=== PATIENT | female | born 1935 | race Caucasian/White ===

== ENCOUNTER 2016-11-07 14:05 | Emergency (ER) | payer MEDICARE ==
[2016-11-07 14:41] VITALS: BP 143/66
--- NOTE | 2016-11-07 16:04 | UC ---
Complaint Female HPI - HPI Summary HPI Summary: TWO DAYS OF BURNING WITH URINATION, NO FEVER, NO ABDOMINAL PAIN, NO BACK PAIN - History Of Current Complaint Chief Complaint: UCGU Stated Complaint: URINARY ISSUE Time Seen by Provider: 11/07/16 15:01 Hx Obtained From: Patient Onset/Duration: Gradual Onset, Lasting Days, Still Present Timing: Lasting Days Severity Initially: Mild Severity Currently: Mild Pain Intensity: 3 Pain Scale Used: 0-10 Numeric Character: Dull, Burning Aggravating Factor(s): Urination Associated Signs And Symptoms: Negative: Fever, Back Pain, Vaginal Bleeding/ Discharge, Vaginal Discharge, Nausea, Vomiting(# Of Episodes =) Related Hx: Similar Episode/Dx as: - SEVERAL YEARS AGO UTI - Allergies/Home Medications Allergies/Adverse Reactions: Allergies Allergy/AdvReac Type Severity Reaction Status Date / Time Morphine Allergy BLOOD Verified 08/15/16 16:32 PRESSURE DROPPED VERY LOW PMH/Surg Hx/FS Hx/Imm Hx Previously Healthy: Yes Endocrine History Of: Denies: Diabetes, Thyroid Disease Cardiovascular History Of: Reports: Hypertension - CONTROL WITH MEDS Denies: Cardiac Disorders, Pacemaker/ICD Respiratory History Of: Denies: COPD, Asthma GI/ History Of: Denies: Ulcer Psychological History Of: Reports: Anxiety - CONTROL WITH MEDS, Depression Cancer History Of: Denies: Breast Cancer - Surgical History Surgical History: Yes Surgery Procedure, Year, and Place: VAGINAL HYSTERECTOMY 1987; [facility] [place]. Left Knee Arthroscopy;. Cataract Surgery, [facility] [place]. 2012 & 2015 BILATERAL TOTAL KNEE REPLACEMENTS, [facility] [place]. 2010 BILATERAL CARPAL TUNNEL RELEASE, [facility] [place]. Gallbladder - Family History Known Family History: Negative: Renal Disease Family History: Father had pancreatic cancer. - Social History Occupation: Retired Lives: With Family Alcohol Use: Occasionally Substance Use Type: None Smoking Status (MU): Never Smoked Tobacco - Immunization History Most Recent Influenza Vaccination: July, Most Recent Tetanus Shot: 2012 Most Recent Pneumonia Vaccination: 10 yrs ago Review of Systems Constitutional: Negative Skin: Negative Eyes: Negative ENT: Negative Respiratory: Negative Cardiovascular: Negative Gastrointestinal: Negative Genitourinary: Dysuria, Hematuria, Frequency, Urgency Motor: Negative Neurovascular: Negative Musculoskeletal: Negative Neurological: Negative Psychological: Negative All Other Systems Reviewed And Are Negative: Yes Physical Exam Triage Information Reviewed: Yes Appearance: Well-Appearing, No Pain Distress, Well-Nourished Vital Signs: Initial Vital Signs Temp 98.1 F 11/07/16 14:38 Pulse 83 11/07/16 14:38 Resp 18 11/07/16 14:38 BP 143/66 11/07/16 14:38 Pulse Ox 98 11/07/16 14:38 Vital Signs Reviewed: Yes Eye Exam: Normal Eyes: Positive: Conjunctiva Clear ENT Exam: Normal ENT: Positive: Normal ENT inspection, Hearing grossly normal, Pharynx normal, TMs normal Dental Exam: Normal Neck exam: Normal Neck: Positive: Supple, Nontender Respiratory Exam: Normal Respiratory: Positive: Chest non-tender, Lungs clear, Normal breath sounds, No respiratory distress, No accessory muscle use Cardiovascular Exam: Normal Cardiovascular: Positive: RRR, No Murmur, Pulses Normal, Brisk Capillary Refill Abdominal Exam: Normal Abdomen Description: Positive: Nontender. Negative: CVA Tenderness (R), CVA Tenderness (L) Musculoskeletal Exam: Normal Neurological Exam: Normal Psychological Exam: Normal Psychological: Positive: Normal Response To Family Skin Exam: Normal Complaint Female Dx - Differential Dx/Diagnosis Differential Diagnosis/HQI/PQRI: Cervicitis, Sexually Transmitted Disease, Urinary Tract Infection Provider Diagnoses: URINARY TRACT INFECTION Discharge - Discharge Plan Condition: Stable Disposition: HOME Prescriptions: Phenazopyridine TAB* [Pyridium TAB*] 100 mg PO TID #15 tab Sulfamethox/Trimethoprim DS* [Bactrim DS 800/160 TAB*] 1 tab PO BID #10 tab Patient Education Materials: Urinary Tract Infection in Women (ED) Referrals: Ross Monte MD [Primary Care Provider] -
== END 2016-11-07 15:29 | disposition home or self-care (01) ==
LOC: UCEAST 14:05
DX: N39.0 Urinary tract infection, site not specified (principal); R31.9 Hematuria, unspecified; Z88.5 Allergy status to narcotic agent; Z96.653 Presence of artificial knee joint, bilateral; Z90.49 Acquired absence of other specified parts of digestive tract
CPT/HCPCS: 81002; 87077; 87086; 87186; 99212; G0463

== ENCOUNTER 2017-05-13 09:30 | Emergency (ER) | payer MEDICARE ==
[2017-05-13 10:02] LABS: Hematocrit 41 % (35-47); Hemoglobin 13.8 g/dl (12.0-16.0); Mean Corpuscular HGB Conc 34 g/dl (31-36); Mean Corpuscular Hemoglobin 30 pg (27-31); Mean Corpuscular Volume 89 fL (80-97); Mean Platelet Volume 10 um3 (7.4-10.4); Red Blood Count 4.55 10^6/ul (4.0-5.4); Red Cell Distribution Width 14 % (10.5-15); White Blood Count 7.8 10^3/ul (3.5-10.8)
[2017-05-13] MEDS ORDERED: NS 0.9% 1000 ML* 1,000 ML IV ONE (10:56)
[2017-05-13] MEDS ORDERED: Meclizine TAB* 12.5 MG PO ONE ×2 (10:57→12:01)
[2017-05-13] MEDS ORDERED: Ondansetron INJ* 2 MG/ML VIAL IV ONE (10:57)
[2017-05-13 11:18] LABS: TSH (Thyroid Stimulating Horm) 1.62 mcIU/mL (0.34-5.60)
[2017-05-13 11:24] LABS: Urine Bacteria Absent (Absent); Urine Bilirubin Negative (Negative); Urine Glucose Negative (Negative); Urine Nitrite Negative (Negative)
[2017-05-13 11:26] LABS: Potassium 3.8 mmol/L (3.5-5.0)
[2017-05-13 11:27] LABS: Albumin 4.2 g/dL (3.2-5.2); BUN/Creatinine Ratio 25.3 (8-20); Calcium 9.1 mg/dL (8.6-10.3); EGFR African American 84.9 (>60); Globulin 2.8 g/dL (2-4); Total Bilirubin 0.8 mg/dL (0.2-1.0)
[2017-05-13] MEDS ORDERED: LORazepam INJ* 2 MG/ML 1 ML VIAL IV PUSH ONE (12:02)
[2017-05-13 13:24] VITALS: BP 149/70
--- NOTE | 2017-05-13 14:46 | ED ---
Bc Rubio Alfonso, scribed for Hossein Mazariegos MD on 05/13/17 at 1046 . Dizziness - HPI Summary HPI Summary: This patient is an 81 year old female presenting to [facility] accompanied by daughter with a chief complaint of dizziness since 0600 this morning. The CC is described as room spinning. The patient rates the pain 0/10 in severity. Symptoms aggravated by position change. Symptoms alleviated by nothing. Patient reports nausea, vomiting, diaphoresis, generalized weakness, sinus congestion, and mild ear ringing. Patient denies headache, slurred speech, extremity numbness, extremity tingling, CP, SOB, abdominal pain, urinary symptoms, bowel symptoms, calf pain, and calf swelling. She reports having similar symptoms before related to her seasonal allergies, but the symptoms did not persisted as long. She denies recent illness. She denies taking daily aspirin. She denies PMHx of CAD, CVA, A-Fib, and DM. PMHx includes HTN, HLD, depression, and anxiety. - History Of Current Complaint Chief Complaint: EDSyncope Stated Complaint: VOMITING, DIZZY Time Seen by Provider: 05/13/17 10:25 Hx Obtained From: Patient Onset/Duration: Still Present Timing: Hours - 0600 this morning Severity Initially: Moderate Severity Currently: Moderate Character: Room Spinning Aggravating Factor(s): Position Change Alleviating Factor(s): Nothing Associated Signs And Symptoms: Positive: Other: - Nausea, vomiting, diaphoresis , generalized weakness, sinus congestion, and mild ear ringing. Patient denies headache, slurred speech, extremity numbness, extremity tingling, CP, SOB, abdominal pain, urinary symptoms, bowel symptoms, calf pain, and calf swelling. - Allergies/Home Medications Allergies/Adverse Reactions: Allergies Allergy/AdvReac Type Severity Reaction Status Date / Time Morphine Allergy BLOOD Verified 05/13/17 09:38 PRESSURE DROPPED VERY LOW PMH/Surg Hx/FS Hx/Imm Hx Endocrine/Hematology History: Denies: Hx Diabetes, Hx Sickle Cell Disease, Hx Thyroid Disease Cardiovascular History: Reports: Hx Hypercholesterolemia, Hx Hypertension - CONTROL WITH MEDS Denies: Hx Atrial Fibrillation, Hx Coronary Artery Disease, Hx Pacemaker/ICD , Other Cardiovascular Problems/Disorders Respiratory History: Reports: Hx Seasonal Allergies, Hx Sleep Apnea Denies: Hx Asthma, Hx Chronic Obstructive Pulmonary Disease (COPD), Other Respiratory Problems/Disorders GI History: Reports: Hx Diverticulosis, Hx Gastroesophageal Reflux Disease - CONTROL WITH MED, Hx Hiatal Hernia Denies: Hx Ulcer History: Denies: Other Problems/Disorders Musculoskeletal History: Reports: Hx Arthritis - GENERALIZED Denies: Other Musculoskeletal History Sensory History: Reports: Hx Cataracts - had sx, Hx Contacts or Glasses - GLASSES FOR READING, Other Sensory Impairments - Vertigo secondary to Eustachian Tube Dysfunction Denies: Hx Hearing Aid Opthamlomology History: Reports: Hx Cataracts - had sx, Hx Contacts or Glasses - GLASSES FOR READING, Other Sensory Impairments - Vertigo secondary to Eustachian Tube Dysfunction Neurological History: Reports: Other Neuro Impairments/Disorders - RESTLESS LEG SYNDROME Denies: Hx CVA Psychiatric History: Reports: Hx Anxiety - CONTROL WITH MEDS, Hx Depression Denies: Hx Panic Disorder - Cancer History Hx Chemotherapy: No Hx Radiation Therapy: No - Surgical History Surgery Procedure, Year, and Place: VAGINAL HYSTERECTOMY 1987; [facility] [place]. Left Knee Arthroscopy;. Cataract Surgery, [facility] [place]. 2012 & 2015 BILATERAL TOTAL KNEE REPLACEMENTS, [facility] [place]. 2009 BILATERAL CARPAL TUNNEL RELEASE, [facility] [place]. Gallbladder Hx Anesthesia Reactions: No Infectious Disease History: No Infectious Disease History: Denies: Hx Hepatitis, Hx Human Immunodeficiency Virus (HIV), History Other Infectious Disease, Traveled Outside the [place] in Last 30 Days - Family History Known Family History: Positive: Cardiac Disease Negative: Renal Disease Family History: Father had pancreatic cancer. - Social History Alcohol Use: Occasionally Substance Use Type: Reports: None Smoking Status (MU): Never Smoked Tobacco Review of Systems Positive: Skin Diaphoresis Positive: Other - sinus congestion, and mild ear ringing Negative: Chest Pain Negative: Shortness Of Breath Positive: Vomiting, Nausea, Other - Negative bowel symptoms.. Negative: Abdominal Pain Positive: no symptoms reported Positive: Other - Negative calf pain, and calf swelling Neurological: Other - Dizziness, generalized weakness; negative headache, slurred speech, extremity numbness, extremity tingling. All Other Systems Reviewed And Are Negative: Yes Physical Exam - Summary Physical Exam Summary: The patient is well-nourished in no acute distress and in no acute pain. The skin is warm and dry and skin color reflects adequate perfusion. Good skin turgor. HEENT: The head is normocephalic and atraumatic. The pupils are equal and reactive. EOMI. Horizontal nystagmus. The conjunctivae are clear and without drainage. Nares are patent and without drainage. No rhinorrhea. Mouth reveals dry mucous membranes and the throat is without erythema and exudate. The external ears are intact. The ear canals are patent and without drainage. The tympanic membranes are intact. No ear effusions. Neck is supple with full range of motion and non-tender. There are no carotid bruits. There is no neck vein distension. Respiratory: Chest is non-tender. Lungs are clear to auscultation and breath sounds are symmetrical and equal. When patient sat up to auscultate the lungs the symptoms were present. Cardiovascular: Heart is regular rate and rhythm. There is no murmur or rub auscultated. Pulses are symmetrical and equal. Abdomen: The abdomen is soft and non-tender. There are normal bowel sounds heard in all four quadrants and there is no organomegaly palpated. Musculoskeletal: There is no back pain noted. Extremities are non-tender with full range of motion. There is 2 second capillary refill. There is no peripheral edema or calf tenderness elicited. Neurological: Patient is alert and oriented to person, place and time. The patient has symmetrical motor strength in all four extremities. Cranial nerves 2 -12 are grossly intact. Deep tendon reflexes are symmetrical and equal in all four extremities. No facial droop. Psychiatric: The patient has an appropriate affect and does not exhibit any anxiety or depression. Triage Information Reviewed: Yes Vital Signs On Initial Exam: Initial Vitals Temp Pulse Resp BP Pulse Ox 96 F 67 18 187/89 99 05/13/17 09:38 05/13/17 09:38 05/13/17 09:38 05/13/17 09:38 05/13/17 09:38 Vital Signs Reviewed: Yes - Cortney Coma Scale Coma Scale Total: 15 Diagnostics - Vital Signs Vital Signs Temp Pulse Resp BP Pulse Ox 05/13/17 10:30 67 144/65 94 05/13/17 10:00 72 142/74 97 05/13/17 09:53 98 05/13/17 09:49 96 F 71 18 160/65 98 05/13/17 09:48 71 10 98 05/13/17 09:46 160/65 05/13/17 09:38 96 F 67 18 187/89 99 - Laboratory Lab Results: Lab Results 05/13/17 Range/Units 09:51 WBC 7.8 (3.5-10.8) 10^3/ul RBC 4.55 (4.0-5.4) 10^6/ul Hgb 13.8 (12.0-16.0) g/dl Hct 41 (35-47) % MCV 89 (80-97) fL MCH 30 (27-31) pg MCHC 34 (31-36) g/dl RDW 14 (10.5-15) % Plt Count 150 (150-450) 10^3/ul MPV 10 (7.4-10.4) um3 Neut % (Auto) 70.2 (38-83) % Lymph % (Auto) 21.9 L (25-47) % Eddy % (Auto) 6.0 (1-9) % Eos % (Auto) 1.4 (0-6) % Baso % (Auto) 0.5 (0-2) % Absolute Neuts (auto) 5.5 (1.5-7.7) 10^3/ul Absolute Lymphs (auto) 1.7 (1.0-4.8) 10^3/ul Absolute Monos (auto) 0.5 (0-0.8) 10^3/ul Absolute Eos (auto) 0.1 (0-0.6) 10^3/ul Absolute Basos (auto) 0 (0-0.2) 10^3/ul Absolute Nucleated RBC 0 10^3/ul Nucleated RBC % 0 Result Diagrams: 05/13/17 09:51 05/13/17 09:51 Lab Statement: Any lab studies that have been ordered have been reviewed, and results considered in the medical decision making process. - EKG 1008 Cardiac Rate: NL - BPM 68 EKG Rhythm: Sinus Rhythm EKG Interpretation: Left axis. No STEMI. Re-Evaluation - Re-Evaluation First Eval Re-Evaluation Time: 11:58 Comment: Patient reports she has a headache. Lab results reviewed with pt and daughter. Second Eval Re-Evaluation Time: 13:10 Change: Improved Comment: Pt reports she is feeling much better. Dizzy Course/Dx - Course Assessment/Plan: This patient is an 81 year old female presenting to [facility] accompanied by daughter with a chief complaint of dizziness since 0600 this morning. The CC is described as room spinning. The patient rates the pain 0/10 in severity. Symptoms aggravated by position change. Symptoms alleviated by nothing. Patient reports nausea, vomiting, diaphoresis, generalized weakness, sinus congestion, and mild ear ringing. Patient denies headache, slurred speech , extremity numbness, extremity tingling, CP, SOB, abdominal pain, urinary symptoms, bowel symptoms, calf pain, and calf swelling. She reports having similar symptoms before related to her seasonal allergies, but the symptoms did not persisted as long. She denies recent illness. She denies taking daily aspirin. She denies PMHx of CAD, CVA, A-Fib, and DM. PMHx includes HTN, HLD, depression, and anxiety. An EKG reveals NSR and left axis. In the ED course the patient was given Ativan, Meclizine, Zofran, and IV fluids. Patient will be discharged with prescription for Ativan and follow up from Dr. Starkey (PCP). The patient is agreeable with this plan. - Diagnoses Differential Diagnosis/HQI/PQRI: Coronary Artery Disease, CVA, Hypovolemia, Labyrinthitis, Metabolic Abnormality, Other - uti, dehydration Provider Diagnoses: Labyrinthitis, Vertigo Discharge - Discharge Plan Condition: Stable Disposition: HOME Prescriptions: LORazepam TAB(*) [Ativan 1 MG TAB (*)] 1 mg PO Q8H PRN #20 tab MDD 3 PRN Reason: dizziness Patient Education Materials: Labyrinthitis (ED), Vertigo (ED) Referrals: Alecia Starkey MD [Medical Doctor] - 3 Days The documentation as recorded by the Bc donovan Alfonso accurately reflects the service I personally performed and the decisions made by me, Hossein Mazariegos MD.
--- NOTE | 2017-05-17 15:29 | ED ---
Progress - Progress Note Progress Note: Pt seen for vertigo. U/A reveals no growth. No anbx initiated. No change in tx. Re-Evaluation - Re-Evaluation First Eval Re-Evaluation Time: 11:58 Comment: Patient reports she has a headache. Lab results reviewed with pt and daughter. Second Eval Re-Evaluation Time: 13:10 Change: Improved Comment: Pt reports she is feeling much better. Course/Dx - Diagnoses Provider Diagnoses: Labyrinthitis, Vertigo
== END 2017-05-13 13:26 | disposition home or self-care (01) ==
LOC: ED 09:30
DX: H83.09 Labyrinthitis, unspecified ear (principal); R42 Dizziness and giddiness
CPT/HCPCS: 36415; 80053; 81003; 81015; 83605; 83735; 84443; 84484; 85025; 87077; 87086; 93005; 96374; 96375; 99283; A9270-GY; J2060; J2405

== ENCOUNTER 2017-08-25 12:37 | Emergency (ER) | payer MEDICARE ==
[2017-08-25 13:07] VITALS: BP 122/66
--- NOTE | 2017-08-25 14:24 | UC ---
Carlos Rubio Gabriel, scribed for John Lopez MD on 08/25/17 at 1402 . Ear Complaint HPI - HPI Summary HPI Summary: This patient is a 81 year old F presenting to [facility] with a chief complaint of difficulty hearing on her left side beginning 3 days ago. The patient rates the pain 2/10 in severity. Patient reports fluid draining from ear (1 day ago) and tenderness. - History of Current Complaint Chief Complaint: UCEar Stated Complaint: LEFT EAR LEAKING Time Seen by Provider: 08/25/17 13:48 Hx Obtained From: Patient Onset/Duration: Lasting Days - 3, Still Present Severity Initially: Mild Severity Currently: Mild Pain Intensity: 2 Pain Scale Used: 0-10 Numeric Associated Signs/Symptoms: Positive: Discharge, Hearing Loss - Allergies/Home Medications Allergies/Adverse Reactions: Allergies Allergy/AdvReac Type Severity Reaction Status Date / Time Morphine Allergy BLOOD Verified 05/13/17 09:38 PRESSURE DROPPED VERY LOW PMH/Surg Hx/FS Hx/Imm Hx Previously Healthy: No - Surgical History Surgical History: Yes Surgery Procedure, Year, and Place: VAGINAL HYSTERECTOMY 1987; [facility] [place]. Left Knee Arthroscopy;. Cataract Surgery, [facility] [place]. 2012 & 2015 BILATERAL TOTAL KNEE REPLACEMENTS, [facility] [place]. 2009 BILATERAL CARPAL TUNNEL RELEASE, [facility] [place]. Gallbladder - Family History Known Family History: Positive: Cardiac Disease, Other - CVA's Negative: Renal Disease Family History: Father had pancreatic cancer. 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 Lives: With Family Alcohol Use: Occasionally Substance Use Type: None Smoking Status (MU): Never Smoked Tobacco - Immunization History Most Recent Influenza Vaccination: July, Most Recent Tetanus Shot: 2012 Most Recent Pneumonia Vaccination: 10 yrs ago Review of Systems Constitutional: Negative - fever ENT: Ear Ache, Other - ear discharge and ear tenderness in left ear All Other Systems Reviewed And Are Negative: Yes Physical Exam Triage Information Reviewed: Yes Appearance: Well-Appearing, No Pain Distress Vital Signs: Initial Vital Signs Temp 98.3 F 08/25/17 13:02 Pulse 78 08/25/17 13:02 Resp 18 08/25/17 13:02 BP 122/66 08/25/17 13:02 Pulse Ox 96 08/25/17 13:02 Vital Signs Reviewed: Yes Eyes: Positive: Conjunctiva Clear ENT: Positive: Normal ENT inspection, Pharynx normal, TM dull - left, TM red - left, Other - left external canal inferiorly with erythema and some exudate.. Negative: Nasal congestion, Muffled voice, Hoarse voice Neck exam: Normal Neck: Positive: Nontender, No Lymphadenopathy Respiratory: Positive: Lungs clear, Normal breath sounds Cardiovascular: Positive: RRR, No Murmur Abdomen Description: Positive: Nontender Musculoskeletal: Positive: ROM Intact Neurological: Positive: Alert, Muscle Tone Normal Psychological: Positive: Normal Response To Family Skin Exam: Normal Ear Complaint Course/Dx - Course Course Of Treatment: 81 yr old with left OM and Otitis externa Plan augmentin and cortisporin otic suspension fu with PMD - Differential Dx/Diagnosis Provider Diagnoses: otitis externa. otitis media Discharge - Discharge Plan Condition: Good Disposition: HOME Prescriptions: Amoxicillin/Clavulanate TAB* [Augmentin TAB 875*] 875 mg PO BID #20 tab Neomyc/Polym/HC 1% OTIC SUSP* [Cortisporin Otic Susp 1%*] 4 drop LEFT EAR QID # 1 btl Patient Education Materials: Otitis Externa (ED), Otitis Media (ED) Referrals: Ross Monte MD [Primary Care Provider] - The documentation as recorded by the Carlos donovan Gabriel accurately reflects the service I personally performed and the decisions made by , John Lopez MD.
== END 2017-08-25 14:20 | disposition home or self-care (01) ==
LOC: UCEAST 12:37
DX: H60.92 Unspecified otitis externa, left ear (principal); H66.92 Otitis media, unspecified, left ear; Z88.5 Allergy status to narcotic agent
CPT/HCPCS: 99212; G0463

== ENCOUNTER 2018-01-02 11:27 | Emergency (ER) | payer MEDICARE ==
[2018-01-02 11:40] VITALS: BP 192/94
--- NOTE | 2018-01-02 12:25 | UC ---
Jonathan Rubio Thomas, scribed for John Gomez MD on 01/02/18 at 1149 . Abdominal Pain Female HPI - HPI Summary HPI Summary: The patient is an 82 year old female who presents to urgent care complaining of RUQ and LUQ abdominal pain. It is associated with nausea and vomiting. The pain is rated 8-9/10. The pain does not radiate. She has not been able to eat because of nausea and vomiting. She took two ciprofloxacin pills last night thinking that she had diverticulitis, but her symptoms worsened. - History of Current Complaint Chief Complaint: UCAbdominalPain Stated Complaint: ABD PAIN Hx Obtained From: Patient Onset/Duration: Lasting Days - 1, Still Present, Worse Since - this AM Timing: Constant Severity Currently: Severe Pain Intensity: 8 Pain Scale Used: 0-10 Numeric Location: Discrete At: RUQ, Discrete At: LUQ Radiates: No Aggravating Factor(s): Nothing Alleviating Factor(s): Nothing Associated Signs and Symptoms: Positive: Nausea, Vomiting. Negative: Fever Allergies/Adverse Reactions: Allergies Allergy/AdvReac Type Severity Reaction Status Date / Time No Known Allergies Allergy Verified 01/02/18 11:41 Home Medications: Home Medications Ciprofloxacin TAB* [Cipro 500 MG TAB*] 500 mg PO BID 01/02/18 [History Confirmed 01/02/18] PARoxetine HCL TAB* [Paxil TAB*] 20 mg PO DAILY 01/02/18 [History Confirmed ] Pantoprazole TAB (NF) [Protonix TAB (NF)] 20 mg PO DAILY 01/02/18 [History Confirmed 01/02/18] Simvastatin [Zocor] 40 mg PO DAILY 01/02/18 [History Confirmed 01/02/18] PMH/Surg Hx/FS Hx/Imm Hx Previously Healthy: No - HTN, GERD, Diverticulitis - Surgical History Surgical History: Yes Surgery Procedure, Year, and Place: cholecystectomy, bilat. knee replacemants, cataracts, carpal tunnel - Family History Known Family History: Positive: Cardiac Disease, Other - CVAs Negative: Renal Disease Family History: Father had pancreatic cancer. - Social History Alcohol Use: Rare Substance Use Type: None Smoking Status (MU): Never Smoked Tobacco - Immunization History Most Recent Influenza Vaccination: July, Most Recent Tetanus Shot: 2012 Most Recent Pneumonia Vaccination: 10 yrs ago Review of Systems Constitutional: Negative - fever Gastrointestinal: Abdominal Pain, Vomiting, Nausea Is Patient Immunocompromised?: No All Other Systems Reviewed And Are Negative: Yes Physical Exam - Summary Physical Exam Summary: VITAL SIGNS: Reviewed. GENERAL: Patient is an elderly female who is lying comfortable in the stretcher. Patient is not in any acute respiratory distress. HEAD AND FACE: Normocephalic EYES: PERRLA, EOMI x 2. EARS: Hearing grossly intact. MOUTH: Oropharynx within normal limits. NECK: Supple, trachea is midline, no adenopathy, no JVD, no carotid bruit. CHEST: Symmetric, no tenderness at palpation LUNGS: Clear to auscultation bilaterally. No wheezing or crackles. CVS: Regular rate and rhythm, S1 and S2 present, no murmurs or gallops appreciated. ABDOMEN: Soft. She has diffuse abdominal tenderness, worse in the RUQ, LUQ, and periumbilical area. Bowel sounds are normal. No abdominal abnormal pulsations. EXTREMITIES: Full ROM in all major joints, no edema, no cyanosis or clubbing. NEURO: Alert and oriented x 3. No acute neurological deficits. Speech is normal and follows commands. SKIN: Dry and warm Triage Information Reviewed: Yes Vital Signs: Initial Vital Signs Temp 98.2 F 01/02/18 11:34 Pulse 91 01/02/18 11:34 Resp 16 01/02/18 11:34 BP 192/94 01/02/18 11:34 Pulse Ox 99 01/02/18 11:34 Vital Signs Reviewed: Yes Abd Pain Female Course/Dx - Course Course Of Treatment: The patient is an 82 year old female who presents to urgent care complaining of RUQ and LUQ abdominal pain. It is associated with nausea and vomiting. The pain is rated 8-9/10. The pain does not radiate. She has not been able to eat because of nausea and vomiting. She took two ciprofloxacin pills last night thinking that she had diverticulitis, but her symptoms worsened. Now she is with worse pain and having nausea and vomiting. She has diffuse abdominal tenderness, worse in the RUQ, LUQ, and periumbilical area. Patient needs further w/u in the ED. I will send the patient to the emergency department for further workup and management. I offered the patient an ambulance, but she declined the ambulance. - Differential Dx/Diagnosis Provider Diagnoses: Abdominal pain, Nausea and vomiting - Physician Notification/Consults Discussed Care of Patient With: Su Catherine Time Discussed With Above Provider: 12:00 Instructed by Provider To: Transfer - I discussed the case with Su RICE , and she is aware of the incoming patient to [facility] ED. Discharge - Sign-Out/Discharge Documenting (check all that apply): Discharge - The patient is discharged from urgent care and instructed to go immediately to [facility] ED. - Discharge Plan Condition: Stable Disposition: [facility] Discharge Disposition Comment: Discharged from urgent care, instructed to go to [facility] ED immediately. Patient Education Materials: Abdominal Pain (ED) Referrals: Alecia Starkey MD [Primary Care Provider] - Additional Instructions: Patient discharge to the ED for further assessment. Declined ambulance. The documentation as recorded by the Jonathan donovan Thomas accurately reflects the service I personally performed and the decisions made by Jason muse Walter, MD.
== END 2018-01-02 11:59 | disposition short-term general hospital (02) ==
LOC: UCEAST 11:27
DX: R10.11 Right upper quadrant pain (principal); R10.12 Left upper quadrant pain; R11.2 Nausea with vomiting, unspecified; I10 Essential (primary) hypertension; K21.9 Gastro-esophageal reflux disease without esophagitis; K57.92 Diverticulitis of intestine, part unspecified, without perforation or abscess without bleeding; Z96.653 Presence of artificial knee joint, bilateral
CPT/HCPCS: 99212; G0463

== ENCOUNTER 2018-01-02 12:18 | Inpatient (IN) | payer MEDICARE ==
[2018-01-02] MEDS ORDERED: NS 0.9% 1000 ML* 1,000 ML IV ONE (12:37)
[2018-01-02 13:10] LABS: ABS Basophils 0 10^3/ul (0-0.2); ABS Eosinophils 0 10^3/ul (0-0.6); ABS Lymphocytes 1.3 10^3/ul (1.0-4.8); ABS Nucleated RBC 0 10^3/ul; Eosinophil % 0 % (0-6); Hematocrit 44 % (35-47); Hemoglobin 14.6 g/dl (12.0-16.0); Mean Corpuscular HGB Conc 33 g/dl (31-36); Mean Corpuscular Hemoglobin 30 pg (27-31); Mean Corpuscular Volume 89 fL (80-97); Mean Platelet Volume 9.6 um3 (7.4-10.4); Nucleated Red Blood Cells % 0; Platelet Count 176 10^3/ul (150-450); Red Blood Count 4.92 10^6/ul (4.0-5.4); Red Cell Distribution Width 14 % (10.5-15); White Blood Count 14.4 10^3/ul (3.5-10.8)
[2018-01-02 13:28] LABS: EGFR Non-African American 58.4 (>60)
[2018-01-02 13:35] LABS: INR 1.01 (0.77-1.02)
[2018-01-02] MEDS ORDERED: Ondansetron INJ* 2 MG/ML VIAL IV ONE (13:49)
[2018-01-02] MEDS ORDERED: Morphine VIAL* 4 MG/ML VIAL (1 ml vial) IV ONE (13:49)
[2018-01-02 14:06] LABS: Urine Appearance Clear; Urine Blood Negative (Negative); Urine Color Yellow; Urine Ketones Trace (Negative); Urine Protein Negative (Negative); Urine Specific Gravity 1.021 (1.010-1.030); Urine Urobilinogen Negative (Negative)
[2018-01-02] MEDS ORDERED: Iodixanol* (CONTRAST) 320 MG/ML 100 ML SDV IV ONE (15:13)
--- NOTE | 2018-01-02 15:47 | RAD ---
INDICATION: Right lower quadrant pain. Left upper quadrant pain. Diverticulitis. COMPARISON: CT abdomen pelvis August 03, 2016 TECHNIQUE: Axial source images were obtained from the hemidiaphragms to the symphysis pubis following administration of oral and intravenous contrast. 100 mL Visipaque 320 was utilized. Coronal and sagittal reconstructed images were acquired. Lung bases: The lung bases are clear. Liver: The liver is normal in size. There are no masses. There is no ductal dilatation. Gallbladder: Cholecystectomy. Spleen: The spleen is normal in size. There are no masses. Pancreas: There is no focal pancreatic mass or ductal dilatation. There are several small calcifications involving CAD Adrenal glands: There is no evidence of adrenal mass. Kidneys: The kidneys are normal in size and position. There are prompt nephrograms and there is prompt excretion bilaterally. There are no renal parenchymal masses. There is no evidence of nephrolithiasis. Adenopathy: There is no evidence of adenopathy by size criteria. Fluid collections: There is a small amount of peripancreatic stranding. Vessels:There are atherosclerotic changes involving the aorta and iliac vessels. There is no focal aneurysm. The IVC appears normal. GI tract: There is a small to moderate-sized hiatal hernia. The upper GI tract is otherwise unremarkable. There are moderate diverticula of the sigmoid and descending colon but no CT findings specific for acute diverticulitis. There are no findings of obstruction or perforation. Pelvic organs: Atrophic uterus. No adnexal mass Bladder: There are no bladder masses. Abdominal and pelvic soft tissues: Tiny periumbilical hernia containing fat. Osseous structures: Spondylitic change of the thoracolumbar spine with a grade 1-2 anterolisthesis of L4 and L4 on L5. Other: None IMPRESSION: 1. Interval cholecystectomy. 2. Calcifications in the pancreatic head consistent with chronic pancreatitis. There is now small amount of peripancreatic stranding which suggests acute pancreatitis. Suggest correlation with serum lipase. 3. Small to moderate hiatal hernia. 4. Moderate diverticula. No CT evidence of acute diverticulitis.
[2018-01-02] MEDS ORDERED: Fluticasone NASAL SPRAY 50MCG* 16 gm SPRAY BTL BOTH NARES PRN (16:26)
[2018-01-02] MEDS ORDERED: Morphine VIAL* 4 MG/ML VIAL (1 ml vial) IV PRN (16:27)
[2018-01-02] MEDS ORDERED: Acetaminophen TAB* 325 MG PO PRN (16:27)
[2018-01-02] MEDS ORDERED: Magnesium Sulfate 2 GM IV* 2 GM/50 ML BAG IVPB ONE (17:00)
[2018-01-02] MEDS ORDERED: NS 0.9% w/ 20 Meq KCL 1000 ML* 1,000 ML IV SCH (17:00)
[2018-01-02] MEDS: Ondansetron INJ* 2 MG/ML VIAL IV PRN (17:13)
[2018-01-02] MEDS: Lisinopril TAB* 10 MG PO SCH (18:02)
--- NOTE | 2018-01-02 18:52 | ED ---
Eddie Rubio Julia, scribed for Yoli Quinones MD on 01/02/18 at 1254 . Abdominal Pain/Female - HPI Summary HPI Summary: This patient is a 82 year old F presenting to [facility] from with a chief complaint of RUQ abdominal pain with shaking since 2100 last night. She states current pain is more diffuse. Patient reports headache and one bout of vomiting at . Patient denies current nausea, fever, CP, and SOB. The patient rates the pain 7/10 in severity. Symptoms unchanged by belching and flatulence. She took 2x 500mg Ciprofloxacin last night and one 500mg Cipro this morning with no relief, thinking it might be diverticulitis. Pt states her PCP has given her this Rx to use for possible diverticulitis when she travels, so she tried it last pm. PMHx includes frequent diverticulitis and HTN. She states that she did not have her regular Lisinopril today. Medication list reviewed. Pt refuses nausea meds but requests pain meds. Pt states her father with pancreatic CA. Pt has seen Dr. Montana from GI in the past. - History of Current Complaint Chief Complaint: EDAbdPain Stated Complaint: ABD PAIN-SENT FROM Time Seen by Provider: 01/02/18 12:35 Hx Obtained From: Patient Onset/Duration: Sudden Onset, Lasting Hours, Still Present Timing: Constant Severity Initially: Moderate Severity Currently: Moderate Pain Intensity: 7 Pain Scale Used: 0-10 Numeric Location: Diffuse, Discrete At: RUQ, Discrete At: LUQ Radiates: No Character: Sharp Aggravating Factor(s): Nothing Alleviating Factor(s): Nothing Associated Signs and Symptoms: Positive: Vomiting, Other: - headache. Negative : Fever, Chest Pain, Urinary Symptoms, Nausea Allergies/Adverse Reactions: Allergies Allergy/AdvReac Type Severity Reaction Status Date / Time No Known Allergies Allergy Verified 01/02/18 11:41 Home Medications: Home Medications Fexofenadine (NF) [Barb 180 (NF)] 180 mg PO DAILY PRN 01/02/18 [History Confirmed 01/02/18] Simvastatin (NF) [Zocor (NF)] 40 mg PO DAILY 01/02/18 [History Confirmed ] PMH/Surg Hx/FS Hx/Imm Hx Previously Healthy: No Endocrine/Hematology History: Denies: Hx Diabetes, Hx Sickle Cell Disease, Hx Thyroid Disease Cardiovascular History: Reports: Hx Hypercholesterolemia, Hx Hypertension Denies: Hx Atrial Fibrillation, Hx Coronary Artery Disease, Hx Pacemaker/ICD , Other Cardiovascular Problems/Disorders Respiratory History: Reports: Hx Seasonal Allergies, Hx Sleep Apnea Denies: Hx Asthma, Hx Chronic Obstructive Pulmonary Disease (COPD), Other Respiratory Problems/Disorders GI History: Reports: Hx Diverticulosis, Hx Gastroesophageal Reflux Disease, Hx Hiatal Hernia, Other GI Disorders - pancreatitis Denies: Hx Ulcer History: Denies: Other Problems/Disorders Musculoskeletal History: Reports: Hx Arthritis - GENERALIZED Denies: Hx Osteoporosis, Other Musculoskeletal History Sensory History: Reports: Hx Cataracts - had sx, Hx Contacts or Glasses - GLASSES FOR READING, Other Sensory Impairments - Vertigo secondary to Eustachian Tube Dysfunction Denies: Hx Hearing Aid Opthamlomology History: Reports: Hx Cataracts - had sx, Hx Contacts or Glasses - GLASSES FOR READING, Other Sensory Impairments - Vertigo secondary to Eustachian Tube Dysfunction Neurological History: Reports: Other Neuro Impairments/Disorders - RESTLESS LEG SYNDROME Denies: Hx CVA Psychiatric History: Reports: Hx Anxiety, Hx Depression Denies: Hx Panic Disorder - Cancer History Hx Chemotherapy: No Hx Radiation Therapy: No - Surgical History Surgery Procedure, Year, and Place: cholecystectomy, bilat. knee replacemants, cataracts, carpal tunnel Hx Anesthesia Reactions: No Infectious Disease History: No Infectious Disease History: Denies: Hx Hepatitis, Hx Human Immunodeficiency Virus (HIV), History Other Infectious Disease, Traveled Outside the [place] in Last 30 Days - Family History Known Family History: Positive: Cardiac Disease, Other - CVA's Negative: Renal Disease Family History: Father had pancreatic cancer. - Social History Alcohol Use: Rare Substance Use Type: Reports: None Smoking Status (MU): Never Smoked Tobacco Review of Systems Negative: Fever Negative: Chest Pain Negative: Shortness Of Breath Positive: Abdominal Pain, Vomiting. Negative: Nausea Positive: no symptoms reported Skin: Negative Positive: Headache Psychological: Normal All Other Systems Reviewed And Are Negative: Yes Physical Exam - Summary Physical Exam Summary: Appearance: Ill-appearing, mild pain distress, Well-nourished Skin: Warm, color reflects adequate perfusion Head: Normal Head/Face inspection Eyes: Conjunctiva clear ENT: Normal inspection Neck: Supple, no nodes, no JVD. Respiratory: Lungs clear, Normal breath sounds, no respiratory distress Cardio: Regular rhythm, tachycardic, No murmur, pulses normal, brisk capillary refill, Hypertensive at 161/81 Abdomen: soft, diffusely tender, no masses, no guarding, no rebound Bowel sounds: present Musculoskeletal: Strength Intact/ ROM intact. No calf tenderness. No edema. Psychological: Normal Neuro: Alert, muscle tone normal, no focal deficit Triage Information Reviewed: Yes Vital Signs On Initial Exam: Initial Vitals Temp Pulse Resp BP Pulse Ox 98.3 F 103 20 179/79 99 01/02/18 12:20 01/02/18 12:20 01/02/18 12:20 01/02/18 12:20 01/02/18 12:20 Vital Signs Reviewed: Yes Diagnostics - Vital Signs Vital Signs Temp Pulse Resp BP Pulse Ox 01/02/18 12:20 98.3 F 103 20 179/79 99 - Laboratory Lab Results: Lab Results 01/02/18 01/02/18 01/02/18 Range/Units 12:58 12:58 12:58 WBC (3.5-10.8) 10^3/ul RBC (4.0-5.4) 10^6/ul Hgb (12.0-16.0) g/dl Hct (35-47) % MCV (80-97) fL MCH (27-31) pg MCHC (31-36) g/dl RDW (10.5-15) % Plt Count (150-450) 10^3/ul MPV (7.4-10.4) um3 Neut % (Auto) (38-83) % Lymph % (Auto) (25-47) % Sac % (Auto) (0-7) % Eos % (Auto) (0-6) % Baso % (Auto) (0-2) % Absolute Neuts (auto) (1.5-7.7) 10^3/ul Absolute Lymphs (auto) (1.0-4.8) 10^3/ul Absolute Monos (auto) (0-0.8) 10^3/ul Absolute Eos (auto) (0-0.6) 10^3/ul Absolute Basos (auto) (0-0.2) 10^3/ul Absolute Nucleated RBC 10^3/ul Nucleated RBC % INR (Anticoag Therapy) 1.01 (0.77-1.02) APTT 31.5 (26.0-36.3) seconds Sodium 137 L (139-145) mmol/L Potassium 3.8 (3.5-5.0) mmol/L Chloride 103 (101-111) mmol/L Carbon Dioxide 24 (22-32) mmol/L Anion Gap 10 (2-11) mmol/L BUN 21 (6-24) mg/dL Creatinine 0.92 (0.51-0.95) mg/dL Est GFR ( Amer) 75.2 (>60) Est GFR (Non-Af Amer) 58.4 (>60) BUN/Creatinine Ratio 22.8 H (8-20) Glucose 130 H (70-100) mg/dL Lactic Acid (0.5-2.0) mmol/L Calcium 9.3 (8.6-10.3) mg/dL Magnesium 1.8 L (1.9-2.7) mg/dL Total Bilirubin 0.80 (0.2-1.0) mg/dL AST 21 (13-39) U/L ALT 19 (7-52) U/L Alkaline Phosphatase 81 (34-104) U/L Total Creatine Kinase 138 (10-223) U/L Troponin I 0.00 (<0.04) ng/mL C-Reactive Protein 18.63 H (< 5.00) mg/L B-Natriuretic Peptide 82 ( - 100) pg/mL Total Protein 7.4 (6.4-8.9) g/dL Albumin 4.4 (3.2-5.2) g/dL Globulin 3.0 (2-4) g/dL Albumin/Globulin Ratio 1.5 (1-3) Amylase 191 H (29-103) U/L Lipase 951 H (11.0-82.0) U/L Urine Color Urine Appearance Urine pH (5-9) Ur Specific Man (1.010-1.030) Urine Protein (Negative) Urine Ketones (Negative) Urine Blood (Negative) Urine Nitrate (Negative) Urine Bilirubin (Negative) Urine Urobilinogen (Negative) Ur Leukocyte Esterase (Negative) Urine Glucose (Negative) 01/02/18 01/02/18 01/02/18 Range/Units 12:58 12:58 13:49 WBC 14.4 H (3.5-10.8) 10^3/ul RBC 4.92 (4.0-5.4) 10^6/ul Hgb 14.6 (12.0-16.0) g/dl Hct 44 (35-47) % MCV 89 (80-97) fL MCH 30 (27-31) pg MCHC 33 (31-36) g/dl RDW 14 (10.5-15) % Plt Count 176 (150-450) 10^3/ul MPV 9.6 (7.4-10.4) um3 Neut % (Auto) 83.8 H (38-83) % Lymph % (Auto) 9.0 L (25-47) % Sac % (Auto) 6.9 (0-7) % Eos % (Auto) 0 (0-6) % Baso % (Auto) 0.3 (0-2) % Absolute Neuts (auto) 12.0 H (1.5-7.7) 10^3/ul Absolute Lymphs (auto) 1.3 (1.0-4.8) 10^3/ul Absolute Monos (auto) 1.0 H (0-0.8) 10^3/ul Absolute Eos (auto) 0 (0-0.6) 10^3/ul Absolute Basos (auto) 0 (0-0.2) 10^3/ul Absolute Nucleated RBC 0 10^3/ul Nucleated RBC % 0 INR (Anticoag Therapy) (0.77-1.02) APTT (26.0-36.3) seconds Sodium (139-145) mmol/L Potassium (3.5-5.0) mmol/L Chloride (101-111) mmol/L Carbon Dioxide (22-32) mmol/L Anion Gap (2-11) mmol/L BUN (6-24) mg/dL Creatinine (0.51-0.95) mg/dL Est GFR ( Amer) (>60) Est GFR (Non-Af Amer) (>60) BUN/Creatinine Ratio (8-20) Glucose (70-100) mg/dL Lactic Acid 1.4 (0.5-2.0) mmol/L Calcium (8.6-10.3) mg/dL Magnesium (1.9-2.7) mg/dL Total Bilirubin (0.2-1.0) mg/dL AST (13-39) U/L ALT (7-52) U/L Alkaline Phosphatase (34-104) U/L Total Creatine Kinase (10-223) U/L Troponin I (<0.04) ng/mL C-Reactive Protein (< 5.00) mg/L B-Natriuretic Peptide ( - 100) pg/mL Total Protein (6.4-8.9) g/dL Albumin (3.2-5.2) g/dL Globulin (2-4) g/dL Albumin/Globulin Ratio (1-3) Amylase (29-103) U/L Lipase (11.0-82.0) U/L Urine Color Yellow Urine Appearance Clear Urine pH 6.0 (5-9) Ur Specific Man 1.021 (1.010-1.030) Urine Protein Negative (Negative) Urine Ketones Trace A (Negative) Urine Blood Negative (Negative) Urine Nitrate Negative (Negative) Urine Bilirubin Negative (Negative) Urine Urobilinogen Negative (Negative) Ur Leukocyte Esterase Negative (Negative) Urine Glucose Negative (Negative) Result Diagrams: 01/02/18 12:58 01/02/18 12:58 Lab Statement: Any lab studies that have been ordered have been reviewed, and results considered in the medical decision making process. - CT A/P CT Interpretation Completed By: Radiologist - 1. Interval cholecystectomy. 2. Calcifications in the pancreatic head consistent with chronic pancreatitis. There is now small amount of peripancreatic stranding which suggests acute pancreatitis. Suggest correlation with serum lipase. 3. Small to moderate hiatal hernia. ED Physician has reviewed this report. - EKG 1244 Cardiac Rate: NL EKG Rhythm: Sinus Rhythm - at [address] Segment: Non-Specific Ectopy: None EKG Interpretation: nml AVIVCT, nml QTc, left axis (-26) EKG Comparison: No Significant Change - 05/13/17 Re-Evaluation - Re-Evaluation 1 Re-Evaluation Time: 15:15 Change: Improved - Pt states pain is controlled. Informed patient that she likely has pancreatitis. She states she rarely drinks etoh. She has a hx of pancreatitis and is seen by Dr. Montana Abdominal Pain Fem Course/Dx - Course Course Of Treatment: Pt presents from UC with diffuse abdominal pain, primarily at the RUQ. PMHx of pancreatis and diverticulitis. Lab results reveal and elevated amylase and lipase. A CT A/P with oral and IV contrast reveals chronic pancreatitis and a small hiatal hernia. Pt is given IV fluids, Zofran, and morphine IV. Pt has been seen by Dr. Montana for previous pancreatitis and recommends admission and will see the patient in the am, sooner if needed. Dr. Dumont agrees to admit. - Diagnoses Differential Diagnosis: Positive: Appendicitis, Constipation, Diverticulitis, Pancreatitis, Urinary Tract Infection Provider Diagnoses: Acute pancreatitis Discharge - Sign-Out/Discharge Documenting (check all that apply): Discharge - admit - Discharge Plan Condition: Stable Disposition: ADMITTED TO [facility] - Billing Disposition and Condition Condition: STABLE [place] [facility] [place] Consult: At 15:30, Dr. Montana, recommends admission and agrees to see pt in the am, sooner if needed. Reviews CT and lab findings with me, and based on the report given by me, states MRCP not needed at this time. At 15:33, Dr. Dumont, agrees to admit. The documentation as recorded by the Eddie donovan Julia accurately reflects the service I personally performed and the decisions made by me, Yoli Quinones MD.
--- NOTE | 2018-01-02 18:54 | HP ---
CC: Dr. Starkey; Dr. Montana HISTORY AND PHYSICAL: DATE OF ADMISSION: 01/02/18 TIME OF EVALUATION: 4:15 p.m. PRIMARY CARE PROVIDER: Dr. Starkey. CONSULTING DERMATOLOGY TECHNICIAN: Dr. Montana. CHIEF COMPLAINT: Abdominal pain. HISTORY OF PRESENT ILLNESS: Ms. Barnes is an 82-year-old lady with a past medical history of hypert ension, hyperlipidemia, GERD, seasonal allergies, sleep apnea, obesity, status post cholecystectomy t hat presents to the emergency room with complaints of abdominal pain. In July 2016, the patient was admitted with abdominal pain and at that point, she was found to rizo ve acalculous cholecystitis with elevation of transaminases. Her workup included MRCP and she was see n in consultation by Dr. Montana. She had had 1 episode of pancreatitis in 2011 and although biliary etiology had been suspected at that time, the workup was negative. There is report that she was eric luated by Dr. Isaias Sawyer at [place] with endoscopic ultrasound and nothing was found. The patient und erwent a laparoscopic cholecystectomy in August 2016 and she states that since then, she has been f eeling well, had no further episodes of abdominal pain. She states that last night around 9 p.m., she started to have right upper quadrant and epigastric loyd n that she describes as severe associated with nausea, but no vomiting. She went to [facility] this morning and while there, she had an episode of vomiting and was referred to the emergency room f or further evaluation. The patient describes greasy meals yesterday before her symptoms started. She had cereal for and then she had a ham sandwich with mayonnaise for lunch and a pizza for dinner. She denies fever or chills. She states she had normal bowel movement earlier today. PAST MEDICAL HISTORY: 1. Hypertension. 2. Hyperlipidemia. 3. GERD. 4. Seasonal allergies. 5. Sleep apnea. 6. Obesity. 7. History of prior episode of pancreatitis. 8. Acalculous cholecystitis. 9. Status post cholecystectomy. 10. Status post partial hysterectomy in 1987. 11. 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 MEDICATION LIST: As follows: 1. Carbidopa/levodopa 25/100 one tablet p.o. at bedtime. 2. Ciprofloxacin 500 mg p.o. b.i.d. 3. Barb 180 mg p.o. daily as needed for allergies. 4. Fluticasone nasal spray 50 mcg 1 spray to both nares daily as needed for allergy symptoms. 5. Lisinopril 10 mg p.o. daily. 6. Pantoprazole 20 mg p.o. daily. 7. Paroxetine 10 mg p.o. daily. 8. Simvastatin 40 mg p.o. daily. ALLERGIES: No known drug allergies. FAMILY HISTORY: Her father had pancreatic CA and mother had coronary artery disease. SOCIAL HISTORY: The patient has no history of tobacco abuse. She stated that she occasionally has 1 glass of wine, but this is rare. Surrogate decision maker is her daughter, Lizeth Mayo, phone n jessica is [phone]. REVIEW OF SYSTEMS: A 14-point review of systems was performed and all the pertinent negative and pos itive findings are in the HPI. PHYSICAL EXAMINATION GENERAL: The patient is a pleasant elderly lady, lying in the ED stretcher, in no acute distress. VITAL SIGNS: Temperature 98.3, heart rate is 91, respiratory rate is 16, oxygen saturation 98% on ro om air, blood pressure is 162/69. CHEST: Breath sounds present bilaterally with no added sounds. CVS: Normal S1 and S2. Regular rate and rhythm. ABDOMEN: Obese, soft with right upper quadrant epigastric tenderness. No guarding, no rebound. [place] el sounds are present and hyperactive. EXTREMITIES: No edema. NEURO: She is alert, awake, and oriented x3. Able to move all 4 extremities. DIAGNOSTIC STUDIES/LAB DATA: The patient had a CBC that showed WBC of 14.4, hemoglobin of 14.6, hem atocrit of 44, platelets of 176 with 83% neutrophils. INR is 1.01. Chemistry showed a sodium of 137 , potassium 3.8, chloride 103, bicarb 24, BUN of 21, creatinine of 0.9, glucose of 130, lactic acid o f 1.4, calcium of 9.3, magnesium is 1.8. LFTs are normal. Troponin is 0. CRP is 18.63 and her amyl ase is 191 with the lipase of 951. Urinalysis showed only trace ketones. EKG done on 01/02/18, at 12:44 p.m., shows normal sinus rhythm at 91 beats per minute with no ST-T ch anges. CT of the abdomen and pelvis with contrast shows status post cholecystectomy. Calcification on the pa ncreatic head consistent with chronic pancreatitis with a small amount of peripancreatic stranding ferris ggesting acute pancreatitis. Small-to- moderate hiatal hernia. Moderate diverticula, but no CT evid ence of acute diverticulitis. ASSESSMENT AND PLAN: Ms. Barnes is an 82-year-old lady with a past medical history of hypertension, hyperlipidemia, gastroesophageal reflux disease, seasonal allergies, sleep apnea, obesity, prior epi sode of pancreatitis, acalculous cholecystitis, status post cholecystectomy that presents to the [facility] room with complaints of abdominal pain, found to have another episode of acute pancreatitis. 1. Acute pancreatitis. I believe this may be secondary to biliary sludge especially considering the patient had fatty meals before the start of her symptoms. She will be admitted as observation to [facility] medical floor and should be kept NPO. Will receive IV hydration and symptomatic treatment. The carmella ngeron will be seen in consultation by Gastroenterology (Dr. Montana). At this point, her LFTs are no rmal, so I believe an MRCP is not indicated, but we will wait for Dr. Montana's recommendation. 2. Hypomagnesemia. We will replete. 3. Hypertension. We will continue lisinopril. 4. DVT prophylaxis: The patient has a score of 4 on the DVT Prophylaxis Risk Assessment Guide and s he will be on subcutaneous heparin. 5. Code status was discussed with the patient and she wishes to be a full code. TIME SPENT: Approximately 50 minutes was spent with patient interview, medical records review, physi rosa examination to complete this admission, more than half of this time was spent [id number] with t giovanna patient in coordination of care. [id number]/[facility] #: [id number]
[2018-01-02] MEDS ORDERED: traMADol TAB* 50 MG ONE (20:30)
[2018-01-02] MEDS: Carbidopa/Levodop 25/100 MG TAB(*) PO SCH (20:33)
[2018-01-02] MEDS: traMADol TAB* 50 MG PO PRN (20:33)
[2018-01-02] MEDS: Morphine VIAL* 4 MG/ML VIAL (1 ml vial) IV PRN (21:36)
[2018-01-02] MEDS: Heparin VIAL(*) 5000 UNITS/ML VIAL (FIVE THOUSAND) SUBCUT SCH (21:36)
[2018-01-03] MEDS: Morphine VIAL* 4 MG/ML VIAL (1 ml vial) IV PRN (03:49)
[2018-01-03] MEDS: traMADol TAB* 50 MG PO PRN ×2 (05:16→16:09)
[2018-01-03] MEDS: Heparin VIAL(*) 5000 UNITS/ML VIAL (FIVE THOUSAND) SUBCUT SCH ×3 (05:16→21:48)
[2018-01-03 07:03] LABS: ABS Basophils 0 10^3/ul (0-0.2); ABS Eosinophils 0.1 10^3/ul (0-0.6); ABS Lymphocytes 1.3 10^3/ul (1.0-4.8); ABS Neutrophils 9.1 10^3/ul (1.5-7.7); ABS Nucleated RBC 0 10^3/ul; Eosinophil % 0.7 % (0-6); Hematocrit 39 % (35-47); Mean Corpuscular HGB Conc 34 g/dl (31-36); Mean Corpuscular Hemoglobin 30 pg (27-31); Mean Corpuscular Volume 89 fL (80-97); Mean Platelet Volume 9.2 um3 (7.4-10.4); Nucleated Red Blood Cells % 0; Platelet Count 156 10^3/ul (150-450); Red Blood Count 4.37 10^6/ul (4.0-5.4); Red Cell Distribution Width 14 % (10.5-15); White Blood Count 11.5 10^3/ul (3.5-10.8)
[2018-01-03 07:20] LABS: EGFR Non-African American 58.4 (>60)
[2018-01-03] MEDS: PARoxetine HCL TAB* 10 MG PO SCH (08:09)
[2018-01-03] MEDS: Atorvastatin* 20 MG TAB PO SCH (08:10)
--- NOTE | 2018-01-03 12:42 | PN ---
Subjective Date of Service: 01/03/18 Interval History: HOSPITALIST PROGRESS NOTE Patient seen and examined at bedside. She feels better today. Woke up in good spirits and took a shower. Pain is much improved, down to 2/10. Denies N/V, passing flatus. Family History: Unchanged from Admission Social History: Unchanged from Admission Past Medical History: Unchanged from Admission Objective Active Medications: Acetaminophen (Tylenol Tab*) 650 mg PO Q6H PRN PRN Reason: pain/fever Atorvastatin Calcium (Lipitor*) 20 mg PO DAILY [facility] Last Admin: 01/03/18 08:10 Dose: 20 mg Carbidopa/Levodopa (Sinemet 25/100 Tab(*)) 1 tab PO BEDTIME [facility] Last Admin: 01/02/18 20:33 Dose: 1 tab Fluticasone Propionate (Flonase Nasal [place] 50mcg*) 1 spray BOTH NARES DAILY PRN PRN Reason: Allergy Symptoms Heparin Sodium (Porcine) (Heparin Vial(*)) 5,000 units SUBCUT Q8HR [facility] Last Admin: 01/03/18 05:16 Dose: 5,000 units Potassium Chloride/Sodium Chloride (Ns 0.9% W/ 20 Meq Kcl 1000 Ml*) 1,000 mls @ 100 mls/hr IV PER RATE [facility] Last Admin: 01/03/18 05:14 Dose: 100 mls/hr Lisinopril (Prinivil Tab*) 10 mg PO QPM [facility] Last Admin: 01/02/18 18:02 Dose: 10 mg Morphine Sulfate (Morphine Vial*) 4 mg IV Q3H PRN PRN Reason: PAIN Last Admin: 01/03/18 03:49 Dose: 4 mg Ondansetron HCl (Zofran Inj*) 4 mg IV Q6H PRN PRN Reason: NAUSEA Last Admin: 01/02/18 17:13 Dose: 4 mg Paroxetine HCl (Paxil Tab*) 20 mg PO DAILY [facility] Last Admin: 01/03/18 08:09 Dose: 20 mg Tramadol HCl (Ultram*) 50 mg PO Q6H PRN PRN Reason: PAIN Last Admin: 01/03/18 05:16 Dose: 50 mg Vital Signs - 8 hr 01/03/18 01/03/18 01/03/18 05:16 05:18 07:27 Temperature 98.6 F Pulse Rate 85 Respiratory 16 16 16 Rate Blood Pressure 121/54 (mmHg) O2 Sat by Pulse 95 Oximetry 01/03/18 12:10 Temperature Pulse Rate Respiratory 14 Rate Blood Pressure (mmHg) O2 Sat by Pulse Oximetry Oxygen Devices in Use Now: None Appearance: Pleasant elderly lady lying in bed in NAD. Eyes: No Scleral Icterus Ears/Nose/Mouth/Throat: Mucous Membranes Moist Neck: Trachea Midline Abdominal: - - Obese, soft, mild epigastric tenderness, BS+ Neurological: Alert and Oriented x 3 Result Diagrams: 01/03/18 06:52 01/03/18 06:52 Assess/Plan/Problems-Billing Assessment: Mrs Barnes is an 82yo F with PMH of obesity, HTN, HLD, GERD, ANDERSON, prior episode of pancreatitis, acalculous cholecystitis s/p cholecystectomy, who presented to ED with c/o abdominal pain, found to have acute pancreatitis. - Patient Problems (1) Acute pancreatitis Comment: - Improving. - Pain is less intense, lipase down to 243. - Awaiting GI input. - Trial of clear liquids. - Continue IVF and pain management. (2) HTN (hypertension) Comment: - Controlled. - Continue lisinopril. (3) Hyperlipidemia Comment: - Continue statin. (4) DVT prophylaxis Comment: - SQ heparin. (5) Full code status Status and Disposition: Change to inpatient.
[2018-01-03] MEDS: NS 0.9% w/ 20 Meq KCL 1000 ML* 1,000 ML IV SCH ×2 (14:36→18:32)
--- NOTE | 2018-01-03 16:01 | CONS ---
GASTROENTEROLOGY CONSULT: DATE OF CONSULT: 01/03/18 REFERRING PHYSICIAN: Dr. Alecia Starkey.* REASON FOR CONSULT: Acute pancreatitis. 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 on , 01/01/18. She had had self-prepared pizza that she described as "a greasy meal." She had about 3 pieces, not consuming the entire pie. She had had no salad or desert. Around 9 p.m., she developed some epigastric pain. It progressed the following morning and she went to [facility] and was then transferred to the emergency room. She suspected diverticulitis, thought her lipase was elevated, and white count also 14.4. CT scan showed stranding around the head of the pancreas in addition to some calcifications there. She was made NPO, given some analgesia and overnight is feeling much better. She has tolerated clear liquids. In the few weeks preceding this event, she says she has not been having any new medications, new supplements, or any substantial deviation from a careful diet. She has gained some weight since her gallbladder was out, July 2016. PAST MEDICAL HISTORY: 1. Status post bilateral knee replacements, 2012 and 2015. 2. Depression - her Paxil was recently decreased from 20 mg to 10. 3. Restless legs syndrome - on evening Sinemet. 4. Hypertension - mild and on lisinopril only. 5. GERD - on pantoprazole - recently decreased from 40 to 20 mg. 6. Hyperlipidemia - on simvastatin for many years. 7. Status post hysterectomy. 8. Episode of pancreatitis - in December 2011, she had a grossly elevated lipase at 6900. Cause was not clear. She was referred to [place] where she had endoscopic ultrasound and the cause still remained unclear. There is no family history of pancreatitis. The patient does not have elevated triglycerides and her alcohol intake is mild. There has not been any evidence of an autoimmune disorder. Her daughter does have lupus nephritis. SOCIAL HISTORY: She lives alone. 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 REVIEW OF SYSTEMS: No history of palpitations, syncope, [place], valvular disease, TB, hemoptysis, seizures, intracerebral bleed, or thyroid disorder. PHYSICAL EXAM: She is a substantially overweight older woman in no overt distress. Vitals are normal. Temp 98.6. HEENT exam is unremarkable. She has no adenopathy. Her lungs are clear. Heart sounds are normal. The abdomen is obese, bowel sounds intact, firm without focal finding. There is a little bit of diffuse deep tenderness, but nothing impressive and no guarding. Rectal deferred. LABORATORY DATA: The day following admission, white count down to 11.5, hemoglobin 13.0, hematocrit 39, platelets 156. BUN 20, creatinine 0.92, magnesium 1.8. Bilirubin 1.1, AST 25, ALT 3, alkaline phosphatase 55. IMPRESSION: This 82-year-old woman presents with pancreatitis, clinically mild in the context of a moderately high-fat meal and with it known that her pancreatic head has had calcifications for 6 years. At the time of that original December 2011 pancreatitis presentation, there was no sign of gallstones on ultrasound or CT scan. In July 2016, she presented with abnormal LFTs and pain in a similar area, though lab tests were clearly totally distinct preceding current presentation. Consequently, she underwent cholecystectomy. That might have been expected to be the end of the situation but it has not turned out that way. For the moment, she is improving on conservative management and that should be continued. It is not clear what further studies would be of benefit. Her original 2011 [facility] consultation will be reviewed. [id number]/[facility] #: [id number] [facility]CH HOSPITALJade
[2018-01-03] MEDS: Lisinopril TAB* 10 MG PO SCH (17:36)
[2018-01-03] MEDS: Carbidopa/Levodop 25/100 MG TAB(*) PO SCH (21:48)
[2018-01-04] MEDS: Heparin VIAL(*) 5000 UNITS/ML VIAL (FIVE THOUSAND) SUBCUT SCH ×3 (05:16→21:29)
[2018-01-04] MEDS: NS 0.9% w/ 20 Meq KCL 1000 ML* 1,000 ML IV SCH (05:47)
[2018-01-04] MEDS: PARoxetine HCL TAB* 10 MG PO SCH (09:23)
[2018-01-04] MEDS: Atorvastatin* 20 MG TAB PO SCH (09:23)
[2018-01-04] MEDS: Ondansetron INJ* 2 MG/ML VIAL IV PRN (10:38)
[2018-01-04] MEDS: traMADol TAB* 50 MG PO PRN (10:39)
--- NOTE | 2018-01-04 12:57 | PN ---
Subjective Date of Service: 01/04/18 Interval History: HOSPITALIST PROGRESS NOTE Patient seen and examined at bedside. She felt better this AM. Denies N/V, abdominal pain was resolved and she felt hungry. Had one loose BM today. After trying a low fat diet for breakfast she had recurrence of abdominal pain and requested to take clear liquids again. Family History: Unchanged from Admission Social History: Unchanged from Admission Past Medical History: Unchanged from Admission Objective Active Medications: Acetaminophen (Tylenol Tab*) 650 mg PO Q6H PRN PRN Reason: pain/fever Last Admin: 01/03/18 21:52 Dose: 650 mg Atorvastatin Calcium (Lipitor*) 20 mg PO DAILY [facility] Last Admin: 01/04/18 09:23 Dose: 20 mg Carbidopa/Levodopa (Sinemet 25/100 Tab(*)) 1 tab PO BEDTIME [facility] Last Admin: 01/03/18 21:48 Dose: 1 tab Fluticasone Propionate (Flonase Nasal Cyclone 50mcg*) 1 spray BOTH NARES DAILY PRN PRN Reason: Allergy Symptoms Heparin Sodium (Porcine) (Heparin Vial(*)) 5,000 units SUBCUT Q8HR [facility] Last Admin: 01/04/18 05:16 Dose: 5,000 units Lisinopril (Prinivil Tab*) 10 mg PO QPM [facility] Last Admin: 01/03/18 17:36 Dose: 10 mg Morphine Sulfate (Morphine Vial*) 4 mg IV Q3H PRN PRN Reason: PAIN Last Admin: 01/03/18 03:49 Dose: 4 mg Ondansetron HCl (Zofran Inj*) 4 mg IV Q6H PRN PRN Reason: NAUSEA Last Admin: 01/04/18 10:38 Dose: 4 mg Paroxetine HCl (Paxil Tab*) 20 mg PO DAILY [facility] Last Admin: 01/04/18 09:23 Dose: 20 mg Tramadol HCl (Ultram*) 50 mg PO Q6H PRN PRN Reason: PAIN Last Admin: 01/04/18 10:39 Dose: 50 mg Vital Signs - 8 hr 01/04/18 01/04/18 01/04/18 07:24 08:00 10:39 Temperature 98.0 F Pulse Rate 76 Respiratory 20 18 16 Rate Blood Pressure 116/66 (mmHg) O2 Sat by Pulse 97 Oximetry 01/04/18 10:40 Temperature Pulse Rate Respiratory 18 Rate Blood Pressure (mmHg) O2 Sat by Pulse Oximetry Oxygen Devices in Use Now: None Appearance: Pleasant elderly lady lying in bed in NAD. Eyes: No Scleral Icterus Ears/Nose/Mouth/Throat: Mucous Membranes Moist Neck: Trachea Midline Respiratory: Symmetrical Chest Expansion and Respiratory Effort, Clear to Auscultation Cardiovascular: RRR - Normal S1 and S2 Abdominal: NL Sounds; No Tenderness; No Distention Neurological: Alert and Oriented x 3, NL Muscle Strength and Tone Result Diagrams: 01/03/18 06:52 01/04/18 05:51 Assess/Plan/Problems-Billing Assessment: Mrs Barnes is an 82yo F with PMH of obesity, HTN, HLD, GERD, AND[place], prior episode of pancreatitis, acalculous cholecystitis s/p cholecystectomy, who presented to ED with c/o abdominal pain, found to have acute pancreatitis. - Patient Problems (1) Acute pancreatitis Comment: - Improving. - Pain is less intense, lipase down to 86. - GI input appreciated. - Could not tolerate low fat diet today - return to clear liquid diet. (2) HTN (hypertension) Comment: - Controlled. - Continue lisinopril. (3) Hyperlipidemia Comment: - Continue statin. (4) DVT prophylaxis Comment: - SQ heparin. (5) Full code status Status and Disposition: Inpatient. Anticipate d/c in AM if able to tolerate low fat diet.
[2018-01-04] MEDS: Lisinopril TAB* 10 MG PO SCH (17:13)
[2018-01-04] MEDS: Carbidopa/Levodop 25/100 MG TAB(*) PO SCH (21:29)
[2018-01-05] MEDS: Heparin VIAL(*) 5000 UNITS/ML VIAL (FIVE THOUSAND) SUBCUT SCH ×2 (05:44→14:36)
[2018-01-05] MEDS: PARoxetine HCL TAB* 10 MG PO SCH (10:21)
[2018-01-05] MEDS: Atorvastatin* 20 MG TAB PO SCH (10:21)
[2018-01-05 11:45] VITALS: BP 121/62
--- NOTE | 2018-01-06 00:45 | DS ---
CC: Dr. Starkey; Dr. Montana* DISCHARGE SUMMARY: DATE OF ADMISSION: 01/02/18 DATE OF DISCHARGE: 01/05/18 PRIMARY CARE PROVIDER: Dr. Starkey. NATURAL SCIENCE CURATOR: Dr. Montana. DISCHARGE DIAGNOSIS: Acute pancreatitis. SECONDARY DIAGNOSES: 1. Hypertension. 2. Hyperlipidemia. 3. Gastroesophageal reflux disease. 4. Seasonal allergies. 5. Sleep apnea. 6. Obesity with a BMI of 36. 7. Prior episode of pancreatitis. 8. Calculus cholecystitis. 9. Status post cholecystectomy. 10. Status post partial hysterectomy. 11. Status post bilateral total knee replacement. MEDICATION LIST: 1. Sinemet 25/100 one tablet p.o. at bedtime for restless legs syndrome. 2. Ciprofloxacin 500 mg p.o. b.i.d. The patient was taking prior to admission. 3. Fexofenadine 180 mg p.o. daily as needed for allergies. 4. Fluticasone nasal spray 50 mcg 1 spray to both nares daily as needed for allergies. 5. Lisinopril 10 mg p.o. at bedtime. 6. Pantoprazole 20 mg p.o. at bedtime. 7. Paroxetine 20 mg p.o. daily. 8. Simvastatin 40 mg p.o. daily. 9. Acetaminophen 650 mg p.o. q.6 hours as needed for pain or fever. New medications: Tramadol 50 mg p.o. q.6 hours p.r.n. pain. HOSPITAL COURSE: Ms. Barnes is an 82-year-old with a past medical history as stated above that presented to the emergency room on 01/02/18 with complaints of abdominal pain proceeded by several greasy meals. The patient was found to have acute on chronic pancreatitis and was admitted for further management. For more details about her presentation, I refer you to her history and physical. The patient's lipase on admission was [address] of the abdomen and pelvis shows interval cholecystectomy, calcifications in the pancreatic head , consistent with chronic pancreatitis, with small amount of peripancreatic stranding, which suggest acute pancreatitis. Small to moderate hiatal hernia. The patient was admitted to the medical floor where she received symptomatic treatment, IV hydration, and she was kept on n.p.o. diet. She was seen in consultation by Gastroenterology (Dr. Montana) and she felt the patient was already improving with conservative management and it was not clear to him if any further studies would be of benefit. Of note, the patient's father passed of pancreatic cancer and she is very concerned that she could have the same fate. She was seen by Dr. Isaias Sawyer in the past and there is a report that endoscopic ultrasound was negative. She will follow up with her primary care provider as the patient decides if it is worth it to have another evaluation done. The patient had visibly showing her symptoms. Her lipase trended down to 86. She is able to tolerate a low fat diet and felt to be stable to be discharged home today. DIET: Low fat diet. ACTIVITY: As tolerated. DISPOSITION: To home. STATUS IN THE HOSPITAL: Inpatient. Please keep in mind this is a summarized version of this patient's hospital stay. If you need more information, please feel free to call me at [phone] or please obtain the full medical records. TIME SPENT: Approximately 45 minutes were spent to complete this discharge. [id number]/[facility] #: [id number] ANTHONY
== END 2018-01-05 17:15 | disposition home or self-care (01) | DRG 440 ==
LOC: ED 12:18 → MED 16:10
PROVIDERS: ADMIT Internal Medicine; ATTEND Internal Medicine
DX: K85.90 Acute pancreatitis without necrosis or infection, unspecified (principal); E78.5 Hyperlipidemia, unspecified; K21.9 Gastro-esophageal reflux disease without esophagitis; J30.2 Other seasonal allergic rhinitis; G47.30 Sleep apnea, unspecified; E66.9 Obesity, unspecified; Z68.36 Body mass index [BMI] 36.0-36.9, adult; I10 Essential (primary) hypertension; Z96.653 Presence of artificial knee joint, bilateral; K86.1 Other chronic pancreatitis; K44.9 Diaphragmatic hernia without obstruction or gangrene; Z79.899 Other long term (current) drug therapy; Z80.0 Family history of malignant neoplasm of digestive organs; Z82.49 Family history of ischemic heart disease and other diseases of the circulatory system; E83.42 Hypomagnesemia; F32.9 Major depressive disorder, single episode, unspecified; G25.81 Restless legs syndrome
CPT/HCPCS: 36415; 74177; 80048; 80053; 81003; 82150; 82550; 83605; 83690; 83735; 83880; 84484; 85025; 85610; 85730; 86140; 93005; 99212; 99284; A9270-GY; G0463; J1644; J2270; J2405; J3475; Q9967

== ENCOUNTER 2018-02-05 11:49 | Inpatient (IN) | payer MEDICARE ==
[2018-02-05] MEDS ORDERED: Dexamethasone IV* 4 MG/ML 1 ML (4 MG) IM ONE (12:05)
[2018-02-05] MEDS ORDERED: oxyCODONE/Acetamin 5/325 MG* TAB PO ONE (12:06)
[2018-02-05] MEDS ORDERED: Dexamethasone IV* 4 MG/ML 5 ML VIAL (20 MG) ONE (12:09)
[2018-02-05] MEDS ORDERED: oxyCODONE/Acetamin 5/325 MG* TAB ONE (12:09)
--- NOTE | 2018-02-05 12:54 | RAD ---
HISTORY: Accidental fall, facial pain, neck pain COMPARISONS: None TECHNIQUE: Multiple contiguous axial CT scans were obtained of the cervical spine without intravenous contrast, with coronal and sagittal multiplanar reformations. FINDINGS: BRAIN: The visualized brain is unremarkable CENTRAL CANAL: Evaluation of the central canal is limited on CT technique; however, there is no obvious canalicular mass or epidural hemorrhage. ALIGNMENT: The alignment is normal, without subluxation or dislocation. VERTEBRAL BODIES: There is a fracture through the base of the odontoid process without displacement. There is a comminuted fracture of the posterior arch of C1. There is a slightly displaced fracture of the anterior arch of C1.. There is multilevel anterolateral marginal osteophyte formation. There is subchondral cyst formation at C1-C2. JOINTS: There is vertebral and facet osteoarthritis diffusely. There is osteoarthritis of the atlantoaxial articulation with pannus formation which is partially calcified. MUSCULATURE: Unremarkable INTERVERTEBRAL DISCS: There is diffuse loss of intervertebral disc height. AXIAL IMAGES: C2-C3: There is bilateral uncovertebral and facet hypertrophy. There is severe left neural foraminal narrowing. There is no osseous central canal stenosis. C3-C4: There is bilateral uncovertebral and facet hypertrophy. There is severe bilateral neural foraminal narrowing. There is no significant central canal stenosis. C4-C5: There is bilateral uncovertebral and facet hypertrophy. There is severe bilateral neural foraminal narrowing. There is no significant central canal stenosis. C5-C6: There is bilateral uncovertebral and facet hypertrophy. There is severe bilateral neural foraminal narrowing. There is no significant central canal stenosis. C6-C7: There is bilateral uncovertebral and facet hypertrophy. There is severe bilateral neural foraminal narrowing. There is no significant central canal stenosis. C7-T1: There is no osseous neural foraminal narrowing or central canal stenosis. SOFT TISSUES: The visualized soft tissues of the neck are unremarkable. The prevertebral fat stripe is preserved. OTHER: None. IMPRESSION: 1. NONDISPLACED TYPE II ODONTOID FRACTURE. 2. COMMINUTED FRACTURE OF THE ANTERIOR AND POSTERIOR ARCHES OF C1. 3. DEGENERATIVE DISC DISEASE AND OSTEOARTHRITIS. 4. THERE IS MULTILEVEL NEURAL FORAMINAL NARROWING DESCRIBED ABOVE. THERE IS NO OSSEOUS CENTRAL CANAL STENOSIS. PRELIMINARY FINDINGS WERE DISCUSSED WITH DR. WILBURN IN THE EMERGENCY DEPARTMENT AT APPROXIMATELY 12:48 PM ON FEBRUARY 05, 2018.
--- NOTE | 2018-02-05 12:55 | RAD ---
HISTORY: Fall, head injury, neck pain COMPARISONS: CT of the cervical spine dated February 05, 2018 TECHNIQUE: Multiple contiguous axial CT scans were obtained of the head without intravenous contrast. FINDINGS: HEMORRHAGE/INFARCT: There is no hemorrhage or acute infarct. MASSES/SHIFT: There is no mass or shift. EXTRA-AXIAL SPACES: There are no extra-axial fluid collections. SULCI AND VENTRICLES: The sulci and ventricles are normal in size and position for the patient's stated age. CEREBRUM: There are no focal parenchymal abnormalities. BRAINSTEM: There are no focal parenchymal abnormalities. CEREBELLUM: There are no focal parenchymal abnormalities. VESSELS: The vessels are grossly normal. PARANASAL SINUSES: The paranasal sinuses are clear. ORBITS: The orbits are unremarkable. BONES AND SOFT TISSUE: As noted on the CT of the cervical spine, there are fractures of C1. OTHER: None IMPRESSION: 1. NO ACUTE INTRACRANIAL PATHOLOGY. 2. FRACTURES OF C1 DESCRIBED ON THE CT OF THE CERVICAL SPINE.
--- NOTE | 2018-02-05 12:56 | RAD ---
HISTORY: Fall, facial pain COMPARISONS: CT of the cervical spine dated February 05, 2018 TECHNIQUE: Multiple contiguous axial CT scans were obtained of the face without intravenous contrast, with coronal and sagittal multiplanar reformations. FINDINGS: BONES: As noted on the CT of the cervical spine, there is a type II fracture of the odontoid process with fractures of C1. Elsewhere, there is no displaced fracture or dislocation. The orbital rim is intact. The zygomatic arch is intact. The pterygoid plates are intact. ORBITS: The globes are round. The optic nerves are symmetric. The extraocular musculature is normal. There is no post septal or intraconal inflammatory change. There is no retrobulbar hematoma. PARANASAL SINUSES: The paranasal sinuses are clear. BRAIN AND SOFT TISSUE: Unremarkable. OTHER: None. IMPRESSION: 1. C1 AND C2 FRACTURES DESCRIBED ON THE CT OF THE CERVICAL SPINE. 2. NO FACIAL FRACTURE.
--- OUTSIDE RECORDS SUMMARY | 2018-02-05 12:56 | XMS REPORT ---
:1935 External Reference #:[id number] Author Organization [employer] Address [address] [address] Phone [phone] Care Team Providers Name Role Phone Alecia Starkey MD Primary Care Physician Unavailable Payers Type Date Identification Numbers Payment Provider Subscriber Medicare Primary Effective: Policy Number: Medicare Ying Velez 2000 [id number] PayID: [id number] [address] [place] [address] [facility] Part B Policy Number: [id number] [facility] Ying Velez PayID: [id number] [address] [place] [address] Problems Date Description Provider Status Onset: 05/26/2015 Localized, primary osteoarthritis Lucita Nash M.D. 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 Active Onset: 08/22/2017 Hyperlipidemia Alecia Starkey M.D. Active Onset: 08/22/2017 Gastroesophageal reflux disease Alecia Starkey M.D. Active Onset: 08/22/2017 Restless legs Alecia Starkey M.D. Active Onset: 08/22/2017 Benign paroxysmal positional Alecia Starkey M.D. Active vertigo Onset: 09/22/2017 Diverticular disease Alecia Starkey M.D. Active Onset: 09/22/2017 Essential tremor Alecia Starkey M.D. Active Note: hands Onset: 11/12/2017 Arthroplasty of knee Lucita Nash M.D. 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 Cigarette Use Never Smoked Cigarettes ETOH Use Occasionally consumes alcohol 0-3 per week Smoking Patient has never smoked Recreational Drug Use Denies Drug Use Daily Caffeine Consumes on average 1 cup of regular coffee per day Exercise Type/Frequency Exercises regularly General Hx Text likes to volunteer for [employer] Allergies, Adverse Reactions, Alerts Date Description Reaction Status Severity Comments 08/13/2016 NKDA active 04/14/2013 Morphine inactive Medications Medication Date Status Form Strength Qnty SIG Indications Ordering Provider Simvastatin 12/10/ Active Tablets 40mg 90tabs take 1 John Kwan 2017 tablet by Elda, mouth at M.D. bedtime Pantoprazole 09/22/ Active Tablets DR 20mg 90tabs once a day K21.9 Alecia Sodium 2018 Evie Starkey Paxil 09/22/ Active Tablets 10mg 90tabs Take 1 F41.9 Melba 2018 Tablet By Cotton, Mouth Once M.D. A Day Paroxetine HCL 10/24/ Active 10mg 1 by mouth Unknown 2016 daily Ibuprofen 10/24/ Active as Unknown 2017 directed prn Fluticasone 10/24/ Active as needed Unknown Propionate 2016 Fexofenadine 10/24/ Active 180mg as needed Unknown HCL 2017 Carbidopa-Levo 10/24/ Active Tablets 25-100mg 90tabs 1 by mouth Alecia dopa 2017 daily Evie Starkey Lisinopril 10/17/ Active Tablets 10mg 90tabs 1 by mouth Alecia 2017 daily Evie Starkey Amoxicillin 08/02/ Active Capsules 500mg 8caps 4 tablets [place], 2013 1 hour M.D. before dental work Doxycycline 09/22/ Hx Tablets 100mg 20tabs 1 tablet H66.92 Alecia Hyclate 2018 - twice a Starkey, 10/02/ day x 10 M.D. 2017 days Pantoprazole 10/24/ Hx 40mg 1 by mouth Unknown Sodium 2016 - daily 2017 Percocet 09/11/ Hx Tablets 5-325mg 90tabs take 1-2 Bri 2014 - tabs by MAEVE Nieves 10/22/ mouth q4-6 2015 hours as needed pain Coumadin 09/11/ Hx Tablets 2mg 30tabs take 2 mg Lucita 2014 - by mouth Evie Nash 12/18/ every 2015 night at bedtime or as directed by md through visiting nurse Keflex 05/03/ Hx Capsules 500mg 28caps 1 po qid x [place], 2012 - 7days M.D. 2013 Olopatadine / Hx Solution 0.1% Unknown HCL 0000 - 2017 Immunizations CPT Code Status Date Vaccine Lot # [id number] Given 09/22/2017 Pneumococcal Conjugate Vaccine 13 Valent For [id number] Intramuscular Use 31771 Given 08/31/2017 Influenza Virus Vaccine, Quadrivalent, Split, Preservative Free [id number] Given 09/30/2012 Tdap - Tetanus/Diptheria/Acellular Pertussis Vital Signs Date Vital Result Comment 01/29/2018 Height 60.5 inches 5'0.50" Heart Rate 76 /min BP Systolic Sitting 122 mmHg Lue reg cuff BP Diastolic Sitting 80 mmHg Lue reg cuff Respiratory Rate 16 /min O2 % BldC Oximetry 95 % On Ra 01/15/2018 Height 60.5 inches 5'0.50" Weight 189.00 lb Heart Rate 80 /min BP Systolic Sitting 118 mmHg BP Diastolic Sitting 60 mmHg O2 % BldC Oximetry 91 % BMI (Body Mass Index) 36.3 kg/m2 11/12/2017 Height 60.5 inches 5'0.50" BP Systolic 134 mmHg BP Diastolic 78 mmHg Respiratory Rate 18 /min Body Temperature 96.8 F Pain Level 0 09/22/2017 Height 60.5 inches 5'0.50" Weight 197.00 lb Heart Rate 80 /min BP Systolic Sitting 138 mmHg BP Diastolic Sitting 84 mmHg O2 % BldC Oximetry 96 % BMI (Body Mass Index) 37.8 kg/m2 05/16/2017 Height 63 inches 5'3" Weight 196.00 lb Heart Rate 84 /min BP Systolic Sitting 122 mmHg BP Diastolic Sitting 78 mmHg Body Temperature 96.5 F O2 % BldC Oximetry 93 % BMI (Body Mass Index) 34.7 kg/m2 10/25/2016 Height 63 inches 5'3" Weight 187.00 lb Heart Rate 97 /min BP Systolic 130 mmHg BP Diastolic 62 mmHg Respiratory Rate 14 /min O2 % BldC Oximetry 98 % BMI (Body Mass Index) 33.1 kg/m2 08/27/2016 Height 63 inches 5'3" Weight 187.00 lb Heart Rate 82 /min BP Systolic Sitting 160 mmHg BP Diastolic Sitting 62 mmHg Respiratory Rate 18 /min Body Temperature 97.4 F BMI (Body Mass Index) 33.1 kg/m2 08/13/2016 Height 63 inches 5'3" Weight 190.00 lb Heart Rate 80 /min BP Systolic Sitting 116 mmHg BP Diastolic Sitting 72 mmHg Respiratory Rate 18 /min Body Temperature 97.3 F BMI (Body Mass Index) 33.7 kg/m2 2015 Height 62 inches 5'2" Weight 193.00 lb Pain Level 1 BMI (Body Mass Index) 35.3 kg/m2 10/20/2015 Height 62 inches 5'2" Weight 193.00 lb Pain Level 1 With activity feels tightness BMI (Body Mass Index) 35.3 kg/m2 09/29/2015 Height 62 inches 5'2" Weight 193.00 lb BMI (Body Mass Index) 35.3 kg/m2 09/11/2015 Height 62 inches 5'2" Weight 193.00 lb Heart Rate 75 /min BP Systolic 135 mmHg BP Diastolic 75 mmHg BMI (Body Mass Index) 35.3 kg/m2 08/04/2015 Height 62 inches 5'2" Weight 193.00 lb Pain Level 4 BMI (Body Mass Index) 35.3 kg/m2 05/26/2015 Height 62 inches 5'2" Weight 193.00 lb Heart Rate 80 /min BP Systolic Sitting 111 mmHg BP Diastolic Sitting 69 mmHg Pain Level 7 BMI (Body Mass Index) 35.3 kg/m2 02/21/2014 Height 62 inches 5'2" Heart Rate 76 /min BP Systolic 127 mmHg BP Diastolic 77 mmHg 04/14/2013 Height 63 inches 5'3" Weight 185.00 lb Heart Rate 74 /min BP Systolic 116 mmHg BP Diastolic 70 mmHg BMI (Body Mass Index) 32.8 kg/m2 Results Test Date Test Result H/L Range Note Laboratory test finding 01/02/2018 Magnesium 1.8 mg/dL Low 1.9-2.7 Amylase 191 U/L High 29-103 Creatine Kinase(CK) 138 U/L 10-223 C Reactive Protein 18.63 mg/L High < 5.00 1 Troponin-I (TnI) 0.00 ng/mL <0.04 Lipase 951 U/L High 11.0-82.0 Comp Metabolic Panel 01/02/2018 Sodium 137 mmol/L Low 139-145 Potassium 3.8 mmol/L 3.5-5.0 Chloride 103 mmol/L 101-111 Co2 Carbon Dioxide 24 mmol/L 22-32 Anion Gap 10 mmol/L 2-11 Glucose 130 mg/dL High 70-100 Blood Urea Nitrogen 21 mg/dL 6-24 Creatinine 0.92 mg/dL 0.51-0.95 BUN/Creatinine Ratio 22.8 High 8-20 Calcium 9.3 mg/dL 8.6-10.3 Total Protein 7.4 g/dL 6.4-8.9 Albumin 4.4 g/dL 3.2-5.2 Globulin 3.0 g/dL 2-4 Albumin/Globulin Ratio 1.5 1-3 Total Bilirubin 0.80 mg/dL 0.2-1.0 Alkaline Phosphatase 81 U/L 34-104 Alt 19 U/L 7-52 Ast 21 U/L 13-39 Egfr Non- 58.4 >60 Egfr 75.2 >60 2 Laboratory test finding 01/02/2018 Partial Thrombo Time 31.5 seconds 26.0 -36.3 PTT B-Type Natriuretic Peptide BNP 82 pg/mL 3 Urinalysis Profile 01/02/2018 Urine Color Yellow Urine Appearance Clear Urine Specific Hooper 1.021 1.010-1.030 Urine pH 6.0 5-9 Urine Urobilinogen Negative Negative Urine Ketones Trace Negative Urine Protein Negative Negative Urine Leukocytes Negative Negative Urine Blood Negative Negative Urine Nitrite Negative Negative Urine Bilirubin Negative Negative Urine Glucose Negative Negative CBC Auto Diff 01/02/2018 White Blood Count 14.4 10^3/uL High 3.5-10.8 Red Blood Count 4.92 10^6/uL 4.0-5.4 Hemoglobin 14.6 g/dL 12.0-16.0 Hematocrit 44 % 35-47 Mean Corpuscular Volume 89 fL 80-97 Mean Corpuscular Hemoglobin 30 pg 27-31 Mean Corpuscular HGB Conc 33 g/dL 31-36 Red Cell Distribution Width 14 % 10.5-15 Platelet Count 176 10^3/uL 150-450 Mean Platelet Volume 9.6 um3 7.4-10.4 Abs Neutrophils 12.0 10^3/uL High 1.5-7.7 Abs Lymphocytes 1.3 10^3/uL 1.0-4.8 Abs Monocytes 1.0 10^3/uL High 0-0.8 Abs Eosinophils 0 10^3/uL 0-0.6 Abs Basophils 0 10^3/uL 0-0.2 Abs Nucleated RBC 0 10^3/uL Granulocyte % 83.8 % High 38-83 Lymphocyte % 9.0 % Low 25-47 Monocyte % 6.9 % 0-7 Eosinophil % 0 % 0-6 Basophil % 0.3 % 0-2 Nucleated Red Blood Cells % 0 Inr/Protime 01/02/2018 Inr 1.01 0.77-1.02 Laboratory test 01/02/2018 Lactic Acid 1.4 mmol/L 0.5-2.0 4 finding Laboratory test 08/19/2016 Surgical Pathology SEE RESULT BELOW 5 finding Ua And Culture 09/14/2015 Urine Culture And SEE RESULT BELOW 6 Sensitivity Sensitivities Urinalysis Profile 09/14/2015 Urine Color Yellow Urine Appearance Cloudy Urine Specific Hooper 1.023 1.010-1.030 Urine pH 5.0 5-9 Urine Urobilinogen Negative Negative Urine Ketones Negative Negative Urine Protein Negative Negative Urine Leukocytes 3+ Negative Urine Blood Negative Negative Urine Nitrite Negative Negative Urine Bilirubin Negative Negative Urine Glucose Negative Negative Urine White Blood Cell 3+(>20/hpf) Absent Urine Red Blood Cell Trace(0-2/hpf) Absent Urine Bacteria Absent Absent Urine Squamous Epithelial Cell Present Absent Urine Renal Epithelial Cells Present Absent CBC No Diff 09/11/2015 White Blood Count 8.2 10^3/uL 3.5-10.8 7 Red Blood Count 4.87 10^6/uL 4.0-5.4 7 Hemoglobin 14.4 g/dL 12.0-16.0 7 Hematocrit 45 % 35-47 7 Mean Corpuscular Volume 92 fL 80-97 7 Mean Corpuscular Hemoglobin 30 pg 27-31 7 Mean Corpuscular HGB Conc 32 g/dL 31-36 7 Red Cell Distribution Width 14 % 10.5-15 7 Platelet Count 172 10^3/uL 150-450 7 Mean Platelet Volume 10 um3 7.4-10.4 7 Laboratory test 09/11/2015 Urine Culture And SEE RESULT BELOW 7, 8 finding Sensitivities Urinalysis Profile 09/11/2015 Urine Color Yellow 7 Urine Appearance Cloudy 7 Urine Specific Hooper 1.024 1.010-1.030 7 Urine pH 5.0 5-9 7 Urine Urobilinogen Negative Negative 7 Urine Ketones Negative Negative 7 Urine Protein Negative Negative 7 Urine Leukocytes 1+ Negative 7 Urine Blood 1+ Negative 7 Urine Nitrite Negative Negative 7 Urine Bilirubin Negative Negative 7 Urine Glucose Negative Negative 7 Urine White Blood Cell Trace(0-5/hpf) Absent 7 Urine Red Blood Cell 3+(>10/hpf) Absent 7 Urine Bacteria Absent Absent 7 Urine Squamous Epithelial Cell Present Absent 7 Comp Metabolic Panel 09/11/2015 Sodium 138 mmol/L 133-145 7 Potassium 4.1 mmol/L 3.5-5.0 7 Chloride 103 mmol/L 101-111 7 Co2 Carbon Dioxide 29 mmol/L 22-32 7 Anion Gap 6 mmol/L 2-11 7 Glucose 90 mg/dL 70-100 7 Blood Urea Nitrogen 16 mg/dL 6-24 7 Creatinine 0.89 mg/dL 0.51-0.95 7 BUN/Creatinine Ratio 18.0 8-20 7 Calcium 9.1 mg/dL 8.6-10.3 7 Total Protein 7.1 g/dL 6.4-8.9 7 Albumin 4.4 g/dL 3.2-5.2 7 Globulin 2.7 g/dL 2-4 7 Albumin/Globulin Ratio 1.6 1-3 7 Total Bilirubin 0.50 mg/dL 0.2-1.0 7 Alkaline Phosphatase 69 U/L 34-104 7 Alt 16 U/L 7-52 7 Ast 19 U/L 13-39 7 Egfr Non- 61.2 >60 7 Egfr 78.7 >60 7, 9 Laboratory test finding 09/11/2015 Partial Thrombo Time 34.0 seconds 26.0 -36.3 7, 10 PTT Inr/Protime 09/11/2015 Inr 0.95 0.89-1.11 7 Basic Metabolic Panel 04/16/2013 Sodium 142 mmol/L 133-145 Potassium 3.9 mmol/L 3.5-5.0 Chloride 105 mmol/L 101-111 Co2 Carbon Dioxide 30.0 mmol/L 22-32 Anion Gap 7.0 mmol/L 2-11 Glucose 102 mg/dL High 70-100 Blood Urea Nitrogen 21 mg/dL 6-24 Creatinine 0.80 mg/dL 0.50-1.40 BUN/Creatinine Ratio 26.3 High 8-20 Calcium 9.0 mg/dL 8.1-9.9 Egfr Non- 69.6 >60 Egfr 89.4 >60 11 CBC No Diff 04/16/2013 White Blood Count 6.6 10^3/uL 4.8-10.8 Red Blood Count 4.32 10^6/uL 4.0-5.4 Hemoglobin 13.0 g/dL 12.0-16.0 Hematocrit 39 % 35-47 Mean Corpuscular Volume 91 fL 80-97 Mean Corpuscular Hemoglobin 30 pg 27-31 Mean Corpuscular HGB Conc 33 g/dL 31-36 Red Cell Distribution Width 13 % 10.5-15 Platelet Count 162 10^3/uL 150-450 Mean Platelet Volume 11 um3 High 7.4-10.4 Type & Screen 04/16/2013 Patient Blood Type O Positive Antibody Screen NEGATIVE Laboratory test finding 04/16/2013 Inr 0.84 Low 0.87-0.97 12 Activated Partial Thrombo Time 29.6 seconds 22.18-37.18 13 1 Acute inflammation: >10.00 2 Because ethnic data is not always readily available, this report includes an eGFR for both -Americans and non- Americans. The National Kidney Disease Education Program (NKDEP) does not endorse the use of the MDRD equation for patients that are not between the ages of 18 and 70, are , have extremes of body size, muscle mass, or nutritional status, or are non- or non-. According to the National Kidney Foundation, irrespective of diagnosis, the stage of the disease is based on the level of kidney function: Stage Description GFR(mL/min/1.73 m(2)) 1 Kidney damage with normal or decreased GFR 90 2 Kidney damage with mild decrease in GFR 60-89 3 Moderate decrease in GFR 30-59 4 Severe decrease in GFR 15-29 5 Kidney failure <15 (or dialysis) 3 >100 to <200 pg/mL: likely compensated congestive heart failure (CHF) 200 to 400 pg/mL: likely moderate CHF >400 pg/mL: likely moderate to severe CHF 4 SCS Severe Sepsis and Septic Shock Management Bundle Measure requires all lactic acids initially measuring >2.0 mmol/L be repeated. 5 SEE RESULT BELOW Name: YING VELEZ : [address]: Clarence Brady MD Acct: [id number] Unit: [id number] AGE: 80 Location: OR Re08/19/16 SEX: F Status: REG [facility] SPEC: [id number] NELSON: 08/19/16- SUBM DR: Clarence Brady MD REQ: [id number] RECD: 08/19/167339 STATUS: SOUT _ ORDERED: LEVEL III FINAL DIAGNOSIS Gallbladder, cholecystectomy: -- Chronic cholecystitis. PRE-OPERATIVE DIAGNOSIS Right upper quadrant pain. GROSS DESCRIPTION The specimen is received in formalin labeled, Gallbladder and Contents, and consists of a 9.2 x 4.1 x 3.4 cm intact gallbladder. The serosa is glistening smooth to wrinkled alamo-servin. The lumen contains abundant green viscid bile. Choleliths are not identified within the lumen or the container. The mucosa is velvety to focally reticulated green and the wall thickness averages 0.1 cm. Junior Automation Engineer sections, one cassette. Signed (signature on file) Bri Lovell MD 03/30 1049 END OF REPORT * ML=Testing performed at Main Lab DEPARTMENT OF PATHOLOGY, [address] [place] [address] Rob Cook M.D. Director [facility] # [id number] 6 SEE RESULT BELOW Name: YING VELEZ : [address]: Bri Nieves NP Acct: [id number] Unit: [id number] AGE: 79 Location: LAB Re09/14/15 SEX: F Status: REG REF SPEC: [id number] NELSON: 09/14/[address]: Bri Nieves NP REQ: [id number] RECD: 09/14/15 STATUS: COMP _ SOURCE: URINE [facility]: ORDERED: Urine Culture Procedure Result Reported Site Urine Culture Final 09/15/15- 907 ML No Growth (<1,000 CFU/mL) * ML - MAIN LAB ([facility]) . END OF REPORT * ML=Testing performed at Main Lab DEPARTMENT OF PATHOLOGY, [address] [place] [address] Rob Cook M.D. Director [facility] # [id number] 7 09/19 8 SEE RESULT BELOW Name: YING VELEZ : [address]: Lucita Nash MD Acct: [id number] Unit: [id number] AGE: 79 Location: [facility] Re09/11/15 SEX: F Status: REG REF SPEC: [id number] NELSON: 09/11/15-1134 [facility] DR: Luctia Nash MD REQ: [id number] RECD: 09/11/15 STATUS: HEIDY DEJESUS DR: Ross Monte MD _ SOURCE: URINE SPDESC: ORDERED: Urine Culture COMMENTS: HENNY 09/19 QUERIES: Urine Source: Clean Catch Procedure Result Reported Site Urine Culture Final 09/12/15- 0819 ML Mixed sam; possible contamination. Suggest resubmission. * ML - MAIN LAB ([facility]) . END OF REPORT * ML=Testing performed at Main Lab DEPARTMENT OF PATHOLOGY, [address] [place] [address] Rob Cook M.D. Director [facility] # [id number] 9 Because ethnic data is not always readily available, this report includes an eGFR for both -Americans and non- Americans. The National Kidney Disease Education Program (NKDEP) does not endorse the use of the MDRD equation for patients that are not between the ages of 18 and 70, are , have extremes of body size, muscle mass, or nutritional status, or are non- or non-. According to the National Kidney Foundation, irrespective of diagnosis, the stage of the disease is based on the level of kidney function: Stage Description GFR(mL/min/1.73 m(2)) 1 Kidney damage with normal or decreased GFR 90 2 Kidney damage with mild decrease in GFR 60-89 3 Moderate decrease in GFR 30-59 4 Severe decrease in GFR 15-29 5 Kidney failure <15 (or dialysis) 10 09/19 11 Because ethnic data is not always readily available, this report includes an eGFR for both -Americans and non- Americans. The National Kidney Disease Education Program (NKDEP) does not endorse the use of the MDRD equation for patients that are not between the ages of 18 and 70, are , have extremes of body size, muscle mass, or nutritional status, or are non- or non-. According to the National Kidney Foundation, irrespective of diagnosis, the stage of the disease is based on the level of kidney function: Stage Description GFR(mL/min/1.73 m(2)) 1 Kidney damage with normal or decreased GFR 90 2 Kidney damage with mild decrease in GFR 60-89 3 Moderate decrease in GFR 30-59 4 Severe decrease in GFR 15-29 5 Kidney failure <15 (or dialysis) 12 04/20 13 04/20 Procedures Date CPT Code Description Status 09/23/2017 Bone Mineral Density Test Completed 08/19/2016 36486 Laparoscopy Cholecystectomy With Cholangiography Completed 08/19/2016 91935 Laparoscopy Cholecystectomy With Cholangiography Completed 11/30/2015 Mammogram Completed 09/19/2015 11063 TKR Total Knee Replacement Completed 09/19/2015 33468 TKR Total Knee Replacement Completed 05/31/2015 Colonoscopy Completed 11/12/2013 03528 Stress Test Completed 05/26/2013 05168 Xray Knee 3 Views Completed 05/26/2013 23258 Rad Exam; Knee, Ap&L Completed 04/20/2013 69897 TKR Total Knee Replacement Completed 04/20/2013 54126 TKR Total Knee Replacement Completed 10/08/2012 20093 Polysomnography Sleep Staging 4+ Parameters W/Cpap Completed 03/29/2005 Colonoscopy Completed Encounters Type Date Location Provider CPT E/M Dx Office Visit 01/15/2018 [facility] Internal Medicine - Alecia Starkey, 10598 K85.90 8:30a Valentina Case Office Visit 01/05/2018 [facility], Kyra Hernandez 45301 K85.90 8:24a Hospitalists MUrielDUriel Office Visit 01/04/2018 [facility], Kyra Hernandez 62734 K85.90 8:24a Hospitalists M.DUriel Office Visit 01/03/2018 [facility] Kyra Hernandez 52487 K85.90 8:23a Hospitalists M.DUriel Office Visit 01/02/2018 [facility], Kyra Hernandez 07204 K85.90 8:18a Hospitalists M.DUriel Office Visit 11/12/2017 [facility]ita Nash M.D. 63315 M25.561 8:45a C.MAmanda Z96.651 Office Visit 09/23/2017 4:20p [facility] [place] [address] L82.1 R60.0 L85.3 Office Visit 09/22/2017 9:50a [facility] Internal Medicine Alecia Starkey, 88760 Z00.00 - Valentina Case K21.9 F41.9 H66.92 Z12.39 N95.8 Z23 Z12.83 Office Visit 05/16/2017 10:40a [facility] Internal Medicine John Schroeder, 14250 H81.10 - Valentina Case Office Visit 10/25/2016 9:00a [facility] Ro Louis, 52569 G47.33 Services Of [facility] ANDRE, RN, UNDERWRITING SALES REPRESENTATIVE- Office Visit 08/13/2016 9:00a [facility] Clarence Brady, 02745 R10.11 [facility] Office Visit 08/06/2016 11:09a [facility] [place] [address] G47.30 Assoc, Hospitalists R10.13 I10 K81.9 Office Visit 08/06/2016 7:00a [facility] Clarence Brady, 59493 R10.11 Of [facility] R10.13 R94.5 Office Visit 08/05/2016 7:00a [place] [address] K83.8 Of [facility] R10.11 R94.5 Office Visit 08/05/2016 11:09a [facility], [place] [address] K81.9 Hospitalists G47.30 R10.13 I10 Office Visit 08/04/2016 11:09a [facility], Salomon Dumont, 45704 R10.13 Hospitalists Evie G47.30 I10 Office Visit 08/03/2016 11:08a [facility], Salomon Dumont, 92044 R10.13 Hospitalists Evie G47.30 I10 Office Visit 2015 10:00a [facility] Lucita Nash M.D. 02525 Z47.1 C.M.AUriel Z96.651 Office Visit 08/04/2015 9:30a [facility] Luc[facility] Nash M.D. 50816 M17.11 C.MAmanda M25.561 Office Visit 05/26/2015 1:15p [facility] Nash M.D. 29041 715.16 C.M.A. 844.8 Office Visit 02/21/2014 11:30a [facility] [place] M.D. 09092 715.96 C.M.A. Office Visit 04/14/2013 10:00a [facility] [place] M.D. 33628 716.96 C.M.A. Plan of Care Future Appointment(s):01/29/2019 11:00 am - Ro Myers DNP, RN, UNDERWRITING SALES REPRESENTATIVE-BC at [facility]01/29/2018 - Ro Myers DNP, RN, UNDERWRITING SALES REPRESENTATIVE- BCG47.33 Obstructive sleep apnea (adult) (pediatric)Comments:Sleep Apnea - NPSG 08/19/07 AHI 121.7/hour, brianna oxygen 84% wt 185. BiPAP titration 10/08/12 IPAP 16, EPAP 12 cmOn BiPAP3.1/hourFollow up:1 yearRecommendations:Continue PAP device, Benefitting and compliant with treatment. Change DME: [employer] [address], phone # [phone] Cleaning Wipe off mask daily (baby wipe-no scent, or warm water) Clean mask, tubing, filter, and water chamber weekly in mild no scent dish soap and water. Hang to dry. So-Clean is an option (not covered by insurance) If you have any sleepiness while driving you MUST avoid operating a vehicle or machinery. If you have difficulty with your equipment, or need to replace your mask or hoses, please contact your homecare agency. A weight change of 20 pounds or more may have an effect on your equipment; if you are experiencing problems please call for an appointment. If you have any further questions, please call the [facility] at [phone].
--- OUTSIDE RECORDS SUMMARY | 2018-02-05 12:57 | XMS REPORT ---
:1935 External Reference #:[id number] Author Organization [email or web address] Address [address] [address] Phone [phone] Care Team Providers Name Role Phone Alecia Starkey MD Primary Care Physician Unavailable Payers Type Date Identification Numbers Payment Provider Subscriber Medicare Primary Effective: Policy Number: Medicare Ying Velez 2000 [id number] PayID: [id number] [address] [place] [address] [facility] Part B Policy Number: [id number] [facility] Ying Velez PayID: [id number] [address] [place] [address] Problems Date Description Provider Status Onset: 05/26/2015 Localized, primary osteoarthritis Lucita Nash M.D. Active Onset: 10/25/2016 Obstructive sleep apnea syndrome Ro Myers DNP, RN, Active PACS SPECIALIST-BC Onset: 08/22/2017 Essential hypertension Alecia Starkey M.D. 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 2018 tablet by Elda, mouth at M.D. bedtime Pantoprazole 09/22/ Active Tablets DR 20mg 90tabs once a day K21.9 Alecia Sodium 2018 Evie Starkey Paxil 09/22/ Active Tablets 10mg 90tabs Take 1 F41.9 Melba 2018 Tablet By Cotton, Mouth Once M.D. A Day Paroxetine HCL 10/24/ Active 10mg 1 by mouth Unknown 2017 daily Ibuprofen 10/24/ Active as Unknown 2017 [...] Capsules 500mg 8caps 4 tablets [place], 2012 1 hour M.D. before dental work Doxycycline 09/22/ Hx Tablets 100mg 20tabs 1 tablet H66.92 Alecia Hyclate 2018 - twice a Starkey, 10/02/ day x 10 M.D. 2017 days Pantoprazole 10/24/ Hx 40mg 1 by mouth Unknown Sodium 2016 - daily 2017 Percocet 09/11/ Hx Tablets 5-325mg 90tabs take 1-2 Bri 2014 - tabs by MAEVE Nieves 10/22/ mouth q4-6 2016 hours as needed pain Coumadin 09/11/ Hx [...] CPT Code Status Date Vaccine Lot # [id number] Given 09/22/2017 Pneumococcal Conjugate Vaccine 13 Valent For [id number] Intramuscular Use 85775 Given 08/31/2017 Influenza Virus Vaccine, Quadrivalent, Split, Preservative Free 21271 Given 09/30/2012 Tdap - Tetanus/Diptheria/Acellular Pertussis Vital Signs Date Vital Result Comment 01/15/2018 Height 60.5 inches 5'0.50" Weight 189.00 [...] Test Date Test Result H/L Range Note Urinalysis Profile 01/02/2018 Urine Color Yellow Urine Appearance Clear Urine Specific [place] 1.021 1.010-1.030 Urine pH 6.0 5-9 Urine [...] 0-2 Nucleated Red Blood Cells % 0 Laboratory test finding 01/02/2018 Lactic Acid 1.4 mmol/L 0.5-2.0 1 Inr/Protime 01/02/2018 Inr 1.01 0.77-1.02 Laboratory test finding 01/02/2018 Partial Thrombo Time 31.5 seconds 26.0 -36.3 PTT B-Type Natriuretic Peptide BNP 82 pg/mL 2 Comp Metabolic Panel 01/02/2018 Sodium 137 mmol/L [...] Egfr Non- 58.4 >60 Egfr 75.2 >60 3 Laboratory test finding 01/02/2018 Magnesium 1.8 mg/dL Low 1.9-2.7 Amylase 191 U/L High 29-103 Creatine Kinase(CK) 138 U/L 10-223 C Reactive Protein 18.63 mg/L High < 5.00 4 Troponin-I (TnI) 0.00 ng/mL <0.04 Lipase 951 U/L High 11.0-82.0 Laboratory test finding 08/19/2016 Surgical Pathology SEE RESULT BELOW 5 Ua And Culture 09/14/2015 Urine Culture And SEE RESULT BELOW 6 Sensitivity Sensitivities Urinalysis Profile 09/14/2015 Urine Color Yellow Urine Appearance Cloudy Urine Specific [place] 1.023 1.010-1.030 Urine pH 5.0 5-9 Urine [...] Absent Urine Renal Epithelial Cells Present Absent Laboratory test 09/11/2015 Urine Culture And SEE RESULT BELOW 7, 8 finding Sensitivities Urinalysis Profile 09/11/2015 Urine Color Yellow 7 Urine Appearance Cloudy 7 Urine Specific [place] 1.024 1.010-1.030 7 Urine pH 5.0 5-9 [...] PTT Inr/Protime 09/11/2015 Inr 0.95 0.89-1.11 7 CBC No Diff 09/11/2015 White Blood Count [...] Volume 10 um3 7.4-10.4 7 Laboratory test finding 04/16/2013 Inr 0.84 Low 0.87-0.97 11 Activated Partial Thrombo Time 29.6 seconds 22.18-37.18 12 Basic Metabolic Panel 04/16/2013 Sodium 142 mmol/L 133-145 Potassium 3.9 mmol/L 3.5-5.0 Chloride 105 mmol/L 101-111 Co2 Carbon Dioxide 30.0 mmol/L 22-32 Anion Gap 7.0 mmol/L 2-11 Glucose 102 mg/dL High 70-100 Blood Urea Nitrogen 21 mg/dL 6-24 Creatinine 0.80 mg/dL 0.50-1.40 BUN/Creatinine Ratio 26.3 High 8-20 Calcium 9.0 mg/dL 8.1-9.9 Egfr Non- 69.6 >60 Egfr 89.4 >60 13 CBC No Diff 04/16/2013 White Blood Count [...] Blood Type O Positive Antibody Screen NEGATIVE 1 [facility] Severe Sepsis and Septic Shock Management Bundle Measure requires all lactic acids initially measuring >2.0 mmol/L be repeated. 2 >100 to <200 pg/mL: likely compensated congestive heart failure (CHF) 200 to 400 pg/mL: likely moderate CHF >400 pg/mL: likely moderate to severe CHF 3 Because ethnic data is not always readily [...] 15-29 5 Kidney failure <15 (or dialysis) 4 Acute inflammation: >10.00 5 SEE RESULT BELOW Name: VELEZYING : [address]: Clarence Brady MD Acct: [id number] Unit: [id number] AGE: 80 Location: OR Re08/19/16 SEX: F Status: REG [facility] SPEC: [id number] NELSON: 08/19/16- SUBM DR: Clarence Brady MD REQ: [id number] RECD: 08/19/16-1534 STATUS: SOUT _ ORDERED: LEVEL III FINAL [...] and the wall thickness averages 0.1 cm. Gamma Operator sections, one cassette. Signed (signature on file) Bri Lovell MD 03/30 1049 END OF REPORT * ML=Testing performed at Main Lab DEPARTMENT OF PATHOLOGY, [address] [place] [address] Rob Cook M.D. Director [facility] # [id number] 6 SEE RESULT BELOW Name: YING VELEZ : [address]: Bri Nieves NP Acct: [id number] Unit: [id number] AGE: 79 Location: LAB Re09/14/15 SEX: F Status: REG REF SPEC: [id number] NELSON: 09/14/15-1035 SUBM : Bri Nieves NP REQ: [id number] RECD: 09/14/15 STATUS: COMP _ SOURCE: URINE SPDESC: ORDERED: Urine Culture Procedure Result Reported Site Urine Culture Final 09/15/15- 907 ML No Growth (<1,000 CFU/mL) * ML - [facility] (PSC1) . END OF REPORT * ML=Testing performed at Main Lab DEPARTMENT OF PATHOLOGY, [address] [place] [address] Rob Cook M.D. Director [facility] # [id number] 7 09/19 8 SEE RESULT BELOW Name: YING VELEZ : [address]: Lucita Nash MD Acct: [id number] Unit: [id number] AGE: 79 Location: PAT Re09/11/15 SEX: F Status: REG REF SPEC: [id number] NELSON: 09/11/15-[address]: Lucita Nash MD REQ: [id number] RECD: 09/11/15 STATUS: HEIDY DEJESUS DR: Ross Monte MD _ SOURCE: URINE SPDESC: ORDERED: Urine Culture COMMENTS: HENNY 09/19 QUERIES: Urine Source: Clean Catch Procedure Result Reported Site Urine Culture Final 09/12/15- 08 ML Mixed sam; possible contamination. Suggest resubmission. * ML - MAIN LAB (PSC1) . END OF REPORT * ML=Testing performed at Main Lab DEPARTMENT OF PATHOLOGY, [address] [place] [address] Rob Cook M.D. Director [facility] # [id number] 9 Because ethnic data is not always [...] 5 Kidney failure <15 (or dialysis) 10 AA 09/19 11 AA 04/20 12 AA 04/20 13 Because ethnic data is not always readily [...] 15-29 5 Kidney failure <15 (or dialysis) Procedures Date CPT Code Description Status 09/23/2017 Bone Mineral Density Test Completed 08/19/2016 70081 Laparoscopy Cholecystectomy With Cholangiography Completed 08/19/2016 72666 Laparoscopy Cholecystectomy With Cholangiography Completed 11/30/2015 Mammogram Completed 09/19/2015 64823 TKR Total Knee Replacement Completed 09/19/2015 99548 TKR Total Knee Replacement Completed 05/31/2015 Colonoscopy Completed 11/12/2013 46650 Stress Test Completed 05/26/2013 14809 Xray Knee 3 Views Completed 05/26/2013 26294 Rad Exam; Knee, Ap&L Completed 04/20/2013 06371 TKR Total Knee Replacement Completed 04/20/2013 09224 TKR Total Knee Replacement Completed 10/08/2012 25843 Polysomnography Sleep Staging 4+ Parameters W/Cpap Completed 03/29/2005 Colonoscopy Completed Encounters Type Date Location Provider CPT E/M Dx Office Visit 01/05/2018 [facility], Kyra Hernandez, 05417 K85.90 8:24a Hospitalists M.DUriel Office Visit 01/04/2018 [facility], Kyra Hernandez 45248 K85.90 8:24a Hospitalists M.DUriel Office Visit 01/03/2018 [facility] Kyra Hernandez, 50770 K85.90 8:23a Hospitalists M.DUriel Office Visit 01/02/2018 [facility] Kyra Hernandez, 94196 K85.90 8:18a Hospitalists MAmena Office Visit 11/12/2017 [facility] M.D. 55795 M25.561 8:45a C.M.A. Z96.651 Office Visit 09/23/2017 4:20p [facility] [place] [address] L82.1 R60.0 L85.3 Office Visit 09/22/2017 9:50a [facility] Internal Medicine Alecia Starkey, 64512 Z00.00 - Valentina Case K21.9 F41.9 H66.92 Z12.39 N95.8 Z23 Z12.83 Office Visit 05/16/2017 10:40a [facility] Internal Medicine John Schroeder, 72750 H81.10 - Valentina Case Office Visit 10/25/2016 9:00a [facility] Sleep Ro Myers, 98921 G47.33 Services Of [facility] ANDRE RN, PACS SPECIALIST- Office Visit 08/13/2016 9:00a [facility] Clarence Brady, 15038 R10.11 [facility] Office Visit 08/06/2016 11:09a [facility] [place] [address] G47.30 Assoc, Hospitalists R10.13 I10 K81.9 Office Visit 08/06/2016 7:00a [facility] Clarence Brady, 95600 R10.11 Of [facility] R10.13 R94.5 Office Visit 08/05/2016 7:00a [place] [address] K83.8 Of [facility] R10.11 R94.5 Office Visit 08/05/2016 11:09a [facility] Assoc, [place] [address] K81.9 Hospitalists G47.30 R10.13 I10 Office Visit 08/04/2016 11:09a [facility], Salomon Dumont, 29872 R10.13 Hospitalists Evie G47.30 I10 Office Visit 08/03/2016 11:08a [facility], Salomon Dumont, 42310 R10.13 Hospitalists MAmena G47.30 I10 Office Visit 2015 10:00a [facility] M.D. 92992 Z47.1 C.M.A. Z96.651 Office Visit 08/04/2015 9:30a [facility] M.D. 17991 M17.11 C.M.A. M25.561 Office Visit 05/26/2015 1:15p [facility] M.D. 67759 715.16 C.M.A. 844.8 Office Visit 02/21/2014 11:30a [facility] [place] M.D. 14165 715.96 C.M.A. Office Visit 04/14/2013 10:00a [facility] [place] M.D. 28106 716.96 C.M.A. Plan of Care Future Appointment(s):01/29/2018 1:15 pm - Ro Myers DNP, RN, PACS SPECIALIST-BC at [facility]01/21/2018 9:50 am - Alecia Starkey M.D. at [facility] Internal Medicine - Vadsxobri24/03/2018 - lAecia Starkey M.D.K85.90 Acute pancreatitis without necrosis or infection, unspComments:improving clinically , hydration and low fat diet is important see Dr. [place] as planned next week
--- OUTSIDE RECORDS SUMMARY | 2018-02-05 12:57 | XMS REPORT ---
:1935 External Reference #:[id number] Author Organization [employer] Address [address] [address] Phone [phone] Care Team Providers Name Role Phone Alecia Starkey MD Primary Care Physician Unavailable Payers Type Date Identification Numbers Payment Provider Subscriber Medicare Primary Effective: Policy Number: Medicare Ying Velez 2000 [id number] PayID: [id number] [address] [place] [address] [facility] Part B Policy Number: [id number] [facility] Ying Velez PayID: [id number] [address] [place] [address] Problems Date Description Provider Status Onset: 05/26/2015 Localized, primary osteoarthritis Lucita Nash M.D. 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 [...] General Hx Text likes to volunteer for [employer] Allergies, Adverse Reactions, Alerts Date Description Reaction [...] CPT Code Status Date Vaccine Lot # [id number] Given 09/22/2017 Pneumococcal Conjugate Vaccine 13 Valent For [id number] Intramuscular Use 49651 Given 08/31/2017 Influenza Virus Vaccine, Quadrivalent, Split, Preservative Free 71098 Given 09/30/2012 Tdap - Tetanus/Diptheria/Acellular Pertussis Vital [...] Color Yellow Urine Appearance Clear Urine Specific [place] 1.021 1.010-1.030 Urine pH 6.0 5-9 Urine [...] Color Yellow Urine Appearance Cloudy Urine Specific [place] 1.023 1.010-1.030 Urine pH 5.0 5-9 Urine [...] 7 Urine Appearance Cloudy 7 Urine Specific [place] 1.024 1.010-1.030 7 Urine pH 5.0 5-9 [...] Type O Positive Antibody Screen NEGATIVE 1 [facility] Severe Sepsis and Septic Shock Management Bundle [...] [address]: Clarence Brady MD Acct: [id number] Unit: [id number] AGE: 80 Location: OR Re08/19/16 SEX: F Status: REG [facility] [place] [place] SPEC: [id number] NELSON: 08/19/16- SUBM DR: Clarence Brady MD REQ: [id number] RECD: 08/19/16-1534 STATUS: SOUT _ ORDERED: LEVEL [...] and the wall thickness averages 0.1 cm. Credit Collections Analyst sections, one cassette. Signed (signature on file) Bri Lovell MD 03/30 1049 END OF REPORT * ML=Testing performed at Main Lab DEPARTMENT OF PATHOLOGY, [address] [place] [address] Rob Cook M.D. Director [facility] # [id number] 6 SEE RESULT BELOW Name: YING VELEZ : [address]: Bri Nieves NP Acct: [id number] Unit: [id number] AGE: 79 Location: LAB Re09/14/15 SEX: F Status: REG REF SPEC: [id number] NELSON: 09/14/15-1035 SUBM : Bri Nieves NP REQ: [id number] RECD: 09/14/15 STATUS: COMP _ SOURCE: URINE SPDESC: ORDERED: Urine Culture Procedure Result Reported Site Urine Culture Final 09/15/15- 907 ML No Growth (<1,000 CFU/mL) * ML - [facility] (PSC1) . END OF REPORT * ML=Testing performed at Main Lab DEPARTMENT OF PATHOLOGY, [address] [place] [address] Rob Cook M.D. Director [facility] # [id number] 7 09/19 8 SEE RESULT BELOW Name: YING VELEZ : [address]: Lucita Nash MD Acct: [id number] Unit: [id number] AGE: 79 Location: PAT Re09/11/15 SEX: F Status: REG REF SPEC: [id number] NELSON: 09/11/15-[address]: Lucita Nash MD REQ: [id number] RECD: 09/11/15 STATUS: HEIDY DEJESUS DR: Ross Monte MD _ SOURCE: URINE SPDESC: ORDERED: Urine Culture COMMENTS: HENNY 09/19 QUERIES: Urine Source: Clean Catch Procedure Result Reported Site Urine Culture Final 09/12/15- 08 ML Mixed sam; possible contamination. Suggest resubmission. * ML - MAIN LAB (PSC1) . END OF REPORT * ML=Testing performed at Main Lab DEPARTMENT OF PATHOLOGY, [address] [place] [address] Rob Cook M.D. Director [facility] # [id number] 9 Because ethnic data is not always [...] 09/23/2017 Bone Mineral Density Test Completed 08/19/2016 46046 Laparoscopy Cholecystectomy With Cholangiography Completed 08/19/2016 50266 Laparoscopy Cholecystectomy With Cholangiography Completed 11/30/2015 Mammogram Completed 09/19/2015 97650 TKR Total Knee Replacement Completed 09/19/2015 43710 TKR Total Knee Replacement Completed 05/31/2015 Colonoscopy Completed 11/12/2013 50149 Stress Test Completed 05/26/2013 46186 Xray Knee 3 Views Completed 05/26/2013 62422 Rad Exam; Knee, Ap&L Completed 04/20/2013 89437 TKR Total Knee Replacement Completed 04/20/2013 53474 TKR Total Knee Replacement Completed 10/08/2012 55714 Polysomnography Sleep Staging 4+ Parameters W/Cpap Completed 03/29/2005 Colonoscopy Completed Encounters Type Date Location Provider CPT E/M Dx Office Visit 01/05/2018 [facility], Kyra Hernandez, 14499 K85.90 8:24a Hospitalists M.DUriel Office Visit 01/04/2018 [facility], Kyra Hernandez 00188 K85.90 8:24a Hospitalists M.DUriel Office Visit 01/03/2018 [facility] Kyra Hernandez, 37415 K85.90 8:23a Hospitalists M.DUriel Office Visit 01/02/2018 [facility] Kyra Hernandez, 29154 K85.90 8:18a Hospitalists MAmena Office Visit 11/12/2017 [facility] M.D. 60602 M25.561 8:45a C.M.A. Z96.651 Office Visit 09/23/2017 4:20p [facility] [place] [address] L82.1 R60.0 L85.3 Office Visit 09/22/2017 9:50a [facility] Internal Medicine Alecia Starkey, 45065 Z00.00 - Valentina Case K21.9 F41.9 H66.92 Z12.39 N95.8 Z23 Z12.83 Office Visit 05/16/2017 10:40a [facility] Internal Medicine John Schroeder, 20458 H81.10 - Valentina Case Office Visit 10/25/2016 9:00a [facility] Sleep Ro Myers, 46210 G47.33 Services Of [facility] ANDRE RN, MACHINERY DISMANTLER- Office Visit 08/13/2016 9:00a [facility], 11826 R10.11 [facility] Office Visit 08/06/2016 11:09a [facility] [place] [address] G47.30 Assoc, Hospitalists R10.13 I10 K81.9 Office Visit 08/06/2016 7:00a [facility], 17709 R10.11 Of [facility] R10.13 R94.5 Office Visit 08/05/2016 7:00a [facility] [place] [address] K83.8 Of [facility] R10.11 R94.5 Office Visit 08/05/2016 11:09a [facility], [place] [address] K81.9 Hospitalists G47.30 R10.13 I10 Office Visit 08/04/2016 11:09a [facility], Salomon Dumont, 47526 R10.13 Hospitalists Evie G47.30 I10 Office Visit 08/03/2016 11:08a [facility], Salomon Dumont, 18626 R10.13 Hospitalists MAmena G47.30 I10 Office Visit 2015 10:00a [facility] M.D. 81551 Z47.1 C.M.A. Z96.651 Office Visit 08/04/2015 9:30a [facility] M.D. 89969 M17.11 C.M.A. M25.561 Office Visit 05/26/2015 1:15p [facility] M.D. 58041 715.16 C.M.A. 844.8 Office Visit 02/21/2014 11:30a [facility] [place] M.D. 46634 715.96 C.M.A. Office Visit 04/14/2013 10:00a [facility] [place] M.D. 17189 716.96 C.M.A. Plan of Care Future Appointment(s):01/21/2018 9:50 am - Alecia Starkey M.D. at [facility] Internal Medicine - [email or web address]/03/2018 - Alecia Starkey M.D.K85.90 Acute pancreatitis without necrosis or infection, unspComments:improving clinically , hydration and low fat diet is important
[2018-02-05] MEDS ORDERED: Morphine VIAL* 4 MG/ML VIAL (1 ml vial) IV ONE (14:29)
[2018-02-05] MEDS ORDERED: Ondansetron INJ* 2 MG/ML VIAL IV ONE (14:29)
[2018-02-05] MEDS ORDERED: Ondansetron SYRINGE* 4 MG/2 ML SYRINGE (from 40mg/20ml vial) IV ONE (15:00)
[2018-02-05 15:06] LABS: ABS Basophils 0 10^3/ul (0-0.2); ABS Eosinophils 0 10^3/ul (0-0.6); ABS Lymphocytes 0.8 10^3/ul (1.0-4.8); ABS Monocytes 0.2 10^3/ul (0-0.8); ABS Neutrophils 12.9 10^3/ul (1.5-7.7); ABS Nucleated RBC 0 10^3/ul; Eosinophil % 0.1 % (0-6); Hematocrit 42 % (35-47); Lymphocyte % 5.6 % (25-47); Mean Corpuscular HGB Conc 34 g/dl (31-36); Mean Corpuscular Hemoglobin 30 pg (27-31); Mean Corpuscular Volume 89 fL (80-97); Mean Platelet Volume 10.4 um3 (7.4-10.4); Nucleated Red Blood Cells % 0; Platelet Count 164 10^3/ul (150-450); Red Blood Count 4.69 10^6/ul (4.0-5.4); Red Cell Distribution Width 14 % (10.5-15)
[2018-02-05 15:23] LABS: EGFR Non-African American 59.2 (>60)
--- NOTE | 2018-02-05 15:51 | RAD ---
INDICATION: Type II odontoid fracture. C1 fracture COMPARISON: CT cervical spine performed earlier same date TECHNIQUE: Routine five-view imaging was performed FINDINGS: The posterior arch C1 fracture is identified on plain radiographs but better evaluated on the CT. The type II odontoid fracture is also identified but better evaluated on the CT. No other fractures are evident. There is advanced multilevel degenerative disease with facet arthropathy and marginal osteophyte formation. There are soft tissue calcifications posterior to the posterior elements of C6 and C7. IMPRESSION: C1 AND C2 FRACTURES. UNDERLYING OSTEOARTHRITIS. PLEASE REFER ALSO TO CT EXAMINATION FROM SAME DATE
--- NOTE | 2018-02-05 15:59 | RAD ---
INDICATION: Back pain. COMPARISON: CT abdomen pelvis dated January 02, 2018 TECHNIQUE: 3 views of the thoracic spine and 2 views of the lumbar spine were obtained. FINDINGS: Degenerative changes of the thoracic spine includes loss of intervertebral disc height and anterior marginal osteophyte formation. There are no compression fractures. More severe degenerative change of the lower thoracic and lumbar spine includes loss of intervertebral disc height and more exuberant anterior marginal osteophyte formation from T11 to L1. There is stable grade 1 anterolisthesis of L4 over L5. Incidentally noted overlying the right upper lung adjacent to the mediastinum is a 1.5 cm round density. IMPRESSION: 1. Multilevel degenerative changes of the thoracic and lumbar spine similar in appearance to the January 02, 2018 CT examination. There is no radiographically apparent acute fracture or dislocation. 2. There is a 1.5 cm well-circumscribed density overlying the medial aspect of the right upper lobe. Further characterization can be made with multiple reviewed dictated chest x-ray or CT of the chest.
--- NOTE | 2018-02-05 16:12 | ED ---
Jose Rubio Stephanie, scribed for John Gomez MD on 02/05/18 at 1235 . Complex/Multi-Sys Presentation - HPI Summary HPI Summary: The pt is an 82 y/o F BIBA to the ED with c/o head trauma that occurred at 11: 57 today. She states she was walking into a spa and she tripped and fell hitting her head on the sidewalk. Symptoms include neck soreness. She reports mild abrasions to palms of hands, upper lip and forehead. She denies LOC and syncope. The pt denies taking any blood thinners. - History Of Current Complaint Chief Complaint: EDBackInjuryPain Time Seen by Provider: 02/05/18 11:55 Hx Obtained From: Patient Onset/Duration: Sudden Onset Timing: Constant Severity Currently: Moderate Location: Pain At: - neck Aggravating Factor(s): Movement Alleviating Factor(s): Nothing Associated Signs And Symptoms: Positive: Other - neck soreness. Negative: LOC, mild abrasions to palms of hands, upper lip and forehead.. Negative: Syncope - Allergies/Home Medications Allergies/Adverse Reactions: Allergies Allergy/AdvReac Type Severity Reaction Status Date / Time No Known Allergies Allergy Verified 01/02/18 11:41 Home Medications: Home Medications Olopatadine 0.1% OPHTH (NF) [Patanol 0.1% OPHTH (NF)] 1 drop OPHTHALMIC BID PRN 02/05/18 [History Confirmed 02/05/18] PMH/Surg Hx/FS Hx/Imm Hx Endocrine/Hematology History: Denies: Hx Diabetes, Hx Sickle Cell Disease, Hx Thyroid Disease Cardiovascular History: Reports: Hx Hypercholesterolemia, Hx Hypertension Denies: Hx Atrial Fibrillation, Hx Coronary Artery Disease, Hx Pacemaker/ICD , Other Cardiovascular Problems/Disorders Respiratory History: Reports: Hx Seasonal Allergies, Hx Sleep Apnea Denies: Hx Asthma, Hx Chronic Obstructive Pulmonary Disease (COPD), Other Respiratory Problems/Disorders GI History: Reports: Hx Diverticulosis, Hx Gastroesophageal Reflux Disease, Hx Hiatal Hernia, Other GI Disorders - pancreatitis Denies: Hx Ulcer History: Denies: Other Problems/Disorders Musculoskeletal History: Reports: Hx Arthritis - GENERALIZED Denies: Hx Osteoporosis, Other Musculoskeletal History Sensory History: Reports: Hx Cataracts - had sx, Hx Contacts or Glasses - GLASSES FOR READING, Other Sensory Impairments - Vertigo secondary to Eustachian Tube Dysfunction Denies: Hx Hearing Aid Opthamlomology History: Reports: Hx Cataracts - had sx, Hx Contacts or Glasses - GLASSES FOR READING, Other Sensory Impairments - Vertigo secondary to Eustachian Tube Dysfunction Neurological History: Reports: Other Neuro Impairments/Disorders - RESTLESS LEG SYNDROME Denies: Hx CVA Psychiatric History: Reports: Hx Anxiety, Hx Depression Denies: Hx Panic Disorder - Cancer History Hx Chemotherapy: No Hx Radiation Therapy: No - Surgical History Surgery Procedure, Year, and Place: cholecystectomy, bilat. knee replacemants, cataracts, carpal tunnel Hx Anesthesia Reactions: No Infectious Disease History: No Infectious Disease History: Denies: Hx Hepatitis, Hx Human Immunodeficiency Virus (HIV), History Other Infectious Disease, Traveled Outside the [place] in Last 30 Days - Family History Known Family History: Positive: Cardiac Disease, Other - CVA's Negative: Renal Disease Family History: Father had pancreatic cancer. - Social History Occupation: Retired Lives: Alone Alcohol Use: Rare Hx Substance Use: No Substance Use Type: Reports: None Hx Tobacco Use: No Smoking Status (MU): Never Smoked Tobacco Have You Smoked in the Last Year: No Review of Systems Negative: Fever Positive: Other - neck soreness Positive: Other - mild abrasions to palms of hands, upper lip and forehead Neurological: Negative - LOC Negative: Syncope All Other Systems Reviewed And Are Negative: Yes Physical Exam - Summary Physical Exam Summary: VITAL SIGNS: Reviewed. GENERAL: Patient is a well-developed and nourished FEMALE who is lying comfortable in the stretcher. Patient has some distress secondary to neck pain. HEAD AND FACE: No signs of trauma. No ecchymosis, hematomas or skull depressions. No sinus tenderness. EYES: PERRLA, EOMI x 2, No injected conjunctiva, no nystagmus. EARS: Hearing grossly intact. Ear canals and tympanic membranes are within normal limits. MOUTH: Oropharynx within normal limits. NECK: Supple, trachea is midline, no adenopathy, no JVD, no carotid bruit, positive c-spine tenderness, the pt is wearing a collar. CHEST: Symmetric, no tenderness at palpation LUNGS: Clear to auscultation bilaterally. No wheezing or crackles. CVS: Regular rate and rhythm, S1 and S2 present, no murmurs or gallops appreciated. ABDOMEN: Soft, non-tender. No signs of distention. No rebound no guarding, and no masses palpated. Bowel sounds are normal. EXTREMITIES: FROM in all major joints, no edema, no cyanosis or clubbing. NEURO: Alert and oriented x 3. No acute neurological deficits. Speech is normal and follows commands. SKIN: Dry and warm, mild abrasions on forehead, upper lip, and bilateral hands Triage Information Reviewed: Yes Vital Signs On Initial Exam: Initial Vitals Temp Pulse Resp BP Pulse Ox 97.8 F 82 16 158/98 99 02/05/18 11:56 02/05/18 11:56 02/05/18 11:56 02/05/18 11:56 02/05/18 11:56 Vital Signs Reviewed: Yes Diagnostics - Vital Signs Vital Signs Temp Pulse Resp BP Pulse Ox 02/05/18 12:13 16 02/05/18 11:56 97.8 F 82 16 158/98 99 - Laboratory Lab Results: Lab Results 02/05/18 02/05/18 Range/Units 14:55 14:55 WBC 14.0 H (3.5-10.8) 10^3/ul RBC 4.69 (4.0-5.4) 10^6/ul Hgb 14.0 (12.0-16.0) g/dl Hct 42 (35-47) % MCV 89 (80-97) fL MCH 30 (27-31) pg MCHC 34 (31-36) g/dl RDW 14 (10.5-15) % Plt Count 164 (150-450) 10^3/ul MPV 10.4 (7.4-10.4) um3 Neut % (Auto) 92.5 H (38-83) % Lymph % (Auto) 5.6 L (25-47) % [place] % (Auto) 1.6 (0-7) % Eos % (Auto) 0.1 (0-6) % Baso % (Auto) 0.2 (0-2) % Absolute Neuts (auto) 12.9 H (1.5-7.7) 10^3/ul Absolute Lymphs (auto) 0.8 L (1.0-4.8) 10^3/ul Absolute Monos (auto) 0.2 (0-0.8) 10^3/ul Absolute Eos (auto) 0 (0-0.6) 10^3/ul Absolute Basos (auto) 0 (0-0.2) 10^3/ul Absolute Nucleated RBC 0 10^3/ul Nucleated RBC % 0 Sodium 139 (139-145) mmol/L Potassium 3.8 (3.5-5.0) mmol/L Chloride 104 (101-111) mmol/L Carbon Dioxide 25 (22-32) mmol/L Anion Gap 10 (2-11) mmol/L BUN 15 (6-24) mg/dL Creatinine 0.91 (0.51-0.95) mg/dL Est GFR ( Amer) 76.1 (>60) Est GFR (Non-Af Amer) 59.2 (>60) BUN/Creatinine Ratio 16.5 (8-20) Glucose 131 H (70-100) mg/dL Calcium 9.2 (8.6-10.3) mg/dL Total Bilirubin 0.70 (0.2-1.0) mg/dL AST 33 (13-39) U/L ALT 29 (7-52) U/L Alkaline Phosphatase 84 (34-104) U/L C-Reactive Protein < 1.00 (< 5.00) mg/L Total Protein 7.2 (6.4-8.9) g/dL Albumin 4.1 (3.2-5.2) g/dL Globulin 3.1 (2-4) g/dL Albumin/Globulin Ratio 1.3 (1-3) Result Diagrams: 02/05/18 14:55 02/05/18 14:55 Lab Statement: Any lab studies that have been ordered have been reviewed, and results considered in the medical decision making process. - Radiology C-Spine XRay Xray Interpretation: Positive (See Comments) Radiology Interpretation Completed By: Radiologist - C1 AND C2 FRACTURES. UNDERLYING OSTEOARTHRITIS. PLEASE REFER ALSO TO CT EXAMINATION FROM SAME DATE. ED physician has reviewed this report. L-spine Xray Xray Interpretation: Positive (See Comments) Radiology Interpretation Completed By: Radiologist - 1. Multilevel degenerative changes of the thoracic and lumbar spine similar in appearance to the January 02, 2018 CT examination. There is no radiographically apparent acute fracture or dislocation. 2. There is a 1.5 cm well-circumscribed density overlying the medial aspect of the right upper lobe. Further characterization can be made with multiple reviewed dictated chest x-ray or CT of the chest. ED physician has reviewed this report. T-spine XRay Xray Interpretation: Positive (See Comments) Radiology Interpretation Completed By: Radiologist - 1. Multilevel degenerative changes of the thoracic and lumbar spine similar in appearance to the January 02, 2018 CT examination. There is no radiographically apparent acute fracture or dislocation. 2. There is a 1.5 cm well-circumscribed density overlying the medial aspect of the right upper lobe. Further characterization can be made with multiple reviewed dictated chest x-ray or CT of the chest. ED physician has reviewed this report. - CT Brain CT Interpretation: Positive (See Comments) CT Interpretation Completed By: Radiologist - 1. NO ACUTE INTRACRANIAL PATHOLOGY. 2. FRACTURES OF C1 DESCRIBED ON THE CT OF THE CERVICAL SPINE. ED physician has reviewed this report. Cervical Spine CT Interpretation: Positive (See Comments) CT Interpretation Completed By: Radiologist - 1. NONDISPLACED TYPE II ODONTOID FRACTURE. 2. COMMINUTED FRACTURE OF THE ANTERIOR AND POSTERIOR ARCHES OF C1. 3. DEGENERATIVE DISC DISEASE AND OSTEOARTHRITIS. 4. THERE IS MULTILEVEL NEURAL FORAMINAL NARROWING DESCRIBED ABOVE. THERE IS NO OSSEOUS CENTRAL CANAL STENOSIS. PRELIMINARY FINDINGS WERE DISCUSSED WITH DR. GOMEZ IN THE EMERGENCY DEPARTMENT AT APPROXIMATELY 12:48 PM ON FEBRUARY 05, 2018. ED physician has reviewed this report. Maxillofacial CT Interpretation: Positive (See Comments) CT Interpretation Completed By: Radiologist - 1. C1 AND C2 FRACTURES DESCRIBED ON THE CT OF THE CERVICAL SPINE. 2. NO FACIAL FRACTURE. ED physician has reviewed this report. - EKG 14:33 Cardiac Rate: NL EKG Rhythm: Sinus Rhythm - [address] Segment: Normal EKG Interpretation: No ST elevations. Q waves in lead III and aVF Complex Multi-Symp Course/Dx Assessment/Plan: Patient is a 32-year-old female who presents to the emergency department with a chief complaint of an accidental fall. The patient tripped over a traffic cones and she landed on her face. She is complaining of neck pain as she has a couple abrasions and forehead, lips and upper extremities. She has no other complaints. She is in a hard collar. Initially she was given Decadron for anti-inflammatory and Percocet for the pain. Maxillofacial CT impression: C1 and C2 fractures described on the cervical spine CT. No facial fractures. C-spine CT impression: Nondisplaced type II odontoid fracture. Comminuted fracture of the anterior and posterior arches of C1. Degenerative disc disease and osteoarthritis. There is multiple level neuroforaminal narrowing. There is no osseous central canal stenosis. Blood test results shows a white blood cell count of 14, glucose of 131,and no other significant abnormalities. At this time I discussed the case with Dr. Serrano from neurosurgery who came and assessed the patient. After he assessment he recommends for the patient to be admitted to the hospitalist services for pain control. He also reports that he needs to place a [place] J collar. Patient continues to have some pain therefore the patient was given morphine for the pain also for nausea. I discussed the case with Dr. Post from the hospitalist services and he agrees to admit the patient to his services. - Diagnoses Provider Diagnoses: Odontoid fracture with type II morphology - Physician Notifications Discussed Care Of Patient With: Vassilios Dimopoulos - ED wants xrays of c-spine , T-spine and L spine in ED. Time Discussed With Above Provider: 14:23 Instructed by Provider To: Admit As Inpatient Discharge - Sign-Out/Discharge Documenting (check all that apply): Discharge/Admit/Transfer - Admit - Discharge Plan Condition: Stable Disposition: ADMITTED TO [facility] Referrals: Alecia Starkey MD [Primary Care Provider] - - Billing Disposition and Condition Condition: STABLE Disposition: [facility] [place] The documentation as recorded by the Jose donovan Stephanie accurately reflects the service I personally performed and the decisions made by me, John Gomez MD.
[2018-02-05] MEDS ORDERED: Acetaminophen TAB* 325 MG PO PRN (16:44)
[2018-02-05] MEDS ORDERED: Cetirizine* 10 MG TAB PO PRN (16:45)
[2018-02-05] MEDS ORDERED: Olopatadine 0.1% OPHTH (NF) 1 DROP BTL BOTH EYES PRN (16:45)
[2018-02-05] MEDS ORDERED: Fluticasone NASAL SPRAY 50MCG* 16 gm SPRAY BTL BOTH NARES PRN (16:45)
[2018-02-05] MEDS ORDERED: Lisinopril TAB* 10 MG PO SCH (18:00)
[2018-02-05] MEDS: oxyCODONE/Acetamin 5/325 MG* TAB PO PRN ×2 (18:03→23:03)
[2018-02-05] MEDS: Carbidopa/Levodop 25/100 MG TAB(*) PO SCH (20:20)
[2018-02-05] MEDS: Lisinopril TAB* 10 MG PO SCH (20:20)
[2018-02-05] MEDS: Heparin VIAL(*) 5000 UNITS/ML VIAL (FIVE THOUSAND) SUBCUT SCH (20:21)
--- NOTE | 2018-02-06 01:12 | HP ---
CC: Alecia Starkey MD; Dr. Watson * HISTORY AND PHYSICAL: DATE OF ADMISSION: 02/05/18 PRIMARY CARE PROVIDER: Alecia Starkey MD. ATTENDING PHYSICIAN: Denilson Post MD * (dictated by Jami Grayson NP) . CHIEF COMPLAINT: Neck pain after falling and striking head on pavement. HISTORY OF PRESENT ILLNESS: Ms. Barnes is an 82-year-old female with past medical history significant for hypertension, hyperlipidemia, GERD, seasonal allergies, sleep apnea, obesity, pancreatitis, and acalculous cholecystitis who was in her usual state of health this morning when she was going to get her nails done. She states that on the ground, there was a piece of plywood with a cone over it. When she went to step over this, she caught her foot on the piece of plywood, falling and striking her forehead on the curb. The patient states that she did not lose consciousness. She sat outside, the nail salon for a while. The patient denies fevers, chills, chest pain, shortness of breath , nausea, vomiting. She reports some loose stools earlier today. She denies any urinary symptoms, loss of bowel or bladder control, numbness or tingling, lightheadedness, or dizziness as previously stated. She currently has a headache, but denies any visual disturbances. The patient was brought to the emergency room by EMS for further evaluation. While in the emergency room, the patient had multiple images done finding a C1 fracture and then nondisplaced type 2 odontoid fracture. She complained of no other pain other than a headache. She was found to have abrasions to her palms , hands, upper lip, and forehead. Dr. Watson was consulted on the patient and the hospitalists were asked to evaluate her for admission. PAST MEDICAL HISTORY: 1. Hypertension. 2. Hyperlipidemia. 3. GERD. 4. Seasonal allergies. 5. Sleep apnea. 6. Obesity. 7. Pancreatitis. 8. Acalculous cholecystitis. PAST SURGICAL HISTORY: 1. Status post cholecystectomy. 2. Status post partial hysterectomy. 3. Status post left total knee arthroplasty. 4. Status post right total knee arthroplasty. HOME MEDICATIONS: Include: 1. Patanol 0.1% one drop ophthalmically to both eyes twice daily as needed. 2. Simvastatin 40 mg oral daily. 3. Protonix 20 mg oral daily. 4. Paxil 20 mg oral daily. 5. Lisinopril 10 mg oral every evening. 6. Flonase 1 spray to both nares. 7. Barb 180 mg daily as needed for allergy symptoms. 8. Sinemet 25/100 one tablet oral daily at bedtime. ALLERGIES: No known drug allergies. FAMILY HISTORY: The patient's mother had a history of heart disease. She denies family history of diabetes mellitus and her father had a history of pancreatic cancer. SOCIAL HISTORY: The patient denies tobacco or recreational drug use. She rarely drinks alcohol. Her daughter, Lizeth Mayo, will be her surrogate decision maker in the event she is unable to make decisions for herself. REVIEW OF SYSTEMS: I performed an 11-point review of systems. All the pertinent positives and negatives are mentioned in the history of present illness. The remaining review of systems is negative. PHYSICAL EXAMINATION GENERAL APPEARANCE: The patient is alert, pleasant, appears to be in no acute distress. VITAL SIGNS: Temperature 97.8, heart rate 80, respiratory rate 16, O2 sat 98% on room air, blood pressure 145/71. HEENT: Normocephalic, atraumatic. Pupils are equal and reactive to light. Extraocular movements are intact. Her neck is currently immobile secondary to being in an immobilizer. RESPIRATORY: There is no accessory muscle use. The lungs are clear to auscultation, bilateral. CARDIOVASCULAR: Regular rate and rhythm. S1, S2 present. There are no murmurs , rubs, or gallops heard. ABDOMEN: Soft, nontender, nondistended. There are bowel sounds present x4. EXTREMITIES: There is no lower extremity edema. DP and PT pulses are 2+ and symmetric. MUSCULOSKELETAL: There is no clubbing or cyanosis noted. The patient exhibits good strength in all extremities. NEUROLOGICAL: The patient is alert and oriented x4. Hand air conditioning mechanic industrial are equal and dorsi and plantar flexor are strong and equal. PSYCHOLOGICAL: The patient is calm and cooperative. SKIN: The patient has some abrasions to her hands and an abrasion to her right forehead. DIAGNOSTIC STUDIES/LABORATORY DATA: Sodium 139, potassium 3.8, chloride 104, CO2 25, BUN 15, creatinine 0.91, glucose 131. White blood cell count 14.0, hemoglobin 14, hematocrit 42, platelet count 164. EKG shows a sinus rhythm, rate of 79; there were no acute signs of ischemia. This is similar to a prior EKG from 01/02/18. Brain CT from today. Radiologist's impression: No acute intracranial pathology. Fracture of the C1 as described on the CT of the cervical spine. Cervical spine CT from today. Radiologist's impression: Nondisplaced type 2 odontoid fracture. Comminuted fracture of the anterior and posterior arches of C1. Degenerative disk disease and osteoarthritis. There is multilevel neural foraminal narrowing as described above. There is no osseous central canal stenosis. Maxillofacial CT from today. Radiologist's impression: C1 and C2 fracture as described on the CT of the cervical spine. No facial fractures. Cervical spine x-ray from today. Radiologist's impression: C1 and C2 fractures , underlying osteoarthritis. Please refer also to CT examination from the same date. Thoracic and Lumbar spine x-ray from today. Radiologist's impression: Multilevel degenerative changes of the thoracic and lumbar spine similar in appearance to the 01/02/18 CT examination. There is no radiographic apparent acute fracture or dislocation. There is a 1.5 cm well circumscribed density overlying the mediastinum aspect of the right upper lobe. Further characterization can be made with multiple reviewed dictated chest x-ray or CT of the chest. IMPRESSION: Ms. Barnes is an 82-year-old female with past medical history significant for hypertension, hyperlipidemia, GERD, seasonal allergies, sleep apnea, obesity, pancreatitis, acalculous cholecystitis who presented to the hospital after tripping and falling earlier today resulting in neck pain. She will be admitted as an inpatient for a C1 and nondisplaced type 2 odontoid fracture. ASSESSMENT/PLAN: 1. C1 and nondisplaced type 2 odontoid fracture. The patient will be seen in consultation by Dr. Watson with Neurosurgery. We are working on obtaining her [place] J collar through [employer] [facility] at this time. She will be on bed rest with head up bed and no higher than 20 degrees for now. She will have pain medication. We will recheck and PA and LAT cervical spine xray in the AM. 2. Leukocytosis. She denies urinary symptoms, denies cough and is afebrile. We will check a UA. I suspect this is a leukemoid reaction from her fall. 3. Hypertension. Continued on her home lisinopril. 4. Gastroesophageal reflux disease. Continued on her home Protonix. 5. Seasonal allergies. Continued on her Flonase and Barb as needed. 6. Sleep apnea. She will be continued on her home CPAP, her daughter will bring hers in from home. 7. Obesity. The patient's BMI is approximately 34. 8. Recent pancreatitis. The patient will be on a low fat diet. 9. Fluids, electrolytes, and nutrition. The patient will have gentle IV hydration. She will also be placed on a low fat diet in the setting of her recent pancreatitis. 10. Code status. Full code. 11. DVT prophylaxis. The patient is at high risk. She will have subcu heparin. 12. Disposition. Inpatient. TIME SPENT: Time spent for this admission was approximately 60 minutes, greater than half of that was spent [id number] with the patient discussing medications, past medical history, the events leading up to her arrival today, performing a physical examination. The case has been reviewed with the attending, Dr. Post, who agrees with the plan of care. Reviewed by TRISH BARTH 02/06/18 1401 [id number]/[facility] #: [id number] ANTHONY
[2018-02-06] MEDS: oxyCODONE/Acetamin 5/325 MG* TAB PO PRN ×4 (04:36→20:51)
[2018-02-06] MEDS: Heparin VIAL(*) 5000 UNITS/ML VIAL (FIVE THOUSAND) SUBCUT SCH ×3 (05:50→22:48)
[2018-02-06] MEDS: Morphine VIAL* 4 MG/ML VIAL (1 ml vial) IV PRN ×3 (08:10→17:36)
[2018-02-06] MEDS: Atorvastatin* 20 MG TAB PO SCH (08:11)
[2018-02-06] MEDS: Omeprazole CAP* 20 MG PO SCH (08:11)
[2018-02-06] MEDS: PARoxetine HCL TAB* 20 MG PO SCH (08:11)
--- NOTE | 2018-02-06 08:36 | PN ---
Subjective Date of Service: 02/06/18 Interval History: Patient was seen and examined at bedside. Reports intermittent pressure to back of her neck, relieved with Morphine. Also feels urge to urinate, but unable to go. Bladder scan done last night with 500cc retained urine, straight catheter performed. Still has urinary urge with no output, scan repeated this AM, only 28cc. Denies suprapubic, flank or back pain. No fever or chills. Feels tired from her fall, but denies weakness, numbness, severe headaches, visual changes, nausea or vomiting. Feels a little anxious about next steps in her plan of care , will discuss with . Cervical spine MRI was ordered per neurosurgery request. Family History: Unchanged from Admission Social History: Unchanged from Admission Past Medical History: Unchanged from Admission Objective Active Medications: Acetaminophen (Tylenol Tab*) 650 mg PO Q4H PRN PRN Reason: FEVER/PAIN Atorvastatin Calcium (Lipitor*) 20 mg PO DAILY [facility] Last Admin: 02/06/18 08:11 Dose: 20 mg Carbidopa/Levodopa (Sinemet 25/100 Tab(*)) 1 tab PO BEDTIME [facility] [place] Last Admin: 02/05/18 20:20 Dose: 1 tab Cetirizine HCl (Zyrtec*) 10 mg PO DAILY PRN; Protocol PRN Reason: Allergy Symptoms Fluticasone Propionate (Flonase Nasal [place] 50mcg*) 1 spray BOTH NARES DAILY PRN PRN Reason: Allergy Symptoms Heparin Sodium (Porcine) (Heparin Vial(*)) 5,000 units SUBCUT Q8HR [facility] [place] Last Admin: 02/06/18 05:50 Dose: 5,000 units Lisinopril (Prinivil Tab*) 10 mg PO 2100 [facility] [place] Last Admin: 02/05/18 20:20 Dose: 10 mg Morphine Sulfate (Morphine Vial*) 2 mg IV Q4H PRN PRN Reason: SEVERE PAIN Last Admin: 02/06/18 08:10 Dose: 2 mg Olopatadine HCl (Patanol 0.1% Ophth (Nf)) 1 drop BOTH EYES BID PRN; Protocol PRN Reason: Allergy Symptoms Omeprazole (Prilosec Cap*) 20 mg PO DAILY@0730 [facility] [place] Last Admin: 02/06/18 08:11 Dose: 20 mg Oxycodone/Acetaminophen (Percocet 5/325 Tab*) 1 tab PO Q4H PRN PRN Reason: PAIN - MILD TO MODERATE Last Admin: 02/06/18 04:36 Dose: 1 tab Oxycodone/Acetaminophen (Percocet 5/325 Tab*) 2 tab PO Q4H PRN PRN Reason: PAIN - MODERATE TO SEVERE Paroxetine HCl (Paxil Tab*) 20 mg PO DAILY [facility] Last Admin: 02/06/18 08:11 Dose: 20 mg Vital Signs - 8 hr 02/06/18 02/06/18 02/06/18 01:30 04:36 07:30 Temperature 97.9 F Pulse Rate 72 Respiratory 14 20 16 Rate Blood Pressure 138/63 (mmHg) O2 Sat by Pulse 95 Oximetry 02/06/18 08:10 Temperature Pulse Rate Respiratory 18 Rate Blood Pressure (mmHg) O2 Sat by Pulse Oximetry Oxygen Devices in Use Now: None Appearance: Appears mildly anxious at times, but comfortable and in NAD Eyes: No Scleral Icterus, PERRLA Ears/Nose/Mouth/Throat: Clear Oropharnyx - Head with large abrasion noted to right frontal and temporal area. Mild tenderness to palpation. Large area of hematoma noted. No skull depression or criptus. No nasal bone deviation. No bleeding or discharge from nose or ears., Mucous Membranes Moist Neck: - - Exam limited due to [place] J collar in place. Respiratory: Symmetrical Chest Expansion and Respiratory Effort, Clear to Auscultation Cardiovascular: NL Sounds; No Murmurs; No JVD, RRR Abdominal: NL Sounds; No Tenderness; No Distention Extremities: No Edema Skin: No Rash or Ulcers Neurological: Alert and Oriented x 3, NL Sensation, NL Muscle Strength and Tone , - - EOMs intact. No entrapment noted. Lines/Tubes/Other Access: Clean, Dry and Intact Stringer, Clean, Dry and Intact Peripheral IV Nutrition: Taking PO's Result Diagrams: 02/05/18 14:55 02/05/18 14:55 Additional Lab and Data: Lab Results 02/05/18 02/05/18 Range/Units 14:55 14:55 WBC 14.0 H (3.5-10.8) 10^3/ul RBC 4.69 (4.0-5.4) 10^6/ul Hgb 14.0 (12.0-16.0) g/dl Hct 42 (35-47) % MCV 89 (80-97) fL MCH 30 (27-31) pg MCHC 34 (31-36) g/dl RDW 14 (10.5-15) % Plt Count 164 (150-450) 10^3/ul MPV 10.4 (7.4-10.4) um3 Neut % (Auto) 92.5 H (38-83) % Lymph % (Auto) 5.6 L (25-47) % [place] % (Auto) 1.6 (0-7) % Eos % (Auto) 0.1 (0-6) % Baso % (Auto) 0.2 (0-2) % Absolute Neuts (auto) 12.9 H (1.5-7.7) 10^3/ul Absolute Lymphs (auto) 0.8 L (1.0-4.8) 10^3/ul Absolute Monos (auto) 0.2 (0-0.8) 10^3/ul Absolute Eos (auto) 0 (0-0.6) 10^3/ul Absolute Basos (auto) 0 (0-0.2) 10^3/ul Absolute Nucleated RBC 0 10^3/ul Nucleated RBC % 0 Sodium 139 (139-145) mmol/L Potassium 3.8 (3.5-5.0) mmol/L Chloride 104 (101-111) mmol/L Carbon Dioxide 25 (22-32) mmol/L Anion Gap 10 (2-11) mmol/L BUN 15 (6-24) mg/dL Creatinine 0.91 (0.51-0.95) mg/dL Est GFR ( Amer) 76.1 (>60) Est GFR (Non-Af Amer) 59.2 (>60) BUN/Creatinine Ratio 16.5 (8-20) Glucose 131 H (70-100) mg/dL Calcium 9.2 (8.6-10.3) mg/dL Total Bilirubin 0.70 (0.2-1.0) mg/dL AST 33 (13-39) U/L ALT 29 (7-52) U/L Alkaline Phosphatase 84 (34-104) U/L C-Reactive Protein < 1.00 (< 5.00) mg/L Total Protein 7.2 (6.4-8.9) g/dL Albumin 4.1 (3.2-5.2) g/dL Globulin 3.1 (2-4) g/dL Albumin/Globulin Ratio 1.3 (1-3) Microbiology and Other Data: . Diagnostic Imaging: Patient Name: YING VELEZ Medical Record#: [id number] Ordering Physician: John Gomez MD Acct.#: [id number] : 1935 Age: 82 Sex: F Location: EMERGENCY DEPARTMENT Exam Date: 02/05/181155 ADM Status: REG ER Order Information: CT BRAIN WO Accession Number: [id number] CPT: 36361 HISTORY: Fall, head injury, neck pain COMPARISONS: CT of the cervical spine dated February 05, 2018 IMPRESSION: 1. NO ACUTE INTRACRANIAL PATHOLOGY. 2. FRACTURES OF C1 DESCRIBED ON THE CT OF THE CERVICAL SPINE. <Electronically signed by Ganga Hyatt MD in OV> 02/05/18 1251 Dictated By: Ganga Hyatt MD Dictated Date/Time: 02/05/18 125 Transcribed Date/Time: 02/05/18 125 Copy to: Order Information: CT SPINE CERVICAL W/O Accession Number: [id number] CPT: 63520 HISTORY: Accidental fall, facial pain, neck pain COMPARISONS: None IMPRESSION: 1. NONDISPLACED TYPE II ODONTOID FRACTURE. 2. COMMINUTED FRACTURE OF THE ANTERIOR AND POSTERIOR ARCHES OF C1. 3. DEGENERATIVE DISC DISEASE AND OSTEOARTHRITIS. 4. THERE IS MULTILEVEL NEURAL FORAMINAL NARROWING DESCRIBED ABOVE. THERE IS NO OSSEOUS CENTRAL CANAL STENOSIS. PRELIMINARY FINDINGS WERE DISCUSSED WITH DR. GOMEZ IN THE EMERGENCY DEPARTMENT AT APPROXIMATELY 12:48 PM ON FEBRUARY 05, 2018. <Electronically signed by Ganga Hyatt MD in OV> 02/05/18 1250 Order Information: CT MAXILLOFACIAL W/O Accession Number: [id number] CPT: 83089 HISTORY: Fall, facial pain COMPARISONS: CT of the cervical spine dated February 05, 2018 IMPRESSION: 1. C1 AND C2 FRACTURES DESCRIBED ON THE CT OF THE CERVICAL SPINE. 2. NO FACIAL FRACTURE. <Electronically signed by Ganga Hyatt MD in OV> 02/05/18 1252 Dictated By: Ganga Hyatt MD Dictated Date/Time: 02/05/18 125 Transcribed Date/Time: 02/05/18 1251 Copy to: Order Information: MRI CERVICAL SPINE WO Accession Number: [id number] CPT: 93035 HISTORY: C1-C2 nondisplaced fracture COMPARISONS: CT dated February 05, 2018 IMPRESSION: 1. AGAIN NOTED IS A FRACTURE THROUGH THE BASE OF THE ODONTOID PROCESS, WITH COMMINUTED FRACTURES OF THE ANTERIOR AND POSTERIOR ARCHES OF C1. THERE IS MILD ASSOCIATED BONE EDEMA. THERE IS EDEMA OF THE INTRASPINOUS LIGAMENT AND MUSCULATURE AT C1-C2. 2. THERE IS AT LEAST PARTIAL DISRUPTION OF THE LIGAMENTUM FLAVUM AT C1-C2. 3. THERE IS NO EPIDURAL FLUID COLLECTION. 4. DEGENERATIVE DISC DISEASE AND OSTEOARTHRITIS. 5. THERE IS MILD NARROWING OF THE CENTRAL CANAL AT C4-C5, C5-C6, C6-C7. 6. THERE IS MULTILEVEL NEURAL FORAMINA DESCRIBED ABOVE. EKG Data: EKG INTERPRETATION ECG Report Patient Name YING VELEZ Birthdate 1935 Sex F Order Number [id number] Date of ECG 02/05/2018 14:33:22 Interpretation Sinus rhythm.normal P axis, V-rate 60- 99 Probable left atrial enlargement.P >50mS, <-0.10mV V1 Borderline left axis deviation.QRS axis (-15,-29) - BORDERLINE ECG - ECG NEEDS E-SIGNING Assess/Plan/Problems-Billing Assessment: An 82 y/o female with PMHx HTN, HLD, obesity, GERD and sleep apnea, who was brought to ED after she tripped and fell hitting her head on pavement, found to have a C1 and C2 non-displaced type 2 odontoid fracture. - Patient Problems (1) Cervical spine fracture Current Visit: Yes Status: Acute Priority: High Comment: - Dr. Ospina had seen patient, recommended [place] J collar - She may get out of bed to chair or ambulate briefly with assistance - PT/OT have been ordered - No surgical intevention indicated at this time, since fracture is non- displaced and stable - MRI done, await further input from neurosurgery - Pain control, muscle relaxant - Will discuss if adding steroids would have benefits to decreased associated edema in C-spine (2) Leukocytosis Current Visit: Yes Status: Acute Comment: - Likely reactive to stress from fall and significant pain - UA appears normal (3) Morbid obesity Current Visit: Yes Status: Acute Comment: - Supportive care (4) GERD (gastroesophageal reflux disease) Current Visit: No Status: Acute Comment: - Continue Omeprazole (5) HTN (hypertension) Current Visit: No Status: Acute Comment: - Controlled. - Continue lisinopril. (6) Hyperlipidemia Current Visit: No Status: Acute Comment: - Continue statin. (7) Sleep apnea Current Visit: No Status: Acute Code(s): G47.30 - SLEEP APNEA, UNSPECIFIED SNOMED Code(s): 07328024 Comment: - Continue to use her C-PAP from home (8) Urinary retention Current Visit: Yes Status: Acute Comment: - Likely secondary to pain and anxiety - No suggestion for UTI - Stringer inserted since patient had more discomfort using bedpan, likely to d/c in AM (9) DVT prophylaxis Current Visit: No Status: Acute Comment: - SubQ heparin. (10) Full code status Current Visit: No Status: Acute Status and Disposition: Inpatient. Anticipate discharge when medically stable.
--- NOTE | 2018-02-06 10:00 | RAD ---
HISTORY: C1 and C2 fracture COMPARISONS: CT dated February 05, 2018 VIEWS: 5, Frontal, lateral, and open-mouth odontoid views of the cervical spine. FINDINGS: The cervical spine is visualized from the skull base through C7-T1. ALIGNMENT: The alignment is normal. VERTEBRAL BODIES: Again noted is a fracture through the base of the odontoid process. Again noted is a fracture of the posterior arch of C1. The anterior arch fracture noted on CT is not well visualized on the current examination. The appearance is similar to the previous examination. There is multilevel anterolateral marginal osteophyte formation. JOINTS: There is diffuse intervertebral and facet osteoarthritis. INTERVERTEBRAL DISCS: There is diffuse loss of intervertebral disc height. SOFT TISSUE: The prevertebral soft tissues are normal. OTHER: The skull base is normal. The lung apices are clear. IMPRESSION: 1. PERSISTENT FRACTURES OF THE BASE OF THE ODONTOID PROCESS AND THE POSTERIOR ARCH OF C1. 2. DEGENERATIVE DISC DISEASE AND OSTEOARTHRITIS
[2018-02-06 10:52] LABS: Urine Appearance Cloudy; Urine Blood Negative (Negative); Urine Color Yellow; Urine Ketones Trace (Negative); Urine Protein Negative (Negative); Urine Specific Gravity 1.031 (1.010-1.030); Urine Urobilinogen Negative (Negative)
--- NOTE | 2018-02-06 11:04 | CONS ---
CONSULTATION NOTE: DATE OF CONSULT: 02/05/18 HISTORY OF PRESENT ILLNESS: The patient is a very pleasant 82-year-old female, who was seen earlier today in the emergency room. The patient reported that she had sustained a fall after she tripped down and she fell hitting her head on the sidewall. She did not lose consciousness as she reported. She denies any memory loss. She denies any vision, speech or hearing difficulties. The patient had complaints of neck pain. Cervical imaging revealed a C1 and C2 fracture. I was requested to see the patient by the emergency room physician regarding CT scan findings. The patient denies any weakness, numbness or tingling of her extremities. She reports that she ambulated after the accident. She denies any urinary or GI incontinence. 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 She is accompanied today by her two daughters. PAST MEDICAL HISTORY: Hypercholesterolemia, hypertension, seasonal allergies, sleep apnea, diverticulosis, GERD, and hiatal hernia. The patient is recovering from recent pancreatitis. The patient has arthritis, no history of rheumatoid arthritis as the patient reports. Cataracts, vertigo, restless leg syndrome, anxiety, and depression. PAST SURGICAL HISTORY: Cholecystectomy, bilateral knee replacements, cataract surgery, carpal tunnel syndrome. HOME MEDICATIONS: The patient is on olopatadine. ALLERGIES: No known drug allergies. FAMILY HISTORY: Cardiac disease, CVA, and pancreatic cancer. SOCIAL HISTORY: The patient denies tobacco use, alcohol socially, recreational drug use negative. PHYSICAL EXAM: The patient is not in acute distress. She is in a cervical collar. She has tenderness to palpation of the cervical spine, but no tenderness to palpation on thoracic or lumbar spine. The patient is awake, alert, and oriented x3. Her pupils are equal and reactive. Cranial nerves II through XII are grossly intact. Motor 4-5/5 in all extremities. No pronator drift. Sensory grossly intact to light touch. Deep tendon reflexes +1 bilaterally. No clonus. No Babinski. Singh's negative. Straight leg raise negative in the supine position. DIAGNOSTIC STUDIES/LAB DATA: The patient had a CT scan of the brain that did not reveal any acute findings. CT scan also of the cervical spine that revealed C1 cervical fracture with anterior and posterior rim fracture without lateral displacement of the lateral mass of C1. The patient also had C2 type II odontoid fracture with evidence of pannus in the area of the odontoid that seems to be chronic and also hypodense signal in the base of the odontoid that also seems chronic. The patient had x-ray of the thoracic and lumbar spine that did not reveal any acute fractures. ASSESSMENT: This is a very pleasant 82-year-old female with a history of a fall , who presented with a C1 lateral fracture and C2 type II odontoid fracture, nondisplaced. PLAN/RECOMMENDATIONS: The patient at this point is doing quite well. Her neurological function is normal. We discussed the imaging findings as well as possible treatment options including prolonged immobilization in a cervical collar and surgical intervention. Risks and benefits of each approach as well as possible outcomes including paralysis and , have been discussed with both the patient and her daughters. At this point, based on the fact that there is no displacement of the fractures and the patient's preference, medical management will be followed. We will recommend placing a [place] J Collar and serial C-spine x-rays over the next one or two days, to monitor for displacement of the odontoid and need for surgical intervention. Also MRI of the cervical spine will be obtained in order to assess the C1-C2 complex. The patient is currently admitted by Internal Medicine. Appreciate IM care. We will follow the patient with you. Thank you for allowing us to participate in the care of this patient. Please do not hesitate to contact our office in case you have any further questions or concerns regarding the care of this patient. Ashlee Watson MD [id number]/CPS #: [id number] MTDD
[2018-02-06] MEDS ORDERED: NS 0.9% 500 ML* 500 ML IV ONE (12:11)
--- NOTE | 2018-02-06 15:29 | RAD ---
HISTORY: C1-C2 nondisplaced fracture COMPARISONS: CT dated February 05, 2018 TECHNIQUE: The following sequences were obtained of the cervical spine: Sagittal T1- and T2-weighted images, sagittal STIR images, axial T2 and gradient echo images. FINDINGS: BRAIN AND SPINAL CORD: The visualized spinal cord is normal in caliber, position, and signal intensity. The visualized portion of the brain is unremarkable. The cerebellar tonsils are normal in position. ALIGNMENT: There is straightening of the normal cervical lordosis. The alignment is otherwise normal. VERTEBRAL BODIES: There is a defect through the base of odontoid process with small amount of fluid in the defect consistent with the history of fracture. There is mild edema along the fracture line. Again noted is a comminuted fracture of the anterior and posterior arches of C1 with mild edema. There is mild anterolateral marginal osteophyte formation. JOINTS: There is no subluxation or dislocation. There is osteoarthritis of the uncovertebral and facet joints. There is osteoarthritis of the atlantoaxial articulation. MUSCULATURE: There is mild edema of the intraspinous musculature at C1 and C2. INTERVERTEBRAL DISCS: There is diffuse loss of intervertebral disc height and T2 signal throughout the spine. AXIAL IMAGES: C2-C3: There is bilateral uncovertebral and facet hypertrophy. There is severe left and moderate right neuroforaminal narrowing. There is no significant central canal stenosis. C3-C4: There is bilateral uncovertebral and facet hypertrophy. There is severe bilateral neural foraminal narrowing. There is no significant central canal stenosis. C4-C5: There is bilateral uncovertebral and facet hypertrophy. There is severe bilateral neural foraminal narrowing. There is mild narrowing of the central canal. C5-C6: There is bilateral uncovertebral and facet hypertrophy. There is severe bilateral neural foraminal narrowing. There is mild narrowing of the central canal. C6-C7: There is a broad-based disc osteophyte complex with bilateral uncovertebral and facet hypertrophy. There is severe bilateral neural foraminal narrowing. There is mild narrowing of the central canal. C7-T1: There is bilateral facet hypertrophy. There is moderate bilateral neural foraminal narrowing. There is no significant central canal stenosis. SOFT TISSUES: As noted above, there is interspinous edema at C1-C2. There is mildly elevated signal within the ligamentum flavum at C1-C2 suggestive of at least partial disruption. The posterior longitudinal ligament is intact.. OTHER: None. IMPRESSION: 1. AGAIN NOTED IS A FRACTURE THROUGH THE BASE OF THE ODONTOID PROCESS, WITH COMMINUTED FRACTURES OF THE ANTERIOR AND POSTERIOR ARCHES OF C1. THERE IS MILD ASSOCIATED BONE EDEMA. THERE IS EDEMA OF THE INTRASPINOUS LIGAMENT AND MUSCULATURE AT C1-C2. 2. THERE IS AT LEAST PARTIAL DISRUPTION OF THE LIGAMENTUM FLAVUM AT C1-C2. 3. THERE IS NO EPIDURAL FLUID COLLECTION. 4. DEGENERATIVE DISC DISEASE AND OSTEOARTHRITIS. 5. THERE IS MILD NARROWING OF THE CENTRAL CANAL AT C4-C5, C5-C6, C6-C7. 6. THERE IS MULTILEVEL NEURAL FORAMINA DESCRIBED ABOVE.
[2018-02-06] MEDS: Cyclobenzaprine TAB* 10 MG PO PRN (17:35)
[2018-02-06] MEDS: Lisinopril TAB* 10 MG PO SCH (20:51)
[2018-02-06] MEDS: Carbidopa/Levodop 25/100 MG TAB(*) PO SCH (20:51)
[2018-02-07] MEDS: Heparin VIAL(*) 5000 UNITS/ML VIAL (FIVE THOUSAND) SUBCUT SCH ×3 (05:37→21:32)
[2018-02-07] MEDS: oxyCODONE/Acetamin 5/325 MG* TAB PO PRN ×3 (05:37→21:33)
[2018-02-07] MEDS: Omeprazole CAP* 20 MG PO SCH (08:04)
[2018-02-07] MEDS: PARoxetine HCL TAB* 20 MG PO SCH (08:04)
[2018-02-07] MEDS: Atorvastatin* 20 MG TAB PO SCH (08:04)
--- NOTE | 2018-02-07 09:11 | PN ---
Subjective Date of Service: 02/07/18 Interval History: Ms. Barnes reports she is doing better everyday. She would like the miller removed. She reports neck pain but states it is well controlled on current regimen. She denies feeling over sedated. No N/V. Reports NL BMs. Appetite is improving. No numbness, weakness. Family History: Unchanged from Admission Social History: Unchanged from Admission Past Medical History: Unchanged from Admission Objective Active Medications: Acetaminophen (Tylenol Tab*) 650 mg PO Q4H PRN PRN Reason: FEVER/PAIN Atorvastatin Calcium (Lipitor*) 20 mg PO DAILY [facility] Last Admin: 02/07/18 08:04 Dose: 20 mg Carbidopa/Levodopa (Sinemet 25/100 Tab(*)) 1 tab PO BEDTIME [facility] Last Admin: 02/06/18 20:51 Dose: 1 tab Cetirizine HCl (Zyrtec*) 10 mg PO DAILY PRN; Protocol PRN Reason: Allergy Symptoms Cyclobenzaprine HCl (Flexeril Tab*) 10 mg PO TID PRN PRN Reason: SPASMS - NECK Last Admin: 02/06/18 17:35 Dose: 10 mg Fluticasone Propionate (Flonase Nasal [place] 50mcg*) 1 spray BOTH NARES DAILY PRN PRN Reason: Allergy Symptoms Heparin Sodium (Porcine) (Heparin Vial(*)) 5,000 units SUBCUT Q8HR [facility] Last Admin: 02/07/18 05:37 Dose: 5,000 units Lisinopril (Prinivil Tab*) 10 mg PO 2100 [facility] Last Admin: 02/06/18 20:51 Dose: 10 mg Morphine Sulfate (Morphine Vial*) 2 mg IV Q4H PRN PRN Reason: SEVERE PAIN Last Admin: 02/06/18 17:36 Dose: 2 mg Olopatadine HCl (Patanol 0.1% Ophth (Nf)) 1 drop BOTH EYES BID PRN; Protocol PRN Reason: Allergy Symptoms Omeprazole (Prilosec Cap*) 20 mg PO DAILY@0730 [facility] Last Admin: 02/07/18 08:04 Dose: 20 mg Oxycodone/Acetaminophen (Percocet 5/325 Tab*) 1 tab PO Q4H PRN PRN Reason: PAIN - MILD TO MODERATE Last Admin: 02/06/18 11:57 Dose: 1 tab Oxycodone/Acetaminophen (Percocet 5/325 Tab*) 2 tab PO Q4H PRN PRN Reason: PAIN - MODERATE TO SEVERE Last Admin: 02/07/18 05:37 Dose: 2 tab Paroxetine HCl (Paxil Tab*) 20 mg PO DAILY [facility] Last Admin: 02/07/18 08:04 Dose: 20 mg Vital Signs - 8 hr 02/07/18 02/07/18 02/07/18 03:51 05:37 08:04 Temperature 98.3 F 98.6 F Pulse Rate 78 75 Respiratory 16 18 16 Rate Blood Pressure 137/65 100/52 (mmHg) O2 Sat by Pulse 94 93 Oximetry Oxygen Devices in Use Now: None Appearance: 82 yo female A+O x3 in NAD sitting up in a chair Eyes: No Scleral Icterus, PERRLA Neck: - - [place] J collar in place Respiratory: Clear to Auscultation Cardiovascular: NL Sounds; No Murmurs; No JVD, RRR, No Edema Abdominal: NL Sounds; No Tenderness; No Distention Extremities: No Edema, No Clubbing, Cyanosis Skin: No Rash or Ulcers, No Nodules or Sclerosis Neurological: Alert and Oriented x 3, NL Sensation, NL Gait, NL Muscle Strength and Tone Lines/Tubes/Other Access: Clean, Dry and Intact Peripheral IV Nutrition: Taking PO's Result Diagrams: 02/05/18 14:55 02/05/18 14:55 Additional Lab and Data: Lab Results 02/05/18 02/05/18 Range/Units 14:55 14:55 WBC 14.0 H (3.5-10.8) 10^3/ul RBC 4.69 (4.0-5.4) 10^6/ul Hgb 14.0 (12.0-16.0) g/dl Hct 42 (35-47) % MCV 89 (80-97) fL MCH 30 (27-31) pg MCHC 34 (31-36) g/dl RDW 14 (10.5-15) % Plt Count 164 (150-450) 10^3/ul MPV 10.4 (7.4-10.4) um3 Neut % (Auto) 92.5 H (38-83) % Lymph % (Auto) 5.6 L (25-47) % [place] % (Auto) 1.6 (0-7) % Eos % (Auto) 0.1 (0-6) % Baso % (Auto) 0.2 (0-2) % Absolute Neuts (auto) 12.9 H (1.5-7.7) 10^3/ul Absolute Lymphs (auto) 0.8 L (1.0-4.8) 10^3/ul Absolute Monos (auto) 0.2 (0-0.8) 10^3/ul Absolute Eos (auto) 0 (0-0.6) 10^3/ul Absolute Basos (auto) 0 (0-0.2) 10^3/ul Absolute Nucleated RBC 0 10^3/ul Nucleated RBC % 0 Sodium 139 (139-145) mmol/L Potassium 3.8 (3.5-5.0) mmol/L Chloride 104 (101-111) mmol/L Carbon Dioxide 25 (22-32) mmol/L Anion Gap 10 (2-11) mmol/L BUN 15 (6-24) mg/dL Creatinine 0.91 (0.51-0.95) mg/dL Est GFR ( Amer) 76.1 (>60) Est GFR (Non-Af Amer) 59.2 (>60) BUN/Creatinine Ratio 16.5 (8-20) Glucose 131 H (70-100) mg/dL Calcium 9.2 (8.6-10.3) mg/dL Total Bilirubin 0.70 (0.2-1.0) mg/dL AST 33 (13-39) U/L ALT 29 (7-52) U/L Alkaline Phosphatase 84 (34-104) U/L C-Reactive Protein < 1.00 (< 5.00) mg/L Total Protein 7.2 (6.4-8.9) g/dL Albumin 4.1 (3.2-5.2) g/dL Globulin 3.1 (2-4) g/dL Albumin/Globulin Ratio 1.3 (1-3) Microbiology and Other Data: . Diagnostic Imaging: Patient Name: YING BARNES Medical Record#: [id number] Ordering Physician: John Gomez MD Acct.#: [id number] : 1935 Age: 82 Sex: F Location: EMERGENCY DEPARTMENT Exam Date: 02/05/18 115 ADM Status: REG ER Order Information: CT BRAIN WO Accession Number: [id number] CPT: 38650 HISTORY: Fall, head injury, neck pain COMPARISONS: CT of the cervical spine dated February 05, 2018 IMPRESSION: 1. NO ACUTE INTRACRANIAL PATHOLOGY. 2. FRACTURES OF C1 DESCRIBED ON THE CT OF THE CERVICAL SPINE. <Electronically signed by Ganga Hyatt MD in OV> 02/05/18 125 Dictated By: Ganga Hyatt MD Dictated Date/Time: 02/05/181250 Transcribed Date/Time: 02/05/18 125 Copy to: Order Information: CT SPINE CERVICAL W/O Accession Number: [id number] CPT: 80860 HISTORY: Accidental fall, facial pain, neck pain COMPARISONS: None IMPRESSION: 1. NONDISPLACED TYPE II ODONTOID FRACTURE. 2. COMMINUTED FRACTURE OF THE ANTERIOR AND POSTERIOR ARCHES OF C1. 3. DEGENERATIVE DISC DISEASE AND OSTEOARTHRITIS. 4. THERE IS MULTILEVEL NEURAL FORAMINAL NARROWING DESCRIBED ABOVE. THERE IS NO OSSEOUS CENTRAL CANAL STENOSIS. PRELIMINARY FINDINGS WERE DISCUSSED WITH DR. GOMEZ IN THE EMERGENCY DEPARTMENT AT APPROXIMATELY 12:48 PM ON FEBRUARY 05, 2018. <Electronically signed by Ganga Hyatt MD in OV> 02/05/18 1250 Order Information: CT MAXILLOFACIAL W/O Accession Number: [id number] CPT: 18790 HISTORY: Fall, facial pain COMPARISONS: CT of the cervical spine dated February 05, 2018 IMPRESSION: 1. C1 AND C2 FRACTURES DESCRIBED ON THE CT OF THE CERVICAL SPINE. 2. NO FACIAL FRACTURE. <Electronically signed by Ganga Hyatt MD in OV> 02/05/18 1252 Dictated By: Ganga Hyatt MD Dictated Date/Time: 02/05/18 125 Transcribed Date/Time: 02/05/18 1251 Copy to: Order Information: MRI CERVICAL SPINE WO Accession Number: [id number] CPT: 85509 HISTORY: C1-C2 nondisplaced fracture COMPARISONS: CT dated February 05, 2018 IMPRESSION: 1. AGAIN NOTED IS A FRACTURE THROUGH THE BASE OF THE ODONTOID PROCESS, WITH COMMINUTED FRACTURES OF THE ANTERIOR AND POSTERIOR ARCHES OF C1. THERE IS MILD ASSOCIATED BONE EDEMA. THERE IS EDEMA OF THE INTRASPINOUS LIGAMENT AND MUSCULATURE AT C1-C2. 2. THERE IS AT LEAST PARTIAL DISRUPTION OF THE LIGAMENTUM FLAVUM AT C1-C2. 3. THERE IS NO EPIDURAL FLUID COLLECTION. 4. DEGENERATIVE DISC DISEASE AND OSTEOARTHRITIS. 5. THERE IS MILD NARROWING OF THE CENTRAL CANAL AT C4-C5, C5-C6, C6-C7. 6. THERE IS MULTILEVEL NEURAL FORAMINA DESCRIBED ABOVE. EKG Data: EKG INTERPRETATION ECG Report Patient Name YING BARNES Birthdate 1935 Sex F Order Number [id number] Date of ECG 02/05/2018 14:33:22 Interpretation Sinus rhythm.normal P axis, V-rate 60- 99 Probable left atrial enlargement.P >50mS, <-0.10mV V1 Borderline left axis deviation.QRS axis (-15,-29) - BORDERLINE ECG - ECG NEEDS E-SIGNING Assess/Plan/Problems-Billing Assessment: An 82 y/o female with PMHx HTN, HLD, obesity, GERD and sleep apnea, who was brought to ED after she tripped and fell hitting her head on pavement, found to have a C1 and C2 non-displaced type 2 odontoid fracture. - Patient Problems (1) Cervical spine fracture Comment: - Dr. Ospina had seen patient, recommended [place] J collar - She may get out of bed to chair or ambulate with assistance - PT/OT following - No surgical intevention indicated at this time, since fracture is non- displaced and stable - MRI done, await further input from neurosurgery - Pain control, muscle relaxant - Repeat xray in am (2) Leukocytosis Comment: - Likely reactive to stress from fall and significant pain - UA appears normal (3) Morbid obesity Comment: - Supportive care (4) Urinary retention Comment: - Likely secondary to pain and anxiety - No suggestion for UTI - D/C miller (5) HTN (hypertension) Comment: - Controlled. - Continue lisinopril. (6) Hyperlipidemia Comment: - Continue statin. (7) Sleep apnea Comment: - Continue to use her C-PAP from home (8) DVT prophylaxis Comment: - SubQ heparin. (9) Full code status Status and Disposition: Inpatient. Anticipate discharge when medically stable.
[2018-02-07] MEDS: Morphine VIAL* 4 MG/ML VIAL (1 ml vial) IV PRN ×2 (09:25→19:13)
[2018-02-07] MEDS: Cyclobenzaprine TAB* 10 MG PO PRN ×2 (10:30→20:08)
--- NOTE | 2018-02-07 11:56 | PN ---
Progress Note - Progress Note Date of Service: 02/07/18 SOAP: Subjective: []No events ON. On MJ collar. Patient was seen earlier and yesterday. Tolerates po well, Ambulated yesterday. Neck pain improved. Objective: []VSS AAOx3 DORITA, CN II-XII grossly intact Motor 5/5 all extremities Sensory grossly intact to light touch. Assessment: []82 yof, fall , C1 Babatunde fracture, C2 type II odontoid fracture Plan: []Monitor VS, Neurochecks Maintain MJ collar OOB with assistance, Fall precautions MRI confirmed acute C1,C2 fracture, no epidural hematoma. XR did not reveal displacement of C1-2 complex, no lateral displacement of C1 lateral masses. Again discussed with patient and her daughter regarding treatment options and possible outcomes. Will continue conservative treatment with cervical imobilization. Repeat XR in am. Consider early surgery if displacement is evident. Appreciate IM care. Placement. Ashlee Watson MD
[2018-02-07] MEDS: Lisinopril TAB* 10 MG PO SCH (20:08)
[2018-02-07] MEDS: Carbidopa/Levodop 25/100 MG TAB(*) PO SCH (20:08)
[2018-02-08] MEDS: oxyCODONE/Acetamin 5/325 MG* TAB PO PRN ×4 (02:38→20:05)
[2018-02-08 05:44] LABS: ABS Basophils 0 10^3/ul (0-0.2); ABS Eosinophils 0 10^3/ul (0-0.6); ABS Lymphocytes 1.4 10^3/ul (1.0-4.8); ABS Monocytes 0.9 10^3/ul (0-0.8); ABS Neutrophils 7.8 10^3/ul (1.5-7.7); ABS Nucleated RBC 0 10^3/ul; Eosinophil % 0.2 % (0-6); Hematocrit 40 % (35-47); Hemoglobin 13.5 g/dl (12.0-16.0); Lymphocyte % 14.2 % (25-47); Mean Corpuscular HGB Conc 34 g/dl (31-36); Mean Corpuscular Hemoglobin 30 pg (27-31); Mean Corpuscular Volume 89 fL (80-97); Nucleated Red Blood Cells % 0; Platelet Count 127 10^3/ul (150-450); Red Blood Count 4.49 10^6/ul (4.0-5.4); Red Cell Distribution Width 14 % (10.5-15); White Blood Count 10.2 10^3/ul (3.5-10.8)
[2018-02-08 06:00] LABS: EGFR Non-African American 82.8 (>60)
[2018-02-08] MEDS: Heparin VIAL(*) 5000 UNITS/ML VIAL (FIVE THOUSAND) SUBCUT SCH ×3 (06:02→21:02)
[2018-02-08] MEDS: Cyclobenzaprine TAB* 10 MG PO PRN ×2 (06:02→19:07)
[2018-02-08] MEDS: Omeprazole CAP* 20 MG PO SCH (07:29)
--- NOTE | 2018-02-08 08:33 | PN ---
Progress Note - Progress Note Date of Service: 02/08/18 SOAP: Subjective: [Patient with C1 and C2 fractures. Complains of neck pain and soreness this morning, left side worse than right. Reports poor appetite, consumed minimal amount toast for breakfast. Denies upper and lower extremity numbness and pain. Denies headache, dizziness, nausea. ] Objective: [ Vital Signs: Temp Pulse Resp BP Pulse Ox 98.1 F 79 18 144/76 95 02/08/18 02:45 02/08/18 02:45 02/08/18 06:02 02/08/18 02:45 02/08/18 02:45 General: Sitting up in chair, no distress. [place] J collar in place. Neuro: Alert and oriented. Speech is clear. Strength upper extremities 5/5. Sensation intact. CN II-XII intact. Xray of cervical spine 02/08/18 shows nondisplaced fractures, unchanged from previous study.] Assessment: [82 yo female with C1 Babatunde fracture and C2 type II odontoid fracture. Case and plan discussed with Dr. Watson.] Plan: [1. Continue [place] J collar at all times. 2. Continue pain management. 3. Discharge when medically cleared, follow up with Dr. Watson in office in 2 weeks. ]
--- NOTE | 2018-02-08 08:34 | RAD ---
INDICATION: Neck pain COMPARISON: CT cervical spine February 05, 2018; plain radiographs cervical spine February 06, 2018 TECHNIQUE: Routine five-view imaging was performed FINDINGS: Bones: There is again a C2 fracture better visualized on the CT. Patient also has known fractures of C1. The plain radiographic appearance is unchanged. There is advanced multilevel degenerative disc disease which likewise stable.. Craniocervical junction: The odontoid and atlantodental interval are normal. Alignment: Normal Disc spaces: Mild multilevel degenerative disc disease Soft tissues: Prevertebral soft tissue swelling. More pronounced. IMPRESSION: C1 AND C2 FRACTURES, UNCHANGED. PREVERTEBRAL SOFT TISSUE SWELLING
[2018-02-08] MEDS ORDERED: NS 0.9% 1000 ML* 1,000 ML IV SCH (08:45)
[2018-02-08] MEDS: Atorvastatin* 20 MG TAB PO SCH (08:52)
[2018-02-08] MEDS: PARoxetine HCL TAB* 20 MG PO SCH (08:52)
--- NOTE | 2018-02-08 10:32 | PN ---
Subjective Date of Service: 02/08/18 Interval History: pt reports she feels a little better today with less pain. No fever or chills. reports decreased appetite. Stringer was taken out yesterday then placed again last night d/t urinary retention. No numbness/tingling. Family History: Unchanged from Admission Social History: Unchanged from Admission Past Medical History: Unchanged from Admission Objective Active Medications: Acetaminophen (Tylenol Tab*) 650 mg PO Q4H PRN PRN Reason: FEVER/PAIN Atorvastatin Calcium (Lipitor*) 20 mg PO DAILY [facility] Last Admin: 02/08/18 08:52 Dose: 20 mg Carbidopa/Levodopa (Sinemet 25/100 Tab(*)) 1 tab PO BEDTIME [facility] Last Admin: 02/07/18 20:08 Dose: 1 tab Cetirizine HCl (Zyrtec*) 10 mg PO DAILY PRN; Protocol PRN Reason: Allergy Symptoms Cyclobenzaprine HCl (Flexeril Tab*) 10 mg PO TID PRN PRN Reason: SPASMS - NECK Last Admin: 02/08/18 06:02 Dose: 10 mg Fluticasone Propionate (Flonase Nasal [place] 50mcg*) 1 spray BOTH NARES DAILY PRN PRN Reason: Allergy Symptoms Heparin Sodium (Porcine) (Heparin Vial(*)) 5,000 units SUBCUT Q8HR [facility] Last Admin: 02/08/18 06:02 Dose: 5,000 units Sodium Chloride (Ns 0.9% 1000 Ml*) 1,000 mls @ 75 mls/hr IV PER RATE [facility] Stop: 02/08/18 22:04 Last Admin: 02/08/18 08:52 Dose: 75 mls/hr Lisinopril (Prinivil Tab*) 10 mg PO 2100 [facility] Last Admin: 02/07/18 20:08 Dose: 10 mg Morphine Sulfate (Morphine Vial*) 2 mg IV Q4H PRN PRN Reason: SEVERE PAIN Last Admin: 02/07/18 19:13 Dose: 2 mg Olopatadine HCl (Patanol 0.1% Ophth (Nf)) 1 drop BOTH EYES BID PRN; Protocol PRN Reason: Allergy Symptoms Omeprazole (Prilosec Cap*) 20 mg PO DAILY@0730 [facility] Last Admin: 02/08/18 07:29 Dose: 20 mg Oxycodone/Acetaminophen (Percocet 5/325 Tab*) 1 tab PO Q4H PRN PRN Reason: PAIN - MILD TO MODERATE Last Admin: 02/06/18 11:57 Dose: 1 tab Oxycodone/Acetaminophen (Percocet 5/325 Tab*) 2 tab PO Q4H PRN PRN Reason: PAIN - MODERATE TO SEVERE Last Admin: 02/08/18 08:52 Dose: 2 tab Paroxetine HCl (Paxil Tab*) 20 mg PO DAILY [facility] Last Admin: 02/08/18 08:52 Dose: 20 mg Vital Signs - 8 hr 02/08/18 02/08/18 02/08/18 02:38 02:45 06:02 Temperature 98.1 F Pulse Rate 79 Respiratory 20 19 18 Rate Blood Pressure 144/76 (mmHg) O2 Sat by Pulse 95 Oximetry 02/08/18 08:52 Temperature Pulse Rate Respiratory 16 Rate Blood Pressure (mmHg) O2 Sat by Pulse Oximetry Oxygen Devices in Use Now: None Appearance: 82 yo female A+Ox3 laying in a recliner in NAD Eyes: No Scleral Icterus, PERRLA Ears/Nose/Mouth/Throat: NL Teeth, Lips, Gums, Mucous Membranes Moist Neck: NL Appearance and Movements; NL JVP Respiratory: Symmetrical Chest Expansion and Respiratory Effort, Clear to Auscultation Cardiovascular: NL Sounds; No Murmurs; No JVD, RRR, No Edema Abdominal: NL Sounds; No Tenderness; No Distention Lymphatic: No Cervical Adenopathy Extremities: No Edema, No Clubbing, Cyanosis Skin: - - forehead wound: superfical large abrasion with superifical, healing, no purlent drainage or erythema Neurological: Alert and Oriented x 3, NL Sensation, NL Gait, NL Muscle Strength and Tone Lines/Tubes/Other Access: Clean, Dry and Intact Peripheral IV Nutrition: Taking PO's Result Diagrams: 02/08/18 05:30 02/08/18 05:30 Additional Lab and Data: Lab Results 02/05/18 02/05/18 Range/Units 14:55 14:55 WBC 14.0 H (3.5-10.8) 10^3/ul RBC 4.69 (4.0-5.4) 10^6/ul Hgb 14.0 (12.0-16.0) g/dl Hct 42 (35-47) % MCV 89 (80-97) fL MCH 30 (27-31) pg MCHC 34 (31-36) g/dl RDW 14 (10.5-15) % Plt Count 164 (150-450) 10^3/ul MPV 10.4 (7.4-10.4) um3 Neut % (Auto) 92.5 H (38-83) % Lymph % (Auto) 5.6 L (25-47) % [place] % (Auto) 1.6 (0-7) % Eos % (Auto) 0.1 (0-6) % Baso % (Auto) 0.2 (0-2) % Absolute Neuts (auto) 12.9 H (1.5-7.7) 10^3/ul Absolute Lymphs (auto) 0.8 L (1.0-4.8) 10^3/ul Absolute Monos (auto) 0.2 (0-0.8) 10^3/ul Absolute Eos (auto) 0 (0-0.6) 10^3/ul Absolute Basos (auto) 0 (0-0.2) 10^3/ul Absolute Nucleated RBC 0 10^3/ul Nucleated RBC % 0 Sodium 139 (139-145) mmol/L Potassium 3.8 (3.5-5.0) mmol/L Chloride 104 (101-111) mmol/L Carbon Dioxide 25 (22-32) mmol/L Anion Gap 10 (2-11) mmol/L BUN 15 (6-24) mg/dL Creatinine 0.91 (0.51-0.95) mg/dL Est GFR ( Amer) 76.1 (>60) Est GFR (Non-Af Amer) 59.2 (>60) BUN/Creatinine Ratio 16.5 (8-20) Glucose 131 H (70-100) mg/dL Calcium 9.2 (8.6-10.3) mg/dL Total Bilirubin 0.70 (0.2-1.0) mg/dL AST 33 (13-39) U/L ALT 29 (7-52) U/L Alkaline Phosphatase 84 (34-104) U/L C-Reactive Protein < 1.00 (< 5.00) mg/L Total Protein 7.2 (6.4-8.9) g/dL Albumin 4.1 (3.2-5.2) g/dL Globulin 3.1 (2-4) g/dL Albumin/Globulin Ratio 1.3 (1-3) Microbiology and Other Data: . Diagnostic Imaging: Patient Name: YING VELEZ Medical Record#: [id number] Ordering Physician: John Gomez MD Acct.#: [id number] : 1935 Age: 82 Sex: F Location: EMERGENCY DEPARTMENT Exam Date: 02/05/181155 ADM Status: REG ER Order Information: CT BRAIN WO Accession Number: [id number] CPT: 27974 HISTORY: Fall, head injury, neck pain COMPARISONS: CT of the cervical spine dated February 05, 2018 IMPRESSION: 1. NO ACUTE INTRACRANIAL PATHOLOGY. 2. FRACTURES OF C1 DESCRIBED ON THE CT OF THE CERVICAL SPINE. <Electronically signed by Ganga Hyatt MD in OV> 02/05/18 1251 Dictated By: Ganga Hyatt MD Dictated Date/Time: 02/05/18 125 Transcribed Date/Time: 02/05/18 125 Copy to: Order Information: CT SPINE CERVICAL W/O Accession Number: [id number] CPT: 24402 HISTORY: Accidental fall, facial pain, neck pain COMPARISONS: None IMPRESSION: 1. NONDISPLACED TYPE II ODONTOID FRACTURE. 2. COMMINUTED FRACTURE OF THE ANTERIOR AND POSTERIOR ARCHES OF C1. 3. DEGENERATIVE DISC DISEASE AND OSTEOARTHRITIS. 4. THERE IS MULTILEVEL NEURAL FORAMINAL NARROWING DESCRIBED ABOVE. THERE IS NO OSSEOUS CENTRAL CANAL STENOSIS. PRELIMINARY FINDINGS WERE DISCUSSED WITH DR. GOMEZ IN THE EMERGENCY DEPARTMENT AT APPROXIMATELY 12:48 PM ON FEBRUARY 05, 2018. <Electronically signed by Ganga Hyatt MD in OV> 02/05/18 1250 Order Information: CT MAXILLOFACIAL W/O Accession Number: [id number] CPT: 71112 HISTORY: Fall, facial pain COMPARISONS: CT of the cervical spine dated February 05, 2018 IMPRESSION: 1. C1 AND C2 FRACTURES DESCRIBED ON THE CT OF THE CERVICAL SPINE. 2. NO FACIAL FRACTURE. <Electronically signed by Ganga Hyatt MD in OV> 02/05/181251 Dictated By: Ganga Hyatt MD Dictated Date/Time: 02/05/181251 Transcribed Date/Time: 02/05/181 Copy to: Order Information: MRI CERVICAL SPINE WO Accession Number: [id number] CPT: 78247 HISTORY: C1-C2 nondisplaced fracture COMPARISONS: CT dated February 05, 2018 IMPRESSION: 1. AGAIN NOTED IS A FRACTURE THROUGH THE BASE OF THE ODONTOID PROCESS, WITH COMMINUTED FRACTURES OF THE ANTERIOR AND POSTERIOR ARCHES OF C1. THERE IS MILD ASSOCIATED BONE EDEMA. THERE IS EDEMA OF THE INTRASPINOUS LIGAMENT AND MUSCULATURE AT C1-C2. 2. THERE IS AT LEAST PARTIAL DISRUPTION OF THE LIGAMENTUM FLAVUM AT C1-C2. 3. THERE IS NO EPIDURAL FLUID COLLECTION. 4. DEGENERATIVE DISC DISEASE AND OSTEOARTHRITIS. 5. THERE IS MILD NARROWING OF THE CENTRAL CANAL AT C4-C5, C5-C6, C6-C7. 6. THERE IS MULTILEVEL NEURAL FORAMINA DESCRIBED ABOVE. EKG Data: EKG INTERPRETATION ECG Report Patient Name YING VELEZ Birthdate 1935 Sex F Order Number [id number] Date of ECG 02/05/2018 14:33:22 Interpretation Sinus rhythm.normal P axis, V-rate 60- 99 Probable left atrial enlargement.P >50mS, <-0.10mV V1 Borderline left axis deviation.QRS axis (-15,-29) - BORDERLINE ECG - ECG NEEDS E-SIGNING Assess/Plan/Problems-Billing Assessment: An 82 y/o female with PMHx HTN, HLD, obesity, GERD and sleep apnea, who was brought to ED after she tripped and fell hitting her head on pavement, found to have a C1 and C2 non-displaced type 2 odontoid fracture. - Patient Problems (1) Urinary retention Comment: - No suggestion for UTI on u/a at admission - Stringer D/C yesterday then replaced d/t retention. - resend U/A (2) Cervical spine fracture Comment: - Neurosurgery following, recommended [place] J collar, follow up in 2 weeks from 02/08. No surgical intevention indicated at this time, since fracture is non- displaced and stable. She may get out of bed to chair or ambulate with assistance - PT/OT following - Pain control, muscle relaxant - Repeat xray this am per neurosurgery is stable (3) Leukocytosis Comment: - Now resolved. No noted infectcious processed noted. U/A unremarkable. no cough , fever. (4) HTN (hypertension) Comment: - Controlled. - Continue lisinopril. (5) Hyperlipidemia Comment: - Continue statin. (6) Sleep apnea Comment: - Continue to use her C-PAP from home (7) DVT prophylaxis Comment: - SubQ heparin. (8) Full code status Status and Disposition: Inpatient. PMRU pending.
[2018-02-08 14:15] LABS: Urine Appearance Cloudy; Urine Blood 3+ (Negative); Urine Color Yellow; Urine Ketones 1+ (Negative); Urine Protein 2+(100 mg/dL) (Negative); Urine Specific Gravity 1.028 (1.010-1.030); Urine Urobilinogen Positive (Negative)
[2018-02-08] MEDS: cefTRIAXone(*) 1 GM in NS 0.9% 50 ML* 50 ML IVPB SCH (15:54)
[2018-02-08] MEDS ORDERED: Docusate CAP* 100 MG PO PRN (16:10)
[2018-02-08] MEDS: Lisinopril TAB* 10 MG PO SCH (20:07)
[2018-02-08] MEDS: Carbidopa/Levodop 25/100 MG TAB(*) PO SCH (20:50)
[2018-02-08] MEDS ORDERED: PROCHLORPERAZINE INJ 5 MG/ML 2 ML VIAL IV PRN (21:49)
[2018-02-09] MEDS: oxyCODONE/Acetamin 5/325 MG* TAB PO PRN (03:26)
[2018-02-09 05:28] LABS: ABS Basophils 0 10^3/ul (0-0.2); ABS Eosinophils 0.1 10^3/ul (0-0.6); ABS Lymphocytes 1.5 10^3/ul (1.0-4.8); ABS Neutrophils 7.1 10^3/ul (1.5-7.7); ABS Nucleated RBC 0 10^3/ul; Eosinophil % 0.9 % (0-6); Hematocrit 39 % (35-47); Hemoglobin 13.2 g/dl (12.0-16.0); Lymphocyte % 15.9 % (25-47); Mean Corpuscular HGB Conc 34 g/dl (31-36); Mean Corpuscular Hemoglobin 30 pg (27-31); Mean Corpuscular Volume 88 fL (80-97); Nucleated Red Blood Cells % 0; Platelet Count 138 10^3/ul (150-450); Red Blood Count 4.39 10^6/ul (4.0-5.4); Red Cell Distribution Width 14 % (10.5-15); White Blood Count 9.7 10^3/ul (3.5-10.8)
[2018-02-09 05:51] LABS: EGFR Non-African American 93.9 (>60)
[2018-02-09] MEDS: Heparin VIAL(*) 5000 UNITS/ML VIAL (FIVE THOUSAND) SUBCUT SCH ×3 (06:12→21:36)
[2018-02-09] MEDS: PARoxetine HCL TAB* 20 MG PO SCH (08:00)
[2018-02-09] MEDS: Omeprazole CAP* 20 MG PO SCH (08:00)
[2018-02-09] MEDS: Atorvastatin* 20 MG TAB PO SCH (08:00)
--- NOTE | 2018-02-09 09:19 | PN ---
Subjective Date of Service: 02/09/18 Interval History: . Pt reports she is feeling better today. Daughter is at bedside and also reports she seems better today. She states her pain is well controlled. She has ambulated in the hallways, she feels steady on her feet. She denies any fever or chills. No abdominal or flank pain. No N/V/D. She reports normal BMs. She denies dizziness, CHOWDARY, vision changes, numbness, tingling, weakness. Family History: Unchanged from Admission Social History: Unchanged from Admission Past Medical History: Unchanged from Admission Objective Active Medications: Acetaminophen (Tylenol Tab*) 975 mg PO Q8HR [facility] Atorvastatin Calcium (Lipitor*) 20 mg PO DAILY [facility] Last Admin: 02/09/18 08:00 Dose: 20 mg Carbidopa/Levodopa (Sinemet 25/100 Tab(*)) 1 tab PO BEDTIME [facility] Last Admin: 02/08/18 20:50 Dose: 1 tab Cetirizine HCl (Zyrtec*) 10 mg PO DAILY PRN; Protocol PRN Reason: Allergy Symptoms Cyclobenzaprine HCl (Flexeril Tab*) 10 mg PO TID PRN PRN Reason: SPASMS - NECK Last Admin: 02/08/18 19:07 Dose: 10 mg Docusate Sodium (Colace Cap*) 100 mg PO BID PRN PRN Reason: CONSTIPATION Last Admin: 02/08/18 20:07 Dose: 100 mg Fluticasone Propionate (Flonase Nasal [place] 50mcg*) 1 spray BOTH NARES DAILY PRN PRN Reason: Allergy Symptoms Heparin Sodium (Porcine) (Heparin Vial(*)) 5,000 units SUBCUT Q8HR [facility] Last Admin: 02/09/18 06:12 Dose: 5,000 units Ceftriaxone Sodium 1 gm/ (Sodium Chloride) 50 mls @ 200 mls/hr IVPB Q24H [facility] Last Admin: 02/08/18 15:54 Dose: 200 mls/hr Lisinopril (Prinivil Tab*) 10 mg PO 2100 [facility] Last Admin: 02/08/18 20:07 Dose: 10 mg Morphine Sulfate (Morphine Vial*) 2 mg IV Q4H PRN PRN Reason: SEVERE PAIN Last Admin: 02/07/18 19:13 Dose: 2 mg Olopatadine HCl (Patanol 0.1% Ophth (Nf)) 1 drop BOTH EYES BID PRN; Protocol PRN Reason: Allergy Symptoms Omeprazole (Prilosec Cap*) 20 mg PO DAILY@0730 [facility] Last Admin: 02/09/18 08:00 Dose: 20 mg Paroxetine HCl (Paxil Tab*) 20 mg PO DAILY [facility] Last Admin: 02/09/18 08:00 Dose: 20 mg Prochlorperazine Edisylate (Compazine Inj*) 10 mg IV Q6H PRN PRN Reason: NAUSEA Tramadol HCl (Ultram*) 50 mg PO Q6H PRN PRN Reason: PAIN Vital Signs - 8 hr 02/09/18 02/09/18 02/09/18 03:26 03:54 05:26 Temperature 98.4 F Pulse Rate 96 Respiratory 20 16 18 Rate Blood Pressure 147/76 (mmHg) O2 Sat by Pulse 97 Oximetry 02/09/18 02/09/18 07:42 08:53 Temperature 98.2 F Pulse Rate 100 Respiratory 18 18 Rate Blood Pressure 131/74 (mmHg) O2 Sat by Pulse 98 Oximetry Oxygen Devices in Use Now: None Appearance: elderly female well developed sitting up in a chair in NAD. A+Ox3 Eyes: No Scleral Icterus, PERRLA Ears/Nose/Mouth/Throat: NL Teeth, Lips, Gums, Mucous Membranes Moist Neck: - - Marshall J collar in place Respiratory: Symmetrical Chest Expansion and Respiratory Effort, Clear to Auscultation Cardiovascular: NL Sounds; No Murmurs; No JVD, RRR, No Edema Abdominal: NL Sounds; No Tenderness; No Distention Extremities: No Edema, No Clubbing, Cyanosis Skin: - - forhead abrasion - appears to be healing well. no drainage or erythema noted Neurological: Alert and Oriented x 3, NL Sensation, NL Gait, NL Muscle Strength and Tone Lines/Tubes/Other Access: Clean, Dry and Intact Peripheral IV Nutrition: Taking PO's Result Diagrams: 02/09/18 05:04 02/09/18 05:04 Additional Lab and Data: Lab Results 02/05/18 02/05/18 Range/Units 14:55 14:55 WBC 14.0 H (3.5-10.8) 10^3/ul RBC 4.69 (4.0-5.4) 10^6/ul Hgb 14.0 (12.0-16.0) g/dl Hct 42 (35-47) % MCV 89 (80-97) fL MCH 30 (27-31) pg MCHC 34 (31-36) g/dl RDW 14 (10.5-15) % Plt Count 164 (150-450) 10^3/ul MPV 10.4 (7.4-10.4) um3 Neut % (Auto) 92.5 H (38-83) % Lymph % (Auto) 5.6 L (25-47) % Payne % (Auto) 1.6 (0-7) % Eos % (Auto) 0.1 (0-6) % Baso % (Auto) 0.2 (0-2) % Absolute Neuts (auto) 12.9 H (1.5-7.7) 10^3/ul Absolute Lymphs (auto) 0.8 L (1.0-4.8) 10^3/ul Absolute Monos (auto) 0.2 (0-0.8) 10^3/ul Absolute Eos (auto) 0 (0-0.6) 10^3/ul Absolute Basos (auto) 0 (0-0.2) 10^3/ul Absolute Nucleated RBC 0 10^3/ul Nucleated RBC % 0 Sodium 139 (139-145) mmol/L Potassium 3.8 (3.5-5.0) mmol/L Chloride 104 (101-111) mmol/L Carbon Dioxide 25 (22-32) mmol/L Anion Gap 10 (2-11) mmol/L BUN 15 (6-24) mg/dL Creatinine 0.91 (0.51-0.95) mg/dL Est GFR ( Amer) 76.1 (>60) Est GFR (Non-Af Amer) 59.2 (>60) BUN/Creatinine Ratio 16.5 (8-20) Glucose 131 H (70-100) mg/dL Calcium 9.2 (8.6-10.3) mg/dL Total Bilirubin 0.70 (0.2-1.0) mg/dL AST 33 (13-39) U/L ALT 29 (7-52) U/L Alkaline Phosphatase 84 (34-104) U/L C-Reactive Protein < 1.00 (< 5.00) mg/L Total Protein 7.2 (6.4-8.9) g/dL Albumin 4.1 (3.2-5.2) g/dL Globulin 3.1 (2-4) g/dL Albumin/Globulin Ratio 1.3 (1-3) Microbiology and Other Data: . Diagnostic Imaging: Patient Name: YING VELEZ Medical Record#: [id number] Ordering Physician: John Gomez MD Acct.#: [id number] : 1935 Age: 82 Sex: F Location: EMERGENCY DEPARTMENT Exam Date: 02/05/18 115 ADM Status: REG ER Order Information: CT BRAIN WO Accession Number: [id number] CPT: 16587 HISTORY: Fall, head injury, neck pain COMPARISONS: CT of the cervical spine dated February 05, 2018 IMPRESSION: 1. NO ACUTE INTRACRANIAL PATHOLOGY. 2. FRACTURES OF C1 DESCRIBED ON THE CT OF THE CERVICAL SPINE. <Electronically signed by Ganga Hyatt MD in OV> 02/05/18 1251 Dictated By: Ganga Hyatt MD Dictated Date/Time: 02/05/18 1251 Transcribed Date/Time: 02/05/18 125 Copy to: Order Information: CT SPINE CERVICAL W/O Accession Number: [id number] CPT: 22197 HISTORY: Accidental fall, facial pain, neck pain COMPARISONS: None IMPRESSION: 1. NONDISPLACED TYPE II ODONTOID FRACTURE. 2. COMMINUTED FRACTURE OF THE ANTERIOR AND POSTERIOR ARCHES OF C1. 3. DEGENERATIVE DISC DISEASE AND OSTEOARTHRITIS. 4. THERE IS MULTILEVEL NEURAL FORAMINAL NARROWING DESCRIBED ABOVE. THERE IS NO OSSEOUS CENTRAL CANAL STENOSIS. PRELIMINARY FINDINGS WERE DISCUSSED WITH DR. GOMEZ IN THE EMERGENCY DEPARTMENT AT APPROXIMATELY 12:48 PM ON FEBRUARY 05, 2018. <Electronically signed by Ganga Hyatt MD in OV> 02/05/18 1250 Order Information: CT MAXILLOFACIAL W/O Accession Number: [id number] CPT: 18951 HISTORY: Fall, facial pain COMPARISONS: CT of the cervical spine dated February 05, 2018 IMPRESSION: 1. C1 AND C2 FRACTURES DESCRIBED ON THE CT OF THE CERVICAL SPINE. 2. NO FACIAL FRACTURE. <Electronically signed by Ganga Hyatt MD in OV> 02/05/18 1252 Dictated By: Ganga Hyatt MD Dictated Date/Time: 02/05/18 1252 Transcribed Date/Time: 02/05/18 1251 Copy to: Order Information: MRI CERVICAL SPINE WO Accession Number: [id number] CPT: 42260 HISTORY: C1-C2 nondisplaced fracture COMPARISONS: CT dated February 05, 2018 IMPRESSION: 1. AGAIN NOTED IS A FRACTURE THROUGH THE BASE OF THE ODONTOID PROCESS, WITH COMMINUTED FRACTURES OF THE ANTERIOR AND POSTERIOR ARCHES OF C1. THERE IS MILD ASSOCIATED BONE EDEMA. THERE IS EDEMA OF THE INTRASPINOUS LIGAMENT AND MUSCULATURE AT C1-C2. 2. THERE IS AT LEAST PARTIAL DISRUPTION OF THE LIGAMENTUM FLAVUM AT C1-C2. 3. THERE IS NO EPIDURAL FLUID COLLECTION. 4. DEGENERATIVE DISC DISEASE AND OSTEOARTHRITIS. 5. THERE IS MILD NARROWING OF THE CENTRAL CANAL AT C4-C5, C5-C6, C6-C7. 6. THERE IS MULTILEVEL NEURAL FORAMINA DESCRIBED ABOVE. EKG Data: EKG INTERPRETATION ECG Report Patient Name YING VELEZ Birthdate 1935 Sex F Order Number [id number] Date of ECG 02/05/2018 14:33:22 Interpretation Sinus rhythm.normal P axis, V-rate 60- 99 Probable left atrial enlargement.P >50mS, <-0.10mV V1 Borderline left axis deviation.QRS axis (-15,-29) - BORDERLINE ECG - ECG NEEDS E-SIGNING Assess/Plan/Problems-Billing Assessment: An 82 y/o female with PMHx HTN, HLD, obesity, GERD and sleep apnea, who was brought to ED after she tripped and fell hitting her head on pavement, found to have a C1 and C2 non-displaced type 2 odontoid fracture. - Patient Problems (1) Cervical spine fracture Comment: - Neurosurgery following, recommended [place] J collar, follow up in 2 weeks from 02/08. No surgical intevention indicated at this time, since fracture is non- displaced and stable. She may get out of bed to chair or ambulate with assistance - PT/OT following - Pain control, muscle relaxant - Repeat xray stable per neurosurgery (2) Urinary retention Comment: - No suggestion for UTI on u/a at admission - Stringer D/C yesterday then replaced d/t retention. - U/A suspicious for UTI, continue ceftriaxone and await cx. (3) Hyponatremia Comment: - asymptomatic - possible SIADH? was given IVFs yesterday and Na+ trended down. - Hold lisinopril (can cause SIADH) - Send urine sodium and OSM - Recheck BMP this afternoon (4) Leukocytosis Comment: - Now resolved. (5) HTN (hypertension) Comment: - Controlled. - Continue lisinopril. (6) Hyperlipidemia Comment: - Continue statin. (7) Sleep apnea Comment: - Continue to use her C-PAP from home (8) DVT prophylaxis Comment: - SubQ heparin. (9) Full code status Status and Disposition: Inpatient. PMRU pending.
--- NOTE | 2018-02-09 10:43 | PN ---
Progress Note - Progress Note Date of Service: 02/09/18 SOAP: Subjective: []No events ON. On MJ collar. Tolerates po well, Ambulates. Neck pain improved. On MJ collar. Objective: []VSS AAOx3 DORITA, CN II-XII grossly intact Motor 5/5 all extremities Sensory grossly intact to light touch. Assessment: []82 yof, fall , C1 Babatunde fracture, C2 type II odontoid fracture Plan: [] Monitor VS, Neurochecks Maintain MJ collar OOB with assistance, Fall precautions XR stable. Appreciate IM care. Placement. Follow up in office in two weeks with new XR of cervical spine. Discussed plan with patient, Full instructions were given. Ashlee Watson MD
[2018-02-09] MEDS: traMADol TAB* 50 MG PO PRN ×2 (12:06→19:34)
[2018-02-09] MEDS ORDERED: OLOPATADINE 0.1% BOTH EYES PRN (14:00)
[2018-02-09 15:15] LABS: EGFR Non-African American 76.3 (>60)
[2018-02-09] MEDS: cefTRIAXone(*) 1 GM in NS 0.9% 50 ML* 50 ML IVPB SCH (15:15)
[2018-02-09] MEDS: Acetaminophen TAB* 325 MG PO SCH ×2 (15:15→21:35)
[2018-02-09] MEDS: Carbidopa/Levodop 25/100 MG TAB(*) PO SCH (20:41)
[2018-02-10] MEDS: traMADol TAB* 50 MG PO PRN ×2 (01:40→16:26)
[2018-02-10] MEDS: Cyclobenzaprine TAB* 10 MG PO PRN (03:52)
[2018-02-10] MEDS: Morphine VIAL* 4 MG/ML VIAL (1 ml vial) IV PRN (04:25)
[2018-02-10] MEDS: Heparin VIAL(*) 5000 UNITS/ML VIAL (FIVE THOUSAND) SUBCUT SCH ×3 (05:09→21:14)
[2018-02-10] MEDS: Acetaminophen TAB* 325 MG PO SCH (06:06)
[2018-02-10 06:20] LABS: ABS Basophils 0 10^3/ul (0-0.2); ABS Eosinophils 0.1 10^3/ul (0-0.6); ABS Lymphocytes 1.8 10^3/ul (1.0-4.8); ABS Neutrophils 7.8 10^3/ul (1.5-7.7); ABS Nucleated RBC 0 10^3/ul; Eosinophil % 1.1 % (0-6); Hematocrit 40 % (35-47); Hemoglobin 13.7 g/dl (12.0-16.0); Lymphocyte % 16.9 % (25-47); Mean Corpuscular HGB Conc 34 g/dl (31-36); Mean Corpuscular Hemoglobin 30 pg (27-31); Mean Corpuscular Volume 88 fL (80-97); Mean Platelet Volume 9.6 um3 (7.4-10.4); Nucleated Red Blood Cells % 0; Platelet Count 157 10^3/ul (150-450); Red Blood Count 4.54 10^6/ul (4.0-5.4); Red Cell Distribution Width 14 % (10.5-15); White Blood Count 10.7 10^3/ul (3.5-10.8)
[2018-02-10 06:37] LABS: EGFR Non-African American 76.3 (>60)
[2018-02-10] MEDS: Omeprazole CAP* 20 MG PO SCH (08:25)
[2018-02-10] MEDS: Atorvastatin* 20 MG TAB PO SCH (08:25)
[2018-02-10] MEDS: PARoxetine HCL TAB* 20 MG PO SCH (08:25)
[2018-02-10] MEDS ORDERED: hydrOXYzine HCL TAB* 10 MG PO PRN (11:53)
[2018-02-10] MEDS: Acetaminophen TAB* 325 MG PO PRN ×2 (12:14→19:51)
--- NOTE | 2018-02-10 15:10 | PN ---
Subjective Date of Service: 02/10/18 Interval History: Patient complains of difficulty sleeping due to anxiety. Patient has been able to walk around up to 400ft with PT. Patient is still having difficulty with moving around in bed in Cervical Collar. Patient complains of a baseline dull headache which has not been getting worse since her injury. Patient complaints of intermittent neck spasms. Patient denies F/C, N/V, abdominal pain, dysuria, CP, SOB, Weakness, numbness, tingling. Patient has had several loose stools. Patient states her Paxil dose was recently decreased. Patient and family interested in placement. Family History: Unchanged from Admission Social History: Unchanged from Admission Past Medical History: Unchanged from Admission Objective Active Medications: Acetaminophen (Tylenol Tab*) 650 mg PO Q6H PRN PRN Reason: PAIN Last Admin: 02/10/18 12:14 Dose: 650 mg Atorvastatin Calcium (Lipitor*) 20 mg PO DAILY [facility] Last Admin: 02/10/18 08:25 Dose: 20 mg Carbidopa/Levodopa (Sinemet 25/100 Tab(*)) 1 tab PO BEDTIME [facility] Last Admin: 02/09/18 20:41 Dose: 1 tab Cetirizine HCl (Zyrtec*) 10 mg PO DAILY PRN; Protocol PRN Reason: Allergy Symptoms Cyclobenzaprine HCl (Flexeril Tab*) 10 mg PO TID PRN PRN Reason: SPASMS - NECK Last Admin: 02/10/18 03:52 Dose: 10 mg Docusate Sodium (Colace Cap*) 100 mg PO BID PRN PRN Reason: CONSTIPATION Last Admin: 02/08/18 20:07 Dose: 100 mg Fluticasone Propionate (Flonase Nasal [place] 50mcg*) 1 spray BOTH NARES DAILY PRN PRN Reason: Allergy Symptoms Heparin Sodium (Porcine) (Heparin Vial(*)) 5,000 units SUBCUT Q8HR [facility] Last Admin: 02/10/18 14:28 Dose: 5,000 units Hydroxyzine HCl (Atarax Tab*) 10 mg PO BEDTIME PRN PRN Reason: SLEEP Ceftriaxone Sodium 1 gm/ (Sodium Chloride) 50 mls @ 200 mls/hr IVPB Q24H [facility] Last Admin: 02/09/18 15:15 Dose: 200 mls/hr Morphine Sulfate (Morphine Vial*) 2 mg IV Q4H PRN PRN Reason: SEVERE PAIN Last Admin: 02/10/18 04:25 Dose: 2 mg Olopatadine HCl (Patanol 0.1% Ophth (Nf)) 1 drop BOTH EYES BID PRN; Protocol PRN Reason: Allergy Symptoms Last Admin: 02/09/18 19:33 Dose: 1 drp Omeprazole (Prilosec Cap*) 20 mg PO DAILY@0730 [facility] Last Admin: 02/10/18 08:25 Dose: 20 mg Paroxetine HCl (Paxil Tab*) 20 mg PO DAILY [facility] Last Admin: 02/10/18 08:25 Dose: 20 mg Prochlorperazine Edisylate (Compazine Inj*) 10 mg IV Q6H PRN PRN Reason: NAUSEA Tramadol HCl (Ultram*) 50 mg PO Q6H PRN PRN Reason: PAIN Last Admin: 02/10/18 01:40 Dose: 50 mg Vital Signs - 8 hr 02/10/18 08:00 Temperature 98.5 F Pulse Rate 99 Respiratory 20 Rate Blood Pressure 147/73 (mmHg) O2 Sat by Pulse 98 Oximetry Oxygen Devices in Use Now: None Appearance: Patient is an 82yo female who appears stated age and is sitting in the bed in [facility]. Eyes: No Scleral Icterus, PERRLA Ears/Nose/Mouth/Throat: NL Teeth, Lips, Gums, Clear Oropharnyx, Mucous Membranes Moist Neck: NL Appearance and Movements; NL JVP, Trachea Midline, - - [place] J Collar in place. Respiratory: Symmetrical Chest Expansion and Respiratory Effort, Clear to Auscultation Cardiovascular: NL Sounds; No Murmurs; No JVD, RRR, No Edema Abdominal: NL Sounds; No Tenderness; No Distention, No Hepatosplenomegaly Lymphatic: No Cervical Adenopathy Extremities: No Edema, No Clubbing, Cyanosis Skin: No Nodules or Sclerosis, - - Rash on top of head. Neurological: Alert and Oriented x 3, NL Sensation, NL Gait, NL Muscle Strength and Tone, - - CN II-XII intact. Result Diagrams: 02/10/18 06:02 02/10/18 06:02 Additional Lab and Data: Lab Results Microbiology and Other Data: . Assess/Plan/Problems-Billing Assessment: An 82 y/o female with PMHx HTN, HLD, obesity, GERD and sleep apnea, who was brought to ED after she tripped and fell hitting her head on pavement, found to have a C1 and C2 non-displaced type 2 odontoid fracture. Patient is recovering well and is awaiting placement. - Patient Problems (1) Cervical spine fracture Current Visit: Yes Status: Acute Priority: High Code(s): S12.9XXA - FRACTURE OF NECK, UNSPECIFIED, INITIAL ENCOUNTER SNOMED Code(s): 746375710 Comment: Neurosurgery following Appreciate Input, recommended [place] J collar, follow up in 2 weeks from 02/08. No surgical intevention indicated at this time, since fracture is non-displaced and stable. She may get out of bed to chair or ambulate with assistance PT signed off. OT needs dealing with surgical collar. Pain control, muscle relaxant Repeat xray stable per neurosurgery (2) HTN (hypertension) Current Visit: Yes Status: Acute Code(s): I10 - ESSENTIAL (PRIMARY) HYPERTENSION SNOMED Code(s): 68764063 Comment: Controlled off lisinopril. (3) Hyperlipidemia Current Visit: Yes Status: Acute Code(s): E78.5 - HYPERLIPIDEMIA, UNSPECIFIED SNOMED Code(s): 42298061 Comment: Continue statin. (4) Hyponatremia Current Visit: Yes Status: Acute Code(s): E87.1 - HYPO-OSMOLALITY AND HYPONATREMIA SNOMED Code(s): 48031727 Comment: Asymptomatic Possible SIADH, possibly due to postoperative state. Hold lisinopril Urine sodium and osmolality low. Not consistent with SIADH. Could be due to resolution of SIADH. Fluid restriction and monitor. (5) Sleep apnea Current Visit: Yes Status: Acute Code(s): G47.30 - SLEEP APNEA, UNSPECIFIED SNOMED Code(s): 35941714 Comment: Continue to use her C-PAP from home (6) Urinary retention Current Visit: Yes Status: Acute Code(s): R33.9 - RETENTION OF URINE, UNSPECIFIED SNOMED Code(s): 809778230 Comment: No suggestion for UTI on u/a at admission U/A now suspicious for UTI, continue ceftriaxone. Klebisella sp sensitive. Urinating well without miller or retention. (7) Depression Current Visit: No Status: Acute Code(s): F32.9 - MAJOR DEPRESSIVE DISORDER, SINGLE EPISODE, UNSPECIFIED SNOMED Code(s): 06793185 Comment: Continue paroxetine. Recent decrease in Dose. Patient feels very anxious and would like to have dose increased but will not due to SIADH. (8) DVT prophylaxis Current Visit: Yes Status: Acute Code(s): FUS1114 - SNOMED Code(s): 869200356 Comment: SubQ heparin. (9) Full code status Current Visit: Yes Status: Acute Code(s): Z78.9 - OTHER SPECIFIED HEALTH STATUS SNOMED Code(s): 660239929 Status and Disposition: Inpatient. Pending placement.
[2018-02-10] MEDS: cefTRIAXone(*) 1 GM in NS 0.9% 50 ML* 50 ML IVPB SCH (16:46)
[2018-02-10] MEDS: Carbidopa/Levodop 25/100 MG TAB(*) PO SCH (21:14)
--- NOTE | 2018-02-10 23:38 | PN ---
Progress Note - Progress Note Date of Service: 02/10/18 SOAP: Subjective: []Patient seen earlier. No events ON. On MJ collar. Tolerates po well, Ambulates. Wants to go to rehab. Objective: []VSS AAOx3 DORITA, CN II-XII grossly intact Motor 5/5 all extremities Sensory grossly intact to light touch. Assessment: []82 yof, fall , C1 Babatunde fracture, C2 type II odontoid fracture Plan: [] Monitor VS, Neurochecks Maintain MJ collar OOB with assistance, Fall precautions Appreciate IM care. Placement pending. Scheduled to go to rehab tomorrow. Follow up in office in two weeks with new XR of cervical spine. Discussed plan with patient, Full instructions were given. Ashlee Watson MD
[2018-02-11] MEDS: Acetaminophen TAB* 325 MG PO PRN ×2 (04:34→11:18)
[2018-02-11] MEDS: Heparin VIAL(*) 5000 UNITS/ML VIAL (FIVE THOUSAND) SUBCUT SCH (05:15)
[2018-02-11 06:04] LABS: EGFR Non-African American 78.8 (>60)
[2018-02-11] MEDS: Atorvastatin* 20 MG TAB PO SCH (09:08)
[2018-02-11] MEDS: PARoxetine HCL TAB* 20 MG PO SCH (09:08)
[2018-02-11] MEDS: Omeprazole CAP* 20 MG PO SCH (09:08)
--- NOTE | 2018-02-11 11:19 | DS ---
CC: Dr. Alecia Starkey; Dr. Kyra Martinez; Dr. Mikhail Watson* DISCHARGE SUMMARY: DATE OF ADMISSION: 02/05/18 DATE OF DISCHARGE: 02/11/18. PRIMARY CARE PROVIDER: Dr. Alecia Starkey. MY ATTENDING WHILE IN THE HOSPITAL: Dr. Kyra Martinez* (dictated by KRYSTAL Barnes). CONSULTING NEUROSURGEON: Dr. Mikhail Watson. PRIMARY DISCHARGE DIAGNOSES: 1. C1 Babatunde fracture. 2. C2 type 2 odontoid fracture. 3. Hyponatremia. 4. Urinary tract infection and urinary retention. SECONDARY DISCHARGE DIAGNOSES: 1. Hypertension. 2. Depression. 3. Hyperlipidemia. 4. Gastroesophageal reflux disease. 5. Seasonal allergies. 6. Sleep apnea. 7. Obesity. 8. History of pancreatitis. 9. Acalculous cholecystitis. STUDIES DONE WHILE IN THE HOSPITAL: Brain CT from 02/05/18, read as no acute intracranial pathology. Fracture of C1 as described and C2 of the cervical spine. Cervical spine CT read as nondisplaced type 2 odontoid fracture, comminuted fracture of the anterior and posterior arches of C1, degenerative disk disease and osteoarthritis. There is multilevel neural foraminal narrowing as described above. There is no osseous canal stenosis. Facial CT from 02/05/18 read as C1 and C2 fracture as described in the CT of the cervical spine, no facial fracture. Cervical spine x-ray from 02/05/18 read as C1-C2 fracture, underlying osteoarthritis. Please refer also the CT examination of the same date. Lumbar spine x-ray read as multilevel degenerative changes of the thoracic and lumbar spine similar in appearance to 01/02/18 CT examination. There is no radiographic apparent acute fracture or dislocation. There is a 1.5 cm well circumscribed density overlying the medial aspect of the right upper lobe. Further characterization can be made with multiple reviewed, dictated chest x- ray or CT of the chest. Electrocardiogram from 02/05/18 read as normal sinus rhythm, left axis deviation. No ST segment abnormalities. Left atrial enlargement. No other hypertrophy or enlargement. No blocks. QTc of 469, no other abnormalities. Cervical spine x-ray from 02/06/18 read as persistent fractures of the base of the odontoid process in the posterior arch of C1, degenerative disk disease, and osteoarthritis. Cervical spine MRI from 02/06/18 read as again noted fracture to the base of the odontoid process with comminuted fracture at the anterior and posterior arches of C1. There is mild associate bone edema. There is edema of the anterior spinous ligament and muscles at C1 and C2. There is at least partial disruption of ligamentum flavum at C1 and C2. There is no epidural fluid collection, degenerative disk disease, and osteoarthritis. There is mild narrowing of the central canal at C4-C5, C5-C6, and C6-C7. There is multilevel neural foramina as described above. Cervical spine x-ray from 02/08/18 read as C1-C2 fracture is unchanged, prevertebral soft tissue swelling. MEDICATIONS AT DISCHARGE: 1. Lisinopril 10 mg p.o. daily. 2. Fluticasone 1 spray both nares daily as needed. 3. Sinemet 5/100 one tab p.o. at bedtime. 4. Pantoprazole 20 mg p.o. daily. 5. Paroxetine 20 mg p.o. daily. 6. Simvastatin 40 mg p.o. daily. 7. Barb 180 mg p.o. daily as needed. 8. Olopatadine 0.1% ophthalmic 1 drop b.i.d. as needed. 9. Tylenol 650 mg p.o. q. 6 hours as needed. 10. Flexeril 10 mg p.o. t.i.d. as needed. 11. Docusate 100 mg p.o. t.i.d. 12. Hydroxyzine 10 mg p.o. at bedtime as needed. 13. Tramadol 50 mg p.o. q. 6 hours as needed. New medications at discharge: 1. Tylenol. 2. Flexeril. 3. Docusate. 4. Atarax. 5. Tramadol. Medications discontinued at discharge: None. HOSPITAL COURSE: This is a brief summary of the patient's presentation. For more details, please see the history and physical from Jami Henderson NP, on 02/05/18. In brief, the patient is an 82-year-old female with past medical history significant for the above, who presents with a mechanical fall tripping over a plywood board and striking her forehead on the curb. There was no loss of consciousness. No associated symptoms. The patient was found to have an odontoid and C1 Babatunde fracture as above. Patient was seen in consultation by Dr. Mikhail Watson and she was admitted to the hospital. Patient had a [place] J collar applied. Patient had leukocytosis of 14 on admission, which resolved on repeat blood work. Patient had repeat neck imaging as well as physical therapy and occupational therapy and was able to walk up to 400 feet on 02/09/18 and was discharged to physical therapy. Patient was identified to have occupational therapy needs related to adjusting to her collar and was interested in a short-term rehab. Patient's initial sodium on arrival was 139 and decreased to 130 on repeat lab work and then decreased at the end to 129 and increased back up to 133 on 02/11/18. Patient had no other significant laboratory abnormalities except for persistently elevated fasting glucoses from 104 to 131. In evaluating patient's hyponatremia , she had a urine osmolarity, which was 150 and urine sodium which was 19. Patient's vital signs remained stable except for some hypertension at the end of her hospitalization which coincided with the discontinuation of her lisinopril for her hyponatremia; the lisinopril will be restarted. Patient will be discharged to [facility] for rehab. PHYSICAL EXAM ON THE DATE OF DISCHARGE: General: The patient is an 82-year- old female who appears at stated age, has a very visible operation on her forehead, is wearing a neck brace, and is otherwise sitting in the bed, in no acute distress. Vital Signs: At the time of discharge, temperature 98.1, pulse rate 102, respiratory rate 18, oxygen saturation 98% on room air, blood pressure 144/78. HEENT: Head: Normocephalic, atraumatic. Sclerae anicteric. No conjunctival injection. Nasal mucosa is moist. Oral mucosa moist. No pharyngeal erythema, discharge, or exudate. The patient has a large abrasion on her forehead and ecchymosis on her face. No crepitus when palpating the skull. Neck: The patient has a [place] J collar on, unable to assess neck. Cardiac: Regular rate and rhythm. No clicks, murmurs, gallops or rubs. Pulses 2+ in the bilateral dorsalis pedis, posterior tibialis areas. No bilateral lower extremity edema noted. No calf tenderness. Respiratory: Clear to auscultation bilaterally. No wheezes, rales or rhonchi. Good air exchange bilaterally. Abdomen: Soft, nontender, nondistended. Bowel sounds present and normoactive in all four quadrants. No hepatosplenomegaly. No abdominal bruits auscultated. Genitourinary: No suprapubic or CVA tenderness. Skin: Clean, dry , and intact. No rash except for the above-noted abrasions on the head and neck and abrasion on the upper back all of which are healing. Psychiatric: Pleasant and cooperative. Neuro: Cranial nerves II through XII intact. No focal deficits. Strength is preserved in the bilateral upper and lower extremities. Sensation to light touch intact. Reflexes 2+ in bilateral biceps , patellar, and Achilles areas. LABORATORY DATA ON DAY OF DISCHARGE: Sodium 133, potassium 3.6, chloride 98, creatinine 0.71, glucose 109, calcium 8.8. DISCHARGE PLAN: The patient will be discharged to rehab where she will work on her occupational needs with the goal of returning home. Patient is to follow up with primary care provider within 1 week from being discharged from rehab. Patient had an incidentally found pulmonary nodule of 1.5 cm on her x-ray of her thoracic spine as above. This should be followed closely. An appointment will be made with Dr. Zuleima Ureña of Pulmonology to further assess of this pulmonary nodule. Patient has been made aware of this nodule and the need for followup. Patient should have a repeat BMP drawn in 1 week to assess for resolution of her hyponatremia. Patient should have fluid restriction of 2 L until this has resolved. This is likely due to her trauma and pain medication and should resolve as she recovers. Patient should return to hospital new neurological deficits. Patient should wear her collar as instructed by Neurosurgery. Patient is to follow up with Neurosurgery in 2 weeks after discharge for x-ray of her cervical spine and patient should have a heart healthy diet without caffeine and fluid restriction as above. Patient should resume her lisinopril. Patient's urinary tract infection resolved, however, she has not finished a course of antibiotics for her urinary tract infection. Patient will be continued on cefpodoxime for 4 more days. TIME SPENT: Approximately 60 minutes was spent on this discharge, 30 of which was spent [id number] with the patient obtaining history and physical and discussing treatment plan. KRYSTAL BARNES [id number]/[facility] #: [id number] ANTHONY
[2018-02-11 12:07] VITALS: BP 152/81
== END 2018-02-11 13:30 | DRG 552 ==
LOC: ED 11:49 → MED 15:54
PROVIDERS: ADMIT Internal Medicine; ATTEND Internal Medicine
PROC: 2W32X3Z Immobilization of Neck using Brace (ICD-10-PCS; principal; 2018-02-05)
DX: S12.031A Nondisplaced posterior arch fracture of first cervical vertebra, initial encounter for closed fracture (principal); E87.1 Hypo-osmolality and hyponatremia; N39.0 Urinary tract infection, site not specified; S12.112A Nondisplaced Type II dens fracture, initial encounter for closed fracture; W18.09XA Striking against other object with subsequent fall, initial encounter; Y92.480 Sidewalk as the place of occurrence of the external cause; B96.1 Klebsiella pneumoniae [K. pneumoniae] as the cause of diseases classified elsewhere; R33.9 Retention of urine, unspecified; I10 Essential (primary) hypertension; F32.9 Major depressive disorder, single episode, unspecified; E78.5 Hyperlipidemia, unspecified; K21.9 Gastro-esophageal reflux disease without esophagitis; J30.2 Other seasonal allergic rhinitis; G47.30 Sleep apnea, unspecified; E66.01 Morbid (severe) obesity due to excess calories; M50.31 Other cervical disc degeneration, high cervical region; M47.9 Spondylosis, unspecified; R91.1 Solitary pulmonary nodule; S00.81XA Abrasion of other part of head, initial encounter; D72.828 Other elevated white blood cell count; S60.512A Abrasion of left hand, initial encounter; S60.511A Abrasion of right hand, initial encounter; S00.511A Abrasion of lip, initial encounter; R51 Headache; Z96.653 Presence of artificial knee joint, bilateral; Z68.34 Body mass index [BMI] 34.0-34.9, adult; Z79.899 Other long term (current) drug therapy; Z82.49 Family history of ischemic heart disease and other diseases of the circulatory system; Z80.0 Family history of malignant neoplasm of digestive organs; K57.30 Diverticulosis of large intestine without perforation or abscess without bleeding; K44.9 Diaphragmatic hernia without obstruction or gangrene
CPT/HCPCS: 36415; 70450; 70486; 72040; 72070; 72100; 72125; 72141; 80048; 80053; 81003; 81015; 83930; 83935; 84300; 85025; 86140; 87077; 87086; 87186; 93005; 94660; 99284; A9270-GY; G8981-GP-CK; G8982-GP-CI; G8987-GO-CJ; G8988-GO-CI; J0696; J1100; J1644; J2270; J2405

== ENCOUNTER 2018-04-24 17:24 | Emergency (ER) | payer MEDICARE ==
--- OUTSIDE RECORDS SUMMARY | 2018-04-24 18:12 | XMS REPORT ---
:1935 External Reference #:[id number] Author Organization [facility] Address [address] [place] [address] [place] [address] Phone [phone] Care Team Providers Name Role Phone Alecia Starkey MD Primary Care Physician Unavailable Payers Type Date Identification Numbers Payment Provider Subscriber Medicare Primary Effective: Policy Number: Medicare Ying Velez 2000 [id number] PayID: [id number] [address] [place] [address] [facility] Part [facility] Policy Number: [id number] [facility] Ying Velez PayID: [id number] [address] [place] [address] Problems Date Description Provider Status Onset: 05/26/2015 Localized, primary osteoarthritis Lucita Nash M.D. 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 [...] Arthroplasty of knee Lucita Nash M.D. Active Onset: 03/11/2018 Closed fracture of second cervical Alecia Starkey M.D. Active vertebra Note: C2 odontoid closed fracture C1 lilia fracture Dr. Watson Onset: 03/11/2018 Solitary nodule of lung Alecia Starkey M.D. 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 months X1 Patanol 02/03 Active Solution 0.1% 5ml Apply 1 gtt bid lillian Starkey M.D. Simvastatin 12/10 Active Tablets 40mg 90tab take 1 tablet John E. s by mouth at [place], bedtime Evie Pantoprazole 09/[address] 20mg 90tab once a day K21.9 Alecia Sodium s Evie Starkey Paxil 09/22 Active Tablets 10mg 90tab Take 1 Tablet F41.9 Melba s By Mouth Once Cotton, A Day MAmena Paroxetine 10/24 Active Tablets 10mg 90tab 1 by mouth Alecia HCL s daily Evie Starkey Ibuprofen 10/24 Active as directed prn Fluticasone 10/24 Active as needed Unknown Propionate Fexofenadine 10/24 Active 180mg as needed Unknown HCL Carbidopa-Lev 10/24 Active Tablets 25-100mg 90tab 1 by mouth Alecia odopa s daily Evie Starkey Lisinopril 10/17 Active Tablets 10mg 90tab 1 by mouth Alecia s daily Evie Starkey Amoxicillin 08/02 Active Capsules 500mg 8caps 4 tablets 1 Dirk hour before Dori, dental work M.DUirel Doxycycline 09/22 Hx Tablets 100mg 20tab 1 tablet H66.92 Alecia Hyclate s twice a day x Jaky, - 10 days M.D. 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 12/18 bedtime or directed by through visiting nurse Zuri 05/03 Hx Capsules 500mg 28cap 1 po qid x Dir s 7days Dori, - M.D. 02/20 Olopatadine Hx Solution 0.1% Unknown HCL /0000 - 01/15 Immunizations CPT Code Status Date Vaccine Lot # [id number] Given 09/22/2017 Pneumococcal Conjugate Vaccine 13 Valent For [id number] Intramuscular Use 55101 Given 08/31/2017 Influenza Virus Vaccine, Quadrivalent, Split, Preservative Free [id number] Given 09/30/2012 Tdap - Tetanus/Diptheria/Acellular Pertussis Vital Signs Date Vital Result Comment 03/30/2018 Height 60.3 inches 5'0.30" Weight 181.50 lb Heart Rate 72 /min BP Systolic Sitting 116 mmHg BP Diastolic Sitting 76 mmHg Respiratory Rate 16 /min Body Temperature 98.1 F BMI (Body Mass Index) 35.1 kg/m2 03/17/2018 Height 60.3 inches 5'0.30" Weight 180.00 lb Heart Rate 88 /min BP Systolic Sitting 122 mmHg Rue regular cuff BP Diastolic Sitting 66 mmHg Rue regular cuff Respiratory Rate 12 /min Pain Level 94 BMI (Body Mass Index) 34.8 kg/m2 03/11/2018 Height 60.3 inches 5'0.30" Weight 180.00 lb Heart Rate 81 /min BP Systolic Sitting 114 mmHg BP Diastolic Sitting 64 mmHg Pain Level 0 O2 % BldC Oximetry 96 % BMI (Body Mass Index) 34.8 kg/m2 02/25/2018 Height 62 inches 5'2" Weight 178.00 lb BP Systolic Sitting 130 mmHg BP Diastolic Sitting 60 mmHg Pain Level 1 BMI (Body Mass Index) 32.6 kg/m2 01/29/2018 Height 60.5 inches 5'0.50" Heart Rate [...] Test Date Test Result H/L Range Note Basic Metabolic Panel 03/11/2018 Sodium 140 mmol/L 135-145 Potassium 4.1 mmol/L 3.5-5.0 Chloride 105 mmol/L 101-111 Co2 Carbon Dioxide 28 mmol/L 22-32 Anion Gap 7 mmol/L 2-11 Glucose 107 mg/dL High 70-100 Blood Urea Nitrogen 15 mg/dL 6-24 Creatinine 0.88 mg/dL 0.51-0.95 BUN/Creatinine Ratio 17.0 8-20 Calcium 9.3 mg/dL 8.6-10.3 Egfr Non- 61.5 >60 Egfr 74.4 >60 1 CBC Auto Diff 02/05/2018 White Blood Count 14.0 10^3/uL High 3.5-10.8 Red Blood Count 4.69 10^6/uL 4.0-5.4 Hemoglobin 14.0 g/dL 12.0-16.0 Hematocrit 42 % 35-47 Mean Corpuscular Volume 89 fL 80-97 Mean Corpuscular Hemoglobin 30 pg 27-31 Mean Corpuscular HGB Conc 34 g/dL 31-36 Red Cell Distribution Width 14 % 10.5-15 Platelet Count 164 10^3/uL 150-450 Mean Platelet Volume 10.4 um3 7.4-10.4 Abs Neutrophils 12.9 10^3/uL High 1.5-7.7 Abs Lymphocytes 0.8 10^3/uL Low 1.0-4.8 Abs Monocytes 0.2 10^3/uL 0-0.8 Abs Eosinophils 0 10^3/uL 0-0.6 Abs Basophils 0 10^3/uL 0-0.2 Abs Nucleated RBC 0 10^3/uL Granulocyte % 92.5 % High 38-83 Lymphocyte % 5.6 % Low 25-47 Monocyte % 1.6 % 0-7 Eosinophil % 0.1 % 0-6 Basophil % 0.2 % 0-2 Nucleated Red Blood Cells % 0 Comp Metabolic Panel 02/05/2018 Sodium 139 mmol/L 139-145 Potassium 3.8 mmol/L 3.5-5.0 Chloride 104 mmol/L 101-111 Co2 Carbon Dioxide 25 mmol/L 22-32 Anion Gap 10 mmol/L 2-11 Glucose 131 mg/dL High 70-100 Blood Urea Nitrogen 15 mg/dL 6-24 Creatinine 0.91 mg/dL 0.51-0.95 BUN/Creatinine Ratio 16.5 8-20 Calcium 9.2 mg/dL 8.6-10.3 Total Protein 7.2 g/dL 6.4-8.9 Albumin 4.1 g/dL 3.2-5.2 Globulin 3.1 g/dL 2-4 Albumin/Globulin Ratio 1.3 1-3 Total Bilirubin 0.70 mg/dL 0.2-1.0 Alkaline Phosphatase 84 U/L 34-104 Alt 29 U/L 7-52 Ast 33 U/L 13-39 Egfr Non- 59.2 >60 Egfr 76.1 >60 2 Laboratory test finding 02/05/2018 C Reactive Protein < 1.00 mg/L < 5.00 3 Urinalysis Profile 01/02/2018 Urine Color Yellow Urine Appearance Clear Urine Specific [place] 1.021 1.010-1.030 Urine pH 6.0 5-9 Urine [...] finding 01/02/2018 Lactic Acid 1.4 mmol/L 0.5-2.0 4 Inr/Protime 01/02/2018 Inr 1.01 0.77-1.02 Laboratory test finding 01/02/2018 Partial Thrombo Time 31.5 seconds 26.0 -36.3 PTT B-Type Natriuretic Peptide BNP 82 pg/mL 5 Comp Metabolic Panel 01/02/2018 Sodium 137 mmol/L [...] Egfr Non- 58.4 >60 Egfr 75.2 >60 6 Laboratory test finding 01/02/2018 Magnesium 1.8 mg/dL Low 1.9-2.7 Amylase 191 U/L High 29-103 Creatine Kinase(CK) 138 U/L 10-223 C Reactive Protein 18.63 mg/L High < 5.00 7 Troponin-I (TnI) 0.00 ng/mL <0.04 Lipase 951 U/L High 11.0-82.0 Laboratory test finding 08/19/2016 Surgical Pathology SEE RESULT BELOW 8 Ua And Culture 09/14/2015 Urine Culture And SEE RESULT BELOW 9 Sensitivity Sensitivities Urinalysis Profile 09/14/2015 Urine Color Yellow Urine Appearance Cloudy Urine Specific [place] 1.023 1.010-1.030 Urine pH 5.0 5-9 Urine [...] Renal Epithelial Cells Present Absent Laboratory test finding 09/11/2015 Partial Thrombo 34.0 seconds 26.0- 36.3 10, 11 Time PTT Comp Metabolic Panel 09/11/2015 Sodium 138 mmol/L 133-145 10 Potassium 4.1 mmol/L 3.5-5.0 10 Chloride 103 mmol/L 101-111 10 Co2 Carbon Dioxide 29 mmol/L 22-32 10 Anion Gap 6 mmol/L 2-11 10 Glucose 90 mg/dL 70-100 10 Blood Urea Nitrogen 16 mg/dL 6-24 10 Creatinine 0.89 mg/dL 0.51-0.95 10 BUN/Creatinine Ratio 18.0 8-20 10 Calcium 9.1 mg/dL 8.6-10.3 10 Total Protein 7.1 g/dL 6.4-8.9 10 Albumin 4.4 g/dL 3.2-5.2 10 Globulin 2.7 g/dL 2-4 10 Albumin/Globulin Ratio 1.6 1-3 10 Total Bilirubin 0.50 mg/dL 0.2-1.0 10 Alkaline Phosphatase 69 U/L 34-104 10 Alt 16 U/L 7-52 10 Ast 19 U/L 13-39 10 Egfr Non- 61.2 >60 10 Egfr 78.7 >60 10, 12 CBC No Diff 09/11/2015 White Blood Count 8.2 10^3/uL 3.5-10.8 10 Red Blood Count 4.87 10^6/uL 4.0-5.4 10 Hemoglobin 14.4 g/dL 12.0-16.0 10 Hematocrit 45 % 35-47 10 Mean Corpuscular Volume 92 fL 80-97 10 Mean Corpuscular Hemoglobin 30 pg 27-31 10 Mean Corpuscular HGB Conc 32 g/dL 31-36 10 Red Cell Distribution Width 14 % 10.5-15 10 Platelet Count 172 10^3/uL 150-450 10 Mean Platelet Volume 10 um3 7.4-10.4 10 Inr/Protime 09/11/2015 Inr 0.95 0.89-1.11 10 Laboratory test 09/11/2015 Urine Culture And SEE RESULT 10, 13 finding Sensitivities BELOW Urinalysis Profile 09/11/2015 Urine Color Yellow 10 Urine Appearance Cloudy 10 Urine Specific [place] 1.024 1.010-1.030 10 Urine pH 5.0 5-9 10 Urine Urobilinogen Negative Negative 10 Urine Ketones Negative Negative 10 Urine Protein Negative Negative 10 Urine Leukocytes 1+ Negative 10 Urine Blood 1+ Negative 10 Urine Nitrite Negative Negative 10 Urine Bilirubin Negative Negative 10 Urine Glucose Negative Negative 10 Urine White Blood Cell Trace(0-5/hpf) Absent 10 Urine Red Blood Cell 3+(>10/hpf) Absent 10 Urine Bacteria Absent Absent 10 Urine Squamous Epithelial Cell Present Absent 10 Type & Screen 04/16/2013 Patient Blood Type O Positive Antibody Screen NEGATIVE CBC No Diff 04/16/2013 White Blood Count 6.6 10^3/uL 4.8-10.8 Red Blood Count 4.32 10^6/uL 4.0-5.4 Hemoglobin 13.0 g/dL 12.0-16.0 Hematocrit 39 % 35-47 Mean Corpuscular Volume 91 fL 80-97 Mean Corpuscular Hemoglobin 30 pg 27-31 Mean Corpuscular HGB Conc 33 g/dL 31-36 Red Cell Distribution Width 13 % 10.5-15 Platelet Count 162 10^3/uL 150-450 Mean Platelet Volume 11 um3 High 7.4-10.4 Basic Metabolic Panel 04/16/2013 Sodium 142 mmol/L 133-145 Potassium 3.9 mmol/L 3.5-5.0 Chloride 105 mmol/L 101-111 Co2 Carbon Dioxide 30.0 mmol/L 22-32 Anion Gap 7.0 mmol/L 2-11 Glucose 102 mg/dL High 70-100 Blood Urea Nitrogen 21 mg/dL 6-24 Creatinine 0.80 mg/dL 0.50-1.40 BUN/Creatinine Ratio 26.3 High 8-20 Calcium 9.0 mg/dL 8.1-9.9 Egfr Non- 69.6 >60 Egfr 89.4 >60 14 Laboratory test finding 04/16/2013 Inr 0.84 Low 0.87-0.97 15 Activated Partial Thrombo Time 29.6 seconds 22.18-37.18 16 1 Because ethnic data is not always readily [...] 15-29 5 Kidney failure <15 (or dialysis) 2 Because ethnic data is not always [...] 5 Kidney failure <15 (or dialysis) 3 Acute inflammation: >10.00 4 MES Severe Sepsis and Septic Shock Management Bundle Measure requires all lactic acids initially measuring >2.0 mmol/L be repeated. 5 >100 to <200 pg/mL: likely compensated congestive heart failure (CHF) 200 to 400 pg/mL: likely moderate CHF >400 pg/mL: likely moderate to severe CHF 6 Because ethnic data is not always readily [...] 15-29 5 Kidney failure <15 (or dialysis) 7 Acute inflammation: >10.00 8 SEE RESULT BELOW Name: ROSIEYING Duarte : [address]: Clarence Brady MD Acct: [id number] Unit: [id number] AGE: 80 Location: OR Re08/19/16 SEX: F Status: REG [facility] SPEC: [id number] NELSON: 08/19/16- SUBM DR: Clarence Brady MD REQ: [id number] RECD: 08/19/16-1534 STATUS: SOUT _ ORDERED: LEVEL [...] and the wall thickness averages 0.1 cm. Senior Scrum Master sections, one cassette. Signed (signature on file) Bri Lovell MD 03/30 1049 END OF REPORT * ML=Testing performed at Main Lab DEPARTMENT OF PATHOLOGY, [address] [place] [address] Rob Cook M.D. Director [facility] # [id number] 9 SEE RESULT BELOW Name: YING VELEZ : [address]: rBi Nieves NP Acct: [id number] Unit: [id number] AGE: 79 Location: LAB Re09/14/15 SEX: F Status: REG REF SPEC: [id number] NELSON: 09/14/[address]: Bri Nieves NP REQ: [id number] RECD: 09/14/15 STATUS: COMP _ SOURCE: URINE SPDESC: ORDERED: Urine Culture Procedure Result Reported Site Urine Culture Final 09/15/15- 907 ML No Growth (<1,000 CFU/mL) * ML - MAIN LAB ([facility]1) . END OF REPORT * ML=Testing performed at Main Lab DEPARTMENT OF PATHOLOGY, [address] [place] [address] Rob Cook M.D. Director [facility] # [id number] 09/19 12 Because ethnic data is not always readily [...] 15-29 5 Kidney failure <15 (or dialysis) 13 SEE RESULT BELOW Name: YING VELEZ : [address]: Lucita Nash MD Acct: [id number] Unit: [id number] AGE: 79 Location: [facility] Re09/11/15 SEX: F Status: REG REF SPEC: [id number] NELSON: 09/11/[address] [facility] [address]: Lucita Nash MD REQ: [id number] RECD: 09/11/15 STATUS: HEIDY DEJESUS DR: Ross Monte MD _ SOURCE: URINE SPDESC: ORDERED: Urine Culture COMMENTS: HENNY 09/19 QUERIES: Urine Source: Clean Catch Procedure Result Reported Site Urine Culture Final 09/12/15- 0819 ML Mixed sam; possible contamination. Suggest resubmission. * ML - MAIN LAB ([facility]) . END OF REPORT * ML=Testing performed at Main Lab DEPARTMENT OF PATHOLOGY, [address] [place] [address] Rob Cook M.D. Director [facility] # [id number] 14 Because ethnic data is not always readily [...] 15-29 5 Kidney failure <15 (or dialysis) 15 AA 04/20 16 AA 04/20 Procedures Date CPT Code Description Status 09/23/2017 Bone Mineral Density Test Completed 08/19/2016 63273 Laparoscopy Cholecystectomy With Cholangiography Completed 08/19/2016 41569 Laparoscopy Cholecystectomy With Cholangiography Completed 11/30/2015 Mammogram Completed 09/19/2015 58273 TKR Total Knee Replacement Completed 09/19/2015 99142 TKR Total Knee Replacement Completed 05/31/2015 Colonoscopy Completed 11/12/2013 95218 Stress Test Completed 05/26/2013 79342 Xray Knee 3 Views Completed 05/26/2013 72713 Rad Exam; Knee, Ap&L Completed 04/20/2013 37368 TKR Total Knee Replacement Completed 04/20/2013 50007 TKR Total Knee Replacement Completed 10/08/2012 18485 Polysomnography Sleep Staging 4+ Parameters W/Cpap Completed 03/29/2005 Colonoscopy Completed Encounters Type Date Location Provider CPT E/M Dx Office Visit 03/17/2018 Pulmonology [place] U[place]ña [place] [address] J98.4 8:00a [facility] Office Visit 03/11/2018 [facility] Internal Medicine - Alecia Starkey, 58908 R91.1 1:00p Valentina Case E87.1 S12.100A Office Visit 02/25/2018 11:00a Neurosurgery [place] 95536 S12.01xD Services Of Mariya Watson MD S12.112D Office Visit 02/11/2018 9:13a [facility] Felix Torre, 48555 S12.100A Assoc, Hospitalists [place] E66.9 G47.30 Z68.34 Office Visit 02/10/2018 7:00a [facility] [place] 28703 S12.01xA Services Of Mariya Watson MD S12.112A Office Visit 02/10/2018 9:06a [facility] Felix Torre, 53613 S12.100A Assoc,pc Hospitalists [place] E66.9 G47.30 Z68.34 Office Visit 02/09/2018 9:05a [facility] Sobeida Dubon 72143 S12.100A 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,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 E66.9 G47.30 Z68.34 Office Visit 02/09/2018 7:00a [facility] [place] 73567 S12.01xA Services Of Mariya Watson MD S12.112A Office Visit 02/08/2018 7:00a Neurosurgery Services Marilyn Duran 04987 S12.01xA Of [facility] NICOLE S12.112A Office Visit 02/08/2018 9:03a [facility], 81409 S12.100A 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,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 E66.9 G47.30 Z68.34 Office Visit 02/07/2018 7:00a [facility] [place] 22601 S12.01xA Services Of Mariya Watson MD S12.112A Office Visit 02/07/2018 8:32a [facility], 73660 S12.100A 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,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 E66.9 G47.30 Z68.34 Office Visit 02/06/2018 8:25a [facility] Jared, 95775 S12.100A Assoc,pc Hospitalists [place] E66.9 G47.30 Z68.34 Office Visit 02/05/2018 7:00a [facility] [place] 75835 S12.01xA Services Of Mariya Watson MD S12.112A Office Visit 02/05/2018 [facility] Jamisreekanth Lima, 56074 S12.100A 8:20a Assoc, HEALTH CARE SANITARY TECHNICIAN Hospitalists E66.9 G47.30 Z68.34 Office Visit 01/29/2018 1:15p Pulmonology And Sleep Ro Myers, 43256 G47.33 [facility] ANDRE RN, PROM BURN OFF OPERATOR- Office Visit 01/15/2018 8:30a [facility] Internal Medicine Alecia Starkey, 37370 K85.90 - Valentina Case Office Visit 01/05/2018 8:24a [facility] Mary, 92025 K85.90 Assoc,pc Hospitalists M.D. Office Visit 01/04/2018 8:24a [facility] Mary, 42501 K85.90 Assoc,pc Hospitalists M.D. Office Visit [facility]/03[facility]2018 [facility] 31825 K85.90 Assoc,pc Hospitalists M.D. Office Visit 01/02/2018 [facility] 40914 K85.90 Assoc,pc Hospitalists M.D. Office Visit 11/12/2017 8:45a [facility] Of Lucita Nash M.D. 32748 M25.561 C.M.A. Z96.651 Office Visit 09/23/2017 4:20p [facility] [place] [address] L82.1 R60.0 L85.3 Office Visit 09/22/2017 9:50a [facility] Internal Medicine Alecia Starkey, 57479 Z00.00 - Valentina Case K21.9 F41.9 H66.92 Z12.39 N95.8 Z23 Z12.83 Office Visit 05/16/2017 10:40a [facility] Internal Medicine John Schroeder, 98578 H81.10 - Valentina Case Office Visit 10/25/2016 9:00a Pulmonology And Sleep Ro Myers, 42484 G47.33 [facility] ANDRE RN, PROM BURN OFF OPERATOR- Office Visit 08/13/2016 9:00a [facility] Clarence Brady, 60344 R10.11 [facility] Office Visit 08/06/2016 11:09a [facility] [place] [address] G47.30 Assoc, Hospitalists R10.13 I10 K81.9 Office Visit 08/06/2016 7:00a [facility] Clarence Brady, 15463 R10.11 [facility] R10.13 R94.5 Office Visit 08/05/2016 11:09a [facility], [place] [address] K81.9 Hospitalists G47.30 R10.13 I10 Office Visit 08/05/2016 7:00a [place] [address] K83.8 Of [facility] R10.11 R94.5 Office Visit 08/04/2016 [facility] Sal[facility] Dumont 35315 R10.13 Hospitalists Evie G47.30 I10 Office Visit 08/03/2016 11:08a [facility], Salomon Dumont 21466 R10.13 Hospitalists Evie G47.30 I10 Office Visit 2015 10:00a [facility] Lucita Nash M.D. 13619 Z47.1 C.M.AUriel Z96.651 Office Visit 08/04/2015 9:30a [facility] Lucita Nash M.D. 62495 M17.11 C.M.A. M25.561 Office Visit 05/26/2015 1:15p [facility] Lucita Nash M.D. 34345 715.16 C.M.A. 844.8 Office Visit 02/21/2014 11:30a [facility] [place] M.D. 72168 715.96 C.M.A. Office Visit 04/14/2013 10:00a [facility] [place] M.D. 72421 716.96 C.M.A. Plan of Care Future Appointment(s):05/04/2018 2:30 pm - Mikhail Watson MD at [facility]surgery [facility]01/29/2019 11:00 am - Ro Myers DNP, RN, PROM BURN OFF OPERATOR- BC at Pulmonology And Sleep [facility]03/30/2018 - Mikhail Watson MDS12.100A Unsp disp fx of second cervical vertebra, init for clos fxNew Xrays: CT Spine Cervical W/OSP Cerv Comp/Obl, Flex, ExtNew Therapy:Physical TherapyFollow up:RV in one wiakhT58.01xD Stable burst fx first cervcal vert, subs for fx w routn heal
--- NOTE | 2018-04-24 20:53 | ED ---
Neck Pain - HPI Summary HPI Summary: This is zion, Jose Ramon Pritchett, documenting for attending Dr. Rajesh MD. An 82 y/o F presents to ED s/p fall onset yesterday. Pt had a fall resulting in fractured C1-C2 in January 2018. Yesterday, she was walking between a car and the curb, and lost her balance. She fell onto her knees and landed on her butt. Denies head trauma, LOC, weakness, tingling, pain. She was able to get up on her own. This AM she states feeling OK, but felt she should be further evaluated. Associated sx: neck discomfort. She is scheduled for a cat scan next week. Pt is wearing a neck brace at bedside. She states wearing it since January. I, Dr. Mena, personally performed the services described in this documentation as scribed in my presence and it is both accurate and complete. - History of Current Complaint Chief Complaint: EDNeckComplaint Stated Complaint: NECK PAIN Time Seen by Provider: 04/24/18 20:43 Hx Obtained From: Patient Onset/Duration Of Injury/Symptoms: Days Mechanism Of Injury: Other - fall Timing: Constant Onset/Duration: Sudden Onset, Still Present Severity Initially: Mild Severity Currently: Mild Pain Intensity: 0 Location: Discrete At: - neck Character: Other: - discomfort Associated Signs & Symptoms: Negative: Weakness Related History: Previous Neck Injury - Fractured C1-C2 in January 2018. - Allergies/Home Medications Allergies/Adverse Reactions: Allergies Allergy/AdvReac Type Severity Reaction Status Date / Time No Known Allergies Allergy Verified 01/02/18 11:41 PMH/Surg Hx/FS Hx/Imm Hx Previously Healthy: No - Previous C1-C2 neck fracture Endocrine/Hematology History: Denies: Hx Diabetes, Hx Sickle Cell Disease, Hx Thyroid Disease Cardiovascular History: Reports: Hx Hypercholesterolemia, Hx Hypertension Denies: Hx Atrial Fibrillation, Hx Coronary Artery Disease, Hx Pacemaker/ICD , Other Cardiovascular Problems/Disorders Respiratory History: Reports: Hx Seasonal Allergies, Hx Sleep Apnea Denies: Hx Asthma, Hx Chronic Obstructive Pulmonary Disease (COPD), Other Respiratory Problems/Disorders GI History: Reports: Hx Diverticulosis, Hx Gastroesophageal Reflux Disease, Hx Hiatal Hernia, Other GI Disorders - pancreatitis Denies: Hx Ulcer History: Denies: Other Problems/Disorders Musculoskeletal History: Reports: Hx Arthritis - GENERALIZED Denies: Hx Osteoporosis, Other Musculoskeletal History Sensory History: Reports: Hx Cataracts - had sx, Hx Contacts or Glasses, Other Sensory Impairments - Vertigo secondary to Eustachian Tube Dysfunction Denies: Hx Hearing Aid Opthamlomology History: Reports: Hx Cataracts - had sx, Hx Contacts or Glasses, Other Sensory Impairments - Vertigo secondary to Eustachian Tube Dysfunction Neurological History: Reports: Other Neuro Impairments/Disorders - RESTLESS LEG SYNDROME; C1-C2 Fx 01/2018 Denies: Hx CVA Psychiatric History: Reports: Hx Anxiety, Hx Depression Denies: Hx Panic Disorder - Cancer History Hx Chemotherapy: No Hx Radiation Therapy: No - Surgical History Surgery Procedure, Year, and Place: bilateral knee replacement. galbladder. hysteroectomy. bilateral carpal tunel. bilateral cataracts Hx Anesthesia Reactions: No Infectious Disease History: No Infectious Disease History: Denies: Hx Hepatitis, Hx Human Immunodeficiency Virus (HIV), History Other Infectious Disease, Traveled Outside the [place] in Last 30 Days - Family History Known Family History: Positive: Cardiac Disease, Other - CVA's Negative: Renal Disease Family History: Father had pancreatic cancer. - Social History Occupation: Retired Lives: Alone Alcohol Use: Occasionally Hx Substance Use: No Substance Use Type: Reports: None Hx Tobacco Use: No Smoking Status (MU): Never Smoked Tobacco Have You Smoked in the Last Year: No Review of Systems Positive: Arthralgia - neck discomfort, otherwise denies pain Neurological: Negative - LOC, weakness, and tingling Negative: Weakness All Other Systems Reviewed And Are Negative: Yes Physical Exam - Summary Physical Exam Summary: Appearance: Well-appearing, Well-nourished, lying in bed comfortable Skin: Warm, dry, no obvious rash Eyes: sclera anicteric, no conjunctival pallor ENT: mucous membranes moist Neck: deferred Respiratory: No signs of respiratory distress Cardiovascular: Appears well perfused, pulses are nml Abdomen: deferred Musculoskeletal: Moving all 4 extremities without obvious discomfort. 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 Neurological: Awake and alert, mentation is normal, speech is fluent and appropriate Psychiatric: affect is normal, does not appear anxious or depressed Triage Information Reviewed: Yes Vital Signs On Initial Exam: Initial Vitals Temp Pulse Resp BP Pulse Ox 98.0 F 78 15 153/86 96 04/24/18 18:01 04/24/18 18:01 04/24/18 18:01 04/24/18 18:01 04/24/18 18:01 Vital Signs Reviewed: Yes Diagnostics - Vital Signs Vital Signs Temp Pulse Resp BP Pulse Ox 04/24/18 18:55 97.7 F 73 18 140/78 99 04/24/18 18:01 98.0 F 78 15 153/86 96 - Laboratory Lab Statement: Any lab studies that have been ordered have been reviewed, and results considered in the medical decision making process. - Radiology C-SPINE Xray Interpretation: Positive (See Comments) - IMPRESSION: FRACTURES OF THE C1 AND C2 VERTEBRA NOTED. CONSIDER CT IMAGING FOR FURTHER EVALUATION. ED physician has reviewed this radiology report. Radiology Interpretation Completed By: Radiologist - CT C-SPINE CT Interpretation: Positive (See Comments) - IMPRESSION: 1. DISPLACED FRACTURES OF THE ANTERIOR AND POSTERIOR ARCH OF THE C1 VERTEBRA. THERE IS INCREASED DISPLACEMENT OF THE FRACTURE OF THE ANTERIOR ARCH DESCRIBED. THE POSTERIOR ARCH FRACTURE IS COMMINUTED AND UNCHANGED FROM THE PRIOR STUDY 2. TYPE II ODONTOID FRACTURE, UNCHANGED. 3. MODERATE DIFFUSE CERVICAL SPONDYLOSIS. ED physician has reviwed this report. CT Interpretation Completed By: Radiologist Re-Evaluation - Re-Evaluation 1 Re-Evaluation Time: 22:22 Change: Unchanged Comment: Discussing imgaging results and consult with neuro surgery with pt Neck Course/Dx - Physician Notifications Discussed Care Of Patient With: Vassilios Dimopoulos - neuro surgery Time Discussed With Above Provider: 22:17 Instructed by Provider To: Other - Will review CT himself and call back. Return call at 2300: Pt can follow up as out-patient. Discharge - Sign-Out/Discharge Documenting (check all that apply): Patient Departure - DC - Discharge Plan Referrals: Alecia Starkey MD [Primary Care Provider] -
--- NOTE | 2018-04-24 21:20 | RAD ---
INDICATION: Fall, cervical spine fracture January 2018. COMPARISON: Correlation is made with a prior CT of the cervical spine from February 05, 2018 a prior x-ray of the cervical spine from March 30, 2018. TECHNIQUE: 3 views of the cervical spine were obtained including lateral, AP and open-mouth odontoid views. FINDINGS: Again note is made of a type II odontoid fracture with slight separation of fracture fragments which appears similar to the prior studies. The fracture of the posterior arch of the C1 vertebra is also visualized. The anterior arch is not well-defined. There are ossifications versus old fractures of the tip of the spinous processes of the C6 and C7 vertebra which are unchanged. There is mild degenerative disc disease at the C2-C3 and C3-C4 levels and moderate degenerative disc disease at the C4-C5 and C5-C6 levels and severe degenerative disc disease at the C6-C7 level. IMPRESSION: FRACTURES OF THE C1 AND C2 VERTEBRA NOTED. CONSIDER CT IMAGING FOR FURTHER EVALUATION.
--- NOTE | 2018-04-24 22:11 | RAD ---
INDICATION: Trauma known C1 and C2 fracture from November 2017. COMPARISON: Correlation is made with a prior CT of the cervical spine from December 06, 2017. TECHNIQUE: Contiguous axial sections were obtained from the skull base through the T1 vertebra. Images were reconstructed in the sagittal and coronal planes. FINDINGS: There is a fracture through the anterior arch of the C1 vertebra centered in the midline with separation of the anterior fracture fragments of 1.1 cm. These were previously 0.6 cm. There is also a comminuted displaced fracture of the posterior arch of C1 which appears similar to the prior study. There is mild spinal canal narrowing at this level which appears unchanged. In addition there is a type II odontoid fracture present with slight separation of fracture fragments which is unchanged from the prior CT study. There is mild prevertebral soft tissue swelling which has improved slightly. No additional acute fractures are seen. There are ossifications adjacent to the C6 and C7 spinous processes possibly representing old ununited fracture fragments which are unchanged. At the C2-C3 level there is a small central disc protrusion. No spinal canal narrowing is seen. There are hypertrophic changes within the facet joints. There is mild neural foraminal narrowing on the right side and moderate neural foraminal narrowing on the left side. At the C3-C4 level there are moderate hypertrophic changes within the facet joints and mild posterior uncinate process spurring. No significant spinal canal narrowing is present. There is moderate to severe bilateral neural foraminal narrowing. At the C4-C5 level there is mild posterior uncinate process spurring and moderate hypertrophic changes within the facet joints. No significant spinal canal narrowing is present. There is moderate neural foraminal narrowing present on both sides. At the C5-C6 level there is mild posterior uncinate process spurring and moderate to severe hypertrophic changes within the facet joints. There is mild spinal canal narrowing and moderate to severe bilateral neural foraminal narrowing. At the C6-C7 level there is mild posterior uncinate process spurring. There is mild spinal canal narrowing and mild bilateral neural foraminal narrowing. The lung apices appear clear. The results of this exam were discussed with the referring clinician. IMPRESSION: 1. DISPLACED FRACTURES OF THE ANTERIOR AND POSTERIOR ARCH OF THE C1 VERTEBRA. THERE IS INCREASED DISPLACEMENT OF THE FRACTURE OF THE ANTERIOR ARCH DESCRIBED. THE POSTERIOR ARCH FRACTURE IS COMMINUTED AND UNCHANGED FROM THE PRIOR STUDY 2. TYPE II ODONTOID FRACTURE, UNCHANGED. 3. MODERATE DIFFUSE CERVICAL SPONDYLOSIS.
[2018-04-25 00:01] VITALS: BP 166/92
== END 2018-04-24 23:58 | disposition home or self-care (01) ==
LOC: ED 17:24
DX: M54.2 Cervicalgia (principal); E78.00 Pure hypercholesterolemia, unspecified; I10 Essential (primary) hypertension; W19.XXXA Unspecified fall, initial encounter; Y93.01 Activity, walking, marching and hiking; Y92.89 Other specified places as the place of occurrence of the external cause; S12.030D Displaced posterior arch fracture of first cervical vertebra, subsequent encounter for fracture with routine healing; W19.XXXD Unspecified fall, subsequent encounter
CPT/HCPCS: 72040; 72125; 99282

== ENCOUNTER 2018-09-17 05:57 | Inpatient (IN) | payer MEDICARE ==
[~2018-09-17 05:57] MED LIST: Buffered Lidocaine 0.9% SYRIN* 5 ML/SYR SYRINGE INTRADERM ONE
[2018-09-17] MEDS ORDERED: Lactated Ringers 1000 ML Bag* 1,000 ML IV SCH (06:00)
--- OUTSIDE RECORDS SUMMARY | 2018-09-17 06:00 | XMS REPORT | Continuity of Care Document ---
:1935 External Reference #:[id number] Author Name WilbertoElvia york Care Team Providers Name Role Phone Alecia Starkey MD Primary Care Physician Unavailable Payers Type Date Identification Numbers Payment Provider Subscriber Effective: 2018 Policy Number: [id number] Medicare Ying Velez PayID: [id number] [address] [facility] [place] [address] Effective: 2000 Policy Number: [id number] Medicare Ying Velez Expires: 2018 PayID: [id number] [address] [place] [address] Policy Number: [id number] [facility] Ying Velez PayID: [id number] [address] [place] [address] Advance Directives Type Date Description Status Comment [facility] Current and Verified Problems Date Description Provider Status Onset: 05/26/2015 Localized, primary osteoarthritis Lucita Nash M.D. Active Onset: 10/25/2016 Obstructive sleep apnea syndrome Ro Myers DNP, RN, Active [employer]- Onset: 08/22/2017 Essential hypertension Alecia Starkey M.D. [...] lung 1.5 cm Onset: 03/30/2018 Stable burst fracture of first Vassilios MD Walter Active cervical vertebra, subsequent encounter for fracture with routine healing Onset: 06/15/2018 Other displaced fracture of first Delfin Muñoz M.D. 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 Shingrix 03/11 Active Suspension 50mcg 1unit intramuscula Rec s r x 1 then Jaky, repeat in 4 M.D. months X1 Patanol 02/03 Active Solution 0.1% 5ml Apply 1 gtt bid prn Evie Starkey Simvastatin 12/10 Active Tablets 40mg 90tab take 1 John E. s tablet by Elda, mouth at M.D. bedtime Pantoprazole 09/[address] 20mg 90tab Take 1 K21.9 Alecia Sodium s Tablet By Jaky, Mouth Once A M.D. Day Paroxetine HCL 10/24 Active Tablets 10mg 90tab 1 by mouth Alecia s daily Evie Starkey Ibuprofen 10/24 Active as directed prn Fluticasone 10/24 Active as needed Unknown Propionate Fexofenadine 10/24 Active 180mg as needed Unknown HCL Carbidopa-Levo 10/24 Active Tablets 25-100mg 90tab Take 1 Alecia dopa s Tablet By Jaky, Mouth Daily M.DUriel Lisinopril 10/17 Active Tablets 10mg 90tab 1 by mouth Alecia /2017 s daily Evie Starkey Amoxicillin 08/02 Active Capsules 500mg 8caps 4 tablets 1 hour before Jaky, dental work M.DUriel Motrin Ib Active Tablets 200mg 1-2 twice a Unknown /0000 day as needed Ciprofloxacin Active Tablets 500mg Unknown HCL Metronidazole Active Tablets 500mg take 1 tablet by mouth every 8 hours for 10 days Ciprofloxacin 08/31 Hx Tablets 500mg 20tab 1 tab by K51.50 Alecia HCL s mouth twice Jaky, - a day x 10 M.D. Metronidazole 08/31 Hx Tablets 500mg 30tab 1 tab estrella 8 K51.50 Alecia s hours x Jaky, - 10days M.D. 09/10 Doxycycline 09/22 Hx Tablets 100mg 20tab 1 tablet H66.92 Alecia Hyclate s twice a day Jaky, - x 10 days M.D. 10/02 Paxil 09/22 Hx Tablets 10mg 90tab Take 1 F41.9 Melba s Tablet By Tam, - Mouth Once A M.D. Pantoprazole 10/24 Hx 40mg 1 by mouth Unknown Sodium daily - 09/22 Percocet 09/11 Hx Tablets 5-325mg 90tab take 1-2 Bri /2015 s tabs by Ezequiel, - mouth q4-6 [employer] 10/22 hours as needed pain Coumadin 09/11 Hx Tablets 2mg 30tab take 2 mg by Lucita s mouth every Saad, - night at M.D. 12/18 bedtime as directed by through visiting nurse Zuri 05/03 Hx Capsules 500mg 28cap 1 po qid x Dir s 7days Dori - M.DUriel 02/20 Olopatadine Hx Solution 0.1% Unknown HCL /0000 - 01/15 Immunizations CPT Code Status Date Vaccine Lot # [id number] Given 08/19/2018 Pneumonia Vaccine [id number] Given 06/15/2018 Fluzone High Dose 19678 Given 09/22/2017 Pneumococcal Conjugate Vaccine 13 Valent For [id number] Intramuscular Use 25113 Given 08/31/2017 Influenza Virus Vaccine, Quadrivalent, Split, Preservative Free [id number] Given 09/30/2012 Tdap - Tetanus/Diptheria/Acellular Pertussis Vital Signs Date Vital Result Comment 09/10/2018 9:51am Height 60.3 inches 5'0.30" Weight 181.00 lb Heart Rate 87 /min BP Systolic Sitting 120 mmHg BP Diastolic Sitting 68 mmHg O2 % BldC Oximetry 94 % BMI (Body Mass Index) 35.0 kg/m2 09/04/2018 8:47am Height 60.3 inches 5'0.30" Weight 183.00 lb BP Systolic Sitting 120 mmHg BP Diastolic Sitting 70 mmHg Pain Level 1 BMI (Body Mass Index) 35.4 kg/m2 08/31/2018 1:15pm Height 60.3 inches 5'0.30" Weight 183.00 lb Heart Rate 70 /min BP Systolic Sitting 136 mmHg BP Diastolic Sitting 76 mmHg O2 % BldC Oximetry 96 % BMI (Body Mass Index) 35.4 kg/m2 08/19/2018 1:43pm Height 60.3 inches 5'0.30" Weight 182.00 lb Heart Rate 79 /min BP Systolic Sitting 120 mmHg BP Diastolic Sitting 60 mmHg O2 % BldC Oximetry 96 % BMI (Body Mass Index) 35.2 kg/m2 07/08/2018 10:05am Height 60.3 inches 5'0.30" Heart Rate 72 /min BP Systolic Sitting 142 mmHg BP Diastolic Sitting 76 mmHg Respiratory Rate 16 /min Body Temperature 96.8 F 06/15/2018 10:00am Height 60.3 inches 5'0.30" Weight 180.50 lb Heart Rate 76 /min BP Systolic Sitting 122 mmHg large adult cuff left arm BP Diastolic Sitting 74 mmHg large adult cuff left arm Body Temperature 97.4 F BMI (Body Mass Index) 34.9 kg/m2 06/03/2018 4:20pm Height 60.3 inches 5'0.30" Weight 179.12 lb Heart Rate 69 /min BP Systolic 114 mmHg BP Diastolic 69 mmHg Respiratory Rate 18 /min Body Temperature 98.0 F O2 % BldC Oximetry 97 % BMI (Body Mass Index) 34.6 kg/m2 06/03/2018 9:10am Height 60.3 inches 5'0.30" Weight 175.00 lb Heart Rate 62 /min BP Systolic 114 mmHg BP Diastolic 78 mmHg Pain Level 0 BMI (Body Mass Index) 33.8 kg/m2 05/04/2018 2:25pm Height 60.3 inches 5'0.30" Weight 181.00 lb BP Systolic Sitting 122 mmHg BP Diastolic Sitting 60 mmHg Pain Level 0 BMI (Body Mass Index) 35.0 kg/m2 03/30/2018 3:40pm Height 60.3 inches 5'0.30" Weight 181.50 lb Heart Rate 72 /min BP Systolic Sitting 116 mmHg BP Diastolic Sitting 76 mmHg Respiratory Rate 16 /min Body Temperature 98.1 F BMI (Body Mass Index) 35.1 kg/m2 03/17/2018 7:32am Height 60.3 inches 5'0.30" Weight 180.00 lb Heart Rate 88 /min BP Systolic Sitting 122 mmHg Rue regular cuff BP Diastolic Sitting 66 mmHg Rue regular cuff Respiratory Rate 12 /min Pain Level 94 BMI (Body Mass Index) 34.8 kg/m2 03/11/2018 1:02pm Height 60.3 inches 5'0.30" Weight 180.00 lb Heart Rate 81 /min BP Systolic Sitting 114 mmHg BP Diastolic Sitting 64 mmHg Pain Level 0 O2 % BldC Oximetry 96 % BMI (Body Mass Index) 34.8 kg/m2 02/25/2018 11:18am Height 62 inches 5'2" Weight 178.00 lb BP Systolic Sitting 130 mmHg BP Diastolic Sitting 60 mmHg Pain Level 1 BMI (Body Mass Index) 32.6 kg/m2 01/29/2018 12:55pm Height 60.5 inches 5'0.50" Heart Rate 76 /min BP Systolic Sitting 122 mmHg Lue reg cuff BP Diastolic Sitting 80 mmHg Lue reg cuff Respiratory Rate 16 /min O2 % BldC Oximetry 95 % On Ra 01/15/2018 8:19am Height 60.5 inches 5'0.50" Weight 189.00 lb Heart Rate 80 /min BP Systolic Sitting 118 mmHg BP Diastolic Sitting 60 mmHg O2 % BldC Oximetry 91 % BMI (Body Mass Index) 36.3 kg/m2 11/12/2017 8:47am Height 60.5 inches 5'0.50" BP Systolic 134 mmHg BP Diastolic 78 mmHg Respiratory Rate 18 /min Body Temperature 96.8 F Pain Level 0 09/22/2017 9:32am Height 60.5 inches 5'0.50" Weight 197.00 lb Heart Rate 80 /min BP Systolic Sitting 138 mmHg BP Diastolic Sitting 84 mmHg O2 % BldC Oximetry 96 % BMI (Body Mass Index) 37.8 kg/m2 05/16/2017 10:20am Height 63 inches 5'3" Weight 196.00 lb Heart Rate 84 /min BP Systolic Sitting 122 mmHg BP Diastolic Sitting 78 mmHg Body Temperature 96.5 F O2 % BldC Oximetry 93 % BMI (Body Mass Index) 34.7 kg/m2 10/25/2016 9:11am Height 63 inches 5'3" Weight 187.00 lb Heart Rate 97 /min BP Systolic 130 mmHg BP Diastolic 62 mmHg Respiratory Rate 14 /min O2 % BldC Oximetry 98 % BMI (Body Mass Index) 33.1 kg/m2 08/27/2016 9:50am Height 63 inches 5'3" Weight 187.00 lb Heart Rate 82 /min BP Systolic Sitting 160 mmHg BP Diastolic Sitting 62 mmHg Respiratory Rate 18 /min Body Temperature 97.4 F BMI (Body Mass Index) 33.1 kg/m2 08/13/2016 8:53am Height 63 inches 5'3" Weight 190.00 lb Heart Rate 80 /min BP Systolic Sitting 116 mmHg BP Diastolic Sitting 72 mmHg Respiratory Rate 18 /min Body Temperature 97.3 F BMI (Body Mass Index) 33.7 kg/m2 2015 10:13am Height 62 inches 5'2" Weight 193.00 lb Pain Level 1 BMI (Body Mass Index) 35.3 kg/m2 10/20/2015 9:45am Height 62 inches 5'2" Weight 193.00 lb Pain Level 1 With activity feels tightness BMI (Body Mass Index) 35.3 kg/m2 09/29/2015 9:29am Height 62 inches 5'2" Weight 193.00 lb BMI (Body Mass Index) 35.3 kg/m2 09/11/2015 8:29am Height 62 inches 5'2" Weight 193.00 lb Heart Rate 75 /min BP Systolic 135 mmHg BP Diastolic 75 mmHg BMI (Body Mass Index) 35.3 kg/m2 08/04/2015 9:50am Height 62 inches 5'2" Weight 193.00 lb Pain Level 4 BMI (Body Mass Index) 35.3 kg/m2 05/26/2015 1:20pm Height 62 inches 5'2" Weight 193.00 lb Heart Rate 80 /min BP Systolic Sitting 111 mmHg BP Diastolic Sitting 69 mmHg Pain Level 7 BMI (Body Mass Index) 35.3 kg/m2 02/21/2014 11:13am Height 62 inches 5'2" Heart Rate 76 /min BP Systolic 127 mmHg BP Diastolic 77 mmHg 04/14/2013 10:14am Height 63 inches 5'3" Weight 185.00 lb Heart Rate 74 /min BP Systolic 116 mmHg BP Diastolic 70 mmHg BMI (Body Mass Index) 32.8 kg/m2 Results Test Date Facility Test Result H/L Range Note CBC Auto Diff 09/04/2018 [facility] White Blood 6.3 10^3/uL N 3.5-10.[address] [place] [address] [phone] Red Blood Count 4.45 10^6/uL N 4.00-5.40 Hemoglobin 13.5 g/dL N 12.0-16.0 Hematocrit 41 % N 35-47 Mean Corpuscular Volume 91 fL N 80-97 Mean Corpuscular Hemoglobin 30 pg N 27-31 Mean Corpuscular HGB Conc 33 g/dL N 31-36 Red Cell Distribution Width 13 % N 10.5-15 Platelet Count 166 10^3/uL N 150-450 Mean Platelet Volume 10.2 fL N 7.4-10.4 Abs Neutrophils 3.9 10^3/uL N 1.5-7.7 Abs Lymphocytes 1.6 10^3/uL N 1.0-4.8 Abs Monocytes 0.6 10^3/uL N 0-0.8 Abs Eosinophils 0.2 10^3/uL N 0-0.6 Abs Basophils 0 10^3/uL N 0-0.2 Abs Nucleated RBC 0 10^3/uL Granulocyte % 62.5 % Lymphocyte % 24.8 % Monocyte % 9.8 % Eosinophil % 2.4 % Basophil % 0.5 % Nucleated Red Blood Cells % 0.1 Basic Metabolic Panel 09/04/2018 [facility] Sodium 139 mmol/L N 135-[address] [place] [address] [phone] Potassium 4.5 mmol/L N 3.5-5.0 Chloride 104 mmol/L N 101-111 Co2 Carbon Dioxide 30 mmol/L N 22-32 Anion Gap 5 mmol/L N 2-11 Glucose 90 mg/dL N 70-100 Blood Urea Nitrogen 20 mg/dL N 6-24 Creatinine 0.88 mg/dL N 0.51-0.95 BUN/Creatinine Ratio 22.7 High 8-20 Calcium 9.1 mg/dL N 8.6-10.3 Egfr Non- 61.5 >60 Egfr 74.4 >60 1 Inr/Protime 09/04/2018 [facility] Inr 1.00 N 0.77-1.[address] [place] [address] [phone] Laboratory test 09/04/2018 [facility] Partial 32.6 N 26.0- 36.[address] [place] [address] PTT [phone] Laboratory test 06/10/2018 [facility] Hemoglobin A1c 5.3 % N 4.0-5.[address] (Glyco HGB) [place] [address] [phone] CA 19-9 10 U/mL <35 3 CBC No Diff 06/10/2018 [facility] White Blood 6.8 10^3/uL N 3.5-10.[address] [place] [address] [phone] Red Blood Count 4.29 10^6/uL N 4.00-5.40 Hemoglobin 13.2 g/dL N 12.0-16.0 Hematocrit 39 % N 35-47 Mean Corpuscular Volume 91 fL N 80-97 Mean Corpuscular Hemoglobin 31 pg N 27-31 Mean Corpuscular HGB Conc 34 g/dL N 31-36 Red Cell Distribution Width 13 % N 10.5-15 Platelet Count 158 10^3/uL N 150-450 Mean Platelet Volume 10.2 um3 N 7.4-10.4 Comp Metabolic Panel 06/10/2018 [facility] Sodium 140 mmol/L N 135-[address] [place] [address] [phone] Potassium 4.5 mmol/L N 3.5-5.0 Chloride 106 mmol/L N 101-111 Co2 Carbon Dioxide 27 mmol/L N 22-32 Anion Gap 7 mmol/L N 2-11 Glucose 86 mg/dL N 70-100 Blood Urea Nitrogen 14 mg/dL N 6-24 Creatinine 0.77 mg/dL N 0.51-0.95 BUN/Creatinine Ratio 18.2 N 8-20 Calcium 9.1 mg/dL N 8.6-10.3 Total Protein 6.4 g/dL N 6.4-8.9 Albumin 4.0 g/dL N 3.2-5.2 Globulin 2.4 g/dL N 2-4 Albumin/Globulin Ratio 1.7 N 1-3 Total Bilirubin 0.60 mg/dL N 0.2-1.0 Alkaline Phosphatase 89 U/L N 34-104 Alt 14 U/L N 7-52 Ast 20 U/L N 13-39 Egfr Non- 71.8 >60 Egfr 86.8 >60 4 Xray 05/08/2018 [facility] SP Cerv <pending> [address] Comp/Obl, Flex, [place] [address] Ext [phone] Basic Metabolic 03/11/2018 [facility] Sodium 140 mmol/L N 135- [address] [place] [address] [phone] Potassium 4.1 mmol/L N 3.5-5.0 Chloride 105 mmol/L N 101-111 Co2 Carbon Dioxide 28 mmol/L N 22-32 Anion Gap 7 mmol/L N 2-11 Glucose 107 mg/dL High 70-100 Blood Urea Nitrogen 15 mg/dL N 6-24 Creatinine 0.88 mg/dL N 0.51-0.95 BUN/Creatinine Ratio 17.0 N 8-20 Calcium 9.3 mg/dL N 8.6-10.3 Egfr Non- 61.5 >60 Egfr 74.4 >60 5 CBC Auto 02/05/2018 [facility] White Blood 14.0 10^3/uL High 3.5-10.[address] [place] [address] [phone] Red Blood Count 4.69 10^6/uL N 4.0-5.4 Hemoglobin 14.0 g/dL N 12.0-16.0 Hematocrit 42 % N 35-47 Mean Corpuscular Volume 89 fL N 80-97 Mean Corpuscular Hemoglobin 30 pg N 27-31 Mean Corpuscular HGB Conc 34 g/dL N 31-36 Red Cell Distribution Width 14 % N 10.5-15 Platelet Count 164 10^3/uL N 150-450 Mean Platelet Volume 10.4 um3 N 7.4-10.4 Abs Neutrophils 12.9 10^3/uL High 1.5-7.7 Abs Lymphocytes 0.8 10^3/uL Low 1.0-4.8 Abs Monocytes 0.2 10^3/uL N 0-0.8 Abs Eosinophils 0 10^3/uL N 0-0.6 Abs Basophils 0 10^3/uL N 0-0.2 Abs Nucleated RBC 0 10^3/uL Granulocyte % 92.5 % High 38-83 Lymphocyte % 5.6 % Low 25-47 Monocyte % 1.6 % N 0-7 Eosinophil % 0.1 % N 0-6 Basophil % 0.2 % N 0-2 Nucleated Red Blood Cells % 0 Comp Metabolic Panel 02/05/2018 [facility] Sodium 139 mmol/L N 139-[address] [place] [address] [phone] Potassium 3.8 mmol/L N 3.5-5.0 Chloride 104 mmol/L N 101-111 Co2 Carbon Dioxide 25 mmol/L N 22-32 Anion Gap 10 mmol/L N 2-11 Glucose 131 mg/dL High 70-100 Blood Urea Nitrogen 15 mg/dL N 6-24 Creatinine 0.91 mg/dL N 0.51-0.95 BUN/Creatinine Ratio 16.5 N 8-20 Calcium 9.2 mg/dL N 8.6-10.3 Total Protein 7.2 g/dL N 6.4-8.9 Albumin 4.1 g/dL N 3.2-5.2 Globulin 3.1 g/dL N 2-4 Albumin/Globulin Ratio 1.3 N 1-3 Total Bilirubin 0.70 mg/dL N 0.2-1.0 Alkaline Phosphatase 84 U/L N 34-104 Alt 29 U/L N 7-52 Ast 33 U/L N 13-39 Egfr Non- 59.2 >60 Egfr 76.1 >60 6 Laboratory test 02/05/2018 [facility] C Reactive < 1.00 mg/L N < 5.00 [address] [place] [address] [phone] Urinalysis 01/02/2018 [facility] Urine Color Yellow Profile [address] [place] [address] [phone] Urine Appearance Clear Urine Specific [place] 1.021 N 1.010-1.030 Urine pH 6.0 N 5-9 Urine Urobilinogen Negative Negative Urine Ketones Trace Abnormal Negative Urine Protein Negative Negative Urine Leukocytes Negative Negative Urine Blood Negative Negative Urine Nitrite Negative Negative Urine Bilirubin Negative Negative Urine Glucose Negative Negative CBC Auto 01/02/2018 [facility] White Blood 14.4 10^3/uL High 3.5-10.[address] [place] [address] [phone] Red Blood Count 4.92 10^6/uL N 4.0-5.4 Hemoglobin 14.6 g/dL N 12.0-16.0 Hematocrit 44 % N 35-47 Mean Corpuscular Volume 89 fL N 80-97 Mean Corpuscular Hemoglobin 30 pg N 27-31 Mean Corpuscular HGB Conc 33 g/dL N 31-36 Red Cell Distribution Width 14 % N 10.5-15 Platelet Count 176 10^3/uL N 150-450 Mean Platelet Volume 9.6 um3 N 7.4-10.4 Abs Neutrophils 12.0 10^3/uL High 1.5-7.7 Abs Lymphocytes 1.3 10^3/uL N 1.0-4.8 Abs Monocytes 1.0 10^3/uL High 0-0.8 Abs Eosinophils 0 10^3/uL N 0-0.6 Abs Basophils 0 10^3/uL N 0-0.2 Abs Nucleated RBC 0 10^3/uL Granulocyte % 83.8 % High 38-83 Lymphocyte % 9.0 % Low 25-47 Monocyte % 6.9 % N 0-7 Eosinophil % 0 % N 0-6 Basophil % 0.3 % N 0-2 Nucleated Red Blood Cells % 0 Laboratory test 01/02/2018 [facility] Lactic Acid 1.4 mmol/L N 0.5-2.0 [address] [place] [address] [phone] Inr/Protime 01/02/2018 [facility] Inr 1.01 N 0.77-1.[address] [place] [address] [phone] Laboratory test 01/02/2018 [facility] Partial 31.5 seconds N 26.0-36.[address] [place] [address] PTT [phone] B-Type Natriuretic Peptide BNP 82 pg/mL 9 Comp Metabolic Panel 01/02/2018 [facility] Sodium 137 mmol/L Low 139-145 [address] [place] [address] [phone] Potassium 3.8 mmol/L N 3.5-5.0 Chloride 103 mmol/L N 101-111 Co2 Carbon Dioxide 24 mmol/L N 22-32 Anion Gap 10 mmol/L N 2-11 Glucose 130 mg/dL High 70-100 Blood Urea Nitrogen 21 mg/dL N 6-24 Creatinine 0.92 mg/dL N 0.51-0.95 BUN/Creatinine Ratio 22.8 High 8-20 Calcium 9.3 mg/dL N 8.6-10.3 Total Protein 7.4 g/dL N 6.4-8.9 Albumin 4.4 g/dL N 3.2-5.2 Globulin 3.0 g/dL N 2-4 Albumin/Globulin Ratio 1.5 N 1-3 Total Bilirubin 0.80 mg/dL N 0.2-1.0 Alkaline Phosphatase 81 U/L N 34-104 Alt 19 U/L N 7-52 Ast 21 U/L N 13-39 Egfr Non- 58.4 >60 Egfr 75.2 >60 10 Laboratory test 01/02/2018 [facility] Magnesium 1.8 mg/dL Low 1.9-2.[address] [place] [address] [phone] Amylase 191 U/L High 29-103 Creatine Kinase(CK) 138 U/L N 10-223 C Reactive Protein 18.63 mg/L High < 5.00 11 Troponin-I (TnI) 0.00 ng/mL <0.04 Lipase 951 U/L High 11.0-82.0 Laboratory test 08/19/2016 [facility] Surgical SEE RESULT [address] [place] [address] [phone] Urinalysis 09/14/2015 [facility] Urine Color Yellow N Profile [address] [place] [address] [phone] Urine Appearance Cloudy N Urine Specific [place] 1.023 N 1.010-1.030 Urine pH 5.0 N 5-9 Urine Urobilinogen Negative N Negative Urine Ketones Negative N Negative Urine Protein Negative N Negative Urine Leukocytes 3+ Abnormal Negative Urine Blood Negative N Negative Urine Nitrite Negative N Negative Urine Bilirubin Negative N Negative Urine Glucose Negative N Negative Urine White Blood Cell 3+(>20/hpf) Abnormal Absent Urine Red Blood Cell Trace(0-2/hpf) N Absent Urine Bacteria Absent N Absent Urine Squamous Epithelial Cell Present Abnormal Absent Urine Renal Epithelial Cells Present Abnormal Absent Ua And Culture 09/14/2015 [facility] Urine Culture And SEE RESULT [address] [place] [address] [phone] CBC No Diff 09/11/2015 [facility] White Blood Count 8.2 10^3/uL N 3.5-[address] 0[address]8 [place] [address] [phone] Red Blood Count 4.87 10^6/uL N 4.0-5.4 Hemoglobin 14.4 g/dL N 12.0-16.0 Hematocrit 45 % N 35-47 Mean Corpuscular Volume 92 fL N 80-97 Mean Corpuscular Hemoglobin 30 pg N 27-31 Mean Corpuscular HGB Conc 32 g/dL N 31-36 Red Cell Distribution Width 14 % N 10.5-15 Platelet Count 172 10^3/uL N 150-450 Mean Platelet Volume 10 um3 N 7.4-10.4 Inr/Protime 09/11/2015 [facility] Inr 0.95 N 0.89-1.[address] [place] [address] [phone] Laboratory test 09/11/2015 [facility] Partial 34.0 seconds N 26.0-36.[address] [place] [address] PTT [phone] Comp Metabolic 09/11/2015 [facility] Sodium 138 mmol/L N 133- [address] [place] [address] [phone] Potassium 4.1 mmol/L N 3.5-5.0 Chloride 103 mmol/L N 101-111 Co2 Carbon Dioxide 29 mmol/L N 22-32 Anion Gap 6 mmol/L N 2-11 Glucose 90 mg/dL N 70-100 Blood Urea Nitrogen 16 mg/dL N 6-24 Creatinine 0.89 mg/dL N 0.51-0.95 BUN/Creatinine Ratio 18.0 N 8-20 Calcium 9.1 mg/dL N 8.6-10.3 Total Protein 7.1 g/dL N 6.4-8.9 Albumin 4.4 g/dL N 3.2-5.2 Globulin 2.7 g/dL N 2-4 Albumin/Globulin Ratio 1.6 N 1-3 Total Bilirubin 0.50 mg/dL N 0.2-1.0 Alkaline Phosphatase 69 U/L N 34-104 Alt 16 U/L N 7-52 Ast 19 U/L N 13-39 Egfr Non- 61.2 N >60 Egfr 78.7 N >60 16 Urinalysis Profile 09/11/2015 [facility] Urine Color Yellow [address] [place] [address] [phone] Urine Appearance Cloudy N Urine Specific [place] 1.024 N 1.010-1.030 Urine pH 5.0 N 5-9 Urine Urobilinogen Negative N Negative Urine Ketones Negative N Negative Urine Protein Negative N Negative Urine Leukocytes 1+ Abnormal Negative Urine Blood 1+ Abnormal Negative Urine Nitrite Negative N Negative Urine Bilirubin Negative N Negative Urine Glucose Negative N Negative Urine White Blood Cell Trace(0-5/hpf) N Absent Urine Red Blood Cell 3+(>10/hpf) Abnormal Absent Urine Bacteria Absent N Absent Urine Squamous Epithelial Cell Present Abnormal Absent Laboratory test 09/11/2015 [facility] Urine Culture And SEE RESULT [address] [place] [address] [phone] Laboratory test 04/16/2013 [facility] Inr 0.84 Low 0.87 [address] -0.9 [place] [address] [phone] Activated Partial Thrombo Time 29.6 seconds 22.18-37.18 19 Type & Screen 04/16/2013 [facility] Patient Blood Type O Positive [address] [place] [address] [phone] Antibody Screen NEGATIVE CBC No Diff 04/16/2013 [facility] White Blood 6.6 10^3/uL 4.8 -10.[address] [place] [address] [phone] Red Blood Count 4.32 10^6/uL 4.0-5.4 Hemoglobin 13.0 g/dL 12.0-16.0 Hematocrit 39 % 35-47 Mean Corpuscular Volume 91 fL 80-97 Mean Corpuscular Hemoglobin 30 pg 27-31 Mean Corpuscular HGB Conc 33 g/dL 31-36 Red Cell Distribution Width 13 % 10.5-15 Platelet Count 162 10^3/uL 150-450 Mean Platelet Volume 11 um3 High 7.4-10.4 Basic Metabolic Panel 04/16/2013 [facility] Sodium 142 mmol/L 133-[address] [place], [place] [id number] [phone] Potassium 3.9 mmol/L 3.5-5.0 Chloride 105 mmol/L 101-111 Co2 Carbon Dioxide 30.0 mmol/L 22-32 Anion Gap 7.0 mmol/L 2-11 Glucose 102 mg/dL High 70-100 Blood Urea Nitrogen 21 mg/dL 6-24 Creatinine 0.80 mg/dL 0.50-1.40 BUN/Creatinine Ratio 26.3 High 8-20 Calcium 9.0 mg/dL 8.1-9.9 Egfr Non- 69.6 >60 Egfr 89.4 >60 20 1 Because ethnic data is not always [...] 5 Kidney failure <15 (or dialysis) 2 Therapeutic target for the treatment of diabetes mellitus patients is <7% HBA1C, and in selective patients <6.0%. Please refer to [place] [employer] diabetic care guidelines for further information. 3 ADDITIONAL INFORMATION The testing method is an immunoenzymatic assay manufactured by [employer] and performed on the [employer] DxI 800. Values obtained with different assay methods or kits may be different and cannot be used interchangeably. Test results cannot be interpreted as absolute evidence for the presence or absence of malignant disease. Test Performed by: [facility] [address] [place] [address] 4 Because ethnic data is not always readily [...] 15-29 5 Kidney failure <15 (or dialysis) 5 Because ethnic data is not always readily [...] 15-29 5 Kidney failure <15 (or dialysis) 6 Because ethnic data is not always [...] (or dialysis) 7 Acute inflammation: >10.00 8 [place] Severe Sepsis and Septic Shock Management Bundle Measure requires all lactic acids initially measuring >2.0 mmol/L be repeated. 9 >100 to <200 pg/mL: likely compensated congestive heart failure (CHF) 200 to 400 pg/mL: likely moderate CHF >400 pg/mL: likely moderate to severe CHF 10 Because ethnic data is not always readily [...] 15-29 5 Kidney failure <15 (or dialysis) 11 Acute inflammation: >10.00 12 SEE RESULT BELOW Name: YING VELEZ : [address]: Clarence Brady MD Acct: [id number] Unit: [id number] AGE: 80 Location: OR Re08/19/16 SEX: F Status: [facility] SPEC: [id number] NELSON: 08/19/16- SUBM DR: Clarence Brady MD REQ: [id number] RECD: 08/19/16-1534 STATUS: SOUT _ ORDERED: LEVEL [...] and the wall thickness averages 0.1 cm. Toe Sewer sections, one cassette. Signed (signature on file) Bri Lovell MD 03/30 1049 END OF REPORT * ML=Testing performed at Main Lab DEPARTMENT OF PATHOLOGY, [address] [place] [address] Rob Cook M.D. Director [facility] # [id number] 13 SEE RESULT BELOW Name: VELEZYING : [address]: Bri Nieves NP Acct: [id number] Unit: [id number] AGE: 79 Location: LAB Re09/14/15 SEX: F Status: REG REF SPEC: [id number] NELSON: 09/14/15-[address] [facility] [address]: Bri Nieves NP REQ: [id number] RECD: 09/14/15 STATUS: COMP _ SOURCE: URINE SPDESC: ORDERED: Urine Culture Procedure Result Reported Site Urine Culture Final 09/15/15- 907 ML No Growth (<1,000 CFU/mL) * ML - MAIN LAB ([facility]) . END OF REPORT * ML=Testing performed at Main Lab DEPARTMENT OF PATHOLOGY, [address] [place] [address] Rob Cook M.D. Director [facility] # [id number] 14 AA 09/19 15 AA 09/19 16 Because ethnic data is not always readily [...] 15-29 5 Kidney failure <15 (or dialysis) 17 SEE RESULT BELOW Name: YING VELEZ : [address]: Lucita Nash MD Acct: [id number] Unit: [id number] AGE: 79 Location: [facility] Re09/11/15 SEX: F Status: REG REF SPEC: [id number] NELSON: 09/11/15-[address]: Lucita Nash MD REQ: [id number] RECD: 09/11/15 STATUS: COMP OLEG DR: Ross Monte MD _ SOURCE: URINE SPDESC: ORDERED: Urine Culture COMMENTS: HENNY 09/19 QUERIES: Urine Source: Clean Catch Procedure Result Reported Site Urine Culture Final 09/12/15- 0819 ML Mixed sam; possible contamination. Suggest resubmission. * ML - MAIN LAB ([facility]) . END OF REPORT * ML=Testing performed at Main Lab DEPARTMENT OF PATHOLOGY, [address] [place] [address] Rob Cook M.D. Director [facility] # [id number] 18 04/20 20 Because ethnic data is not always readily [...] Kidney failure <15 (or dialysis) Procedures Date Code Description Status 08/24/2018 40976 EKG Tracing & Interpretation Completed 08/19/2018 28575 EKG Tracing & Interpretation Completed 09/23/2017 103847601 Bone Mineral Density Test Completed 08/19/2016 88291 Laparoscopy Cholecystectomy With Cholangiography Completed 08/19/2016 32490 Laparoscopy Cholecystectomy With Cholangiography Completed 11/30/2015 04602551 Mammogram Completed 09/19/2015 87839 TKR Total Knee Replacement Completed 09/19/2015 46689 TKR Total Knee Replacement Completed 05/31/2015 14028635 Colonoscopy Completed 11/12/2013 47958 Stress Test Completed 05/26/2013 14046 Rad Exam; Knee, Ap&L Completed 05/26/2013 17627 Xray Knee 3 Views Completed 04/20/2013 04341 TKR Total Knee Replacement Completed 04/20/2013 14309 TKR Total Knee Replacement Completed 10/08/2012 31310 Polysomnography Sleep Staging 4+ Parameters W/Cpap Completed 03/29/2005 17425977 Colonoscopy Completed 02/19/2000 72222087 Colonoscopy Completed Encounters Type Date Location Provider Dx Diagnosis Office Visit 08/19/2018 [facility] Alecia Starkey, Z01.818 Encounter for other 2:00p Medicine - M.D. preprocedural [place] examination S12.090A Oth disp fx of first cervical vertebra, init for clos fx K21.9 Gastro-esophageal reflux disease without esophagitis G47.30 Sleep apnea, unspecified I10 Essential (primary) hypertension F41.9 Anxiety disorder, unspecified Z23 Encounter for immunization Office Visit 07/08/2018 Neurosurgery V[place]os S12.090A Oth disp fx of 10:00a [facility] Watson MD first cervical vertebra, init for clos fx S12.112A Nondisplaced Type II dens fracture, init for clos fx Office Visit 06/15/2018 10:00a Neurosurgery Delfin Muñoz, S12.090D Oth disp fx [facility] Case of first cervcal vert, subs for fx w routn heal Office Visit 06/03/2018 9:00a [facility] [place] S12.090D Oth disp fx [facility] Watson MD of first cervcal vert, subs for fx w routn heal S12.112D Nondisplaced Type II dens fracture, subs for fx w routn heal Office Visit 06/03/2018 [facility] Gastroenterology Steve Abraham 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 K21.9 Gastro-esophageal reflux disease without esophagitis Office Visit 05/04/2018 [facility]surgery [place] S12.090A Oth disp fx of 2:30p [facility] Watson MD first cervical vertebra, init for clos fx S12.112D Nondisplaced Type II dens fracture, subs for fx w routn heal Office Visit 03/30/2018 Neurosurgery [place] S12.01xD Stable burst 3:30p [facility] Watson MD fx first cervcal vert, subs for fx w routn heal S12.112D Nondisplaced Type II dens fracture, subs for fx w routn heal Office Visit 03/17/2018 8:00a Pulmonology And Zuleima J98.4 Other disorders Sleep Services Of MD Adelita of lung [facility] Office Visit 03/11/2018 1:00p [facility] Internal Alecia R91.1 [facility] Medicine - Gilmar Starkey. pulmonary nodule [place] E87.1 Hypo-osmolality and hyponatremia S12.100A Unsp disp fx of second cervical vertebra, init for clos fx Office Visit 02/25/2018 Neurosurgery [facility] S12.01xD Stable burst 11:00a [facility] Watson MD fx first cervcal vert, subs for fx w routn heal S12.112D Nondisplaced Type II dens fracture, subs for fx w routn heal Office Visit 02/11/2018 9:13a [facility] S12.100A Unsp disp fx of cheyanne Jimenez PA second cervical Hospitalists vertebra, init for clos fx E66.9 Obesity, unspecified G47.30 Sleep apnea, unspecified Z68.34 Body mass index (BMI) 34.0-34.9, adult Office Visit 02/10/2018 9:06a [facility] S12.100A Unsp disp fx of cheyanne Jimenez PA second cervical Hospitalists vertebra, init for clos fx E66.9 Obesity, unspecified G47.30 Sleep apnea, unspecified Z68.34 Body mass index (BMI) 34.0-34.9, adult Office Visit 02/10/2018 [facility]surgery [facility] S12.01xA Stable burst 7:00a [facility] Watson MD fracture of first cervical vertebra, init S12.112A Nondisplaced Type II dens fracture, init for clos fx Office Visit 02/09/2018 Neurosurgery [place] S12.01xA Stable burst 7:00a [facility] aWtson MD fracture of first cervical vertebra, init S12.112A Nondisplaced Type II dens fracture, init for clos fx Office Visit 02/09/2018 [facility] S12.100A Unsp disp fx of 9:05a cheyanne Jimenez, [employer] DES[employer] ENGINEER second cervical Hospitalists vertebra, init for clos fx E66.9 Obesity, unspecified G47.30 Sleep apnea, unspecified Z68.34 Body mass index (BMI) 34.0-34.9, adult Office Visit 02/08/2018 7:00a Neurosurgery Marilyn Duran, S12.01xA Stable burst [facility] RICE-Francisco fracture of first cervical vertebra, init S12.112A Nondisplaced Type II dens fracture, init for clos fx Office Visit 02/08/2018 [facility] S12.100A Unsp disp fx of 9:03a Asscheyanne gomez, HYDRA[employer]IC DESIGN ENGINEER second cervical Hospitalists vertebra, init for clos fx E66.9 Obesity, unspecified G47.30 Sleep apnea, unspecified Z68.34 Body mass index (BMI) 34.0-34.9, adult Office Visit 02/07/2018 [facility] S12.01xA Stable burst 7:00a [facility] Watson MD fracture of first cervical vertebra, init S12.112A Nondisplaced Type II dens fracture, init for clos fx Office Visit 02/07/2018 [facility] S12.100A Unsp disp fx of 8:32a Asscheyanne gomez, HY[employer]IC DESIGN ENGINEER second cervical Hospitalists vertebra, init for clos fx E66.9 Obesity, unspecified G47.30 Sleep apnea, unspecified Z68.34 Body mass index (BMI) 34.0-34.9, adult Office Visit 02/06/2018 [facility] S12.100A Unsp disp fx 8:25a cheyanne Jimenez PA of second Hospitalists cervical vertebra, init for clos fx E66.9 Obesity, unspecified G47.30 Sleep apnea, unspecified Z68.34 Body mass index (BMI) 34.0-34.9, adult Office Visit 02/05/2018 Neurosurgery [place] S12.01xA Stable burst 7:00a [facility] Watson MD fracture of first cervical vertebra, init S12.112A Nondisplaced Type II dens fracture, init for clos fx Office Visit 02/05/2018 [facility] Jamisreekanth Ku S12.100A Unsp disp fx 8:20a cheyanne Jimenez NP of second Hospitalists cervical vertebra, init for clos fx E66.9 Obesity, unspecified G47.30 Sleep apnea, unspecified Z68.34 Body mass index (BMI) 34.0-34.9, adult Office Visit 01/29/2018 Pulmonology And Ro G47.33 Obstructive sleep 1:15p Sleep [facility] ANDRE Myers, apnea (adult) [facility] RN, ATTIC BLOWER-BC (pediatric) Office Visit 01/15/2018 [facility] Internal Alecia K85.90 Acute 8:30a Heather Starkey M.D. pancreatitis [place] without necrosis or infection, unsp Office Visit 01/05/2018 [facility] Kyra K85.90 Acute 8:24a cheyanne Jimenez M.D. pancreatitis Hospitalists without necrosis or infection, unsp Office Visit 01/04/2018 [facility] Kyra K85.90 Acute 8:24a cheyanne Jimenez M.D. pancreatitis Hospitalists without necrosis or infection, unsp Office Visit 01/03/2018 [facility] Kyra K85.90 Acute 8:23a cheyanne Jimenez M.D. pancreatitis Hospitalists without necrosis or infection, unsp Office Visit 01/02/2018 [facility] Kyra K85.90 Acute 8:18a cheyanne Jimenez M.D. pancreatitis Hospitalists without necrosis or infection, unsp Office Visit 11/12/2017 Orthopedic Lucita Saad, M25.561 Pain in right 8:45a Services [facility]in Case knee Z96.651 Presence of right artificial knee joint Office Visit 09/23/2017 4:20p [facility] Dermatology Marko Marcusntzer, L82.1 Other seborrheic MD keratosis R60.0 Localized edema L85.3 Xerosis cutis Office Visit 09/22/2017 9:50a [facility] Internal Alecia Jaky, Z00.00 Encntr for Heather - Evie general adult [place] medical exam w/o abnormal findings K21.9 Gastro-esophageal reflux disease without esophagitis F41.9 Anxiety disorder, unspecified H66.92 Otitis media, unspecified, left ear Z12.39 Encounter for oth screening for malignant neoplasm of breast N95.8 Other specified menopausal and perimenopausal disorders Z23 Encounter for immunization Z12.83 Encounter for screening for malignant neoplasm of skin Office Visit 05/16/2017 [facility] Internal John Kwan H81.10 Benign paroxysmal 10:40a Heather Schroeder M.D. vertigo, [place] unspecified ear Office Visit 10/25/2016 Pulmonology And Ro G47.33 Obstructive sleep 9:00a [facility] Myers, RN, apnea (adult) [facility] ATTIC BLOWER- (pediatric) Office Visit 08/13/2016 Surgical Clarence S. R10.11 Right upper 9:00a [facility] MD quadrant pain Office Visit 08/06/2016 Surgical Clarence S. R10.11 Right upper 7:00a [facility] MD quadrant pain R10.13 Epigastric pain R94.5 Abnormal results of liver function studies Office Visit 08/06/2016 [facility] Juan Carlos G47.30 Sleep apnea, 11:09a Assoc,cheyanne Hendrix MD unspecified Hospitalists R10.13 Epigastric pain I10 Essential (primary) hypertension K81.9 Cholecystitis, unspecified Office Visit 08/05/2016 7:00a Surgical Clarence S. K83.8 Other specified [facility] Brady MD diseases of biliary tract R10.11 Right upper quadrant pain R94.5 Abnormal results of liver function studies Office Visit 08/05/2016 [facility] Juan Carlos K81.9 Cholecystitis, 11:09a Assoc,cheyanne Hendrix MD unspecified Hospitalists G47.30 Sleep apnea, unspecified R10.13 Epigastric pain I10 Essential (primary) hypertension Office Visit 08/04/2016 11:09a [facility] R10.13 Epigastric pain Assoc,cheyanne Dumont M.D. Hospitalists G47.30 Sleep apnea, unspecified I10 Essential (primary) hypertension Office Visit 08/03/2016 11:08a [facility] R10.13 Epigastric pain Assoc,cheyanne Dumont M.D. Hospitalists G47.30 Sleep apnea, unspecified I10 Essential (primary) hypertension Office Visit 2015 10:00a Orthopedic Lucita Nash, Z47.1 Aftercare Services Of Evie following joint C.M.A. 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 knee M25.561 Pain in right knee Office Visit 05/26/2015 1:15p Isaias Landrum 715.16 Osteoarthrosis [facility] Nash Localized Prim Lower C.M.A. Leg 844.8 Sprains & Strains Knee & Leg Other Spec Sites Office Visit 02/21/2014 11:30a Isaias Meadows 715.96 Osteoarthrosis Services [facility] Evie Unspec Genlzd Or C.M.A. Localized Lower Leg Office Visit 04/14/2013 10:00a Isaias Meadows 716.96 Arthropathy Unspec Services Of Evie Lower Leg C.M.A. Plan of Treatment Future Appointment(s):09/28/2018 1:00 pm - Mikhail Watson MD at Neurosurgery Services Of [facility]09/17/2018 7:30 am - Marilyn Duran PA-C at Neurosurgery [facility]09/17/2018 7:30 am - Mikhail Watson MD at Neurosurgery [facility]01/29/2019 11:00 am - Ro Myers DNP, RN, ATTIC BLOWER- BC at Pulmonology And Sleep Services Of [facility]09/10/2018 - Alecia Starkey M.D.F07.81 Postconcussional syndromeComments:we discussed it is possible that you are experiencing post concussion syndrome which takes time to heal [id number] Left sided colitis without complicationsComments:as you reported your pain is much better , follow low reside diet for now
--- OUTSIDE RECORDS SUMMARY | 2018-09-17 06:01 | XMS REPORT | Continuity of Care Document ---
:1935 External Reference #:[id number] Author Name Miguel Fariasah Care Team Providers Name Role Phone Alecia Starkey MD Primary Care Physician Unavailable Payers Type Date Identification Numbers Payment Provider Subscriber Effective: 2018 Policy Number: [id number] Medicare Ying Velez PayID: [id number] [address] [place] [address] Effective: 2000 Policy Number: [id number] Medicare Ying Velez Expires: 2018 PayID: [id number] [address] [place] [address] Policy Number: [id number] [facility] Ying Velez PayID: [id number] [address] [place] [address] Advance Directives Type Date Description Status Comment [facility] Current and Verified Problems Date Description Provider Status Onset: 05/26/2015 Localized, primary osteoarthritis Lucita Nash M.D. Active Onset: 10/25/2016 Obstructive sleep apnea syndrome Ro Myers DNP, RN, Active PODIATRY ASSISTANT- Onset: 08/22/2017 Essential hypertension Alecia Starkey M.D. [...] Unknown Never Smoked Cigarettes Smoking Status Reviewed: 08/31/18 Never Smoked Cigarettes ETOH Use Occasionally consumes 0-3 per week alcohol Tobacco Use Start: Unknown Patient has never smoked Recreational Drug Use Denies Drug Use Exercise Type/Frequency Exercises regularly Allergies, Adverse Reactions, Alerts Date Description Reaction Status Severity Comments 08/13/2016 NKDA Active 04/14/2013 Morphine Inactive Medications Medication Date Status Form Strength Qnty SIG Indications Ordering Provider Ciprofloxacin 08/31 Hx Tablets 500mg 20tab 1 tab by K51.50 Alecia HCL s mouth twice Starkey, - a day x 10 M.D. Metronidazole 08/31 Hx Tablets 500mg 30tab 1 tab estrella 8 K51.50 Alecia /2017 s hours x Starkey, - 10days M.D. 09/10 Paxil 08/19 Active Tablets 20mg 90tab once a day F41.9 Alecia /2018 s Evie Starkey Shingrix 03/11 Active Suspension 50mcg 1unit intramuscula Rec s r x 1 then Jaky, repeat in 4 M.D. months X1 Patanol 02/03 Active Solution 0.1% 5ml Apply 1 gtt bid prn Evie Starkey Simvastatin 12/10 Active Tablets 40mg 90tab take 1 John E. s tablet by bita Schroeder at M.D. bedtime Pantoprazole 09/[address] 20mg 90tab Take 1 K21.9 Alecia Sodium s Tablet By Bita Starkey Once A M.D. Day Paroxetine HCL 10/24 Active Tablets 10mg 90tab 1 by mouth s daily Evie Starkey Ibuprofen 10/24 Active as directed prn Fluticasone 10/24 Active as needed Unknown Propionate Fexofenadine 10/24 Active 180mg as needed Unknown HCL Carbidopa-Levo 10/24 Active Tablets 25-100mg 90tab Take 1 dopa s Tablet By Bita Starkey Daily M.DUriel Lisinopril 10/17 Active Tablets 10mg 90tab 1 by mouth s daily Evie Starkey Amoxicillin 08/02 Active Capsules 500mg 8caps 4 tablets 1 hour before Jaky, dental work M.D. Doxycycline 09/22 Hx Tablets 100mg 20tab 1 tablet H66.92 Alecia Hyclate s twice a day Jaky - x 10 days M.D. 10/02 Paxil 09/22 Hx Tablets 10mg 90tab Take 1 F41.9 s Tablet By Cotton, - Mouth Once A M.D. Pantoprazole 10/24 Hx 40mg 1 by mouth Unknown Sodium daily - 09/22 Percocet 09/11 Hx Tablets 5-325mg 90tab take 1-2 Bri /2015 s tabs by Ezequiel, - mouth q4-6 CLINICAL DENTAL TECHNICIAN 02/07 hours needed pain Coumadin 09/11 Hx Tablets 2mg 30tab take 2 mg by Lucita s mouth every Saad, - night at M.D. 12/18 bedtime as directed by through visiting nurse Zuri 05/03 Hx Capsules 500mg 28cap 1 po qid x Dir s 7days Dori - M.DUriel 02/20 Olopatadine 00/ Hx Solution 0.1% Unknown HCL /0000 - 01/15 Immunizations CPT Code Status Date Vaccine Lot # [id number] Given 08/19/2018 Pneumonia Vaccine [id number] Given 06/15/2018 Fluzone High Dose 52855 Given 09/22/2017 Pneumococcal Conjugate Vaccine 13 Valent For [id number] Intramuscular Use 30193 Given 08/31/2017 Influenza Virus Vaccine, Quadrivalent, Split, Preservative Free [id number] Given 09/30/2012 Tdap - Tetanus/Diptheria/Acellular Pertussis Vital Signs Date Vital Result Comment 09/04/2018 8:47am Height 60.3 inches 5'0.30" Weight [...] H/L Range Note CBC Auto Diff 09/04/2018 [facility] White Blood 6.3 10^3/uL N 3.5-10.[address] [place] [address] [phone] Red Blood Count 4.45 10^6/uL N 4.00-5.40 [...] Cells % 0.1 Basic Metabolic Panel 09/04/2018 [facility] Sodium 139 mmol/L N 135-[address] [place] [address] [phone] Potassium 4.5 mmol/L N 3.5-5.0 Chloride 104 mmol/L N 101-111 Co2 Carbon Dioxide 30 mmol/L N 22-32 Anion Gap 5 mmol/L N 2-11 Glucose 90 mg/dL N 70-100 Blood Urea Nitrogen 20 mg/dL N 6-24 Creatinine 0.88 mg/dL N 0.51-0.95 BUN/Creatinine Ratio 22.7 High 8-20 Calcium 9.1 mg/dL N 8.6-10.3 Egfr Non- 61.5 >60 Egfr 74.4 >60 1 Inr/Protime 09/04/2018 [facility] Inr 1.00 N 0.77-1.[address] [place] [address] [phone] Laboratory test 09/04/2018 [facility] Partial 32.6 N 26.0- 36.[address] [address] PTT [phone] Laboratory test 06/10/2018 [facility] Hemoglobin A1c 5.3 % N 4.0-5.6 2 finding 101 (Glyco HGB) [place] [address] [phone] CA 19-9 10 U/mL <35 3 CBC No Diff 06/10/2018 [facility] White Blood 6.8 10^3/uL N 3.5-10.8 [place] [address] [phone] Red Blood Count 4.29 10^6/uL N 4.00-5.40 [...] um3 N 7.4-10.4 Comp Metabolic Panel 06/10/2018 [facility] Sodium 140 mmol/L N 135-[address] [place] [address] [phone] Potassium 4.5 mmol/L N 3.5-5.0 Chloride 106 [...] >60 Egfr 86.8 >60 4 Xray 05/08/2018 [facility] SP Cerv <pending> [address] Comp/Obl, Flex, [place] [address] Ext [phone] Basic Metabolic 03/11/2018 [facility] Sodium 140 mmol/L N 135- [address] [place] [address] [phone] Potassium 4.1 mmol/L N 3.5-5.0 Chloride 105 mmol/L N 101-111 Co2 Carbon Dioxide 28 mmol/L N 22-32 Anion Gap 7 mmol/L N 2-11 Glucose 107 mg/dL High 70-100 Blood Urea Nitrogen 15 mg/dL N 6-24 Creatinine 0.88 mg/dL N 0.51-0.95 BUN/Creatinine Ratio 17.0 N 8-20 Calcium 9.3 mg/dL N 8.6-10.3 Egfr Non- 61.5 >60 Egfr 74.4 >60 5 CBC Auto 02/05/2018 [facility] White Blood 14.0 10^3/uL High 3.5-10.[address] [place] [address] [phone] Red Blood Count 4.69 10^6/uL N 4.0-5.4 [...] Cells % 0 Comp Metabolic Panel 02/05/2018 [facility] Sodium 139 mmol/L N 139-[address] [place] [address] [phone] Potassium 3.8 mmol/L N 3.5-5.0 Chloride 104 [...] Egfr 76.1 >60 6 Laboratory test 02/05/2018 [facility] C Reactive < 1.00 mg/L N < 5.00 [address] [place] [address] [phone] Urinalysis 01/02/2018 [facility] Urine Color Yellow Profile [address] [place] [address] [phone] Urine Appearance Clear Urine Specific [place] 1.021 N 1.010-1.030 Urine pH 6.0 N 5-9 Urine Urobilinogen Negative Negative Urine Ketones Trace Abnormal Negative Urine Protein Negative Negative Urine Leukocytes Negative Negative Urine Blood Negative Negative Urine Nitrite Negative Negative Urine Bilirubin Negative Negative Urine Glucose Negative Negative CBC Auto 01/02/2018 [facility] White Blood 14.4 10^3/uL High 3.5-10.[address] [place] [address] [phone] Red Blood Count 4.92 10^6/uL N 4.0-5.4 [...] Blood Cells % 0 Laboratory test 01/02/2018 [facility] Lactic Acid 1.4 mmol/L N 0.5-2.[address] [place] [address] [phone] Inr/Protime 01/02/2018 [facility] Inr 1.01 N 0.77-1.[address] [place] [address] [phone] Laboratory test 01/02/2018 [facility] Partial 31.5 seconds N 26.0-36.[address] [place] [address] PTT [phone] B-Type Natriuretic Peptide BNP 82 pg/mL 9 Comp Metabolic Panel 01/02/2018 [facility] Sodium 137 mmol/L Low 139-145 [place] [address] [phone] Potassium 3.8 mmol/L N 3.5-5.0 Chloride 103 [...] Egfr 75.2 >60 10 Laboratory test 01/02/2018 [facility] Magnesium 1.8 mg/dL Low 1.9-2.[address] [place] [address] [phone] Amylase 191 U/L High 29-103 Creatine Kinase(CK) 138 U/L N 10-223 C Reactive Protein 18.63 mg/L High < 5.00 11 Troponin-I (TnI) 0.00 ng/mL <0.04 Lipase 951 U/L High 11.0-82.0 Laboratory test 08/19/2016 [facility] Surgical SEE RESULT [address] [place] [address] [phone] Urinalysis 09/14/2015 [facility] Urine Color Yellow N Profile [address] [place] [address] [phone] Urine Appearance Cloudy N Urine Specific [place] 1.023 N 1.010-1.030 Urine pH 5.0 N [...] Present Abnormal Absent Ua And Culture 09/14/2015 [facility] Urine Culture And SEE RESULT [address] [place] [address] [phone] CBC No Diff 09/11/2015 [facility] White Blood Count 8.2 10^3/uL N 3.5-[address] 0[address]8 [place] [address] [phone] Red Blood Count 4.87 10^6/uL N 4.0-5.4 Hemoglobin 14.4 g/dL N 12.0-16.0 Hematocrit 45 % N 35-47 Mean Corpuscular Volume 92 fL N 80-97 Mean Corpuscular Hemoglobin 30 pg N 27-31 Mean Corpuscular HGB Conc 32 g/dL N 31-36 Red Cell Distribution Width 14 % N 10.5-15 Platelet Count 172 10^3/uL N 150-450 Mean Platelet Volume 10 um3 N 7.4-10.4 Inr/Protime 09/11/2015 [facility] Inr 0.95 N 0.89-1.[address] [place] [address] [phone] Laboratory test 09/11/2015 [facility] Partial 34.0 seconds N 26.0-36.3 [address] [place] [address] PTT [phone] Comp Metabolic 09/11/2015 [facility] Sodium 138 mmol/L N 133- [address] [place] [address] [phone] Potassium 4.1 mmol/L N 3.5-5.0 Chloride 103 [...] 78.7 N >60 16 Urinalysis Profile 09/11/2015 [facility] Urine Color Yellow N [address] [place], [place] [address] [phone] Urine Appearance Cloudy N Urine Specific [place] 1.024 N 1.010-1.030 Urine pH 5.0 N [...] Cell Present Abnormal Absent Laboratory test 09/11/2015 [facility] Urine Culture And SEE RESULT [address] Sensitivities BELOW [place], [place] [address] [phone] Laboratory test 04/16/2013 [facility] Inr 0.84 Low 0.[address] -0.9 [place] [address] [phone] Activated Partial Thrombo Time 29.6 seconds 22.18-37.18 19 Type & Screen 04/16/2013 [facility] Patient Blood Type O Positive [address] [place] [address] [phone] Antibody Screen NEGATIVE CBC No Diff 04/16/2013 [facility] White Blood 6.6 10^3/uL 4.8 -10.8 [address] [facility] [place] [address] [phone] Red Blood Count 4.32 10^6/uL 4.0-5.4 Hemoglobin 13.0 g/dL 12.0-16.0 Hematocrit 39 % 35-47 Mean Corpuscular Volume 91 fL 80-97 Mean Corpuscular Hemoglobin 30 pg 27-31 Mean Corpuscular HGB Conc 33 g/dL 31-36 Red Cell Distribution Width 13 % 10.5-15 Platelet Count 162 10^3/uL 150-450 Mean Platelet Volume 11 um3 High 7.4-10.4 Basic Metabolic Panel 04/16/2013 [facility] Sodium 142 mmol/L 133-145 [address] [place] [address] [phone] Potassium 3.9 mmol/L 3.5-5.0 Chloride 105 mmol/L [...] in selective patients <6.0%. Please refer to [place] [employer] diabetic care guidelines for further information. 3 ADDITIONAL INFORMATION The testing method is an immunoenzymatic assay manufactured by [employer] and performed on the [employer] retargeting DxI 800. Values obtained with different assay methods or kits may be different and cannot be used interchangeably. Test results cannot be interpreted as absolute evidence for the presence or absence of malignant disease. Test Performed by: [facility] [address] [place] [address] 4 Because ethnic data is not always [...] (or dialysis) 7 Acute inflammation: >10.00 8 [facility] Severe Sepsis and Septic Shock Management [...] 12 SEE RESULT BELOW Name: YING VELEZ Duarte : [address]: Clarence Brady MD Acct: [id number] Unit: [id number] AGE: 80 Location: OR Re08/19/16 SEX: F Status: REG [facility] SPEC: [id number] NELSON: 08/19/16- SUBM DR: Clarence Brady MD REQ: [id number] RECD: 08/19/161534 STATUS: SOUT _ ORDERED: LEVEL III FINAL [...] and the wall thickness averages 0.1 cm. Ribbon Lapper Tender sections, one cassette. Signed (signature on file) Bri Lovell MD 03/30 1049 END OF REPORT * ML=Testing performed at Main Lab DEPARTMENT OF PATHOLOGY, [address] [place] [address] Rob Cook M.D. Director [facility] # [id number] 13 SEE RESULT BELOW Name: YING VELEZ : [address]: Bri Nieves NP Acct: [id number] Unit: [id number] AGE: 79 Location: LAB Re09/14/15 SEX: F Status: REG REF SPEC: [id number] NELSON: 09/14/[address]: Bri Nieves NP REQ: [id number] RECD: 09/14/15 STATUS: COMP _ SOURCE: URINE SPDESC: ORDERED: Urine Culture Procedure Result Reported Site Urine Culture Final 09/15/15- 907 ML No Growth (<1,000 CFU/mL) * ML - MAIN LAB (PSC1) . END OF REPORT * ML=Testing performed at Main Lab DEPARTMENT OF PATHOLOGY, [address] [place] [address] Rob Cook M.D. Director [facility] # [id number] 09/19 16 Because ethnic data is not [...] (or dialysis) 17 SEE RESULT BELOW Name: VELEZYING : [address]: Lucita Nash MD Acct: [id number] Unit: [id number] AGE: 79 Location: [facility] Re09/11/15 SEX: F Status: REG REF SPEC: [id number] NELSON: 09/11/15-1134 [facility] DR: Lucita Nash MD REQ: [id number] RECD: 09/11/15 STATUS: HEIDY DEJESUS DR: Ross Monte MD _ SOURCE: URINE SPDESC: ORDERED: Urine Culture COMMENTS: HENNY 09/19 QUERIES: Urine Source: Clean Catch Procedure Result Reported Site Urine Culture Final 09/12/15- 0819 ML Mixed sam; possible contamination. Suggest resubmission. * ML - MAIN LAB ([facility]) . END OF REPORT * ML=Testing performed at Main Lab DEPARTMENT OF PATHOLOGY, [address] [place] [address] Rob Cook M.D. Director [facility] # [id number] 04/20 20 Because ethnic data is not [...] dialysis) Procedures Date Code Description Status 08/24/2018 05346 EKG Tracing & Interpretation Completed 08/19/2018 90819 EKG Tracing & Interpretation Completed 09/23/2017 952294236 Bone Mineral Density Test Completed 08/19/2016 15150 Laparoscopy Cholecystectomy With Cholangiography Completed 08/19/2016 99336 Laparoscopy Cholecystectomy With Cholangiography Completed 11/30/2015 [id number] Mammogram Completed 09/19/2015 35885 TKR Total Knee Replacement Completed 09/19/2015 66026 TKR Total Knee Replacement Completed 05/31/2015 90141527 Colonoscopy Completed 11/12/2013 20652 Stress Test Completed 05/26/2013 46102 Rad Exam; Knee, Ap&L Completed 05/26/2013 88017 Xray Knee 3 Views Completed 04/20/2013 78925 TKR Total Knee Replacement Completed 04/20/2013 22451 TKR Total Knee Replacement Completed 10/08/2012 53680 Polysomnography Sleep Staging 4+ Parameters W/Cpap Completed 03/29/2005 68292652 Colonoscopy Completed 02/19/2000 64157306 Colonoscopy Completed Encounters Type Date Location Provider Dx Diagnosis Office Visit 08/19/2018 [facility] Internal Alecia Jaky, Z01.818 Encounter for other 2:00p Medicine - MSarahi. preprocedural [place] examination S12.090A Oth disp fx [...] fx w routn heal Office Visit 06/03/2018 [facility] Gastroenterology Peter T. 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 pulmonary nodule [place] E87.1 Hypo-osmolality and hyponatremia S12.100A Unsp disp fx of second cervical vertebra, init for clos fx Office Visit 02/25/2018 Neurosurgery Vassilios S12.01xD Stable burst 11:00a Services Of Mariya Watson MD fx first cervcal vert, subs for fx w routn heal S12.112D Nondisplaced Type II dens fracture, subs for fx w routn heal Office Visit 02/11/2018 9:13a [place] Oma [place] S12.100A Unsp disp fx of cheyanne Jimenez PA second cervical Hospitalists vertebra, init for clos fx E66.9 Obesity, unspecified G47.30 Sleep apnea, unspecified Z68.34 Body mass index (BMI) 34.0-34.9, adult Office Visit 02/10/2018 9:06a [place] Oma [place] S12.100A Unsp disp fx of [...] init for clos fx Office Visit 02/09/2018 [facility] S12.100A Unsp disp fx of 9:05a Asscheyanne gomez, CLINICAL DENTAL TECHNICIAN second cervical Hospitalists vertebra, init for clos fx E66.9 Obesity, unspecified G47.30 Sleep apnea, unspecified Z68.34 Body mass index (BMI) 34.0-34.9, adult Office Visit 02/08/2018 7:00a Neurosurgery Marilyn Duran, S12.01xA Stable burst Services Of Mariya RICE-Francisco fracture of first cervical vertebra, init S12.112A Nondisplaced Type II dens fracture, init for clos fx Office Visit 02/08/2018 [facility] S12.100A Unsp disp fx of 9:03a cheyanne Jimenez, CLINICAL DENTAL TECHNICIAN second cervical Hospitalists vertebra, init for clos fx E66.9 Obesity, unspecified G47.30 Sleep apnea, unspecified Z68.34 Body mass index (BMI) 34.0-34.9, adult Office Visit 02/07/2018 [facility] S12.01xA Stable burst 7:00a Services Of Mariya Watson MD fracture of first cervical vertebra, init S12.112A Nondisplaced Type II dens fracture, init for clos fx Office Visit 02/07/2018 [facility] S12.100A Unsp disp fx of 8:32a Assoccheyanne, CLINICAL DENTAL TECHNICIAN second cervical Hospitalists vertebra, init for clos fx E66.9 Obesity, unspecified G47.30 Sleep apnea, unspecified Z68.34 Body mass index (BMI) 34.0-34.9, adult Office Visit 02/06/2018 [facility] S12.100A Unsp disp fx 8:25a Assoccheyanne PA of second Hospitalists cervical vertebra, init for clos fx E66.9 Obesity, unspecified G47.30 Sleep apnea, unspecified Z68.34 Body mass index (BMI) 34.0-34.9, adult Office Visit 02/05/2018 Neurosurgery V[facility] S12.01xA Stable burst 7:00a Services Of Mariya Watson MD fracture of first cervical vertebra, init S12.112A Nondisplaced Type II dens fracture, init for clos fx Office Visit 02/05/2018 [facility] Jami Ku S12.100A Unsp disp fx 8:20a Assoc,cheyanne Grayson, CLINICAL DENTAL TECHNICIAN of second Hospitalists cervical vertebra, init for clos fx E66.9 Obesity, unspecified G47.30 Sleep apnea, unspecified Z68.34 Body mass index (BMI) 34.0-34.9, adult Office Visit 01/29/2018 Pul[facility]ology [facility] G47.33 Obstructive sleep 1:15p Sleep Services Of ANDRE Myers, apnea (adult) Mariya RN, PODIATRY ASSISTANT-BC (pediatric) Office Visit 01/15/2018 [facility] Internal Alecia K85.90 Acute 8:30a Heather Starkey M.D. pancreatitis [place] without necrosis or infection, unsp Office Visit 01/05/2018 [facility] Kyra K85.90 Acute 8:24a cheyanne Jimenez M.D. pancreatitis Hospitalists without necrosis or infection, unsp Office Visit 01/04/2018 [facility] Kyra K85.90 Acute 8:24a cheyanne Jimenez M.D. pancreatitis Hospitalists without necrosis or infection, unsp Office Visit 01/03/2018 [facility] Kyra K85.90 Acute 8:23a cheyanne Jimenez M.D. pancreatitis Hospitalists without necrosis or infection, unsp Office Visit 01/02/2018 [facility] Kyra K85.90 Acute 8:18a cheyanne Jimenez M.D. pancreatitis Hospitalists without necrosis or infection, unsp Office Visit 11/12/2017 Orthopedic Lucita Nash, M25.561 Pain in right 8:45a Services Of Sachin Case knee Z96.651 Presence of right artificial knee joint Office Visit 09/23/2017 4:20p [facility] Dermatology Marko Gonzales, L82.1 Other seborrheic MD keratosis R60.0 Localized edema L85.3 Xerosis cutis Office Visit 09/22/2017 9:50a [facility] Internal Alecia Starkey, Z00.00 Encntr lorenzo Collado M.D. general adult [place] medical exam w/o abnormal findings K21.9 Gastro-esophageal reflux disease without esophagitis F41.9 Anxiety disorder, unspecified H66.92 Otitis media, unspecified, left ear Z12.39 Encounter for oth screening for malignant neoplasm of breast N95.8 Other specified menopausal and perimenopausal disorders Z23 Encounter for immunization Z12.83 Encounter for screening for malignant neoplasm of skin Office Visit 05/16/2017 [facility] Internal John EUriel H81.10 Benign paroxysmal 10:40a Heather Schroeder M.D. vertigo, [place] unspecified ear Office Visit 10/25/2016 Pul[facility]ology [facility] G47.33 Obstructive sleep 9:00a Sleep Services [facility] ANDRE Myers, RN, apnea (adult) [facility] PODIATRY ASSISTANT-BC (pediatric) Office Visit 08/13/2016 Surgical Clarence S. R10.11 Right upper 9:00a [facility] MD Jose Antonio quadrant pain Office Visit 08/06/2016 Surgical Clarence S. R10.11 Right upper 7:00a [facility] MD Jose Antonio quadrant pain R10.13 Epigastric pain R94.5 Abnormal results of liver function studies Office Visit 08/06/2016 [facility] Juan Carlos G47.30 Sleep apnea, 11:09a Assoc,cheyanne Hendrix MD unspecified Hospitalists R10.13 Epigastric pain I10 Essential (primary) hypertension K81.9 Cholecystitis, unspecified Office Visit 08/05/2016 7:00a Surgical Clarence S. K83.8 Other specified [facility] MD Jose Antonio diseases of biliary tract R10.11 Right upper quadrant pain R94.5 Abnormal results of liver function studies Office Visit 08/05/2016 [facility] Juan Carlos K81.9 Cholecystitis, 11:09a Assoc,cheyanne Hendrix MD unspecified Hospitalists G47.30 Sleep apnea, unspecified R10.13 Epigastric pain I10 Essential (primary) hypertension Office Visit 08/04/2016 11:09a [facility] Salomon R10.13 Epigastric pain Assoc,cheyanne Dumont M.D. Hospitalists G47.30 Sleep apnea, unspecified I10 Essential (primary) hypertension Office Visit 08/03/2016 11:08a [facility] R10.13 Epigastric pain Assoc,cheyanne Dmuont M.D. Hospitalists G47.30 Sleep apnea, unspecified I10 Essential (primary) hypertension Office Visit 2015 10:00a Orthopedic Lucita Nash, Z47.1 Aftercare Services Of Evie following joint C.M.A. 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 knee M25.561 Pain in right knee Office Visit 05/26/2015 1:15p Orthopedic Lucita 715.16 Osteoarthrosis Services Of Evie Nash Localized Prim Lower C.M.A. Leg 844.8 Sprains & Strains Knee & Leg Other Spec Sites Office Visit 02/21/2014 11:30a [facility] [place], 715.96 Osteoarthrosis Services Of Evie Unspec Genlzd Or C.M.A. Localized Lower Leg Office Visit 04/14/2013 10:00a [facility] [place] 716.96 Arthropathy Unspec Services Of Evie Lower Leg C.M.A. Plan of Treatment Future Appointment(s):09/17/2018 7:30 am - Marilyn Duran PA-C at Neurosurgery [facility]09/17/2018 7:30 am - Mikhail Watson MD at [facility]surgery [facility]01/29/2019 11:00 am - Ro Myers DNP, RN, PODIATRY ASSISTANT- at Pulmonology [facility]08/19/2018 - Alecia Starkey M.D.Z01.818 Encounter for other preprocedural examinationComments:avoid ibuprofen for at least a week before surgery undergoing elective neurosurgery ( cervical fusion ) , no active cardiac conditions, low risk for major adverse events , advised to proceed with the upcoming procedure .CC to Dr. Watson.S12.090A Other displaced fracture of first cervical vertebra, fxklndrG74.9 unter for closed hidvtglyA11.30 Sleep apnea, unspecifiedComments:you will need the CPAP machine in the tigjlnptU29 Essential (primary) hypertensionComments:fuqvsmI95.9 Anxiety disorder, unspecifiedNew Medication:Paxil 20 mg - once a [id number] Encounter for immunization
--- OUTSIDE RECORDS SUMMARY | 2018-09-17 06:01 | XMS REPORT | Continuity of Care Document ---
:1935 External Reference #:[id number] Author Name AlejandroMarline Care Team Providers Name Role Phone Alecia Starkey MD Primary Care Physician Unavailable Payers Type Date Identification Numbers Payment Provider Subscriber Effective: 2018 Policy Number: [id number] Medicare Ying Velez PayID: [id number] [address] [place] [address] Effective: 2000 Policy Number: [id number] Medicare Ying Velez Expires: 2018 PayID: [id number] [address] [place] [address] Policy Number: [id number] [facility] Ying Velez PayID: [id number] [address] [place] [address] Advance Directives Type Date Description Status Comment RUSTST 09/22/2017 [facility] Current and Verified Problems Date Description Provider Status Onset: 05/26/2015 Localized, primary osteoarthritis Lucita Nash M.D. 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 [...] Unknown Never Smoked Cigarettes Smoking Status Reviewed: 08/19/18 Never Smoked Cigarettes ETOH Use Occasionally consumes [...] M.D. Shingrix 03/11 Active Suspension 50mcg 1unit intramuscular Rec s x 1 then Jaky, repeat in 4 M.D. months X1 Patanol 02/03 Active Solution 0.1% 5ml Apply 1 gtt bid prn Evie Starkey Simvastatin 12/10 Active Tablets 40mg 90tab take 1 tablet John E. s by mouth at [place], bedtime M.D. Pantoprazole 09/[address] 20mg 90tab Take 1 Tablet K21.9 Alecia Sodium s By Mouth Once Starkey, A Day M.DUriel Paroxetine 10/24 Active Tablets 10mg 90tab 1 by mouth Alecia HCL s daily Evie Starkey Ibuprofen 10/24 Active as directed Unknown prn Fluticasone 10/24 Active as needed Unknown Propionate Fexofenadine 10/24 Active 180mg as needed Unknown HCL Carbidopa-Lev 10/24 Active Tablets 25-100mg 90tab Take 1 Tablet Alecia odopa s By Mouth Jaky Daily M.DUriel Lisinopril 10/17 Active Tablets 10mg 90tab 1 by mouth Alecia s daily Evie Starkey Amoxicillin 08/02 Active Capsules 500mg 8caps 4 tablets 1 Alecia hour before Jaky, dental work M.D. Doxycycline 09/22 Hx Tablets 100mg 20tab 1 tablet H66.92 Alecia Hyclate s twice a day x Jaky, - 10 days M.D. 10/02 Paxil 09/22 Hx Tablets 10mg 90tab Take 1 Tablet F41.9 Melba /2018 s By Mouth Once Cotton, - A Day M.D. 08/19 Pantoprazole 10/24 Hx 40mg 1 by mouth Unknown Sodium daily - 09/22 Percocet 09/11 Hx Tablets 5-325mg 90tab take 1-2 tabs Bri /2015 s by mouth q4-6 Bordoni, - hours as SECTION SUPERVISOR 10/22 needed pain Coumadin 09/11 Hx Tablets 2mg 30tab take 2 mg by Lucita s mouth every Saad, - night at M.D. 12/18 bedtime or directed by through visiting nurse Keolena 05/03 Hx Capsules 500mg 28cap 1 po qid x Dirk s 7days Tobias Meadows M.D. 02/20 Olopatadine Hx Solution 0.1% Unknown HCL /0000 - 01/15 Immunizations CPT Code Status Date Vaccine Lot # [id number] Given 08/19/2018 Pneumonia Vaccine [id number] Given 06/15/2018 Fluzone High Dose 00460 Given 09/22/2017 Pneumococcal Conjugate Vaccine 13 Valent For [id number] Intramuscular Use 70444 Given 08/31/2017 Influenza Virus Vaccine, Quadrivalent, Split, Preservative Free 24925 Given 09/30/2012 Tdap - Tetanus/Diptheria/Acellular Pertussis Vital Signs Date Vital Result Comment 08/19/2018 1:43pm Height 60.3 inches 5'0.30" Weight [...] Date Facility Test Result H/L Range Note Laboratory test 06/10/2018 [facility] Hemoglobin A1c 5.3 % N 4.0-5.[address] (Glyco HGB) [place] [address] [phone] CA 19-9 10 U/mL <35 2 CBC No Diff 06/10/2018 [facility] White Blood 6.8 10^3/uL N 3.5-10.[address] [place] [address] [phone] Red Blood Count 4.29 10^6/uL N 4.00-5.40 [...] um3 N 7.4-10.4 Comp Metabolic Panel 06/10/2018 [facility] Sodium 140 mmol/L N 135-[address] [place] [address] [phone] Potassium 4.5 mmol/L N 3.5-5.0 Chloride 106 [...] Egfr Non- 71.8 >60 Egfr 86.8 >60 3 Xray 05/08/2018 [facility] SP Cerv <pending> [address] Comp/Obl, Flex, [place] [address] Ext [phone] Basic Metabolic 03/11/2018 [facility] Sodium 140 mmol/L N 135- [address] [place] [address] [phone] Potassium 4.1 mmol/L N 3.5-5.0 Chloride 105 mmol/L N 101-111 Co2 Carbon Dioxide 28 mmol/L N 22-32 Anion Gap 7 mmol/L N 2-11 Glucose 107 mg/dL High 70-100 Blood Urea Nitrogen 15 mg/dL N 6-24 Creatinine 0.88 mg/dL N 0.51-0.95 BUN/Creatinine Ratio 17.0 N 8-20 Calcium 9.3 mg/dL N 8.6-10.3 Egfr Non- 61.5 >60 Egfr 74.4 >60 4 Comp Metabolic Panel 02/05/2018 [facility] Sodium 139 mmol/L N 139-[address] [place] [address] [phone] Potassium 3.8 mmol/L N 3.5-5.0 Chloride 104 [...] Egfr Non- 59.2 >60 Egfr 76.1 >60 5 Laboratory test 02/05/2018 [facility] C Reactive < 1.00 N < 5.00 [address] Protein mg/[place] [address] [phone] CBC Auto Diff 02/05/2018 [facility] White Blood 14.0 High 3.5- 10.[address] Count 10^3/[place] [address] [phone] Red Blood Count 4.69 10^6/uL N 4.0-5.4 [...] 0-2 Nucleated Red Blood Cells % 0 Urinalysis Profile 01/02/2018 [facility] Urine Color Yellow [address] [place] [address] [phone] Urine Appearance Clear Urine Specific [place] 1.021 N 1.010-1.030 Urine pH 6.0 N 5-9 Urine Urobilinogen Negative Negative Urine Ketones Trace Abnormal Negative Urine Protein Negative Negative Urine Leukocytes Negative Negative Urine Blood Negative Negative Urine Nitrite Negative Negative Urine Bilirubin Negative Negative Urine Glucose Negative Negative CBC Auto 01/02/2018 [facility] White Blood 14.4 10^3/uL High 3.5-10.[address] [place] [address] [phone] Red Blood Count 4.92 10^6/uL N 4.0-5.4 [...] Blood Cells % 0 Laboratory test 01/02/2018 [facility] Lactic Acid 1.4 mmol/L N 0.5-2.0 7 finding [address] [place] [address] [phone] Inr/Protime 01/02/2018 [facility] Inr 1.01 N 0.77-1.02 [address] [place] [address] [phone] Laboratory test 01/02/2018 [facility] Partial 31.5 seconds N 26.0-36.3 finding [address] [facility] [place] [address] PTT [phone] B-Type Natriuretic Peptide BNP 82 pg/mL 8 Comp Metabolic Panel 01/02/2018 [facility] Sodium 137 mmol/L Low 139-145 [address] [place] [address] [phone] Potassium 3.8 mmol/L N 3.5-5.0 Chloride 103 [...] Egfr Non- 58.4 >60 Egfr 75.2 >60 9 Laboratory test 01/02/2018 [facility] Magnesium 1.8 mg/dL Low 1.9-2.[address] [place] [address] [phone] Amylase 191 U/L High 29-103 Creatine Kinase(CK) 138 U/L N 10-223 C Reactive Protein 18.63 mg/L High < 5.00 10 Troponin-I (TnI) 0.00 ng/mL <0.04 Lipase 951 U/L High 11.0-82.0 Laboratory test 08/19/2016 [facility] Surgical SEE RESULT [address] [place] [address] [phone] Urinalysis 09/14/2015 [facility] Urine Color Yellow N Profile [address] [place] [address] [phone] Urine Appearance Cloudy N Urine Specific [place] 1.023 N 1.010-1.030 Urine pH 5.0 N [...] Present Abnormal Absent Ua And Culture 09/14/2015 [facility] Urine Culture And SEE RESULT [address] [address] [phone] Comp Metabolic 09/11/2015 [facility] Sodium 138 mmol/L N 133- 1 [address] [place] [address] [phone] Potassium 4.1 mmol/L N 3.5-5.0 Chloride 103 [...] 61.2 N >60 Egfr 78.7 N >60 14 Urinalysis Profile 09/11/2015 [facility] Urine Color Yellow N [address] [place] [address] [phone] Urine Appearance Cloudy N Urine Specific [place] 1.024 N 1.010-1.030 Urine pH 5.0 N [...] Cell Present Abnormal Absent Laboratory test 09/11/2015 [facility] Urine Culture And SEE RESULT [address] [place] [address] [phone] CBC No Diff 09/11/2015 [facility] White Blood Count 8.2 10^3/uL N 3.5-[address] 0[address]8 [place] [address] [phone] Red Blood Count 4.87 10^6/uL N 4.0-5.4 Hemoglobin 14.4 g/dL N 12.0-16.0 Hematocrit 45 % N 35-47 Mean Corpuscular Volume 92 fL N 80-97 Mean Corpuscular Hemoglobin 30 pg N 27-31 Mean Corpuscular HGB Conc 32 g/dL N 31-36 Red Cell Distribution Width 14 % N 10.5-15 Platelet Count 172 10^3/uL N 150-450 Mean Platelet Volume 10 um3 N 7.4-10.4 Inr/Protime 09/11/2015 [facility] Inr 0.95 N 0.89-1.[address] [place] [address] [phone] Laboratory test 09/11/2015 [facility] Partial 34.0 seconds N 26.0-36.3 [address] [place] [address] PTT [phone] CBC No Diff 04/16/2013 [facility] White Blood 6.6 10^3/uL 4.8 -10.[address] [place] [address] [phone] Red Blood Count 4.32 10^6/uL 4.0-5.4 Hemoglobin 13.0 g/dL 12.0-16.0 Hematocrit 39 % 35-47 Mean Corpuscular Volume 91 fL 80-97 Mean Corpuscular Hemoglobin 30 pg 27-31 Mean Corpuscular HGB Conc 33 g/dL 31-36 Red Cell Distribution Width 13 % 10.5-15 Platelet Count 162 10^3/uL 150-450 Mean Platelet Volume 11 um3 High 7.4-10.4 Basic Metabolic Panel 04/16/2013 [facility] Sodium 142 mmol/L 133-[address] [place] [address] [phone] Potassium 3.9 mmol/L 3.5-5.0 Chloride 105 mmol/L 101-111 Co2 Carbon Dioxide 30.0 mmol/L 22-32 Anion Gap 7.0 mmol/L 2-11 Glucose 102 mg/dL High 70-100 Blood Urea Nitrogen 21 mg/dL 6-24 Creatinine 0.80 mg/dL 0.50-1.40 BUN/Creatinine Ratio 26.3 High 8-20 Calcium 9.0 mg/dL 8.1-9.9 Egfr Non- 69.6 >60 Egfr 89.4 >60 17 Laboratory test finding 04/16/2013 [facility] Inr 0.84 Low 0.87-0.[address] [place] [address] [phone] Activated Partial Thrombo Time 29.6 seconds 22.18-37.18 19 Type & Screen 04/16/2013 [facility] Patient Blood Type O Positive [address] [place] [address] [phone] Antibody Screen NEGATIVE 1 Therapeutic target for the treatment of diabetes mellitus patients is <7% HBA1C, and in selective patients <6.0%. Please refer to [place] [employer] diabetic care guidelines for further information. 2 ADDITIONAL INFORMATION The testing method is an immunoenzymatic assay manufactured by [employer] and performed on the Pint Please DxI 800. Values obtained with different assay methods or kits may be different and cannot be used interchangeably. Test results cannot be interpreted as absolute evidence for the presence or absence of malignant disease. Test Performed by: [facility] [address] [place] [address] 3 Because ethnic data is not always [...] 5 Kidney failure <15 (or dialysis) 4 Because ethnic data is not always [...] 5 Kidney failure <15 (or dialysis) 6 Acute inflammation: >10.00 7 [facility] Severe Sepsis and Septic Shock Management Bundle Measure requires all lactic acids initially measuring >2.0 mmol/L be repeated. 8 >100 to <200 pg/mL: likely compensated congestive heart failure (CHF) 200 to 400 pg/mL: likely moderate CHF >400 pg/mL: likely moderate to severe CHF 9 Because ethnic data is not always [...] 5 Kidney failure <15 (or dialysis) 10 Acute inflammation: >10.00 11 SEE RESULT BELOW Name: YING VELEZ : [address]: Clarence Brady MD Acct: [id number] Unit: [id number] AGE: 80 Location: OR Re08/19/16 SEX: F Status: REG [facility] SPEC: [id number] NELSON: 08/19/16- SUBM DR: Clarence Brady MD REQ: [id number] RECD: 08/19/16153 STATUS: SOUT _ ORDERED: LEVEL III FINAL [...] and the wall thickness averages 0.1 cm. Heel Gummer sections, one cassette. Signed (signature on file) Bri Lovell MD 03/30 1049 END OF REPORT * ML=Testing performed at Main Lab DEPARTMENT OF PATHOLOGY, [address] [place] [address] Rob Cook M.D. Director [facility] # [id number] 12 SEE RESULT BELOW Name: YING VELEZ : [address]: Bri Nieves SECTION SUPERVISOR Acct: [id number] Unit: [id number] AGE: 79 Location: LAB Re09/14/15 SEX: F Status: REG REF SPEC: [id number] NELSON: 09/14/15-[address]: Bri Nieves NP REQ: [id number] RECD: 09/14/15 STATUS: COMP _ SOURCE: URINE SPDESC: ORDERED: Urine Culture Procedure Result Reported Site Urine Culture Final 09/15/15907 ML No Growth (<1,000 CFU/mL) * ML - MAIN LAB ([facility]) . END OF REPORT * ML=Testing performed at Main Lab DEPARTMENT OF PATHOLOGY, [address] [place] [address] Rob Cook M.D. Director [facility] # [id number] 13 09/19 14 Because ethnic data is not always [...] 5 Kidney failure <15 (or dialysis) 15 SEE RESULT BELOW Name: YING VELEZ : [address]: Lucita Nash MD Acct: [id number] Unit: [id number] AGE: 79 Location: [facility] Re09/11/15 SEX: F Status: REG REF SPEC: [id number] NELSON: 09/11/15-11[address] [facility] [address]: Lucita Nash MD REQ: [id number] RECD: 09/11/15 STATUS: HEIDY DEJESUS DR: Ross Monte MD _ SOURCE: URINE SPDESC: ORDERED: Urine Culture COMMENTS: HENNY 09/19 QUERIES: Urine Source: Clean Catch Procedure Result Reported Site Urine Culture Final 09/12/15- 0819 ML Mixed sam; possible contamination. Suggest resubmission. * ML - MAIN LAB (PSYCHIATRIC) . END OF REPORT * ML=Testing performed at Main Lab DEPARTMENT OF PATHOLOGY, [address] [place] [address] Rob Cook M.D. Director [facility] # [id number] 16 09/19 Because ethnic data is not always readily [...] 15-29 5 Kidney failure <15 (or dialysis) 18 AA 04/20 19 AA 04/20 Procedures Date Code Description Status 08/24/2018 64088 EKG Tracing & Interpretation Completed 08/19/2018 24146 EKG Tracing & Interpretation Completed 09/23/2017 624056094 Bone Mineral Density Test Completed 08/19/2016 34143 Laparoscopy Cholecystectomy With Cholangiography Completed 08/19/2016 54472 Laparoscopy Cholecystectomy With Cholangiography Completed 11/30/2015 21153512 Mammogram Completed 09/19/2015 79275 TKR Total Knee Replacement Completed 09/19/2015 04716 TKR Total Knee Replacement Completed 05/31/2015 39729572 Colonoscopy Completed 11/12/2013 00740 Stress Test Completed 05/26/2013 10839 Rad Exam; Knee, Ap&L Completed 05/26/2013 54131 Xray Knee 3 Views Completed 04/20/2013 06131 TKR Total Knee Replacement Completed 04/20/2013 96309 TKR Total Knee Replacement Completed 10/08/2012 09742 Polysomnography Sleep Staging 4+ Parameters W/Cpap Completed 03/29/2005 00026880 Colonoscopy Completed 02/19/2000 84052718 Colonoscopy Completed Encounters Type Date Location Provider Dx Diagnosis Office Visit 07/08/2018 Neurosurgery Vassilios S12.090A Oth disp fx of 10:00a [facility] Watson MD first cervical vertebra, init for clos fx S12.112A Nondisplaced Type II dens fracture, init for clos fx Office Visit 06/15/2018 10:00a Neurosurgery Delfin Muñoz, S12.090D Oth disp fx [facility]ya Case of [facility] cervcal vert, subs for fx w routn heal Office Visit 06/03/2018 9:00a Neurosurgery Vassilios S12.090D Oth disp fx [facility] Mariya Watson MD of [facility] cervcal vert, subs for fx w routn heal S12.112D Nondisplaced Type II dens fracture, subs for fx w routn heal Office Visit 06/03/2018 [facility] Gastroenterology Steve Snyder86.1 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 pulmonary nodule [place] E87.1 Hypo-osmolality and hyponatremia S12.100A Unsp disp fx of second cervical vertebra, init for clos fx Office Visit 02/25/2018 Neurosurgery Vassilios S12.01xD Stable burst 11:00a [facility] Watson MD fx first cervcal vert, subs for fx w routn heal S12.112D Nondisplaced Type II dens fracture, subs for fx w routn heal Office Visit 02/11/2018 9:13a [place] Oma Washington S12.100A Unsp disp fx of cheyanne Jimenez PA second cervical Hospitalists vertebra, init for clos fx E66.9 Obesity, unspecified G47.30 Sleep apnea, unspecified Z68.34 Body mass index (BMI) 34.0-34.9, adult Office Visit 02/10/2018 9:06a [facility] Felix S12.100A Unsp disp fx of cheyanne Jimenez [...] init for clos fx Office Visit 02/09/2018 [facility] S12.100A Unsp disp fx of 9:05a Assoccheyanne, SECTION SUPERVISOR second cervical Hospitalists vertebra, init for clos fx E66.9 Obesity, unspecified G47.30 Sleep apnea, unspecified Z68.34 Body mass index (BMI) 34.0-34.9, adult Office Visit 02/08/2018 7:00a Neurosurgery Marilyn Duran, S12.01xA Stable burst Services Of Mariya RICE-Francisco fracture of first cervical vertebra, init S12.112A Nondisplaced Type II dens fracture, init for clos fx Office Visit 02/08/2018 [facility] S12.100A Unsp disp fx of 9:03a Asscheyanne gomez, SECTION SUPERVISOR second cervical Hospitalists vertebra, init for clos fx E66.9 Obesity, unspecified G47.30 Sleep apnea, unspecified Z68.34 Body mass index (BMI) 34.0-34.9, adult Office Visit 02/07/2018 [facility] S12.100A Unsp disp fx of 8:32a cheyanne Jimenez, SECTION SUPERVISOR second cervical Hospitalists vertebra, init for clos fx E66.9 Obesity, unspecified G47.30 Sleep apnea, unspecified Z68.34 Body mass index (BMI) 34.0-34.9, adult Office Visit 02/07/2018 Neurosurgery V[facility]os S12.01xA Stable burst 7:00a [facility] Watson MD fracture of first cervical vertebra, init S12.112A Nondisplaced Type II dens fracture, init for clos fx Office Visit 02/06/2018 [facility] S12.100A Unsp disp fx 8:25a Assoccheyanne PA of second Hospitalists cervical vertebra, init for clos fx E66.9 Obesity, unspecified G47.30 Sleep apnea, unspecified Z68.34 Body mass index (BMI) 34.0-34.9, adult Office Visit 02/05/2018 Neurosurgery Vassilios S12.01xA Stable burst 7:00a [facility] Watson MD fracture of first cervical vertebra, init S12.112A Nondisplaced Type II dens fracture, init for clos fx Office Visit 02/05/2018 [facility] Jami Elmira S12.100A Unsp disp fx 8:20a Assoccheyanne SECTION SUPERVISOR of second Hospitalists cervical vertebra, init for clos fx E66.9 Obesity, unspecified G47.30 Sleep apnea, unspecified Z68.34 Body mass index (BMI) 34.0-34.9, adult Office Visit 01/29/2018 Pul[facility]ology [facility] Ro G47.33 Obstructive sleep 1:15p Sleep Services Of ANDRE Myers, apnea (adult) [facility] RN, PLANT PROTECTION SUPERINTENDENT-BC (pediatric) Office Visit 01/15/2018 [facility] Internal Alecia K85.90 Acute 8:30a Heather Starkey M.D. pancreatitis [place] without necrosis or infection, unsp Office Visit 01/05/2018 [facility] Kyra K85.90 Acute 8:24a cheyanne Jimenez M.D. pancreatitis Hospitalists without necrosis or infection, unsp Office Visit 01/04/2018 [facility] Kyra K85.90 Acute 8:24a cheyanne Jimenez M.D. pancreatitis Hospitalists without necrosis or infection, unsp Office Visit 01/03/2018 [facility] Kyra K85.90 Acute 8:23a cheyanne Jimenez M.D. pancreatitis Hospitalists without necrosis or infection, unsp Office Visit 01/02/2018 [facility] Kyra K85.90 Acute 8:18a cheyanne Jimenez M.D. pancreatitis Hospitalists without necrosis or infection, unsp Office Visit 11/12/2017 Orthopedic Lucita Nash, M25.561 Pain in right 8:45a Services Of Sachin Case knee Z96.651 Presence of right artificial knee joint Office Visit 09/23/2017 4:20p [facility] Dermatology Marko Gonzales, L82.1 Other seborrheic MD keratosis R60.0 Localized edema L85.3 Xerosis cutis Office Visit 09/22/2017 9:50a [facility] Internal Alecia Starkey, Z00.00 Encntr for Heather Collado M.D. general adult [place] medical exam w/o abnormal findings K21.9 Gastro-esophageal reflux disease without esophagitis F41.9 Anxiety disorder, unspecified H66.92 Otitis media, unspecified, left ear Z12.39 Encounter for oth screening for malignant neoplasm of breast N95.8 Other specified menopausal and perimenopausal disorders Z23 Encounter for immunization Z12.83 Encounter for screening for malignant neoplasm of skin Office Visit 05/16/2017 [facility] Internal John E. H81.10 Benign paroxysmal 10:40a Heather Schroeder M.D. vertigo, [place] unspecified ear Office Visit 10/25/2016 [facility]ology [facility] G47.33 Obstructive sleep 9:00a Sleep [facility] ANDRE Myers RN, apnea (adult) [facility] PLANT PROTECTION SUPERINTENDENT-BC (pediatric) Office Visit 08/13/2016 Surgical Clarence SUriel R10.11 Right upper 9:00a [facility] Brady MD quadrant pain Office Visit 08/06/2016 [facility] Juan Carlos Hendrix, G47.30 Sleep apnea, 11:09a cheyanne Jimenez MD unspecified Hospitalists R10.13 Epigastric pain I10 Essential (primary) hypertension K81.9 Cholecystitis, unspecified Office Visit 08/06/2016 7:00a Surgical Clarence SUriel R10.11 Right upper [facility] Brady MD quadrant pain R10.13 Epigastric pain R94.5 Abnormal results of liver function studies Office Visit 08/05/2016 7:00a Surgical Clarence Hedrick K83.8 Other specified [facility] Brady MD diseases of biliary tract R10.11 Right upper quadrant pain R94.5 Abnormal results of liver function studies Office Visit 08/05/2016 [facility] Juan Carlos K81.9 Cholecystitis, 11:09a cheyanne Jimenez MD unspecified Hospitalists G47.30 Sleep apnea, unspecified R10.13 Epigastric pain I10 Essential (primary) hypertension Office Visit 08/04/2016 [facility] Epigastric pain Assoccheyanne M.D. Hospitalists G47.30 Sleep apnea, unspecified I10 Essential (primary) hypertension Office Visit 08/03/2016 11:08a [facility] Salomon R10.13 Epigastric pain Assoccheyanne M.D. Hospitalists G47.30 Sleep apnea, unspecified I10 [...] Sites Office Visit 02/21/2014 11:30a [facility] [place] 715.96 Osteoarthrosis Services Of Evie Unspec Genlzd Or C.M.A. Localized Lower Leg Office Visit 04/14/2013 10:00a [facility] [place] 716.96 Arthropathy Unspec Services Of Evie Lower Leg C.M.A. Plan of Treatment Future Appointment(s):09/17/2018 7:30 am - Marilyn Duran PA-C at Neurosurgery [facility]09/17/2018 7:30 am - Mikhail Watson MD at Neurosurgery [facility]01/29/2019 11:00 am - Ro Myers DNP, RN, PLANT PROTECTION SUPERINTENDENT-BC at Pulmonology And Sleep [facility]08/19/2018 - Alecia Starkey M.D.Z01.818 Encounter for other preprocedural examinationComments:avoid ibuprofen for at least a week before surgery undergoing elective neurosurgery ( cervical fusion ) , no active cardiac conditions, low risk for major adverse events , advised to proceed with the upcoming procedure .CC to Dr. Watson.S12.090D Other displaced fracture of first cervical vertebra, ohtuozqT00.9 Gastro-esophageal reflux disease without mugqiewvcqiP89.30 Sleep apnea, unspecifiedComments:you will need the CPAP machine in the [id number] Essential (primary) hypertensionComments:apdyllJ41.9 Anxiety disorder, unspecifiedNew Medication: Paxil 20 mg - once a dayZ23 Encounter for immunization
--- OUTSIDE RECORDS SUMMARY | 2018-09-17 06:01 | XMS REPORT | Continuity of Care Document ---
:1935 External Reference #:[id number] Author Name WilbertoElvia york Care Team Providers Name Role Phone Alecia Starkey MD Primary Care Physician Unavailable Payers Type Date Identification Numbers Payment Provider Subscriber Effective: 2018 Policy Number: [id number] Medicare Ying Velez PayID: [id number] [address] [place] [address] Effective: 2000 Policy Number: [id number] Medicare Ying Velez Expires: 2018 PayID: [id number] [address] [facility] [place] [address] Policy Number: [id number] [facility] Ying Velez PayID: [id number] [address] [place] [address] Advance Directives Type Date Description Status Comment [facility]2017 [facility] Current and Verified Problems Date Description Provider Status Onset: 05/26/2015 Localized, primary osteoarthritis Lucita Nash M.D. Active Onset: 10/25/2016 Obstructive sleep apnea syndrome Ro Myers DNP, RN, Active [employer]- Onset: 08/22/2017 Essential hypertension Alecia Starkey M.D. [...] 30tab 1 tab estrella 8 K51.50 Alecia /2018 s hours x Starkey, - 10days M.D. [...] take 1 John E. s tablet by Elda mouth at M.D. bedtime Pantoprazole 09/22 Active [...] H66.92 Alecia Hyclate s twice a day Tobias Starkey x 10 days M.D. 10/02 Paxil 09/22 Hx Tablets 10mg 90tab Take 1 F41.9 s Tablet By Cotton, - Mouth Once A M.D. 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 12/18 bedtime as directed by through visiting nurse Zuri 05/03 Hx Capsules 500mg 28cap 1 po qid x Dir s 7days Dori, - M.DUriel 02/20 Olopatadine 00/ Hx Solution 0.1% Unknown HCL /0000 - 01/15 Immunizations CPT Code Status Date Vaccine Lot # [id number] Given 08/19/2018 Pneumonia Vaccine [id number] Given 06/15/2018 Fluzone High Dose 39749 Given 09/22/2017 Pneumococcal Conjugate Vaccine 13 Valent For [id number] Intramuscular Use 38414 Given 08/31/2017 Influenza Virus Vaccine, Quadrivalent, Split, Preservative Free [id number] Given 09/30/2012 Tdap - Tetanus/Diptheria/Acellular Pertussis Vital Signs Date Vital Result Comment 08/31/2018 1:15pm Height 60.3 inches 5'0.30" Weight [...] Result H/L Range Note Laboratory test 06/10/2018 [facility] Hemoglobin A1c 5.3 % N 4.0-5.[address] (Glyco HGB) [place] [address] [phone] CA 19-9 10 U/mL <35 2 CBC No Diff 06/10/2018 [facility] White Blood 6.8 10^3/uL N 3.5-10.[address] [place] [address] [phone] Red Blood Count 4.29 10^6/uL N 4.00-5.40 [...] um3 N 7.4-10.4 Comp Metabolic Panel 06/10/2018 [facility] Sodium 140 mmol/L N 135-[address] [place] [address] [phone] Potassium 4.5 mmol/L N 3.5-5.0 Chloride 106 [...] >60 Egfr 86.8 >60 3 Xray 05/08/2018 [facility] SP Cerv <pending> [address] Comp/Obl, Flex, [place] [address] Ext [phone] Basic Metabolic 03/11/2018 [facility] Sodium 140 mmol/L N 135- [address] [place] [address] [phone] Potassium 4.1 mmol/L N 3.5-5.0 Chloride 105 mmol/L N 101-111 Co2 Carbon Dioxide 28 mmol/L N 22-32 Anion Gap 7 mmol/L N 2-11 Glucose 107 mg/dL High 70-100 Blood Urea Nitrogen 15 mg/dL N 6-24 Creatinine 0.88 mg/dL N 0.51-0.95 BUN/Creatinine Ratio 17.0 N 8-20 Calcium 9.3 mg/dL N 8.6-10.3 Egfr Non- 61.5 >60 Egfr 74.4 >60 4 Comp Metabolic Panel 02/05/2018 [facility] Sodium 139 mmol/L N 139-[address] [place] [address] [phone] Potassium 3.8 mmol/L N 3.5-5.0 Chloride 104 [...] Egfr 76.1 >60 5 Laboratory test 02/05/2018 [facility] C Reactive < 1.00 N < 5.00 [address] Protein mg/[place] [address] [phone] CBC Auto Diff 02/05/2018 [facility] White Blood 14.0 High 3.5- 10.[address] Count 10^3/[place] [address] [phone] Red Blood Count 4.69 10^6/uL N 4.0-5.4 [...] Blood Cells % 0 Urinalysis Profile 01/02/2018 [facility] Urine Color Yellow [address] [place] [address] [phone] Urine Appearance Clear Urine Specific Hixson 1.021 N 1.010-1.030 Urine pH 6.0 N 5-9 Urine Urobilinogen Negative Negative Urine Ketones Trace Abnormal Negative Urine Protein Negative Negative Urine Leukocytes Negative Negative Urine Blood Negative Negative Urine Nitrite Negative Negative Urine Bilirubin Negative Negative Urine Glucose Negative Negative CBC Auto 01/02/2018 [facility] White Blood 14.4 10^3/uL High 3.5-10.[address] [place] [address] [phone] Red Blood Count 4.92 10^6/uL N 4.0-5.4 [...] Blood Cells % 0 Laboratory test 01/02/2018 [facility] Lactic Acid 1.4 mmol/L N 0.5-2.0 7 finding [address] [place] [address] [phone] Inr/Protime 01/02/2018 [facility] Inr 1.01 N 0.77-1.02 [address] [place] [address] [phone] Laboratory test 01/02/2018 [facility] Partial 31.5 seconds N 26.0-36.[address] [place] [address] PTT [phone] B-Type Natriuretic Peptide BNP 82 pg/mL 8 Comp Metabolic Panel 01/02/2018 [facility] Sodium 137 mmol/L Low 139-[address] [place] [address] [phone] Potassium 3.8 mmol/L N 3.5-5.0 Chloride 103 [...] Egfr 75.2 >60 9 Laboratory test 01/02/2018 [facility] Magnesium 1.8 mg/dL Low 1.9-2.[address] [place] [address] [phone] Amylase 191 U/L High 29-103 Creatine Kinase(CK) 138 U/L N 10-223 C Reactive Protein 18.63 mg/L High < 5.00 10 Troponin-I (TnI) 0.00 ng/mL <0.04 Lipase 951 U/L High 11.0-82.0 Laboratory test 08/19/2016 [facility] Surgical SEE RESULT [address] [place] [address] [phone] Urinalysis 09/14/2015 [facility] Urine Color Yellow N Profile [address] [place] [address] [phone] Urine Appearance Cloudy N Urine Specific Hixson 1.023 N 1.010-1.030 Urine pH 5.0 N [...] Present Abnormal Absent Ua And Culture 09/14/2015 [facility] Urine Culture And SEE RESULT [address] [place] [address] [phone] Comp Metabolic 09/11/2015 [facility] Sodium 138 mmol/L N 133- 1 [address] [place] [address] [phone] Potassium 4.1 mmol/L N 3.5-5.0 Chloride 103 [...] 78.7 N >60 14 Urinalysis Profile 09/11/2015 [facility] Urine Color Yellow N [address] [place] [address] [phone] Urine Appearance Cloudy N Urine Specific Hixson 1.024 N 1.010-1.030 Urine pH 5.0 N [...] Cell Present Abnormal Absent Laboratory test 09/11/2015 [facility] Urine Culture And SEE RESULT [address] [place] [address] [phone] CBC No Diff 09/11/2015 [facility] White Blood Count 8.2 10^3/uL N 3.5-[address] 0[address]8 [place] [address] [phone] Red Blood Count 4.87 10^6/uL N 4.0-5.4 Hemoglobin 14.4 g/dL N 12.0-16.0 Hematocrit 45 % N 35-47 Mean Corpuscular Volume 92 fL N 80-97 Mean Corpuscular Hemoglobin 30 pg N 27-31 Mean Corpuscular HGB Conc 32 g/dL N 31-36 Red Cell Distribution Width 14 % N 10.5-15 Platelet Count 172 10^3/uL N 150-450 Mean Platelet Volume 10 um3 N 7.4-10.4 Inr/Protime 09/11/2015 [facility] Inr 0.95 N 0.89-1.[address] [place] [address] [phone] Laboratory test 09/11/2015 [facility] Partial 34.0 seconds N 26.0-36.3 [address] [place] [address] PTT [phone] CBC No Diff 04/16/2013 [facility] White Blood 6.6 10^3/uL 4.8 -10.[address] [place] [address] [phone] Red Blood Count 4.32 10^6/uL 4.0-5.4 Hemoglobin 13.0 g/dL 12.0-16.0 Hematocrit 39 % 35-47 Mean Corpuscular Volume 91 fL 80-97 Mean Corpuscular Hemoglobin 30 pg 27-31 Mean Corpuscular HGB Conc 33 g/dL 31-36 Red Cell Distribution Width 13 % 10.5-15 Platelet Count 162 10^3/uL 150-450 Mean Platelet Volume 11 um3 High 7.4-10.4 Basic Metabolic Panel 04/16/2013 [facility] Sodium 142 mmol/L 133-[address] [place] [address] [phone] Potassium 3.9 mmol/L 3.5-5.0 Chloride 105 mmol/L 101-111 Co2 Carbon Dioxide 30.0 mmol/L 22-32 Anion Gap 7.0 mmol/L 2-11 Glucose 102 mg/dL High 70-100 Blood Urea Nitrogen 21 mg/dL 6-24 Creatinine 0.80 mg/dL 0.50-1.40 BUN/Creatinine Ratio 26.3 High 8-20 Calcium 9.0 mg/dL 8.1-9.9 Egfr Non- 69.6 >60 Egfr 89.4 >60 17 Laboratory test finding 04/16/2013 [facility] Inr 0.84 Low 0.87-0.[address] [place] [address] [phone] Activated Partial Thrombo Time 29.6 seconds 22.18-37.18 19 Type & Screen 04/16/2013 [facility] Patient Blood Type O Positive [address] [place] [phone] Antibody Screen NEGATIVE 1 Therapeutic target for the treatment of diabetes mellitus patients is <7% HBA1C, and in selective patients <6.0%. Please refer to [place] [employer] diabetic care guidelines for further information. 2 ADDITIONAL INFORMATION The testing method is an immunoenzymatic assay manufactured by [employer] and performed on the OmniVec DxI 800. Values obtained with different assay methods or kits may be different and cannot be used interchangeably. Test results cannot be interpreted as absolute evidence for the presence or absence of malignant disease. Test Performed by: [facility] [address] [place] [address] 3 Because ethnic data is not always [...] (or dialysis) 6 Acute inflammation: >10.00 7 [place] Severe Sepsis and Septic Shock Management [...] [address]: Clarence Brady MD Acct: [id number] Unit: [id number] AGE: 80 Location: OR Re08/19/16 SEX: F Status: REG [facility] SPEC: [id number] NELSON: 08/19/16- SUBM DR: Clarence Brady MD REQ: [id number] RECD: 08/19/167714 STATUS: SOUT _ ORDERED: LEVEL III FINAL [...] and the wall thickness averages 0.1 cm. [employer] sections, one cassette. Signed (signature on file) Bri Lovell MD 03/30 1049 END OF REPORT * ML=Testing performed at Main Lab DEPARTMENT OF PATHOLOGY, [address] [place] [address] Rob Cook M.D. Director [facility] # [id number] 12 SEE RESULT BELOW Name: YING VELEZ : [address]: Bri Nieves NP Acct: [id number] Unit: [id number] AGE: 79 Location: LAB Re09/14/15 SEX: F Status: REG REF SPEC: [id number] NELSON: 09/14/[address]: Bri Nieves NP REQ: [id number] RECD: 09/14/15 STATUS: COMP _ SOURCE: URINE SPDESC: ORDERED: Urine Culture Procedure Result Reported Site Urine Culture Final 09/15/15- 09 ML No Growth (<1,000 CFU/mL) * ML - MAIN LAB ([facility]1) . END OF REPORT * ML=Testing performed at Main Lab DEPARTMENT OF PATHOLOGY, [address] [place] [address] Rob Cook M.D. Director [facility] # [id number] 13 09/19 14 Because ethnic data is [...] [address]: Lucita Nash MD Acct: [id number] Unit: [id number] AGE: 79 Location: [facility] Re09/11/15 SEX: F Status: REG REF SPEC: [id number] NELSON: 09/11/[address] [facility] [address]: Lucita Nash MD REQ: [id number] RECD: 09/11/15 STATUS: HEIDY DEJESUS DR: Ross Monte MD _ SOURCE: URINE SPDESC: ORDERED: Urine Culture COMMENTS: AA 09/19 QUERIES: Urine Source: Clean Catch Procedure Result Reported Site Urine Culture Final 09/12/15- 0819 ML Mixed sam; possible contamination. Suggest resubmission. * ML - MAIN LAB ([facility]) . END OF REPORT * ML=Testing performed at Main Lab DEPARTMENT OF PATHOLOGY, [address] [place] [address] Rob Cook M.D. Director [facility] # [id number] 16 AA 09/19 17 Because ethnic data is not always readily [...] <15 (or dialysis) 18 AA 04/20 19 04/20 Procedures Date Code Description Status 08/24/2018 72006 EKG Tracing & Interpretation Completed 08/19/2018 83666 EKG Tracing & Interpretation Completed 09/23/2017 376180052 Bone Mineral Density Test Completed 08/19/2016 50712 Laparoscopy Cholecystectomy With Cholangiography Completed 08/19/2016 10043 Laparoscopy Cholecystectomy With Cholangiography Completed 11/30/2015 60631629 Mammogram Completed 09/19/2015 49637 TKR Total Knee Replacement Completed 09/19/2015 16053 TKR Total Knee Replacement Completed 05/31/2015 01706739 Colonoscopy Completed 11/12/2013 82545 Stress Test Completed 05/26/2013 15071 Rad Exam; Knee, Ap&L Completed 05/26/2013 33263 Xray Knee 3 Views Completed 04/20/2013 10755 TKR Total Knee Replacement Completed 04/20/2013 35996 TKR Total Knee Replacement Completed 10/08/2012 69678 Polysomnography Sleep Staging 4+ Parameters W/Cpap Completed 03/29/2005 43388685 Colonoscopy Completed 02/19/2000 29015590 Colonoscopy Completed Encounters Type Date Location Provider Dx Diagnosis Office Visit 07/08/2018 Neurosurgery Vassilios S12.090A Oth disp fx of 10:00a [facility] Watson MD first cervical vertebra, init for clos fx S12.112A Nondisplaced Type II dens fracture, init for clos fx Office Visit 06/15/2018 10:00a Neurosurgery Delfin Carmel, S12.090D Oth disp fx Services Of Mariya Case of first cervcal vert, subs for fx w routn heal Office Visit 06/03/2018 9:00a Neurosurgery [facility] S12.090D Oth disp fx [facility] Watson MD of first cervcal vert, subs for fx w routn heal S12.112D Nondisplaced Type II dens fracture, subs for fx w routn heal Office Visit 06/03/2018 [facility] Gastroenterology Steve Abraham K86.1 Other chronic 4:00p [...] Sleep Services Of MD Adelita of lung [facility] Office Visit 03/11/2018 1:00p [facility] Internal Alecia R91.1 Solitary Medicine - Gilmar Starkey. pulmonary nodule [place] E87.1 Hypo-osmolality and hyponatremia S12.100A Unsp disp fx of second cervical vertebra, init for clos fx Office Visit 02/25/2018 [facility]surgery [facility] S12.01xD Stable burst 11:00a [facility] Watson MD fx first cervcal vert, subs for fx w routn heal S12.112D Nondisplaced Type II dens fracture, subs for fx w routn heal Office Visit 02/11/2018 9:13a Cost Oma Washington S12.100A Unsp disp fx of cheyanne Jimenez PA second cervical Hospitalists vertebra, init for clos fx E66.9 Obesity, unspecified G47.30 Sleep apnea, unspecified Z68.34 Body mass index (BMI) 34.0-34.9, adult Office Visit 02/10/2018 9:06a [facility] S12.100A Unsp disp fx of Asscheyanne gomez PA second cervical Hospitalists vertebra, init for [...] init for clos fx Office Visit 02/09/2018 [facility] S12.100A Unsp disp fx of 9:05a cheyanne Jimenez, CONDUCTOR AND ENGINEER second cervical Hospitalists vertebra, init for clos fx E66.9 Obesity, unspecified G47.30 Sleep apnea, unspecified Z68.34 Body mass index (BMI) 34.0-34.9, adult Office Visit 02/08/2018 7:00a Neurosurgery Marilyn Duran, S12.01xA Stable burst Services Of Mariya RICE-Francisco fracture of first cervical vertebra, init S12.112A Nondisplaced Type II dens fracture, init for clos fx Office Visit 02/08/2018 [facility] S12.100A Unsp disp fx of 9:03a cheyanne Jimenez, CONDUCTOR AND ENGINEER second cervical Hospitalists vertebra, init for clos fx E66.9 Obesity, unspecified G47.30 Sleep apnea, unspecified Z68.34 Body mass index (BMI) 34.0-34.9, adult Office Visit 02/07/2018 [facility] S12.100A Unsp disp fx of 8:32a cheyanne Jimenez, CONDUCTOR AND ENGINEER second cervical Hospitalists vertebra, init for clos fx E66.9 Obesity, unspecified G47.30 Sleep apnea, unspecified Z68.34 Body mass index (BMI) 34.0-34.9, adult Office Visit 02/07/2018 [facility]surgery V[facility] S12.01xA Stable burst 7:00a Services Of [facility] MD Walter fracture of first cervical vertebra, init S12.112A Nondisplaced Type II dens fracture, init for clos fx Office Visit 02/06/2018 [facility] S12.100A Unsp disp fx 8:25a cheyanne Jimenez PA of second Hospitalists cervical vertebra, init for clos fx E66.9 Obesity, unspecified G47.30 Sleep apnea, unspecified Z68.34 Body mass index (BMI) 34.0-34.9, adult Office Visit 02/05/2018 Neurosurgery V[facility]ilios S12.01xA Stable burst 7:00a Services Of [facility] MD Walter fracture of first cervical vertebra, init S12.112A Nondisplaced Type II dens fracture, init for clos fx Office Visit 02/05/2018 [facility] Jami Elmira S12.100A Unsp disp fx 8:20a cheyanne Jimenez CONDUCTOR AND ENGINEER of second Hospitalists cervical vertebra, init for clos fx E66.9 Obesity, unspecified G47.30 Sleep apnea, unspecified Z68.34 Body mass index (BMI) 34.0-34.9, adult Office Visit 01/29/2018 [facility]ology [facility] G47.33 Obstructive sleep 1:15p Sleep Services Of ANDRE Myers, apnea (adult) [facility] RN, [employer]ATOR [employer]-BC (pediatric) Office Visit 01/15/2018 [facility] Internal Alecia K85.90 Acute 8:30a Heather Starkey M.D. pancreatitis [place] without necrosis or infection, unsp Office Visit 01/05/2018 [facility] Kyra K85.90 Acute 8:24a cheyanne Jimenez M.D. pancreatitis Hospitalists without necrosis or infection, unsp Office Visit 01/04/2018 [facility] Kyra K85.90 Acute 8:24a cheyanne Jimenez M.D. pancreatitis Hospitalists without necrosis or infection, unsp Office Visit 01/03/2018 [facility] Kyra K85.90 Acute 8:23a cheyanne Jimenez M.D. pancreatitis Hospitalists without necrosis or infection, unsp Office Visit 01/02/2018 [facility] Kyra K85.90 Acute 8:18a cheyanne Jimenez M.D. pancreatitis Hospitalists without necrosis or infection, unsp Office Visit 11/12/2017 Orthopedic Lucita Gamezke, M25.561 Pain in right 8:45a Services Of Sachin Case knee Z96.651 Presence of right artificial knee joint Office Visit 09/23/2017 4:20p [facility] Dermatology Marko Gonzales, L82.1 Other seborrheic MD keratosis R60.0 Localized edema L85.3 Xerosis cutis Office Visit 09/22/2017 9:50a [facility] Internal Alecia Jaky, Z00.00 Encntr for Heather [...] malignant neoplasm of skin Office Visit 05/16/2017 [facility] Internal John Kwan H81.10 Benign paroxysmal 10:40a Heather Schroeder M.D. vertigo, [place] unspecified ear Office Visit 10/25/2016 [facility]ology [facility] G47.33 Obstructive sleep 9:00a [facility] ANDRE Myers, RN, apnea (adult) [facility] [employer]- (pediatric) Office Visit 08/13/2016 Surgical Clarence SUriel R10.11 Right upper 9:00a [facility] Brady MD quadrant pain Office Visit 08/06/2016 [facility] Juan Carlos Hendrix, G47.30 Sleep apnea, 11:09a Assoc,cheyanne COSME unspecified Hospitalists R10.13 Epigastric pain I10 Essential (primary) hypertension K81.9 Cholecystitis, unspecified Office Visit 08/06/2016 7:00a Surgical Claernce SUriel R10.11 Right upper [facility] Brady MD quadrant pain R10.13 Epigastric pain R94.5 Abnormal results of liver function studies Office Visit 08/05/2016 7:00a Surgical Clarence SUriel K83.8 Other specified [facility] Brady MD diseases of biliary tract R10.11 Right upper quadrant pain R94.5 Abnormal results of liver function studies Office Visit 08/05/2016 [facility] Juan Carlos K81.9 Cholecystitis, 11:09a Assoc,cheyanne Hendrix MD unspecified Hospitalists G47.30 Sleep apnea, unspecified R10.13 Epigastric pain I10 Essential (primary) hypertension Office Visit 08/04/2016 11:09a [facility] R10.13 Epigastric pain Assoc,cheyanne Dumont M.D. Hospitalists G47.30 Sleep apnea, unspecified I10 Essential (primary) hypertension Office Visit 08/03/2016 11:08a [facility] R10.13 Epigastric pain Assoc,cheyanne Dumont [...] Lower Leg C.M.A. Plan of Treatment Future Appointment(s):09/04/2018 9:00 am - Mikhail Watson MD at [facility]surgery [facility]09/17/2018 7:30 am - Marilyn Duran PA-C at [facility]surgery [facility]09/17/2018 7:30 am - Mikhail Watson MD at [facility]surgery [facility]01/29/2019 11:00 am - Ro Myers DNP, RN, [employer]- BC at Pul[facility]ology [facility]08/19/2018 - Alecia Starkey M.D.Z01.818 Encounter for other preprocedural examinationComments:avoid ibuprofen for at least a week before surgery undergoing elective neurosurgery ( cervical fusion ) , no active cardiac conditions, low risk for major adverse events , advised to proceed with the upcoming procedure .CC to Dr. Watson.S12.090D Other displaced fracture of first cervical vertebra, idyppvlL34.9 Gastro-esophageal reflux disease without nfkuvwtwmkyY86.30 Sleep apnea, unspecifiedComments:you will need the CPAP machine in the odoehmpcI60 Essential (primary) hypertensionComments:ncmoauV51.9 Anxiety disorder, unspecifiedNew Medication:Paxil 20 mg - once a dayZ23 Encounter for immunization
--- OUTSIDE RECORDS SUMMARY | 2018-09-17 06:02 | XMS REPORT | Continuity of Care Document ---
:1935 External Reference #:[id number] Author Name WilbertoElvia york Care Team Providers Name Role Phone Alecia Starkey MD Primary Care Physician Unavailable Payers Type Date Identification Numbers Payment Provider Subscriber Effective: 2018 Policy Number: [id number] Medicare Ying Velez PayID: [id number] [address] [facility] [place] [address] Effective: 2000 Policy Number: [id number] Medicare Ying Velez Expires: 2018 PayID: [id number] [address] [place] [address] Policy Number: [id number] [facility] Ying Velez PayID: [id number] [address] [place] [address] Advance Directives Type Date Description Status Comment [facility] Current and Verified Problems Date Description Provider Status Onset: 05/26/2015 Localized, primary osteoarthritis Lucita Nash M.D. 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 [...] Active Capsules 500mg 8caps 4 tablets 1 Laecia hour before Jaky dental work M.D. Doxycycline 09/22 Hx Tablets 100mg 20tab 1 tablet H66.92 Alecia Hyclate s twice a day x Jaky, - 10 days M.D. 10/02 Paxil 09/22 Hx Tablets 10mg 90tab Take 1 Tablet F41.9 Melba s By Mouth Once Cotton, - A Day M.D. 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 10/22 needed pain Coumadin 09/11 Hx Tablets [...] CPT Code Status Date Vaccine Lot # [id number] Given 08/19/2018 Pneumonia Vaccine [id number] Given 06/15/2018 Fluzone High Dose 80659 Given 09/22/2017 Pneumococcal Conjugate Vaccine 13 Valent For [id number] Intramuscular Use 93636 Given 08/31/2017 Influenza Virus Vaccine, Quadrivalent, Split, Preservative Free 12906 Given 09/30/2012 Tdap - Tetanus/Diptheria/Acellular Pertussis Vital [...] Date Facility Test Result H/L Range Note Comp Metabolic Panel 06/10/2018 [facility] Sodium 140 mmol/L N 135-[address] [place] [address] [phone] Potassium 4.5 mmol/L N 3.5-5.0 Chloride 106 [...] Egfr Non- 71.8 >60 Egfr 86.8 >60 1 CBC No Diff 06/10/2018 [facility] White Blood 6.8 10^3/uL N 3.5-10.[address] [place] [address] [phone] Red Blood Count 4.29 10^6/uL N 4.00-5.40 Hemoglobin 13.2 g/dL N 12.0-16.0 Hematocrit 39 % N 35-47 Mean Corpuscular Volume 91 fL N 80-97 Mean Corpuscular Hemoglobin 31 pg N 27-31 Mean Corpuscular HGB Conc 34 g/dL N 31-36 Red Cell Distribution Width 13 % N 10.5-15 Platelet Count 158 10^3/uL N 150-450 Mean Platelet Volume 10.2 um3 N 7.4-10.4 Laboratory test 06/10/2018 [facility] Hemoglobin A1c 5.3 % N 4.0-5.6 [address] (Glyco HGB) [place] [address] [phone] CA 19-9 10 U/mL <35 3 Xray 05/08/2018 [facility] SP Cerv <pending> [address] Comp/Obl, Flex, [place] [address] Ext [phone] Basic Metabolic 03/11/2018 [facility] Sodium 140 mmol/L N 135- [address] [place] [address] [phone] Potassium 4.1 mmol/L N 3.5-5.0 Chloride 105 mmol/L N 101-111 Co2 Carbon Dioxide 28 mmol/L N 22-32 Anion Gap 7 mmol/L N 2-11 Glucose 107 mg/dL High 70-100 Blood Urea Nitrogen 15 mg/dL N 6-24 Creatinine 0.88 mg/dL N 0.51-0.95 BUN/Creatinine Ratio 17.0 N 8-20 Calcium 9.3 mg/dL N 8.6-10.3 Egfr Non- 61.5 >60 Egfr 74.4 >60 4 CBC Auto 02/05/2018 [facility] White Blood 14.0 10^3/uL High 3.5-10.[address] [place] [address] [phone] Red Blood Count 4.69 10^6/uL N 4.0-5.4 [...] Cells % 0 Comp Metabolic Panel 02/05/2018 [facility] Sodium 139 mmol/L N 139-145 [address] [place] [address] [phone] Potassium 3.8 mmol/L N 3.5-5.0 Chloride 104 [...] Egfr 76.1 >60 5 Laboratory test 02/05/2018 [facility] C Reactive < 1.00 mg/L N < 5.00 6 finding [address] [facility] [place] [address] [phone] Urinalysis 01/02/2018 [facility] Urine Color Yellow Profile [address] [place] [address] [phone] Urine Appearance Clear Urine Specific Union 1.021 N 1.010-1.030 Urine pH 6.0 N 5-9 Urine Urobilinogen Negative Negative Urine Ketones Trace Abnormal Negative Urine Protein Negative Negative Urine Leukocytes Negative Negative Urine Blood Negative Negative Urine Nitrite Negative Negative Urine Bilirubin Negative Negative Urine Glucose Negative Negative CBC Auto 01/02/2018 [facility] White Blood 14.4 10^3/uL High 3.5-10.[address] [place] [address] [phone] Red Blood Count 4.92 10^6/uL N 4.0-5.4 [...] Blood Cells % 0 Laboratory test 01/02/2018 [facility] Lactic Acid 1.4 mmol/L N 0.5-2.0 7 finding [address] [place] [address] [phone] Inr/Protime 01/02/2018 [facility] Inr 1.01 N 0.77-1.02 [address] [place] [address] [phone] Laboratory test 01/02/2018 [facility] Partial 31.5 seconds N 26.0-36.3 finding [address] [facility] [place] [address] PTT [phone] B-Type Natriuretic Peptide BNP 82 pg/mL 8 Comp Metabolic Panel 01/02/2018 [facility] Sodium 137 mmol/L Low 139-145 [address] [place] [address] [phone] Potassium 3.8 mmol/L N 3.5-5.0 Chloride 103 [...] Egfr 75.2 >60 9 Laboratory test 01/02/2018 [facility] Magnesium 1.8 mg/dL Low 1.9-2.[address] [place] [address] [phone] Amylase 191 U/L High 29-103 Creatine Kinase(CK) 138 U/L N 10-223 C Reactive Protein 18.63 mg/L High < 5.00 10 Troponin-I (TnI) 0.00 ng/mL <0.04 Lipase 951 U/L High 11.0-82.0 Laboratory test 08/19/2016 [facility] Surgical Pathology SEE RESULT [address] [place] [address] [phone] Ua And Culture 09/14/2015 [facility] Urine Culture And SEE RESULT [address] [place] [address] [phone] Urinalysis 09/14/2015 [facility] Urine Color Yellow N Profile [address] [place] [address] [phone] Urine Appearance Cloudy N Urine Specific Union 1.023 N 1.010-1.030 Urine pH 5.0 N [...] Urine Renal Epithelial Cells Present Abnormal Absent Laboratory test 09/11/2015 [facility] Urine Culture And SEE RESULT 13, [address] [place] [address] [phone] Urinalysis 09/11/2015 [facility] Urine Color Yellow N Profile [address] [place] [address] [phone] Urine Appearance Cloudy N Urine Specific Union 1.024 N 1.010-1.030 Urine pH 5.0 N [...] Urine Squamous Epithelial Cell Present Abnormal Absent Comp Metabolic Panel 09/11/2015 [facility] Sodium 138 mmol/L N 133-[address] [place] [address] [phone] Potassium 4.1 mmol/L N 3.5-5.0 Chloride 103 [...] 61.2 N >60 Egfr 78.7 N >60 15 Laboratory test 09/11/2015 [facility] Partial 34.0 seconds N 26.0-36.3 [address] [place] [address] PTT [phone] Inr/Protime 09/11/2015 [facility] Inr 0.95 N 0.89-1.11 [address] [place] [address] [phone] CBC No Diff 09/11/2015 [facility] White Blood 8.2 10^3/uL N 3.5-10.[address] [place] [address] [phone] Red Blood Count 4.87 10^6/uL N 4.0-5.4 Hemoglobin 14.4 g/dL N 12.0-16.0 Hematocrit 45 % N 35-47 Mean Corpuscular Volume 92 fL N 80-97 Mean Corpuscular Hemoglobin 30 pg N 27-31 Mean Corpuscular HGB Conc 32 g/dL N 31-36 Red Cell Distribution Width 14 % N 10.5-15 Platelet Count 172 10^3/uL N 150-450 Mean Platelet Volume 10 um3 N 7.4-10.4 Laboratory test finding 04/16/2013 [facility] Inr 0.84 Low 0.87-0.97 17 [address] [place] [address] [phone] Activated Partial Thrombo Time 29.6 seconds 22.18-37.18 18 Basic Metabolic Panel 04/16/2013 [facility] Sodium 142 mmol/L 133-145 [address] [place] [address] [phone] Potassium 3.9 mmol/L 3.5-5.0 Chloride 105 mmol/L 101-111 Co2 Carbon Dioxide 30.0 mmol/L 22-32 Anion Gap 7.0 mmol/L 2-11 Glucose 102 mg/dL High 70-100 Blood Urea Nitrogen 21 mg/dL 6-24 Creatinine 0.80 mg/dL 0.50-1.40 BUN/Creatinine Ratio 26.3 High 8-20 Calcium 9.0 mg/dL 8.1-9.9 Egfr Non- 69.6 >60 Egfr 89.4 >60 19 CBC No Diff 04/16/2013 [facility] White Blood 6.6 10^3/uL 4.8 -10.[address] [place] [address] [phone] Red Blood Count 4.32 10^6/uL 4.0-5.4 Hemoglobin 13.0 g/dL 12.0-16.0 Hematocrit 39 % 35-47 Mean Corpuscular Volume 91 fL 80-97 Mean Corpuscular Hemoglobin 30 pg 27-31 Mean Corpuscular HGB Conc 33 g/dL 31-36 Red Cell Distribution Width 13 % 10.5-15 Platelet Count 162 10^3/uL 150-450 Mean Platelet Volume 11 um3 High 7.4-10.4 Type & Screen 04/16/2013 [facility] Patient Blood Type O Positive [address] [place] [address] [phone] Antibody Screen NEGATIVE 1 Because ethnic data is not always [...] in selective patients <6.0%. Please refer to [place] [employer] diabetic care guidelines for further information. 3 ADDITIONAL INFORMATION The testing method is an immunoenzymatic assay manufactured by [employer] and performed on the tenfarms DxI 800. Values obtained with different assay methods or kits may be different and cannot be used interchangeably. Test results cannot be interpreted as absolute evidence for the presence or absence of malignant disease. Test Performed by: [facility] [address] [place] [address] 4 Because ethnic data is not always [...] (or dialysis) 6 Acute inflammation: >10.00 7 [facility] Severe Sepsis and Septic Shock Management [...] [address]: Clarence Brady MD Acct: [id number] Unit: [id number] AGE: 80 Location: OR Re08/19/16 SEX: F Status: REG [facility] SPEC: [id number] NELSON: 08/19/16- SUBM DR: Clarence Brady MD REQ: [id number] RECD: 08/19/161534 STATUS: SOUT _ ORDERED: LEVEL [...] and the wall thickness averages 0.1 cm. Air Twister Winder sections, one cassette. Signed (signature on file) Bri Lovell MD 03/30 1049 END OF REPORT * ML=Testing performed at Main Lab DEPARTMENT OF PATHOLOGY, [address] [place] [address] Rob Cook M.D. Director [facility] # [id number] 12 SEE RESULT BELOW Name: YING VELEZ : [address]: Bri Nieves NP Acct: [id number] Unit: [id number] AGE: 79 Location: LAB Re09/14/15 SEX: F Status: REG REF SPEC: [id number] NELSON: 09/14/[address]: Bri Nieves NP REQ: [id number] RECD: 09/14/15 STATUS: COMP _ SOURCE: URINE SPDESC: ORDERED: Urine Culture Procedure Result Reported Site Urine Culture Final 09/15/15- 907 ML No Growth (<1,000 CFU/mL) * ML - MAIN LAB ([facility]) . END OF REPORT * ML=Testing performed at Main Lab DEPARTMENT OF PATHOLOGY, [address] [place] [address] Rob Cook M.D. Director CLAUDIA # [id number] 13 09/19 14 SEE RESULT BELOW Name: YING VELEZ : [address]: Lucita Nash MD Acct: [id number] Unit: [id number] AGE: 79 Location: [facility] Re09/11/15 SEX: F Status: REG REF SPEC: [id number] NELSON: 09/11/15-1134 [facility] DR: Lucita Nash MD REQ: [id number] RECD: 09/11/15 STATUS: HEIDY DEJESUS DR: Ross Monte MD _ SOURCE: URINE SPDESC: ORDERED: Urine Culture COMMENTS: HENNY 09/19 QUERIES: Urine Source: Clean Catch Procedure Result Reported Site Urine Culture Final 09/12/15- 0819 ML Mixed sam; possible contamination. Suggest resubmission. * ML - MAIN LAB ([facility]) . END OF REPORT * ML=Testing performed at Main Lab DEPARTMENT OF PATHOLOGY, [address] [place] [address] Rob Cook M.D. Director [facility] # [id number] 15 Because ethnic data is not always readily [...] 15-29 5 Kidney failure <15 (or dialysis) 16 AA 09/19 17 AA 04/20 18 AA 04/20 19 Because ethnic data is not always readily [...] (or dialysis) Procedures Date Code Description Status 09/23/2017 681217410 Bone Mineral Density Test Completed 08/19/2016 07264 Laparoscopy Cholecystectomy With Cholangiography Completed 08/19/2016 46767 Laparoscopy Cholecystectomy With Cholangiography Completed 11/30/2015 00156615 Mammogram Completed 09/19/2015 69901 TKR Total Knee Replacement Completed 09/19/2015 80166 TKR Total Knee Replacement Completed 05/31/2015 45168917 Colonoscopy Completed 11/12/2013 24591 Stress Test Completed 05/26/2013 65989 Xray Knee 3 Views Completed 05/26/2013 20408 Rad Exam; Knee, Ap&L Completed 04/20/2013 40718 TKR Total Knee Replacement Completed 04/20/2013 41198 TKR Total Knee Replacement Completed 10/08/2012 84622 Polysomnography Sleep Staging 4+ Parameters W/Cpap Completed 03/29/2005 94597518 Colonoscopy Completed 02/19/2000 97435179 Colonoscopy Completed Encounters Type Date Location Provider Dx Diagnosis Office Visit 07/08/2018 Neurosurgery Vassilios S12.090A Oth disp fx of 10:00a Services Of Mariya Watson MD first cervical vertebra, init for clos fx S12.112A Nondisplaced Type II dens fracture, init for clos fx Office Visit 06/15/2018 10:00a Neurosurgery Delfin Muñoz, S12.090D Oth disp fx Services [facility] Mariya Case of [facility] cervcal vert, subs for fx w routn heal Office Visit 06/03/2018 9:00a Neurosurgery Vassilios S12.090D Oth disp fx Services Of Mariya Watson MD of [facility] cervcal vert, subs for fx w routn heal S12.112D Nondisplaced Type II dens fracture, subs for fx w routn heal Office Visit 06/03/2018 [facility] Gastroenterology Steve Lamas.1 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 pulmonary nodule [place] E87.1 Hypo-osmolality and hyponatremia S12.100A Unsp disp fx of second cervical vertebra, init for clos fx Office Visit 02/25/2018 Neurosurgery Vassilios S12.01xD Stable burst 11:00a Services [facility] Mariya Watson MD fx first cervcal vert, subs for fx w routn heal S12.112D Nondisplaced Type II dens fracture, subs for fx w routn heal Office Visit 02/11/2018 9:13a [facility] Felix S12.100A Unsp disp fx of cheyanne Jimenez PA second cervical Hospitalists vertebra, init for clos fx E66.9 Obesity, unspecified G47.30 Sleep apnea, unspecified Z68.34 Body mass index (BMI) 34.0-34.9, adult Office Visit 02/10/2018 9:06a [facility] Felix S12.100A Unsp disp fx of cheyanne [...] init for clos fx Office Visit 02/09/2018 [facility] S12.100A Unsp disp fx of 9:05a Assoc,pc [place], ENTRY LEVEL MARKETING ASSISTANT second cervical Hospitalists vertebra, init for clos fx E66.9 Obesity, unspecified G47.30 Sleep apnea, unspecified Z68.34 Body mass index (BMI) 34.0-34.9, adult Office Visit 02/08/2018 7:00a Neurosurgery Marilyn Duran, S12.01xA Stable burst Services Of Mariya RICE-Francisco fracture of first cervical vertebra, init S12.112A Nondisplaced Type II dens fracture, init for clos fx Office Visit 02/08/2018 [facility] S12.100A Unsp disp fx of 9:03a Assoccheyanne, ENTRY LEVEL MARKETING ASSISTANT second cervical Hospitalists vertebra, init for clos fx E66.9 Obesity, unspecified G47.30 Sleep apnea, unspecified Z68.34 Body mass index (BMI) 34.0-34.9, adult Office Visit 02/07/2018 [facility] S12.100A Unsp disp fx of 8:32a Assoccheyanne, ENTRY LEVEL MARKETING ASSISTANT second cervical Hospitalists vertebra, init for clos fx E66.9 Obesity, unspecified G47.30 Sleep apnea, unspecified Z68.34 Body mass index (BMI) 34.0-34.9, adult Office Visit 02/07/2018 Neurosurgery V[facility]ilios S12.01xA Stable burst 7:00a Services Of Mariya Watson MD fracture of first cervical vertebra, init S12.112A Nondisplaced Type II dens fracture, init for clos fx Office Visit 02/06/2018 [facility] S12.100A Unsp disp fx 8:25a [...] init for clos fx Office Visit 02/05/2018 [facility] Jami Ku S12.100A Unsp disp fx 8:20a Assoccheyanne, ENTRY LEVEL MARKETING ASSISTANT of second Hospitalists cervical vertebra, init for clos fx E66.9 Obesity, unspecified G47.30 Sleep apnea, unspecified Z68.34 Body mass index (BMI) 34.0-34.9, adult Office Visit 01/29/2018 Pulmonology And Ro G47.33 Obstructive sleep 1:15p Sleep Services Of ANDRE Myers, apnea (adult) Mariya RN, ACCOUNTING REPRESENTATIVE-BC (pediatric) Office Visit 01/15/2018 [facility] Internal Alecia K85.90 Acute 8:30a Heather Starkey M.D. pancreatitis [place] without necrosis or infection, unsp Office Visit 01/05/2018 [facility] Kyra K85.90 Acute 8:24a cheyanne Jimenez M.D. pancreatitis Hospitalists without necrosis or infection, unsp Office Visit 01/04/2018 [facility] Kyra K85.90 Acute 8:24a cheyanne Jimenez M.D. pancreatitis Hospitalists without necrosis or infection, unsp Office Visit 01/03/2018 [facility] Kyra K85.90 Acute 8:23a cheyanne Jimenez M.D. pancreatitis Hospitalists without necrosis or infection, unsp Office Visit 01/02/2018 [facility] Kyra K85.90 Acute 8:18a cheyanne Jimenez M.D. pancreatitis Hospitalists without necrosis or infection, unsp Office Visit 11/12/2017 Orthopedic Lucita Nash, M25.561 Pain in right 8:45a Services Of Sachin Case knee Z96.651 Presence of right artificial knee joint Office Visit 09/23/2017 4:20p [facility] Dermatology Marko Gonzales, L82.1 Other seborrheic MD keratosis R60.0 Localized edema L85.3 Xerosis cutis Office Visit 09/22/2017 9:50a [facility] Internal Alecia Starkey, Z00.00 Encntr for Heather [...] malignant neoplasm of skin Office Visit 05/16/2017 [facility] Internal John E. H81.10 Benign paroxysmal 10:40a Heather Schroeder M.D. vertigo, [place] unspecified ear Office Visit 10/25/2016 Pulmonology And Ro G47.33 Obstructive sleep 9:00a Sleep [facility] ANDRE Myers, RN, apnea (adult) [facility] ACCOUNTING REPRESENTATIVE-BC (pediatric) Office Visit 08/13/2016 Surgical Clarence SUriel R10.11 Right upper 9:00a [facility] Brady MD quadrant pain Office Visit 08/06/2016 [facility] Juan Carlos Hendrix G47.30 Sleep apnea, 11:09a cheyanne Jimenez MD [...] of liver function studies Office Visit 08/05/2016 [facility] Juan Carlos K81.9 Cholecystitis, 11:09a Asscheyanne gomez MD unspecified Hospitalists G47.30 Sleep apnea, unspecified R10.13 Epigastric pain I10 Essential (primary) hypertension Office Visit 08/04/2016 [facility] [facility] Epigastric pain Assoc,chyeanne Dumont M.D. Hospitalists G47.30 Sleep apnea, unspecified I10 Essential (primary) hypertension Office Visit 08/03/2016 11:08a [facility] Salomon R10.13 Epigastric pain Assoc,cheyanne Dumont M.D. Hospitalists G47.30 Sleep apnea, unspecified I10 Essential (primary) hypertension Office Visit 2015 10:00a Orthopedic Lucita Nash Z47.1 Aftercare Services Of Evie following joint [...] Leg Office Visit 04/14/2013 10:00a Orthopedic [place], 716.96 Arthropathy Unspec Services Of Evie Lower Leg C.M.A. Plan of Treatment Future Appointment(s):09/02/2018 9:00 am - Mikhail Watson MD at Neurosurgery Services Of [facility]09/17/2018 7:30 am - Mikhail Watson MD at Neurosurgery Services Of [facility]01/29/2019 11:00 am - Ro Myers DNP, RN, ACCOUNTING REPRESENTATIVE- at Pulmonology And Sleep Services Of [facility]08/19/2018 - Alecia Starkey M.D.Z01.818 Encounter for other preprocedural examinationNew Orders:EKG, Ordered : 08/19/18Comments:avoid ibuprofen for at least a week before surgery undergoing elective neurosurgery ( cervical fusion ) , no active cardiac conditions, low risk for major adverse events , advised to proceed with the upcoming procedure .CC to Dr. Watson.S12.090D Other displaced fracture of first cervical vertebra, wueobxkC82.9 Gastro-esophageal reflux disease without fvkfekcamuwW79.30 Sleep apnea, unspecifiedComments:you will need the CPAP machine in the [id number] Essential (primary) hypertensionComments:kwlsywX73.9 Anxiety disorder, unspecifiedNew Medication:Paxil 20 mg - once a dayZ23 Encounter for immunization
[2018-09-17] MEDS ORDERED: ceFAZolin 2 GM PREMIX in ORs 2 GM/50 ML BAG IVPB ONE (06:23)
[2018-09-17] MEDS ORDERED: Lidocaine 1% MPF wEPI 200,000* 30 ML SDV ONE (06:57)
[2018-09-17] MEDS ORDERED: Thrombin 5,000 UNITS(BOVINE)* for Ultrasound Guided Pseudoaneursym ONE ×2 (06:57→10:50)
[2018-09-17] MEDS ORDERED: Bacitracin IV* 50,000 UNITS INJ ONE (06:57)
[2018-09-17] MEDS ORDERED: Lidocaine 2% PF * 5 ML VIAL ONE (07:26)
[2018-09-17] MEDS ORDERED: Propofol* 10 MG/ML 20 ML BTL ONE ×2 (07:26→10:00)
[2018-09-17] MEDS ORDERED: Midazolam* 1 MG/ML 2 ML VIAL (2 MG) ONE ×2 (07:28→10:46)
[2018-09-17] MEDS ORDERED: fentaNYL* 50 MCG/ML 2 ML VIAL (100 MCG VIAL) ONE (07:28)
[2018-09-17] MEDS ORDERED: Phenylephrine INJ* 10 MG/ML 1 ML VIAL (10 MG) ONE (07:29)
[2018-09-17] MEDS ORDERED: Propofol* 500 MG/50 ML BTL ONE ×2 (07:31→08:55)
[2018-09-17] MEDS ORDERED: KETAMINE HCL* 50 MG/ML 10 ML VIAL ONE (07:32)
[2018-09-17] MEDS ORDERED: Remifentanil* 2 MG VIAL ONE ×3 (07:33→09:56)
[2018-09-17] MEDS ORDERED: VASOPRESSIN 20 UNITS/ML 1 ML VIAL ONE (07:42)
[2018-09-17] MEDS ORDERED: Succinylcholine* 20 MG/ML 10 ML VIAL ONE (07:51)
[2018-09-17] MEDS ORDERED: Glycopyrrolate IV* 0.2 MG/ML 1 ML VIAL ONE (09:57)
[2018-09-17] MEDS ORDERED: Propofol* 200 ML ONE (10:35)
[2018-09-17] MEDS ORDERED: Naloxone* 0.4 MG/ML 1 ML VIAL IV PRN (11:15)
[2018-09-17] MEDS ORDERED: DiMENhydriNATE IV* 50 MG/ML VIAL IV PUSH PRN (11:15)
[2018-09-17] MEDS ORDERED: HYDROmorphone INJ1* 1 MG/ML SYRINGE ONE ×3 (12:50→15:34)
[2018-09-17] MEDS ORDERED: Ondansetron INJ* 2 MG/ML VIAL ONE (12:53)
[2018-09-17] MEDS ORDERED: Ketorolac INJ* 30 MG/ML 1 ML VIAL ONE (12:53)
[2018-09-17] MEDS ORDERED: Metoclopramide IV* 5 MG/ML 2 ML VIAL ONE (12:53)
[2018-09-17] MEDS: HYDROmorphone INJ1* 1 MG/ML SYRINGE IV PRN ×8 (13:54→16:06)
[2018-09-17] MEDS ORDERED: DiMENhydriNATE IV* 50 MG/ML VIAL ONE (14:15)
[2018-09-17] MEDS ORDERED: Acetaminophen TAB* 325 MG PO PRN (15:04)
[2018-09-17] MEDS ORDERED: Magnesium Hydroxide LIQ* 30 ML UDC PO PRN (15:04)
[2018-09-17] MEDS ORDERED: Ondansetron INJ* 2 MG/ML VIAL IV PRN (15:04)
[2018-09-17] MEDS: HYDROcodone/ACETAMIN 5-325 MG* 1 TAB PO PRN ×2 (16:42→20:00)
[2018-09-17] MEDS: Lactated Ringers 1000 ML Bag* 1,000 ML IV SCH (16:47)
[2018-09-17] MEDS: Carbidopa/Levodop 25/100 MG TAB(*) PO SCH (20:00)
[2018-09-17] MEDS: PARoxetine HCL TAB* 20 MG PO SCH (20:00)
[2018-09-17] MEDS: Lisinopril TAB* 5 MG PO SCH (20:00)
[2018-09-17] MEDS: Atorvastatin* 20 MG TAB PO SCH (20:00)
[2018-09-17] MEDS ORDERED: Lisinopril TAB* 10 MG PO SCH (21:00)
--- NOTE | 2018-09-17 21:22 | CONS ---
CC: Dr. Mikhail Watson; Dr. Alecia Starkey * CONSULTATION REPORT: DATE OF CONSULT: 09/17/18 CONSULTING PROVIDER: Dr. Mikhail Watson. MY ATTENDING WHILE IN THE HOSPITAL: Dr. Kyra Martinez. PRIMARY CARE PROVIDER: Dr. Alecia Starkey. REASON FOR CONSULT: 1. Comanagement of comorbid medical conditions. 2. Status post cervical fusion. HISTORY OF PRESENT ILLNESS: Ms. Barnes is an 82-year-old female with a past medical history significant for mechanical fall with C1 and C2 fracture, which was treated conservatively for several months until she developed increased instability on recent x-rays that the patient was offered surgical intervention , which she accepted. The patient underwent a cervical fusion today with Dr. Mikhail Watson, which had no obvious complications. The patient was examined in the ICU and is drowsy and stable. The patient states she has pain at 7/10 in her head and neck with no numbness or tingling in her hands or feet. No chest pain or shortness of breath. The patient has had no recent illnesses , no change in her meds, no recent sick contacts. The patient denies abdominal pain, diarrhea, dysuria, fevers, chills, nausea, vomiting, either before or after the surgery. The patient denies any recent changes in bowel or bladder control. The patient denies any now. The patient was cleared for surgery by her primary care provider. PAST MEDICAL HISTORY: C1 and C2 fractures due to mechanical fall in January 2018, hypertension, hyperlipidemia, GERD, sleep apnea, obesity, pancreatitis, acalculous cholecystitis, Parkinson's disease. PAST SURGICAL HISTORY: Cholecystectomy, hysterectomy, left and right knee arthroplasty. MEDICATIONS: Medications on admission: 1. Lisinopril 10 mg p.o. at bedtime. 2. Fluticasone nasal spray 1 spray both nares daily as needed. 3. Sinemet 25/100 one tab p.o. at bedtime. 4. Pantoprazole 20 mg p.o. at bedtime. 5. Paroxetine 20 mg p.o. at bedtime. 6. Simvastatin 40 mg p.o. at bedtime. 7. Barb 180 mg p.o. daily as needed. 8. Patanol 1 drop ophthalmic b.i.d. as needed. ALLERGIES: No known drug allergies. FAMILY HISTORY: The patient's mother has a history of heart disease. The patient's father has a history of pancreatic cancer from which he . The patient has no other known medical history. SOCIAL HISTORY: The patient denies every using tobacco or recreational drug use and drinks rare alcohol. The patient's daughters, Lizeth Mayo and Eugenia Mancini, are her surrogate decision makers. REVIEW OF SYSTEMS: A 14-point review of systems is negative except as above in the HPI. PHYSICAL EXAM: General: The patient is an 82-year-old female who appears stated age and sitting in the bed with a [place] J-collar on, in no acute distress. Vital Signs: At the time of evaluation, temperature 98.4, pulse rate 88, respiratory rate 14, oxygen saturation 99% on 2 L, blood pressure 151/ 73. HEENT: Head normocephalic, atraumatic. Sclerae anicteric. No conjunctival injection. Nasal mucosa moist. Oral mucosa moist. No pharyngeal erythema, discharge, or exudate. Neck: Supple. CHELLE drain exiting from the posterior aspect of the neck. Exam limited by cervical collar. Incision not visualized. Cardiac: Regular rate and rhythm. No clicks, murmurs, gallops, or rubs. Pulses are 2+ in the bilateral dorsalis pedis, posterior tibialis, and radial areas. Respiratory: Clear to auscultation bilaterally. No wheezes , rales, or rhonchi. Good air exchange bilaterally. Abdomen: Soft, nontender , nondistended. Bowel sounds present and normoactive in all 4 quadrants. No hepatosplenomegaly. No abdominal bruits auscultated. No hepatojugular reflux. Genitourinary: No suprapubic or CVA tenderness. Skin: Clean, dry, and intact. No rash. Non-visualized surgical incisions. Neuro: Cranial nerves II through XII intact. No focal deficits. Alert and oriented x3. Psychiatric: Pleasant and cooperative. DIAGNOSTIC STUDIES/LAB DATA: Preoperatively, white blood cell count 6.3, hemoglobin 13.5, platelet count 166, INR 1.0, PTT 32.6. Sodium 139, potassium 4.5, chloride 104, carbon dioxide 30, anion gap 5, BUN 20, creatinine 0.88, glucose 90, calcium 9.1. ASSESSMENT AND PLAN/IMPRESSION: Ms. Barnes is an 82-year-old female with past medical history significant for hypertension, hyperlipidemia, Parkinson's disease, sleep apnea, and pancreatitis, who is status post cervical fusion for C1, C2 fractures and she is doing well postoperatively. 1. Postoperative state. The patient is currently stable. The patient's pain will be controlled with [place] and Tylenol. The patient will have therapy escalated if needed. The patient has no signs of neurologic deficit. The patient will be monitored for bowel movement and spontaneous urination. The patient has no other issues at this time. The patient's fluids should be discontinued once she is able to tolerate p.o. as she is somewhat edematous at this time and her blood pressure is on the high side. 2. Hypertension. The patient's lisinopril dose has been decreased given her postoperative period. This can be re-increased and additional medication should be added as needed for blood pressure control. 3. Hyperlipidemia. Continue simvastatin. 4. Gastroesophageal reflux disease. Continue Protonix. 5. Parkinson's disease. Continue Sinemet to help maximize the patient's functional capacity in the postoperative period. 6. DVT prophylaxis. The patient will have SCDs and should have heparin when cleared by Neurosurgery. 7. Decision per Neurosurgery. 8. Code status. The patient will be a full code. 9. FEN. The patient will have fluids and a regular diet. TIME SPENT: Approximately 60 minutes were spent in this consultation, 30 of which was spent [id number] with the patient obtaining history and physical and discussing treatment plan. This plan was discussed with my attending, Dr. Kyra Martinez, and she is in agreement. KRYSTAL BARNES [id number]/[facility] #: [id number] MTDD
[2018-09-17] MEDS: Pantoprazole TAB (NF) 20 MG TAB PO SCH (23:36)
[2018-09-18] MEDS: HYDROcodone/ACETAMIN 5-325 MG* 1 TAB PO PRN ×3 (00:51→09:10)
[2018-09-18] MEDS: Lactated Ringers 1000 ML Bag* 1,000 ML IV SCH (05:19)
[2018-09-18] MEDS ORDERED: HYDROcodone/ACETAMIN 5-325 MG* 1 TAB PO ONE (10:00)
--- NOTE | 2018-09-18 10:48 | OP ---
OPERATIVE REPORT: DATE OF OPERATION: 09/17/18 DATE OF : 35 SURGEON: Mikhail Watson MD PEN OR PENCIL ASSEMBLY MACHINE OPERATOR: KRYSTAL Guidry The case was done with the assistance of surgical PA because of the complexity of the case. ANESTHESIA: General. PRE-OP DIAGNOSIS: C1-C2 fracture, instability and nonunion. POST-OP DIAGNOSIS: C1-C2 fracture, instability and nonunion. OPERATIVE PROCEDURE: The patient underwent posterior C1, C2 arthrodesis with C1 lateral mass screws and left C2 pedicle screw and right C2 pars screw with DBX and intraoperative navigation and monitoring. ESTIMATED BLOOD LOSS: 100 cc. COMPLICATIONS: None. SUMMARY: The patient is a very pleasant 82-year-old female who reportedly had sustained fall several months ago. She was diagnosed with C1 [place] fracture and C2 type-2 odontoid fracture. The patient initially opted for conservative treatment and was treated with a collar. Despite prolonged immobilization in a cervical collar, patient had evidence of instability in the dynamic X rays of her cervical spine as well as progression of the fractures on the CT scan of the cervical spine. After failing conservative modalities and after explaining different treatment options, patient was offered the option of posterior cervical arthrodesis at C1-C2 with the understanding that she may have to undergo a longer arthrodesis between the occiput and suboccipital spine either in this setting or in the future. The patient elected to proceed with C1 -C2 arthrodesis understanding that in case of a failure she may need a revision and extension of the arthrodesis. After expectations, limitations, and possible complications of the procedure had been explained in details to the patient and her daughter with complications including but not limited to bleeding, infection, risk of injury to adjacent structures, coma, paralysis, , need for additional procedure, anesthesia risks, stroke, blindness, cancer, instability, hardware failure, adjacent level disease, pseudoarthrosis, need for additional procedures, occipital neuralgia, injury to the vertebral artery, anesthesia risks. The patient was agreeable to proceed with surgery and informed consent was obtained. She understood that her condition may not improve and in fact may get worse after the surgery and that she may need to have additional procedures in the future and that operative plan may be modified according to intraoperative findings and conditions. DESCRIPTION OF PROCEDURE: The patient was brought to the operating room, was placed under general anesthesia by the anesthesia team. She was carefully positioned prone on the Nikos table and intraoperative monitoring was obtained at baseline with SSEP and motor evoked potentials before and after positioning. The hair was removed with surgical clippers and the skin was prepped and draped in the standard fashion. After appropriate surgical pause and patient identification, a midline incision was marked on the skin and was infiltrated with local anesthetic. The skin incision was performed with an 11 blade and the incision was carried down with dissection with Bovie cautery. Dorsal fascia was then divided and the paraspinal musculature was elevated in a subperiosteal fashion with use of Bovie cautery and periosteal elevators. Self- retaining retractors were introduced into the field and the lamina of C1 and C2 were meticulously exposed paying attention to hemostasis. The navigation star was secured to the spinous process of C2 and intraoperative imaging was obtained with O-arm, which was transferred to the navigation platform. With the assistance of stereotactic navigation, the entry point as well as the trajectory of C1 and C2 screws were carefully planned. Under stereotactic navigation high speed drill was used to penetrate the cortex and hand-held drill was used to create the screw trajectories. The [employer] System was used for instrumentation. At C1 level 3.5 x 24 mm lateral mass screws were placed bilaterally. At the C2 level, at the left, a 3.5 x 24 mm pedicle screw was placed as the vertebral artery anatomy was favorable for this trajectory whereas the right C2, the vertrebral artery course was quite medial, as expected from the preoperative imaging and a pedicle trajectory was not favorable and we elected to place a 12 mm pars screw. After all bony surfaces were carefully explored and drilled, the DBX putty was used to perform the arthrodesis part while intraoperative CT scan with the O-arm revealed excellent fixation of all hardware. Two titanium rods were then placed and secured in place with screw head caps. The wound was then copiously irrigated and after meticulous hemostasis and meticulous inspection, the self-retaining retractors were gently removed and the wound was closed by layers over a Saad drain, which was tunneled through a separate wound incision. 0 Vicryl sutures were used to approximate the dorsal fascia, the subcutaneous tissues were approximated with use of inverted interrupted Vicryl sutures . The skin was approximated with 0 prolene suture. At the end of the procedure, all counts were reported to be correct. The patient remained hemodynamically stable and intraoperative electrophysiological monitoring was stable throughout the case. The patient was then turned supine, was extubated and was transferred to Recovery in excellent condition with a new [place] J-collar, moving all extremities well. [id number]/[facility] #: [id number] MTDJade
--- NOTE | 2018-09-18 12:35 | PN ---
Subjective Date of Service: 09/18/18 Interval History: Patient seen and examined at bedside. Denies fever, chills, shortness of breath , chest discomfort, N/V/D. Patient states that her pain is now controlled, she states that she was having difficulty with pain control. Tele: Sinus rhythm, rate 80-90's Family History: Unchanged from Admission Social History: Unchanged from Admission Past Medical History: Unchanged from Admission Objective Active Medications: Acetaminophen (Tylenol Tab*) 650 mg PO Q4H PRN Reason: PAIN Atorvastatin Calcium (Lipitor*) 20 mg PO BEDTIME MARYAM Carbidopa/Levodopa (Sinemet 25/100 Tab(*)) 1 tab PO BEDTIME MARYAM Lactated Ringer's (Lactated Ringers 1000 Ml Bag*) 1,000 mls @ 75 mls/hr IV .per rate MARYAM Lisinopril (Prinivil Tab*) 5 mg PO BEDTIME MARYAM Magnesium Hydroxide (Milk Of Magnesia Liq*) 30 ml PO DAILY PRN Reason: CONSTIPATION Ondansetron HCl (Zofran Inj*) 4 mg IV Q6H PRN Reason: NAUSEA/VOMITING Oxycodone/Acetaminophen (Percocet 5/325 Tab*) 2 tab PO Q4H PRN Reason: PAIN Pantoprazole Sodium (Protonix Tab (Nf)) 20 mg PO BEDTIME MARYAM Paroxetine HCl (Paxil Tab*) 20 mg PO BEDTIME MARYAM Vital Signs - 8 hr 09/18/18 09/18/18 09/18/18 04:31 04:45 04:46 Temperature Pulse Rate 82 80 82 Respiratory 17 16 18 Rate Blood Pressure 124/91 (mmHg) O2 Sat by Pulse 100 100 99 Oximetry 09/18/18 09/18/18 09/18/18 05:00 05:01 05:15 Temperature Pulse Rate 81 84 87 Respiratory 21 17 15 Rate Blood Pressure 139/78 (mmHg) O2 Sat by Pulse 99 99 97 Oximetry 09/18/18 09/18/18 09/18/18 05:16 05:30 05:31 Temperature Pulse Rate 85 83 84 Respiratory 18 17 14 Rate Blood Pressure 137/64 138/65 (mmHg) O2 Sat by Pulse 100 100 99 Oximetry 09/18/18 09/18/18 09/18/18 05:45 05:46 05:55 Temperature Pulse Rate 84 83 Respiratory 15 18 21 Rate Blood Pressure 137/63 (mmHg) O2 Sat by Pulse 99 99 Oximetry 09/18/18 09/18/18 09/18/18 06:02 06:07 06:15 Temperature Pulse Rate 90 89 83 Respiratory 19 16 17 Rate Blood Pressure 153/66 132/63 (mmHg) O2 Sat by Pulse 94 100 98 Oximetry 09/18/18 09/18/18 09/18/18 06:16 06:30 06:31 Temperature Pulse Rate 84 81 82 Respiratory 17 18 16 Rate Blood Pressure 132/64 (mmHg) O2 Sat by Pulse 97 99 98 Oximetry 09/18/18 09/18/18 09/18/18 06:45 06:46 07:00 Temperature Pulse Rate 85 83 83 Respiratory 19 15 16 Rate Blood Pressure 134/62 134/66 (mmHg) O2 Sat by Pulse 99 99 99 Oximetry 09/18/18 09/18/18 09/18/18 07:01 07:15 07:16 Temperature Pulse Rate 84 83 84 Respiratory 16 16 17 Rate Blood Pressure 140/64 (mmHg) O2 Sat by Pulse 99 99 100 Oximetry 09/18/18 09/18/18 09/18/18 07:30 07:31 07:41 Temperature 98.6 F Pulse Rate 84 83 Respiratory 16 16 Rate Blood Pressure 129/70 (mmHg) O2 Sat by Pulse 99 98 Oximetry 09/18/18 09/18/18 09/18/18 07:45 07:46 08:00 Temperature Pulse Rate 81 83 91 Respiratory 16 18 20 Rate Blood Pressure 137/65 136/71 (mmHg) O2 Sat by Pulse 99 99 98 Oximetry 09/18/18 09/18/18 09/18/18 08:15 08:16 08:30 Temperature Pulse Rate 87 87 90 Respiratory 17 15 18 Rate Blood Pressure 139/69 142/78 (mmHg) O2 Sat by Pulse 94 93 98 Oximetry 09/18/18 09/18/18 09/18/18 08:31 08:45 08:46 Temperature Pulse Rate 89 88 90 Respiratory 20 23 14 Rate Blood Pressure 147/74 (mmHg) O2 Sat by Pulse 98 97 97 Oximetry 09/18/18 09/18/18 09/18/18 09:00 09:15 09:16 Temperature Pulse Rate 91 90 Respiratory 16 16 20 Rate Blood Pressure 134/79 157/76 (mmHg) O2 Sat by Pulse 95 92 Oximetry 01/01/0109/18/18 09/18/18 09:30 09:31 09:45 Temperature Pulse Rate 92 90 97 Respiratory 20 23 23 Rate Blood Pressure 153/75 148/74 (mmHg) O2 Sat by Pulse 91 88 95 Oximetry 09/18/18 09/18/18 09/18/18 09:46 10:00 10:01 Temperature Pulse Rate 97 90 91 Respiratory 19 19 19 Rate Blood Pressure 144/73 (mmHg) O2 Sat by Pulse 89 96 97 Oximetry 09/18/18 09/18/18 09/18/18 10:15 10:16 10:30 Temperature Pulse Rate 88 89 92 Respiratory 12 15 14 Rate Blood Pressure 145/72 141/71 (mmHg) O2 Sat by Pulse 96 93 94 Oximetry 09/18/18 09/18/18 09/18/18 10:31 10:45 10:46 Temperature Pulse Rate 92 95 93 Respiratory 18 14 15 Rate Blood Pressure 152/74 (mmHg) O2 Sat by Pulse 94 94 95 Oximetry 09/18/18 11:00 Temperature Pulse Rate 97 Respiratory 19 Rate Blood Pressure (mmHg) O2 Sat by Pulse 95 Oximetry Oxygen Devices in Use Now: Nasal Cannula Appearance: NAD, laying in bed Ears/Nose/Mouth/Throat: Mucous Membranes Moist Respiratory: Symmetrical Chest Expansion and Respiratory Effort, Clear to Auscultation Cardiovascular: NL Sounds; No Murmurs; No JVD, RRR Abdominal: NL Sounds; No Tenderness; No Distention Extremities: No Edema Skin: No Rash or Ulcers Neurological: Alert and Oriented x 3, NL Muscle Strength and Tone Lines/Tubes/Other Access: Clean, Dry and Intact Peripheral IV - site benign Nutrition: Taking PO's Microbiology and Other Data: Microbiology 09/17/18 17:23 Nasal Screen MRSA (PCR) - Final Nasal Mrsa Not Detected Assess/Plan/Problems-Billing Assessment: Ms. Barnes is an 82 yo female with PMH significant for HTN, HLD, Parkinson's disease, sleep apnea, pancreatitis, and C1 and C 2 fractures, who is status post cervical fusion with Dr. Watson. - Patient Problems (1) Cervical spine fracture Code(s): S12.9XXA - FRACTURE OF NECK, UNSPECIFIED, INITIAL ENCOUNTER SNOMED Code(s): 144891325 Comment: - C1 and C2 fractures in 01/2018 - Now s/p cervical fusion, POD #2, management per Neurosurgery - Continue [place] J collar - Continue Pain management (2) HTN (hypertension) Code(s): I10 - ESSENTIAL (PRIMARY) HYPERTENSION SNOMED Code(s): 64388140 Comment: - SBP 130-150's. This is an acceptable range for her age - Continue lisinopril (decreased from 10 at home) - Can consider increasing lisinopril back to home dose if her BPs continue to run in the 150's (3) GERD (gastroesophageal reflux disease) Code(s): K21.9 - GASTRO-ESOPHAGEAL REFLUX DISEASE WITHOUT ESOPHAGITIS SNOMED Code(s): 338864536 Comment: - Continue Omeprazole (4) Hyperlipidemia Code(s): E78.5 - HYPERLIPIDEMIA, UNSPECIFIED SNOMED Code(s): 96022054 Comment: - Continue statin (5) Morbid obesity Code(s): E66.01 - MORBID (SEVERE) OBESITY DUE TO EXCESS CALORIES SNOMED Code(s ): 407803745 Comment: - BMI ~ 34 (6) Parkinson disease Code(s): G20 - PARKINSON'S DISEASE SNOMED Code(s): 83634551 Comment: - Continue Sinemet (7) Sleep apnea Code(s): G47.30 - SLEEP APNEA, UNSPECIFIED SNOMED Code(s): 82230656 Comment: - Continue home CPAP (8) Depression Code(s): F32.9 - MAJOR DEPRESSIVE DISORDER, SINGLE EPISODE, UNSPECIFIED SNOMED Code(s): 46589742 Comment: - Mood stable - Continue paroxetine (9) DVT prophylaxis Code(s): WSZ7446 - SNOMED Code(s): 855380890 Comment: - SCDs per neurosurgery (10) Full code status Code(s): Z78.9 - OTHER SPECIFIED HEALTH STATUS SNOMED Code(s): 969810343 Status and Disposition: Inpatient. Disposition per Neurosurgery. Thank you for this consult, we will continue to follow along.
[2018-09-18] MEDS: oxyCODONE/Acetamin 5/325 MG* TAB PO PRN ×3 (13:10→21:18)
--- NOTE | 2018-09-18 16:18 | PN ---
Progress Note - Progress Note Date of Service: 09/18/18 SOAP: Subjective: []Patient was seen in ICU earlier today. No events ON. Tolerated procedure well yesterday. Tolerates po well. Voids. Ambulated to bedside commode. MJ collar. Objective: [] VSS, Afebrile Wound s,c,d AAOx3 DORITA, CN II-XII grossly intact Motor 5/5 all extremities Sensory grossly intact to light touch. Assessment: []82 yof POD#1 C1-2 arthrodesis Plan: []Monitor VS, Neurochecks MJ collar. Encourage ambulation. PT DC planning Appreciate IM care. Ashlee Watson MD
[2018-09-18] MEDS: Lisinopril TAB* 5 MG PO SCH (21:18)
[2018-09-18] MEDS: PARoxetine HCL TAB* 20 MG PO SCH (21:18)
[2018-09-18] MEDS: Atorvastatin* 20 MG TAB PO SCH (21:18)
[2018-09-18] MEDS: Carbidopa/Levodop 25/100 MG TAB(*) PO SCH (21:19)
[2018-09-18] MEDS: Pantoprazole TAB (NF) 20 MG TAB PO SCH (21:25)
[2018-09-19] MEDS: oxyCODONE/Acetamin 5/325 MG* TAB PO PRN ×6 (01:23→22:23)
--- NOTE | 2018-09-19 13:37 | PN ---
Progress Note - Progress Note Date of Service: 09/19/18 SOAP: Subjective: []No events ON. Tolerates po well. Voids. Ambulates. MJ collar. Feels much better today. Preop neck pain resolved. Now moderate incisional pain. Objective: [] VSS, Afebrile Wound s,c,d AAOx3 DORITA, CN II-XII grossly intact Motor 5/5 all extremities Sensory grossly intact to light touch. Assessment: []82 yof POD#2 C1-2 arthrodesis Plan: []Monitor VS, Neurochecks MJ collar. XR reveals good placement of hardware, satisfactory alignment of cervical spine. Discussed with patient regarding imaging findings and patients condition. Patient understands again that may need additional procedures in the future, would not like to consider any further interventions at this time. Encourage ambulation. PT DC planning. distribution manager. Appreciate IM care. Ashlee Watson MD
--- NOTE | 2018-09-19 13:39 | PN ---
Subjective Date of Service: 09/19/18 Interval History: Doing well, reports pain is being controlled. passing gas, no BM since admission. No chest pain, no shortness of breath Family History: Unchanged from Admission Social History: Unchanged from Admission Past Medical History: Unchanged from Admission Objective Active Medications: Acetaminophen (Tylenol Tab*) 650 mg PO Q4H PRN PRN Reason: PAIN Atorvastatin Calcium (Lipitor*) 20 mg PO BEDTIME [facility] Last Admin: 09/18/18 21:18 Dose: 20 mg Carbidopa/Levodopa (Sinemet 25/100 Tab(*)) 1 tab PO BEDTIME [facility] Last Admin: 09/18/18 21:19 Dose: 1 tab Lisinopril (Prinivil Tab*) 5 mg PO BEDTIME [facility] Last Admin: 09/18/18 21:18 Dose: 5 mg Magnesium Hydroxide (Milk Of Magnesia Liq*) 30 ml PO DAILY PRN PRN Reason: CONSTIPATION Ondansetron HCl (Zofran Inj*) 4 mg IV Q6H PRN PRN Reason: NAUSEA/VOMITING Oxycodone/Acetaminophen (Percocet 5/325 Tab*) 2 tab PO Q4H PRN PRN Reason: PAIN Last Admin: 09/19/18 09:54 Dose: 2 tab Pantoprazole Sodium (Protonix Tab (Nf)) 20 mg PO BEDTIME [facility] Last Admin: 09/18/18 21:25 Dose: Not Given Paroxetine HCl (Paxil Tab*) 20 mg PO BEDTIME [facility] Last Admin: 09/18/18 21:18 Dose: 20 mg Vital Signs - 8 hr 09/19/18 09/19/18 09/19/18 05:38 07:59 09:54 Temperature 98.6 F Pulse Rate 80 Respiratory 16 18 16 Rate Blood Pressure 119/57 (mmHg) O2 Sat by Pulse 93 Oximetry 09/19/18 11:42 Temperature 98.5 F Pulse Rate 83 Respiratory 18 Rate Blood Pressure 114/61 (mmHg) O2 Sat by Pulse 94 Oximetry Oxygen Devices in Use Now: None Appearance: Elderly female lying in bed, not in distress. c-collar in place Respiratory: Clear to Auscultation Cardiovascular: NL Sounds; No Murmurs; No JVD, RRR Abdominal: NL Sounds; No Tenderness; No Distention Extremities: No Edema Neurological: Alert and Oriented x 3 Microbiology and Other Data: Microbiology 09/17/18 17:23 Nasal Screen MRSA (PCR) - Final Nasal Mrsa Not Detected Assess/Plan/Problems-Billing Assessment: Ms. Barnes is an 82 yo female with PMH significant for HTN, HLD, Parkinson's disease, sleep apnea, pancreatitis, and C1 and C 2 fractures, who is status post cervical fusion with Dr. Watson. - Patient Problems (1) Cervical spine fracture Current Visit: Yes Status: Acute Priority: High Code(s): S12.9XXA - FRACTURE OF NECK, UNSPECIFIED, INITIAL ENCOUNTER SNOMED Code(s): 062944250 Comment: - C1 and C2 fractures in 01/2018 - Now s/p cervical fusion, POD #3, management per Neurosurgery - Continue [place] J collar - Continue Pain management (2) HTN (hypertension) Current Visit: Yes Status: Chronic Code(s): I10 - ESSENTIAL (PRIMARY) HYPERTENSION SNOMED Code(s): 98368237 Comment: - SBP acceptable range for her age - Continue lisinopril at 5mg (decreased from 10 at home) (3) Constipation due to pain medication Current Visit: Yes Status: Acute Code(s): K59.03 - DRUG INDUCED CONSTIPATION SNOMED Code(s): 13987059 Comment: Will add PRN senna/colace Likely due to pain medications, she is passing gas. (4) DVT prophylaxis Current Visit: Yes Status: Acute Code(s): YBS1671 - SNOMED Code(s): 048309916 Comment: - SCDs per neurosurgery (5) Full code status Current Visit: Yes Status: Acute Code(s): Z78.9 - OTHER SPECIFIED HEALTH STATUS SNOMED Code(s): 540573839 (6) Parkinson disease Current Visit: Yes Status: Acute Code(s): G20 - PARKINSON'S DISEASE SNOMED Code(s): 34457859 Comment: - Continue Sinemet Status and Disposition: Inpatient. Disposition per Neurosurgery. Thank you for this consult, we will continue to follow along.
[2018-09-19] MEDS ORDERED: Senna TAB PO PRN (13:43)
[2018-09-19] MEDS: Docusate CAP* 100 MG PO PRN (14:14)
[2018-09-19] MEDS: Atorvastatin* 20 MG TAB PO SCH (20:12)
[2018-09-19] MEDS: Lisinopril TAB* 5 MG PO SCH (20:12)
[2018-09-19] MEDS: Carbidopa/Levodop 25/100 MG TAB(*) PO SCH (20:12)
[2018-09-19] MEDS: PARoxetine HCL TAB* 20 MG PO SCH (20:12)
[2018-09-19] MEDS: Pantoprazole TAB (NF) 20 MG TAB PO SCH (20:14)
[2018-09-20] MEDS: oxyCODONE/Acetamin 5/325 MG* TAB PO PRN ×5 (03:05→21:14)
--- NOTE | 2018-09-20 10:29 | PN ---
Subjective Date of Service: 09/20/18 Interval History: Has drainage at the incision site w/ erythema- nurse notified the neursurgeon ( primary team) Family History: Unchanged from Admission Social History: Unchanged from Admission Past Medical History: Unchanged from Admission Objective Active Medications: Acetaminophen (Tylenol Tab*) 650 mg PO Q4H PRN PRN Reason: PAIN Atorvastatin Calcium (Lipitor*) 20 mg PO BEDTIME [facility] Last Admin: 09/19/18 20:12 Dose: 20 mg Carbidopa/Levodopa (Sinemet 25/100 Tab(*)) 1 tab PO BEDTIME [facility] Last Admin: 09/19/18 20:12 Dose: 1 tab Docusate Sodium (Colace Cap*) 100 mg PO BID PRN PRN Reason: CONSTIPATION Last Admin: 09/19/18 14:14 Dose: 100 mg Lisinopril (Prinivil Tab*) 5 mg PO BEDTIME [facility] Last Admin: 09/19/18 20:12 Dose: 5 mg Magnesium Hydroxide (Milk Of Magnesia Liq*) 30 ml PO DAILY PRN PRN Reason: CONSTIPATION Ondansetron HCl (Zofran Inj*) 4 mg IV Q6H PRN PRN Reason: NAUSEA/VOMITING Oxycodone/Acetaminophen (Percocet 5/325 Tab*) 2 tab PO Q4H PRN PRN Reason: PAIN Last Admin: 09/20/18 07:32 Dose: 2 tab Pantoprazole Sodium (Protonix Tab (Nf)) 20 mg PO BEDTIME [facility] Last Admin: 09/19/18 20:14 Dose: Not Given Paroxetine HCl (Paxil Tab*) 20 mg PO BEDTIME [facility] Last Admin: 09/19/18 20:12 Dose: 20 mg Senna (Senokot Tab*) 1 tab PO BEDTIME PRN PRN Reason: CONSTIPATION Vital Signs - 8 hr 09/20/18 09/20/18 09/20/18 03:05 07:32 07:42 Temperature 98.2 F Pulse Rate 78 Respiratory 16 18 16 Rate Blood Pressure 136/65 (mmHg) O2 Sat by Pulse 97 Oximetry 09/20/18 09/20/18 08:00 09:21 Temperature Pulse Rate Respiratory 18 16 Rate Blood Pressure (mmHg) O2 Sat by Pulse Oximetry Oxygen Devices in Use Now: None Neck: - - collar in place Respiratory: Clear to Auscultation Neurological: Alert and Oriented x 3 Microbiology and Other Data: Microbiology 09/17/18 17:23 Nasal Screen MRSA (PCR) - Final Nasal Mrsa Not Detected Assess/Plan/Problems-Billing Assessment: Ms. Barnes is an 82 yo female with PMH significant for HTN, HLD, Parkinson's disease, sleep apnea, pancreatitis, and C1 and C 2 fractures, who is status post cervical fusion with Dr. Watson. - Patient Problems (1) Cervical spine fracture Current Visit: Yes Status: Acute Priority: High Code(s): S12.9XXA - FRACTURE OF NECK, UNSPECIFIED, INITIAL ENCOUNTER SNOMED Code(s): 155522207 Comment: - C1 and C2 fractures in 01/2018 - Now s/p cervical fusion, POD #4, management per Neurosurgery - Continue [place] J collar - Continue Pain management (2) HTN (hypertension) Current Visit: Yes Status: Chronic Code(s): I10 - ESSENTIAL (PRIMARY) HYPERTENSION SNOMED Code(s): 39830767 Comment: - SBP acceptable range for her age - Continue lisinopril at 5mg (decreased from 10 at home) (3) Constipation due to pain medication Current Visit: Yes Status: Acute Code(s): K59.03 - DRUG INDUCED CONSTIPATION SNOMED Code(s): 45926310 Comment: PRN senna/colace Likely due to pain medications, she is passing gas. (4) DVT prophylaxis Current Visit: Yes Status: Acute Code(s): UAS4408 - SNOMED Code(s): 388072811 Comment: - SCDs per neurosurgery (5) Full code status Current Visit: Yes Status: Acute Code(s): Z78.9 - OTHER SPECIFIED HEALTH STATUS SNOMED Code(s): 364094485 (6) Parkinson disease Current Visit: Yes Status: Acute Code(s): G20 - PARKINSON'S DISEASE SNOMED Code(s): 73986553 Comment: - Continue Sinemet Status and Disposition: Inpatient. Disposition per Neurosurgery. Thank you for this consult, we will continue to follow along.
--- NOTE | 2018-09-20 14:03 | PN ---
Progress Note - Progress Note Date of Service: 09/20/18 SOAP: Subjective: []No events ON. Tolerates po well. Voids. Ambulates. MJ collar.Continues to improve today. Preop neck pain resolved. Was called earlier by nurse because of wound erythema. Objective: []VSS, Afebrile Wound s,c,d No signs of infection. AAOx3 DORITA, CN II-XII grossly intact Motor 5/5 all extremities Sensory grossly intact to light touch. Assessment: []82 yof POD#3 C1-2 arthrodesis Plan: []Monitor VS, Neurochecks MJ collar. Encourage ambulation with assistance. PT DC planning. Discussed with case fitter. Appreciate IM care. Ashlee Watson MD
[2018-09-20] MEDS ORDERED: CMC:Pantoprazole TAB (NF) 40 MG TAB PO SCH (21:00)
[2018-09-20] MEDS: Atorvastatin* 20 MG TAB PO SCH (21:13)
[2018-09-20] MEDS: Lisinopril TAB* 5 MG PO SCH (21:13)
[2018-09-20] MEDS: PARoxetine HCL TAB* 20 MG PO SCH (21:13)
[2018-09-20] MEDS: Carbidopa/Levodop 25/100 MG TAB(*) PO SCH (21:14)
[2018-09-21] MEDS: oxyCODONE/Acetamin 5/325 MG* TAB PO PRN ×4 (04:33→16:29)
[2018-09-21] MEDS: Docusate CAP* 100 MG PO PRN (09:33)
--- NOTE | 2018-09-21 11:31 | PN ---
Subjective Date of Service: 09/21/18 Interval History: Doing well. Had a large BM yesterday. Family History: Unchanged from Admission Social History: Unchanged from Admission Past Medical History: Unchanged from Admission Objective Active Medications: Acetaminophen (Tylenol Tab*) 650 mg PO Q4H PRN PRN Reason: PAIN Atorvastatin Calcium (Lipitor*) 20 mg PO BEDTIME [facility] Last Admin: 09/20/18 21:13 Dose: 20 mg Carbidopa/Levodopa (Sinemet 25/100 Tab(*)) 1 tab PO BEDTIME [facility] Last Admin: 09/20/18 21:14 Dose: 1 tab Docusate Sodium (Colace Cap*) 100 mg PO BID PRN PRN Reason: CONSTIPATION Last Admin: 09/19/18 14:14 Dose: 100 mg Lisinopril (Prinivil Tab*) 5 mg PO BEDTIME [facility] Last Admin: 09/20/18 21:13 Dose: 5 mg Magnesium Hydroxide (Milk Of Magnesia Liq*) 30 ml PO DAILY PRN PRN Reason: CONSTIPATION Last Admin: 09/20/18 16:40 Dose: 30 ml Ondansetron HCl (Zofran Inj*) 4 mg IV Q6H PRN PRN Reason: NAUSEA/VOMITING Oxycodone/Acetaminophen (Percocet 5/325 Tab*) 2 tab PO Q4H PRN PRN Reason: PAIN Last Admin: 09/21/18 09:33 Dose: 2 tab Pantoprazole Sodium (Protonix Tab (Nf)) 40 mg PO BEDTIME [facility] Last Admin: 09/20/18 21:14 Dose: 40 mg Paroxetine HCl (Paxil Tab*) 20 mg PO BEDTIME [facility] Last Admin: 09/20/18 21:13 Dose: 20 mg Senna (Senokot Tab*) 1 tab PO BEDTIME PRN PRN Reason: CONSTIPATION Vital Signs - 8 hr 09/21/18 09/21/18 09/21/18 04:31 04:33 04:57 Temperature 98.3 F Pulse Rate 87 79 Respiratory 20 16 Rate Blood Pressure 175/79 130/64 (mmHg) O2 Sat by Pulse 100 Oximetry 09/21/18 09/21/18 09/21/18 07:32 08:00 09:33 Temperature 98.3 F Pulse Rate 78 Respiratory 16 18 18 Rate Blood Pressure 119/52 (mmHg) O2 Sat by Pulse 98 Oximetry Oxygen Devices in Use Now: None Appearance: cervical collar in place Ears/Nose/Mouth/Throat: Mucous Membranes Moist Respiratory: Clear to Percussion Cardiovascular: RRR, - - systolic murmur Abdominal: NL Sounds; No Tenderness; No Distention Neurological: Alert and Oriented x 3 Microbiology and Other Data: Microbiology 09/17/18 17:23 Nasal Screen MRSA (PCR) - Final Nasal Mrsa Not Detected Assess/Plan/Problems-Billing Assessment: Ms. Barnes is an 82 yo female with PMH significant for HTN, HLD, Parkinson's disease, sleep apnea, pancreatitis, and C1 and C 2 fractures, who is status post cervical fusion with Dr. Watson. - Patient Problems (1) Cervical spine fracture Current Visit: Yes Status: Acute Priority: High Code(s): S12.9XXA - FRACTURE OF NECK, UNSPECIFIED, INITIAL ENCOUNTER SNOMED Code(s): 337859319 Comment: - C1 and C2 fractures in 01/2018 - Now s/p cervical fusion, POD #5, management per Neurosurgery - Continue [place] J collar - Continue Pain management (2) HTN (hypertension) Current Visit: Yes Status: Chronic Code(s): I10 - ESSENTIAL (PRIMARY) HYPERTENSION SNOMED Code(s): 03902169 Comment: - SBP acceptable range for her age, had one elevated reading at 170 over the past 24 hrs. - Continue lisinopril at 5mg (decreased from 10 at home) (3) Constipation due to pain medication Current Visit: Yes Status: Acute Code(s): K59.03 - DRUG INDUCED CONSTIPATION SNOMED Code(s): 61058589 Comment: improved. had BM 09/20. PRN senna/colace Likely due to pain medications, (4) DVT prophylaxis Current Visit: Yes Status: Acute Code(s): PHF9681 - SNOMED Code(s): 999120909 Comment: - SCDs per neurosurgery (5) Full code status Current Visit: Yes Status: Acute Code(s): Z78.9 - OTHER SPECIFIED HEALTH STATUS SNOMED Code(s): 129663619 (6) Parkinson disease Current Visit: Yes Status: Acute Code(s): G20 - PARKINSON'S DISEASE SNOMED Code(s): 77859857 Comment: - Continue Sinemet Status and Disposition: Inpatient. Disposition per Neurosurgery. Thank you for this consult, we will continue to follow along.
[2018-09-21 13:06] VITALS: BP 110/57
--- NOTE | 2018-09-21 18:12 | PN ---
Progress Note - Progress Note Date of Service: 09/21/18 SOAP: Subjective: []Patient was seen earlier today. No events ON. Tolerates po well. Voids. Ambulates. Tolerates MJ collar.Continues to improve. Wants to go home. Objective: [] VSS, Afebrile Wound s,c,d No signs of infection. Minimal drainage on dressing. AAOx3 DORITA, CN II-XII grossly intact Motor 5/5 all extremities Sensory grossly intact to light touch. Assessment: []82 yof POD#4 C1-2 arthrodesis Plan: []Monitor VS, Neurochecks MJ collar. Encourage ambulation with assistance. PT DC planning today. Discussed with senior case manager. Appreciate IM care. Ashlee Watson MD
== END 2018-09-21 16:50 | disposition home health service (06) | DRG 473 ==
LOC: AA 05:57 → ICU 16:26 → SSU 09-18 12:48
PROVIDERS: ADMIT Neurological Surgery; ATTEND Neurological Surgery
PROC: 8E09XBZ Computer Assisted Procedure of Head and Neck Region (ICD-10-PCS; 2018-09-17)
PROC: 0RG10K0 Fusion of Cervical Vertebral Joint with Nonautologous Tissue Substitute, Anterior Approach, Anterior Column, Open Approach (ICD-10-PCS; principal; 2018-09-17 07:30)
DX: S12.090K Other displaced fracture of first cervical vertebra, subsequent encounter for fracture with nonunion (principal); I10 Essential (primary) hypertension; W19.XXXA Unspecified fall, initial encounter; G20 Parkinson's disease; E78.5 Hyperlipidemia, unspecified; R91.1 Solitary pulmonary nodule; G25.0 Essential tremor; H81.10 Benign paroxysmal vertigo, unspecified ear; G25.81 Restless legs syndrome; K21.9 Gastro-esophageal reflux disease without esophagitis; G47.33 Obstructive sleep apnea (adult) (pediatric); M19.90 Unspecified osteoarthritis, unspecified site; F41.9 Anxiety disorder, unspecified; K59.03 Drug induced constipation; T40.605A Adverse effect of unspecified narcotics, initial encounter; Y92.239 Unspecified place in hospital as the place of occurrence of the external cause; E66.01 Morbid (severe) obesity due to excess calories; Z96.653 Presence of artificial knee joint, bilateral; S12.112K Nondisplaced Type II dens fracture, subsequent encounter for fracture with nonunion; Y92.9 Unspecified place or not applicable; Z90.710 Acquired absence of both cervix and uterus; Z68.34 Body mass index [BMI] 34.0-34.9, adult; S12.112D Nondisplaced Type II dens fracture, subsequent encounter for fracture with routine healing; Z90.49 Acquired absence of other specified parts of digestive tract
CPT/HCPCS: 72040; 76000; 87641; A9270-GY; G8978-GP-CJ; G8979-GP-CI; G8987-GO-CJ; G8988-GO-CI; J0330; J0690; J1170; J1240; J1885; J2001; J2250; J2405; J2704; J2765; J3010